=== PATIENT | female | born 1955 | race Caucasian/White ===

== ENCOUNTER 2016-07-22 22:23 | Inpatient (IN) | payer MEDICARE, OTHER ==
[2016-07-22] MEDS ORDERED: ACETAMINOPHEN TAB 325 MG TAB PO STA (22:39)
--- NOTE | 2016-07-22 22:43 | ED ---
General Adult HPI - General Chief complaint: Altered Mental Status Stated complaint: Altered Mental Status Time Seen by Provider: 07/22/16 22:32 Source: patient, RN notes reviewed Mode of arrival: EMS Limitations: altered mental status - History of Present Illness Initial comments: Patient is a pleasant 61-year-old female presenting to the emergency Department with generalized weakness. Patient feels symptoms started a day or 2 ago. Patient is a poor historian. Patient has no known history of fever. Patient is unclear whether or not she is dizzy. No chest pain or dyspnea or cough. No abdominal pain. No urinary complaints. Patient states she just can't walk very well. - Related Data Home Medications Medication Instructions Recorded Confirmed Multivitamins, Thera [Multivitamin] 1 tab PO DAILY 06/03/15 06/07/15 Omeprazole [PriLOSEC] 20 mg PO BID 06/03/15 06/07/15 PARoxetine HCL [Paxil] 40 mg PO DAILY 06/03/15 06/07/15 Pravastatin Sodium [Pravachol] 20 mg PO DAILY 06/03/15 06/07/15 cloZAPine [Clozaril] 100 mg PO DAILY@0800,1500 06/03/15 06/07/15 cloZAPine [Clozaril] 300 mg PO HS 06/03/15 06/07/15 metFORMIN HCL 1,000 mg PO BID 06/03/15 06/07/15 Previous Rx's Medication Instructions Recorded Hydrocodone/Acetaminophen [[place] 1 - 2 each PO Q4HR PRN #30 tab 06/14/15 5-325] Allergies Allergy/AdvReac Type Severity Reaction Status Date / Time propoxyphene napsylate Allergy Unknown Verified 07/22/16 22:41 [From [facility]] Review of Systems ROS Statement: Those systems with pertinent positive or pertinent negative responses have been documented in the HPI. ROS Other: All systems not noted in ROS Statement are negative. Constitutional: Denies: fever Eyes: Denies: eye pain ENT: Denies: ear pain Respiratory: Denies: cough, dyspnea Cardiovascular: Denies: chest pain Endocrine: Reports: fatigue Gastrointestinal: Denies: abdominal pain Genitourinary: Denies: dysuria Musculoskeletal: Denies: back pain Skin: Denies: rash Neurological: Reports: weakness (Generalized). Denies: confusion Past Medical History Past Medical History: Diabetes Mellitus, GERD/Reflux, Hyperlipidemia Additional Past Medical History / Comment(s): RLS, DIARRHEA WITH SOME BLOOD. History of Any Multi-Drug Resistant Organisms: None Reported Past Surgical History: Tubal Ligation Additional Past Surgical History / Comment(s): bronchoscopy Past Anesthesia/Blood Transfusion Reactions: No Reported Reaction Past Psychological History: Anxiety, Depression, Schizophrenia Additional Psychological History / Comment(s): PARANOID SCHIZOPHRENIA Smoking Status: Current every day smoker Past Alcohol Use History: None Reported Additional Past Alcohol Use History / Comment(s): SMOKES 1 PPD OR MORE. STARTED SMOKING AT AGE 27. Past Drug Use History: None Reported - Past Family History Mother Family Medical History: No Reported History General Exam Limitations: altered mental status General appearance: alert, in no apparent distress Head exam: Present: atraumatic Eye exam: Present: normal appearance, PERRL, EOMI ENT exam: Present: normal oropharynx Neck exam: Present: normal inspection Respiratory exam: Present: normal lung sounds bilaterally Cardiovascular Exam: Present: regular rate, normal rhythm GI/Abdominal exam: Present: soft. Absent: tenderness Extremities exam: Present: normal inspection Neurological exam: Present: alert, altered (Patient is oriented 3 however is slow to respond), CN II-XII intact. Absent: motor sensory deficit Psychiatric exam: Present: normal affect, normal mood Skin exam: Absent: rash Course Vital Signs 07/22/16 07/22/16 22:25 22:30 Temperature 100.9 F H Pulse Rate 105 H 114 H Respiratory 16 16 Rate Blood Pressure 110/58 97/51 O2 Sat by Pulse 94 L 96 Oximetry EKG Findings - EKG Comments: EKG Findings:: Sinus tachycardia 114. NE 158. QRS 76. QT 3 or 4. QTC 419. Normal axis. Low QRS voltage. Poor R-wave progression. No acute ST change. Medical Decision Making - Medical Decision Making Patient reexamined and updated. Case discussed with Dr. Galeano, who will admit his patient. Patient meets sepsis criteria. IV antibiotics and fluid bolus given. - Lab Data Result diagrams: 07/22/16 23:00 07/22/16 23:00 Lab Results 07/22/16 07/22/16 07/22/16 Range/Units 23:00 23:00 23:00 WBC 11.6 H (3.8-10.6) k/uL RBC 4.55 (3.80-5.40) m/uL Hgb 12.9 (11.4-16.0) gm/dL Hct 39.5 (34.0-46.0) % MCV 86.9 (80.0-100.0) fL MCH 28.3 (25.0-35.0) pg MCHC 32.6 (31.0-37.0) g/dL RDW 16.0 H (11.5-15.5) % Plt Count 201 (150-450) k/uL Neutrophils % 92 % Lymphocytes % 4 % Monocytes % 3 % Eosinophils % 1 % Basophils % 0 % Neutrophils # 10.6 H (1.3-7.7) k/uL Lymphocytes # 0.4 L (1.0-4.8) k/uL Monocytes # 0.3 (0-1.0) k/uL Eosinophils # 0.1 (0-0.7) k/uL Basophils # 0.0 (0-0.2) k/uL Anisocytosis Slight PT (9.0-12.0) sec INR (<1.1) APTT (22.0-30.0) sec Sodium 137 (137-145) mmol/L Potassium 3.2 L (3.5-5.1) mmol/L Chloride 103 (98-107) mmol/L Carbon Dioxide 24 (22-30) mmol/L Anion Gap 10 mmol/L BUN 17 (7-17) mg/dL Creatinine 0.70 (0.52-1.04) mg/dL Est GFR (MDRD) Af Amer >60 (>60 ml/min/1.73 sqM) Est GFR (MDRD) Non-Af >60 (>60 ml/min/1.73 sqM) Glucose 226 H (74-99) mg/dL Plasma Lactic Acid [place] (0.7-2.0) mmol/L Calcium 8.7 (8.4-10.2) mg/dL Total Bilirubin 0.4 (0.2-1.3) mg/dL AST 15 (14-36) U/L ALT 34 (9-52) U/L Alkaline Phosphatase 138 H (38-126) U/L Total Creatine Kinase 33 (30-135) U/L CK-MB (CK-2) 0.4 (0.0-2.4) ng/mL CK-MB (CK-2) Rel Index 1.2 Troponin I <0.012 (0.000-0.034) ng/mL Total Protein 5.4 L (6.3-8.2) g/dL Albumin 3.3 L (3.5-5.0) g/dL Urine Color Urine Appearance (Clear) Urine pH (5.0-8.0) Ur Specific [place] (1.001-1.035) Urine Protein (Negative) Urine Glucose (UA) (Negative) Urine Ketones (Negative) Urine Blood (Negative) Urine Nitrate (Negative) Urine Bilirubin (Negative) Urine Urobilinogen (<2.0) mg/dL Ur Leukocyte Esterase (Negative) Urine RBC (0-5) /hpf Urine WBC (0-5) /hpf Urine WBC Clumps (None) /hpf Urine Bacteria (None) /hpf Urine Mucus (None) /hpf 07/22/16 07/22/16 07/22/16 Range/Units 23:00 23:00 23:00 WBC (3.8-10.6) k/uL RBC (3.80-5.40) m/uL Hgb (11.4-16.0) gm/dL Hct (34.0-46.0) % MCV (80.0-100.0) fL MCH (25.0-35.0) pg MCHC (31.0-37.0) g/dL RDW (11.5-15.5) % Plt Count (150-450) k/uL Neutrophils % % Lymphocytes % % Monocytes % % Eosinophils % % Basophils % % Neutrophils # (1.3-7.7) k/uL Lymphocytes # (1.0-4.8) k/uL Monocytes # (0-1.0) k/uL Eosinophils # (0-0.7) k/uL Basophils # (0-0.2) k/uL Anisocytosis PT 10.7 (9.0-12.0) sec INR 1.1 (<1.1) APTT 27.6 (22.0-30.0) sec Sodium (137-145) mmol/L Potassium (3.5-5.1) mmol/L Chloride (98-107) mmol/L Carbon Dioxide (22-30) mmol/L Anion Gap mmol/L BUN (7-17) mg/dL Creatinine (0.52-1.04) mg/dL Est GFR (MDRD) Af Amer (>60 ml/min/1.73 sqM) Est GFR (MDRD) Non-Af (>60 ml/min/1.73 sqM) Glucose (74-99) mg/dL Plasma Lactic Acid [place] 1.3 (0.7-2.0) mmol/L Calcium (8.4-10.2) mg/dL Total Bilirubin (0.2-1.3) mg/dL AST (14-36) U/L ALT (9-52) U/L Alkaline Phosphatase (38-126) U/L Total Creatine Kinase (30-135) U/L CK-MB (CK-2) (0.0-2.4) ng/mL CK-MB (CK-2) Rel Index Troponin I (0.000-0.034) ng/mL Total Protein (6.3-8.2) g/dL Albumin (3.5-5.0) g/dL Urine Color Yellow Urine Appearance Cloudy H (Clear) Urine pH 6.0 (5.0-8.0) Ur Specific [place] 1.012 (1.001-1.035) Urine Protein 2+ H (Negative) Urine Glucose (UA) Trace H (Negative) Urine Ketones Negative (Negative) Urine Blood Small H (Negative) Urine Nitrate Positive H (Negative) Urine Bilirubin Negative (Negative) Urine Urobilinogen <2.0 (<2.0) mg/dL Ur Leukocyte Esterase Large H (Negative) Urine RBC 11 H (0-5) /hpf Urine WBC >182 H (0-5) /hpf Urine WBC Clumps Many H (None) /hpf Urine Bacteria Many H (None) /hpf Urine Mucus Rare H (None) /hpf - Radiology Data Interpreted by me: No acute abnormality visualized on computed tomography scan of the brain or chest x-ray by myself. Radiologist interpretation still pending. Critical Care Time Critical Care Time: Yes Total Critical Care Time: 32 Disposition Clinical Impression: UTI (urinary tract infection), Sepsis Disposition: ADMITTED IP TO THIS HOSP Referrals: Christi Galeano MD [Primary Care Provider] - 1-2 days
[2016-07-22 23:28] LABS: Anisocytosis Slight; Basophils % (A) 0 %; CH 28.4; CHCM 32.8; Eosinophils # (A) 0.1 k/uL (0-0.7); Eosinophils % (A) 1 %; HCT 39.5 % (34.0-46.0); HDW 2.63; HGB 12.9 gm/dL (11.4-16.0); Luc % (Auto) 1; Lymphocytes # (A) 0.4 k/uL (1.0-4.8); Lymphocytes % (A) 4 %; MCH 28.3 pg (25.0-35.0); MCHC 32.6 g/dL (31.0-37.0); MCV 86.9 fL (80.0-100.0); Mean Platelet Volume 7.4; Monocytes # (A) 0.3 k/uL (0-1.0); Monocytes % (A) 3 %; Neutrophils # (A) 10.6 k/uL (1.3-7.7); Neutrophils % (A) 92 %; RBC 4.55 m/uL (3.80-5.40); WBC 11.6 k/uL (3.8-10.6); WBC (Perox) 11.61
[2016-07-22 23:29] LABS: Appearance,Urine Cloudy (Clear); Bacteria,Urine Many /hpf; Bilirubin,Urine Negative (Negative); Glucose,Urine (UA) Trace (Negative); Ketones,Urine Negative (Negative); Leukocyte Esterase,Urine Large (Negative); Mucus,Urine Rare /hpf; Nitrite,Urine Positive (Negative); Particle Count 17999; Protein,Urine 2+ (Negative); RBC,Urine 11 /hpf (0-5); Specific Gravity,Urine 1.012 (1.001-1.035); UA Billing (MACRO vs. MICRO) MICRO; Urobilinogen,Urine <2.0 mg/dL (<2.0); WBC,Urine >182 /hpf (0-5)
[2016-07-22] MEDS ORDERED: LEVOFLOXACIN 750MG-D5W PMX 750 MG in DEXTROSE/WATER 1 150ML.BAG IVPB STA (23:36)
[2016-07-22 23:38] LABS: ALT 34 U/L (9-52); AST 15 U/L (14-36); Alkaline Phosphatase 138 U/L (38-126); Anion Gap 10 mmol/L; Blood Urea Nitrogen 17 mg/dL (7-17); Calcium 8.7 mg/dL (8.4-10.2); Carbon Dioxide 24 mmol/L (22-30); Chloride 103 mmol/L (98-107); Glucose 226 mg/dL (74-99); Non-African American GFR(MDRD) >60 (>60 ml/min/1.73 sqM); Potassium 3.2 mmol/L (3.5-5.1); Sodium 137 mmol/L (137-145); Total Bilirubin 0.4 mg/dL (0.2-1.3); Total Protein 5.4 g/dL (6.3-8.2)
[2016-07-22 23:47] LABS: Creatine Kinase 33 U/L (30-135)
[2016-07-23] LABS: Creatine Kinase MB 0.4 ng/mL (0.0-2.4); Troponin I <0.012 ng/mL (0.000-0.034)
[2016-07-23 00:01] LABS: INR 1.1 (<1.1); Partial Thromboplastin Time 27.6 sec (22.0-30.0); Prothrombin Time 10.7 sec (9.0-12.0)
[2016-07-23] MEDS ORDERED: NALOXONE 0.4 MG/ML 1 ML VIAL IV PRN (00:06)
[2016-07-23] MEDS ORDERED: SODIUM CHLORIDE 0.9% 1,000 ML IV STA (00:09)
[2016-07-23] MEDS: SODIUM CHLORIDE 0.9% 1,000 ML IV SCH ×3 (00:16→16:27)
--- NOTE | 2016-07-23 00:26 | XR ---
EXAMINATION TYPE: XR chest 2V DATE OF EXAM: 07/22/2016 11:54 PM COMPARISON: 06/09/2015 HISTORY: Fever TECHNIQUE: Frontal and lateral views of the chest are obtained. FINDINGS: There is mild pulmonary vascular congestion. Mild chronic interstitial lung changes are suggested sarah aterally. There is no focal air space opacity, pleural effusion, or pneumothorax seen. The cardiac silhouette size is within normal limits. The osseous structures are intact. IMPRESSION: 1. Mild chronic lung changes are suggested. 2. No definite focal pneumonia.
--- NOTE | 2016-07-23 00:31 | CT ---
EXAMINATION TYPE: CT brain wo con DATE OF EXAM: 07/22/2016 11:53 PM COMPARISON: NONE HISTORY: AMS CT DLP: 1144.70 mGycm Automated exposure control for dose reduction was used. FINDINGS: The cortical sulci in the left cerebral hemisphere or asymmetrically more prominent compared to right side and is probably chronic asymmetric atrophic changes of brain. Ventricles are slightly prominent in size. There is no acute intracranial hemorrhage, mass effect, or midline shift identified. The globes are intact and the visualized sinuses are clear. IMPRESSION: No acute intracranial hemorrhage, mass effect, or midline shift is seen. Somewhat asymmetric atrophic changes of left brain compared to right. This is probably a benign findi ng and of chronic nature.
[2016-07-23] MEDS ORDERED: IBUPROFEN 800 MG TAB PO STA (01:19)
[2016-07-23] MEDS ORDERED: SODIUM CHLORIDE 0.9% 2,000 ML IV STA (01:19)
[2016-07-23 05:17] LABS: Creatine Kinase 29 U/L (30-135)
[2016-07-23 05:29] LABS: Creatine Kinase MB 0.4 ng/mL (0.0-2.4); Troponin I <0.012 ng/mL (0.000-0.034)
[2016-07-23 07:49] LABS: Glucose,Whole Blood 182 mg/dL (75-99)
--- NOTE | 2016-07-23 09:58 | P.HPIM ---
History of Present Illness H&P Date: 07/23/16 Chief Complaint: Generalized weakness This is a 61-year-old female with a known past medical history of type 2 diabetes mellitus, hyperlipidemia, schizophrenia and nicotine dependence. Patient presented to the emergency room with complaints of overall weakness and some confusion. She was found have evidence of UTI with sepsis. EKG had shown sinus tachycardia with a heart rate of 114. White count was 11.6 and she had a low-grade temp of 100.9. She also had systolic blood pressure in the 80s. She required IV fluid boluses she received a total of 3 L. Lactic acid was is within the normal range at 1.3. Computed tomography scan of the brain done showed no acute changes. It did reveal somewhat asymmetric atrophic changes of left brain compared to rate this is probably benign finding and chronic nature. Patient is currently lying in bed comfortably. There has been improvement in her blood pressure of 109/68 after fluid bolus. Patient denies any chest pain, shortness of breath, nausea or vomiting. Denies any bowel movement changes. Denies any fevers or chills at home. She does admit to having some sweats and some burning with urination for about a week. She also had some hematuria for about a day. She's been started on Levaquin for UTI. And also been given IV fluids. Awaiting urine culture and blood culture results. Chest x-ray showed no acute changes. Review of Systems Please refer to HPI otherwise unremarkable Past Medical History Past Medical History: Diabetes Mellitus, GERD/Reflux, Hyperlipidemia Additional Past Medical History / Comment(s): RLS, DIARRHEA WITH SOME BLOOD. History of Any Multi-Drug Resistant Organisms: None Reported Past Surgical History: Tubal Ligation Additional Past Surgical History / Comment(s): bronchoscopy Past Anesthesia/Blood Transfusion Reactions: No Reported Reaction Past Psychological History: Anxiety, Depression, Schizophrenia Additional Psychological History / Comment(s): PARANOID SCHIZOPHRENIA Smoking Status: Current every day smoker Past Alcohol Use History: None Reported Additional Past Alcohol Use History / Comment(s): SMOKES 1 PPD OR MORE. STARTED SMOKING AT AGE 27. Past Drug Use History: None Reported - Past Family History Mother Family Medical History: No Reported History Medications and Allergies Home Medications Medication Instructions Recorded Confirmed Type Multivitamins, Thera [Multivitamin] 1 tab PO DAILY 06/03/15 07/23/16 History Omeprazole [PriLOSEC] 20 mg PO BID 06/03/15 07/23/16 History PARoxetine HCL [Paxil] 40 mg PO DAILY 06/03/15 07/23/16 History Pravastatin Sodium [Pravachol] 20 mg PO DAILY 06/03/15 07/23/16 History cloZAPine [Clozaril] 100 mg PO BID 06/03/15 07/23/16 History cloZAPine [Clozaril] 300 mg PO HS 06/03/15 07/23/16 History metFORMIN HCL 1,000 mg PO BID 06/03/15 07/23/16 History Allergies Allergy/AdvReac Type Severity Reaction Status Date / Time propoxyphene napsylate Allergy Unknown Verified 07/22/16 22:41 [facility] Physical Exam Vitals: Vital Signs Temp Pulse Pulse Resp BP BP BP 07/23/16 09:03 94 109/68 07/23/16 07:00 98.5 F 88 16 86/49 07/23/16 04:25 97.8 F 86 16 88/51 07/23/16 03:45 98/50 07/23/16 03:21 96.7 F L 100 17 106/64 07/23/16 02:42 98.8 F 94 20 97/52 07/23/16 01:20 98.8 F 100 22 82/54 Pulse Ox 07/23/16 09:03 07/23/16 07:00 95 07/23/16 04:25 97 07/23/16 03:45 07/23/16 03:21 95 07/23/16 02:42 95 07/23/16 01:20 95 Intake and Output 07/22/16 07/23/16 07/23/16 22:59 06:59 14:59 Other: # Voids 1 Weight 79 kg Head normocephalic Neck supple Lungs clear to auscultation bilaterally no wheezing or crackles Heart regular rate and rhythm S1-S2, no rub or gallop Abdomen is soft nontender nondistended positive bowel sounds no hepatosplenomegaly Extremities no edema Neuro alert and orientated to 3 Results CBC & Chem 7: 07/22/16 23:00 07/22/16 23:00 Labs: Abnormal Lab Results - Last 24 Hours (Table) 07/23/16 07/23/16 Range/Units 04:38 07:37 POC Glucose (mg/dL) 182 H (75-99) mg/dL Total Creatine Kinase 29 L (30-135) U/L Thrombosis Risk Factor Assmnt - Choose All That Apply Any of the Below Risk Factors Present?: Yes Each Factor Represents 1 point: Obesity (BMI >25) Other Risk Factors: Yes Each Risk Factor Represents 2 Points: Age 61-74 years Other congenital or acquired thrombophilia - If yes, enter type in comment: No Thrombosis Risk Factor Assessment Total Risk Factor Score: 3 Thrombosis Risk Factor Assessment Level: Moderate Risk Assessment and Plan Plan: 1. UTI with sepsis present on admission: Patient started on IV Levaquin. Check urine culture. Patient criteria for systemic inflammatory response with tachycardia and leukocytosis 2. Acute metabolic encephalopathy secondary to UTI. Computed tomography scan of the brain showed no acute changes. Symptoms have improved. 3. Hypotension on admission improved with IV fluid bolus. Continue normal saline at 125 mL an hour. We'll monitor. 4. Nicotine dependence: Discussed smoking cessation for greater than 3 minutes of less than 10 minutes. Add nicotine patch. 5. History of schizophrenia: Resume psychiatric medications including Clozaril. Patient follows up with psychiatry outpatient 6. Diabetes mellitus type 2: Portable metformin during hospitalization and add sliding scale coverage 7. History of generalized anxiety disorder and depression continue with her Paxil 8. Hyperlipidemia continue Lipitor 9. Hypokalemia on admission. Awaiting repeat potassium level. We'll correct if remains low. GI prophylaxis Pepcid and DVT prophylaxis Lovenox Time with Patient: Greater than 30 (Greater than 50% of the total time spent in counseling and coordination of care. I performed an examination of the patient and discussed their management with the physician Electric Motor Repairman. I have reviewed the Physician Electric Motor Repairman's notes and agree with the documented findings and plan of care)
[2016-07-23] MEDS: IBUPROFEN 600 MG TAB PO PRN (10:12)
[2016-07-23] MEDS: PARoxetine 20 MG TAB PO SCH (10:18)
[2016-07-23] MEDS: cloZAPine 100 MG TAB PO SCH ×3 (10:19→21:10)
[2016-07-23] MEDS: NICOTINE 21MG/24HR PATCH TRANSDERM SCH (10:19)
[2016-07-23] MEDS: MULTIVITAMINS, THERA 1 EACH TAB PO SCH (10:21)
[2016-07-23] MEDS: PRAVASTATIN SODIUM 20 MG TAB PO SCH (10:21)
[2016-07-23] MEDS: ENOXAPARIN 40 MG/0.4 ML SYRINGE SQ SCH (10:22)
[2016-07-23 10:59] LABS: ALT 28 U/L (9-52); AST 12 U/L (14-36); Alkaline Phosphatase 89 U/L (38-126); Anion Gap 10 mmol/L; Blood Urea Nitrogen 13 mg/dL (7-17); Calcium 7.8 mg/dL (8.4-10.2); Carbon Dioxide 23 mmol/L (22-30); Chloride 112 mmol/L (98-107); Glucose 191 mg/dL (74-99); Non-African American GFR(MDRD) >60 (>60 ml/min/1.73 sqM); Potassium 4.7 mmol/L (3.5-5.1); Sodium 145 mmol/L (137-145); Total Bilirubin 0.4 mg/dL (0.2-1.3); Total Protein 5.1 g/dL (6.3-8.2)
[2016-07-23 11:00] LABS: Creatine Kinase 30 U/L (30-135)
[2016-07-23 11:14] LABS: Creatine Kinase MB 0.5 ng/mL (0.0-2.4); Troponin I <0.012 ng/mL (0.000-0.034)
[2016-07-23 11:18] LABS: Basophils % (A) 0 %; HGB 10.9 gm/dL (11.4-16.0); Hypochromasia Moderate; MCHC 31.3 g/dL (31.0-37.0); Neutrophils % (A) 92 %
[2016-07-23 11:22] LABS: CH 27.9; CHCM 30.6; Eosinophils % (A) 0 %; HCT 34.7 % (34.0-46.0); HDW 2.62; Luc # (Auto) 0.17; Luc % (Auto) 1; Lymphocytes # (A) 0.6 k/uL (1.0-4.8); Lymphocytes % (A) 5 %; MCH 28.6 pg (25.0-35.0); MCV 91.5 fL (80.0-100.0); Mean Platelet Volume 7.6; Monocytes # (A) 0.2 k/uL (0-1.0); Monocytes % (A) 1 %; Neutrophils # (A) 11.1 k/uL (1.3-7.7); RBC 3.79 m/uL (3.80-5.40); RDW 15.8 % (11.5-15.5)
[2016-07-23 11:49] LABS: Glucose,Whole Blood 165 mg/dL (75-99)
[2016-07-23 12:23] LABS: Hemoglobin A1C 7.3 % (4.2-6.1)
[2016-07-23] MEDS: FAMOTIDINE 20 MG TAB PO SCH ×2 (12:53→21:10)
[2016-07-23] MEDS: INSULIN LISPRO (humaLOG) 300 UNIT/3 ML VIAL SQ SCH ×3 (12:53→21:36)
[2016-07-23] MEDS: ACETAMINOPHEN TAB 325 MG TAB PO PRN (12:58)
[2016-07-23] MEDS ORDERED: SODIUM CHLORIDE 0.9% 2,000 ML IV ONE (13:26)
[2016-07-23 16:26] LABS: Glucose,Whole Blood 157 mg/dL (75-99)
[2016-07-23] MEDS: PIPERACILLIN-TAZOBACTAM 3.375 GM in DEXTROSE/WATER 1 50ML.BAG IVPB SCH ×2 (16:58→23:58)
--- NOTE | 2016-07-23 17:39 | US ---
EXAMINATION TYPE: US abd limited kidneys/bladder DATE OF EXAM: 07/23/2016 2:46 PM COMPARISON: Prior abdomen ultrasound dated 09 August 2011 CLINICAL HISTORY: UTI, Pyelonephritis. EXAM MEASUREMENTS: Liver Length: 19.9 cm Gallbladder Wall: 0.2 cm CBD: 0.4 cm Right Kidney: 11.8 x 4.9 x 4.4 cm Left Kidney: 12.0 x 5.7 x 5.6 cm Post Void Residual: Post void not done. Pt unable to control bladder ANATOMY: Pancreas: tail not seen because of overlying bowel gas Liver: enlarged Gallbladder: wnl CBD: wnl Right Kidney: wnl Left Kidney: wnl Upper IVC: wnl Bladder: Urinary bladder shows somewhat thickened wall which could be due to outlet obstruction or c ystitis. Bilateral Jets Seen right only IMPRESSION: Correlate to exclude cystitis. Limitations as described. Normal Values: Liver Length: < 16cm wnl, 17-18cm upper limits, >18cm enlarged Spleen Length = < 13cm Renal Length = 9 - 12cm GB Wall: < 0.3cm CBD: < 0.6cm or < 1.0cm post cholecystectomy Bladder Wall: < 0.3cm
[2016-07-23] MEDS ORDERED: LEVOFLOXACIN 750 MG TAB PO SCH (21:00)
[2016-07-23 21:28] LABS: Glucose,Whole Blood 232 mg/dL (75-99)
[2016-07-23] MEDS ORDERED: LEVOFLOXACIN 750MG-D5W PMX 750 MG in DEXTROSE/WATER 1 150ML.BAG IVPB SCH (22:00)
--- NOTE | 2016-07-23 22:19 | P.CNNES ---
History of Present Illness Consult date: 07/23/16 Reason for Consult: Patient with sepsis and altered mental status and muscle jerks. History of Present Illness: This patient is a 61-year-old right-handed white female who was initially admitted to Hospital for evaluation of generalized weakness. Patient has a history of multiple medical issues including history of diabetes mellitus and hyperlipidemia. She also has underlying history of schizophrenia. She is being followed by her psychiatrist for this condition. Patient was brought to the emergency room with increased confusion and weakness. She apparently was not feeling well for at least 4 days prior to admission. She was febrile in the emergency room and was subsequent admitted and found to have a temperature of 102.7. She then became more confused and disoriented. She began having jerky movements and possible Gianluca's. She was given Tylenol and started on IV antibiotic therapy. She was sent for computed tomography scan of the brain which failed to reveal any acute stroke or hemorrhage. The patient is now doing better and is afebrile. The antibody seem to have helped in terms of reducing her septic picture. She is now following simple commands. She was having some muscle jerks which may have been Gianluca's secondary to the acute sepsis. She has no previous history of seizures or traumatic brain injury. She is being treated for her schizophrenia and is currently taking Clazuril. She does seem to be doing better and is following simple commands. Neurology is now been consulted for further evaluation and recommendations. Review of Systems Constitutional: Denies chills, Denies fever Eyes: denies blurred vision, denies pain Ears, nose, mouth and throat: Denies headache, Denies sore throat Cardiovascular: Denies chest pain, Denies shortness of breath Respiratory: Denies cough Gastrointestinal: Denies abdominal pain, Denies diarrhea, Denies nausea, Denies vomiting Genitourinary: Denies dysuria, Denies hematuria Musculoskeletal: Denies myalgias Integumentary: Denies pruritus, Denies rash Neurological: Reports change in mentation, Reports paresthesias, Reports tremors , Denies numbness, Denies weakness Psychiatric: Reports confusion, Denies anxiety, Denies depression Endocrine: Denies fatigue, Denies weight change Past Medical History Past Medical History: Diabetes Mellitus, GERD/Reflux, Hyperlipidemia Additional Past Medical History / Comment(s): RLS, DIARRHEA WITH SOME BLOOD. History of Any Multi-Drug Resistant Organisms: None Reported Past Surgical History: Tubal Ligation Additional Past Surgical History / Comment(s): bronchoscopy Past Anesthesia/Blood Transfusion Reactions: No Reported Reaction Past Psychological History: Anxiety, Depression, Schizophrenia Additional Psychological History / Comment(s): PARANOID SCHIZOPHRENIA Smoking Status: Current every day smoker Past Alcohol Use History: None Reported Additional Past Alcohol Use History / Comment(s): SMOKES 1 PPD OR MORE. STARTED SMOKING AT AGE 27. Past Drug Use History: None Reported - Past Family History Mother Family Medical History: No Reported History Medications and Allergies Home Medications Medication Instructions Recorded Confirmed Type Multivitamins, Thera [Multivitamin] 1 tab PO DAILY 06/03/15 07/23/16 History Omeprazole [PriLOSEC] 20 mg PO BID 06/03/15 07/23/16 History PARoxetine HCL [Paxil] 40 mg PO DAILY 06/03/15 07/23/16 History Pravastatin Sodium [Pravachol] 20 mg PO DAILY 06/03/15 07/23/16 History cloZAPine [Clozaril] 100 mg PO BID 06/03/15 07/23/16 History cloZAPine [Clozaril] 300 mg PO HS 06/03/15 07/23/16 History metFORMIN HCL 1,000 mg PO BID 06/03/15 07/23/16 History rOPINIRole HCL [Requip] 0.5 mg PO HS 07/23/16 07/23/16 History Allergies Allergy/AdvReac Type Severity Reaction Status Date / Time propoxyphene napsylate Allergy Unknown Verified 07/22/16 22:41 [facility] Physical Examination - Vital Signs Vital Signs: Vital Signs Temp Pulse Pulse Pulse Resp BP BP 07/23/16 18:46 98 F 95/62 07/23/16 18:05 97.0 F L 07/23/16 16:30 97.1 F L 95 18 88/63 07/23/16 15:00 99.9 F H 70 20 92/52 07/23/16 12:15 102.7 F H 120 H 22 120/55 07/23/16 09:03 94 109/68 07/23/16 08:00 16 07/23/16 07:00 98.5 F 88 16 86/49 07/23/16 04:25 97.8 F 86 16 88/51 07/23/16 03:45 07/23/16 03:21 96.7 F L 100 17 07/23/16 02:42 98.8 F 94 20 97/52 07/23/16 01:20 98.8 F 100 22 82/54 BP Pulse Ox 07/23/16 18:46 07/23/16 18:05 07/23/16 16:30 97 07/23/16 15:00 95 07/23/16 12:15 92 L 07/23/16 09:03 07/23/16 08:00 07/23/16 07:00 95 07/23/16 04:25 97 07/23/16 03:45 98/50 07/23/16 03:21 106/64 95 07/23/16 02:42 95 07/23/16 01:20 95 Intake and Output 07/23/16 07/23/16 07/23/16 06:59 14:59 22:59 Intake Total 1999 Balance 1999 Intake: IV 1999 Sodium Chloride 0.9% 2, 1999 000 ml @ 999 mls/hr IV . Q2H1M ONE Rx#:[id number] Other: # Voids 1 2 Weight 79 kg - Constitutional General appearance: average body habitus, cooperative - EENT EENT: PERRL, mucous membranes moist - Respiratory Respiratory: lungs clear, normal breath sounds - Cardiovascular Cardiovascular: regular rate, normal S1, normal S2 Extremities: no peripheral edema bilaterally - Gastrointestinal Gastrointestinal: normoactive bowel sounds - Integumentary Integumentary: normal - Neurologic Cranial nerve examination: PERRL, EOMI, VFF, V1/V2/V3 grossly intact, face symmetric, tongue midline, intact gag reflex, intact corneal reflex, normal palatal elevation Speech examination: intact Sensorimotor examination: intact Detailed motor examination: grossly full strength in all extremities Detailed sensory examination: intact Reflex and gait examination: intact Reflexes: 1+: ankle, bicep, knee, tricep - Musculoskeletal Musculoskeletal: no pain - Psychiatric Psychiatric: mood/affect appropriate, cooperative Results - Laboratory Findings CBC and BMP: 07/23/16 10:28 07/23/16 10:28 Abnormal Lab Findings: Abnormal Labs 07/23/16 07/23/16 07/23/16 04:38 07:37 10:28 WBC 12.0 H RBC 3.79 L Hgb 10.9 L RDW 15.8 H Neutrophils # 11.1 H Lymphocytes # 0.6 L Chloride Glucose POC Glucose (mg/dL) 182 H Hemoglobin A1c Plasma Lactic Acid Corona Calcium AST Total Creatine Kinase 29 L Total Protein Albumin 07/23/16 07/23/16 07/23/16 10:28 10:28 11:48 WBC RBC Hgb RDW Neutrophils # Lymphocytes # Chloride 112 H Glucose 191 H POC Glucose (mg/dL) 165 H Hemoglobin A1c 7.3 H Plasma Lactic Acid Corona Calcium 7.8 L AST 12 L Total Creatine Kinase Total Protein 5.1 L Albumin 2.8 L 07/23/16 07/23/16 12:38 16:24 WBC RBC Hgb RDW Neutrophils # Lymphocytes # Chloride Glucose POC Glucose (mg/dL) 157 H Hemoglobin A1c Plasma Lactic Acid Corona 2.6 H* Calcium AST Total Creatine Kinase Total Protein Albumin Assessment and Plan (1) Acute metabolic encephalopathy Status: Acute Code(s): G93.41 - METABOLIC ENCEPHALOPATHY (2) Sepsis Status: Acute Code(s): A41.9 - SEPSIS, UNSPECIFIED ORGANISM (3) UTI (urinary tract infection) Status: Acute Code(s): N39.0 - URINARY TRACT INFECTION, SITE NOT SPECIFIED Plan: This patient is 61-year-old female who was admitted to hospital with altered mental status and generalized weakness. She became septic with high-grade temperature of 102.7. She began having tremors and right first possibly due to severe sepsis. Gender when a computed tomography scan of the brain which was negative for any evidence of acute stroke or hemorrhage. Due to the muscle jerks and questionable seizures neurology was consulted for further evaluation. Patient's neurological examination since admission and treatment with IV antibiotics is much improved. She is following simple commands. We will obtain routine EEG to rule out underlying seizure disorder and/or myoclonus. Her overall prognosis at this time remains guarded. Time with Patient: Greater than 30
[2016-07-23] MEDS ORDERED: FUROSEMIDE 10 MG/ML 2 ML VIAL IV ONE (23:33)
[2016-07-24] MEDS: SODIUM CHLORIDE 0.9% 1,000 ML IV SCH ×5 (00:43→15:35)
[2016-07-24 05:49] LABS: Basophils % (A) 0 %; CHCM 31.6; Eosinophils % (A) 0 %; HCT 37.9 % (34.0-46.0); HDW 2.71; HGB 11.9 gm/dL (11.4-16.0); Hypochromasia Slight; Luc # (Auto) 0.22; Luc % (Auto) 1; Lymphocytes # (A) 0.7 k/uL (1.0-4.8); Lymphocytes % (A) 4 %; MCHC 31.4 g/dL (31.0-37.0); MCV 89.2 fL (80.0-100.0); Mean Platelet Volume 8.7; Monocytes # (A) 0.6 k/uL (0-1.0); Monocytes % (A) 3 %; Neutrophils # (A) 16.7 k/uL (1.3-7.7); Neutrophils % (A) 92 %; RBC 4.24 m/uL (3.80-5.40); RDW 15.9 % (11.5-15.5); WBC 18.3 k/uL (3.8-10.6); WBC (Perox) 19.53
[2016-07-24 06:08] LABS: ALT 47 U/L (9-52); AST 26 U/L (14-36); Alkaline Phosphatase 155 U/L (38-126); Anion Gap 13 mmol/L; Blood Urea Nitrogen 12 mg/dL (7-17); Calcium 8.6 mg/dL (8.4-10.2); Carbon Dioxide 27 mmol/L (22-30); Chloride 107 mmol/L (98-107); Glucose 172 mg/dL (74-99); Non-African American GFR(MDRD) 59 (>60 ml/min/1.73 sqM); Potassium 3.5 mmol/L (3.5-5.1); Sodium 147 mmol/L (137-145); Total Bilirubin 0.4 mg/dL (0.2-1.3); Total Protein 5.8 g/dL (6.3-8.2)
[2016-07-24 06:28] LABS: Glucose,Whole Blood 172 mg/dL (75-99)
[2016-07-24] MEDS: INSULIN LISPRO (humaLOG) 300 UNIT/3 ML VIAL SQ SCH ×4 (06:43→22:44)
[2016-07-24] MEDS: ACETAMINOPHEN TAB 325 MG TAB PO PRN ×2 (08:29→22:43)
[2016-07-24] MEDS: PARoxetine 20 MG TAB PO SCH (08:30)
[2016-07-24] MEDS: MULTIVITAMINS, THERA 1 EACH TAB PO SCH (08:30)
[2016-07-24] MEDS: NICOTINE 21MG/24HR PATCH TRANSDERM SCH (08:30)
[2016-07-24] MEDS: FAMOTIDINE 20 MG TAB PO SCH (08:30)
[2016-07-24] MEDS: cloZAPine 100 MG TAB PO SCH ×3 (08:31→22:43)
[2016-07-24] MEDS: ENOXAPARIN 40 MG/0.4 ML SYRINGE SQ SCH (08:31)
[2016-07-24] MEDS: PIPERACILLIN-TAZOBACTAM 3.375 GM in DEXTROSE/WATER 1 50ML.BAG IVPB SCH ×2 (08:58→15:00)
--- NOTE | 2016-07-24 10:15 | CONS ---
DATE OF CONSULTATION: DATE OF SERVICE: 07/23/2016 REASON FOR CONSULTATION: Sepsis and urinary tract infection. HISTORY OF PRESENT ILLNESS: The patient is a 61-year-old female presenting to the ER at [facility] with chief complaints of generalized weakness. Her symptom has been going on for about a day or two prior to presentation to the hospital. Also having some confusion, the patient subsequently has been evaluated by the ER physician. The patient did have a fever of 100.9 degrees Fahrenheit in the ER. She did have an elevated white count of 12,000. UA was positive. Patient subsequently has been started on Levaquin admitted to hospital; however, on the floor the patient did have a fever of 102 degrees Fahrenheit and did have some shakiness and twitching of movement. Antibiotic was adjusted to Zosyn. I was asked to see the patient for further recommendation. When asked specifically what brought the patient to hospital, she said urinary tract infection. When asked specifically for the symptom, she did say she had some burning and frequency of urine that has been going on for the last few days. Patient denies having any significant hematuria, no suprapubic or flank pain. No nausea, no vomiting or any diarrhea. The oral intake seems to be very poor. Denies having any chest pain or shortness of breath or cough. REVIEW OF SYSTEMS: CONSTITUTIONAL: Positive for weakness and a fever. EYES: No complaint. ENT: No complaint. RESPIRATORY: No complaint. CARDIOVASCULAR: No complaint. GENITOURINARY: As per HPI. GASTROINTESTINAL: No complaint. MUSCULOSKELETAL: No complaint. INTEGUMENTARY: No complaint. PSYCHOLOGIC: No complaint. ENDOCRINE: No complaint. NEUROLOGIC: No complaint. Past medical history significant for diabetes mellitus, gastroesophageal reflux disease, hyperlipidemia, depression and anxiety. PAST SURGICAL HISTORY: Bronchoscopy and tubal ligation. SOCIAL HISTORY: The patient is a current every day smoker. She started smoking at the age of 27, smokes about a pack per day. Denied drinking or drug use. FAMILY HISTORY: No pertinent findings noticed. Allergies to PROPOXYPHENE. Medications currently include the patient is on Levaquin, Zosyn, Tylenol, Clozaril, Lovenox, Pepcid, Motrin, Humalog, Theragran, Narcan, nicotine patch, Paxil, Pravachol, Requip. On examination, her blood pressure is 95/62 with a pulse of 95, temperature 97.1, T-max is 102. She is 97% on 2 L nasal cannula. General description is a middle-age female lying in bed in no distress. No tachypnea or accessory muscle of respiration use. HEENT examination shows slight pallor. No scleral icterus. Oral mucous membrane is dry. NECK: Trachea central. No thyromegaly. LUNGS: Unlabored breathing. Clear to auscultation anteriorly. HEART: S1, S2. Regular rate and rhythm. ABDOMEN; Soft, no tenderness. EXTREMITIES: No edema of the feet. SKIN EXAMINATION: No rash or mass palpable. NEUROLOGICAL: The patient is awake, alert, oriented x2. Mood and affect normal. LABS: Hemoglobin is 10.9, white count 12,000. BUN of 13, creatinine 0.77 . Electrolytes have been normal. Lactic acid 2.6. Urine has been significantly positive. Chest x-ray negative for any pneumonia. DIAGNOSTIC IMPRESSION AND PLAN: Patient with sepsis in a patient who did have a fever of 102 degrees Fahrenheit, had elevated white count, elevated lactic acid source is likely urinary with significantly positive UA as well as urinary symptoms likely from enteric gram-negative pathogen. PLAN: 1. We will obtain ultrasound of the kidneys and bladder area to make sure there is no evidence of any obstructive uropathy or complication. 2. Zosyn 3.375 gram q.8 hours. 3. Aggressive IV fluid. 4. Will follow up on clinical condition and cultures to further adjust the medication if needed. Thank you for this consultation. We will follow this patient along with you. MISBAH
--- NOTE | 2016-07-24 11:02 | P.PN ---
Subjective Principal diagnosis: UTI with sepsis Is a 61-year-old female presented with generalized weakness was found have evidence of a UTI with sepsis. History of immune 18 called on her for jerky movements of her arms and legs with a fever of 102.7. Patient did require transfer to the sixth floor yesterday. And received extra fluid bolus. Neurology and infectious disease are following. Last fever was yesterday afternoon. No fever this morning. Patient still having some discomfort with urinating and lower pelvic tenderness. She did have one positive blood culture for gram-negative bacilli. She's currently on Levaquin and Zosyn. Patient denies any chest pain, shortness of breath, nausea or vomiting. She is having bowel movements. Objective - Vital Signs Vital signs: Vital Signs Temp 98.5 F 07/24/16 08:00 Pulse 99 07/24/16 08:00 Resp 18 07/24/16 08:00 BP 105/59 07/24/16 08:00 Pulse Ox 97 07/24/16 08:00 Intake & Output 07/23/16 07/24/16 07/24/16 18:59 06:59 18:59 Intake Total 2000 180 Output Total 200 Balance 1999 Weight 78.4 kg Intake: IV 2000 Sodium Chloride 0.9% 2, 2000 000 ml @ 999 mls/hr IV . Q2H1M ONE Rx#:[id number] Oral 180 Output: Urine 200 Other: # Voids 2 2 1 - Exam Head normocephalic Neck supple Lungs clear to auscultation bilaterally no wheezing or crackles Heart regular rate and rhythm S1-S2, no rub or gallop Abdomen is soft suprapubic tenderness nondistended positive bowel sounds no hepatosplenomegaly Extremities no edema Neuro alert and orientated to 3 - Labs CBC & Chem 7: 07/24/16 05:38 07/24/16 05:38 Labs: Abnormal Lab Results - Last 24 Hours (Table) 07/23/16 07/23/16 07/23/16 Range/Units 10:28 10:28 10:28 WBC 12.0 H (3.8-10.6) k/uL RBC 3.79 L (3.80-5.40) m/uL Hgb 10.9 L (11.4-16.0) gm/dL RDW 15.8 H (11.5-15.5) % Neutrophils # 11.1 H (1.3-7.7) k/uL Lymphocytes # 0.6 L (1.0-4.8) k/uL Sodium (137-145) mmol/L Chloride 112 H (98-107) mmol/L Glucose 191 H (74-99) mg/dL POC Glucose (mg/dL) (75-99) mg/dL Hemoglobin A1c 7.3 H (4.2-6.1) % Plasma Lactic Acid Corona (0.7-2.0) mmol/L Calcium 7.8 L (8.4-10.2) mg/dL AST 12 L (14-36) U/L Alkaline Phosphatase (38-126) U/L Total Protein 5.1 L (6.3-8.2) g/dL Albumin 2.8 L (3.5-5.0) g/dL 07/23/16 07/23/16 07/23/16 Range/Units 11:48 12:38 16:24 WBC (3.8-10.6) k/uL RBC (3.80-5.40) m/uL Hgb (11.4-16.0) gm/dL RDW (11.5-15.5) % Neutrophils # (1.3-7.7) k/uL Lymphocytes # (1.0-4.8) k/uL Sodium (137-145) mmol/L Chloride (98-107) mmol/L Glucose (74-99) mg/dL POC Glucose (mg/dL) 165 H 157 H (75-99) mg/dL Hemoglobin A1c (4.2-6.1) % Plasma Lactic Acid Corona 2.6 H* (0.7-2.0) mmol/L Calcium (8.4-10.2) mg/dL AST (14-36) U/L Alkaline Phosphatase (38-126) U/L Total Protein (6.3-8.2) g/dL Albumin (3.5-5.0) g/dL 07/23/16 07/24/16 07/24/16 Range/Units 21:16 05:38 05:38 WBC 18.3 H (3.8-10.6) k/uL RBC (3.80-5.40) m/uL Hgb (11.4-16.0) gm/dL RDW 15.9 H (11.5-15.5) % Neutrophils # 16.7 H (1.3-7.7) k/uL Lymphocytes # 0.7 L (1.0-4.8) k/uL Sodium 147 H (137-145) mmol/L Chloride (98-107) mmol/L Glucose 172 H (74-99) mg/dL POC Glucose (mg/dL) 232 H (75-99) mg/dL Hemoglobin A1c (4.2-6.1) % Plasma Lactic Acid Corona (0.7-2.0) mmol/L Calcium (8.4-10.2) mg/dL AST (14-36) U/L Alkaline Phosphatase 155 H (38-126) U/L Total Protein 5.8 L (6.3-8.2) g/dL Albumin 3.1 L (3.5-5.0) g/dL 07/24/16 Range/Units 06:21 WBC (3.8-10.6) k/uL RBC (3.80-5.40) m/uL Hgb (11.4-16.0) gm/dL RDW (11.5-15.5) % Neutrophils # (1.3-7.7) k/uL Lymphocytes # (1.0-4.8) k/uL Sodium (137-145) mmol/L Chloride (98-107) mmol/L Glucose (74-99) mg/dL POC Glucose (mg/dL) 172 H (75-99) mg/dL Hemoglobin A1c (4.2-6.1) % Plasma Lactic Acid Corona (0.7-2.0) mmol/L Calcium (8.4-10.2) mg/dL AST (14-36) U/L Alkaline Phosphatase (38-126) U/L Total Protein (6.3-8.2) g/dL Albumin (3.5-5.0) g/dL Microbiology - Last 24 Hours (Table) 07/23/16 12:38 Blood Culture Gram Stain - Preliminary Blood 07/23/16 12:38 Blood Culture - Preliminary Blood Assessment and Plan Plan: 1. UTI with sepsis present on admission: Patient started on IV Levaquin. Check urine culture. Patient criteria for systemic inflammatory response with tachycardia and leukocytosis. White count has gone up from 12-18.3. Lactic acid level had gone up to 2.6 down to 0.9 2. Acute metabolic encephalopathy secondary to UTI. Computed tomography scan of the brain showed no acute changes. Symptoms have improved. 3. Hypotension on admission improved with IV fluid bolus. Continue normal saline at 125 mL an hour. We'll monitor. 4. Nicotine dependence: Discussed smoking cessation for greater than 3 minutes of less than 10 minutes. Add nicotine patch. 5. History of schizophrenia: Resume psychiatric medications including Clozaril. Patient follows up with psychiatry outpatient 6. Diabetes mellitus type 2: hold metformin during hospitalization and add sliding scale coverage 7. History of generalized anxiety disorder and depression continue with her Paxil 8. Hyperlipidemia continue Lipitor 9. Hypokalemia on admission. Resolved GI prophylaxis Pepcid and DVT prophylaxis Lovenox
[2016-07-24 11:43] LABS: Glucose,Whole Blood 211 mg/dL (75-99)
[2016-07-24 17:08] LABS: Glucose,Whole Blood 214 mg/dL (75-99)
--- NOTE | 2016-07-24 19:33 | P.PN ---
Subjective This patient is a 61 year old female being evaluated for aucte encephalopathy and urinary tract infection. The patient is doing better today. The patient initially presented with symptoms of generalized weakness and was found to have evidence of urinary tract infection. She developed sepsis and had some Reiger' s. There was concern for possibility of underlying seizure activity. She underwent a computed tomography scan of the brain which was negative for any acute changes. She underwent routine EEG today which was reviewed and fails to reveal any evidence of active seizure focus. The patient is being treated with antibiotics for her urinary tract infection. She continues to do well and is had no further episodes of Reiger's or tremors. She does have one positive blood culture for gram-negative bacilli. She is currently on Levaquin and Zosyn. We will continue close neurological follow-up for the patient. Her overall prognosis at this time remains guarded. Objective - Vital Signs Vital signs: Vital Signs Temp 98.5 F 07/24/16 08:00 Pulse 99 07/24/16 08:00 Resp 18 07/24/16 08:00 BP 105/59 07/24/16 08:00 Pulse Ox 97 07/24/16 08:00 Intake & Output 07/23/16 07/24/16 07/24/16 18:59 06:59 18:59 Intake Total 2000 180 Output Total 200 Balance 1999 - Weight 78.4 kg Intake: IV 2000 Sodium Chloride 0.9% 2, 2000 000 ml @ 999 mls/hr IV . Q2H1M ONE Rx#:[id number] Oral 180 Output: Urine 200 Other: # Voids 2 2 1 - Exam Physical examination: PHYSICAL EXAMINATION: Patient is resting comfortably in bed. VITAL SIGNS: Blood pressure is 104/56. Heart rate is [89]. Respiration is [20]. Temperature is [98.1]. HEENT: Head is atraumatic, neck is supple, there were no carotid bruits. CHEST: Lungs are clear to auscultation and percussion. CARDIAC: S1, S2 normal rate and rhythm. There is no murmur. ABDOMEN: Soft and nontender. Bowel sounds are present. EXTREMITIES: There is no pedal edema. Peripheral pulses are present. Neurological examination: Patient has a nonfocal neurological exam. - Labs CBC & Chem 7: 07/24/16 05:38 07/24/16 05:38 Labs: Abnormal Lab Results - Last 24 Hours (Table) 07/23/16 07/23/16 07/24/16 Range/Units 16:24 21:16 05:38 WBC 18.3 H (3.8-10.6) k/uL RDW 15.9 H (11.5-15.5) % Neutrophils # 16.7 H (1.3-7.7) k/uL Lymphocytes # 0.7 L (1.0-4.8) k/uL Sodium (137-145) mmol/L Glucose (74-99) mg/dL POC Glucose (mg/dL) 157 H 232 H (75-99) mg/dL Alkaline Phosphatase (38-126) U/L Total Protein (6.3-8.2) g/dL Albumin (3.5-5.0) g/dL 07/24/16 07/24/16 07/24/16 Range/Units 05:38 06:21 11:41 WBC (3.8-10.6) k/uL RDW (11.5-15.5) % Neutrophils # (1.3-7.7) k/uL Lymphocytes # (1.0-4.8) k/uL Sodium 147 H (137-145) mmol/L Glucose 172 H (74-99) mg/dL POC Glucose (mg/dL) 172 H 211 H (75-99) mg/dL Alkaline Phosphatase 155 H (38-126) U/L Total Protein 5.8 L (6.3-8.2) g/dL Albumin 3.1 L (3.5-5.0) g/dL Microbiology - Last 24 Hours (Table) 07/23/16 12:38 Blood Culture Gram Stain - Preliminary Blood 07/23/16 12:38 Blood Culture - Preliminary Blood Assessment and Plan (1) Acute metabolic encephalopathy Status: Acute Code(s): G93.41 - METABOLIC ENCEPHALOPATHY (2) Sepsis Status: Acute Code(s): A41.9 - SEPSIS, UNSPECIFIED ORGANISM (3) UTI (urinary tract infection) Status: Acute Code(s): N39.0 - URINARY TRACT INFECTION, SITE NOT SPECIFIED Plan: This patient is 61-year-old female who was admitted to hospital with altered mental status and generalized weakness. She became septic with high-grade temperature of 102.7. She began having tremors and rigors possibly due to severe sepsis. She was sent for an urgent computed tomography scan of the brain which was negative for any evidence of acute stroke or hemorrhage. Due to the muscle jerks and questionable seizures neurology was consulted for further evaluation. Patient's neurological examination since admission and treatment with IV antibiotics is much improved. She is currently on a combination of Levaquin and Zosyn. She is being treated for positive blood cultures with gram-negative bacilli. She also has evidence of urinary tract infection. She is following simple commands. We will obtain routine EEG to rule out underlying seizure disorder and/or myoclonus. Patient underwent EEG today which was reviewed. EEG is negative for any evidence for active seizure focus. We will continue close neurological follow-up for the patient during this admission. Her overall prognosis at this time remains guarded.
[2016-07-24 20:36] LABS: Glucose,Whole Blood 203 mg/dL (75-99)
[2016-07-24] MEDS: PRAVASTATIN SODIUM 20 MG TAB PO SCH (22:43)
[2016-07-25] MEDS: FAMOTIDINE 20 MG TAB PO SCH ×3 (03:27→21:22)
[2016-07-25] MEDS: PIPERACILLIN-TAZOBACTAM 3.375 GM in DEXTROSE/WATER 1 50ML.BAG IVPB SCH ×2 (03:29→08:33)
[2016-07-25] MEDS: IBUPROFEN 600 MG TAB PO PRN ×2 (04:37→21:22)
[2016-07-25 06:11] LABS: Anisocytosis Slight; Basophils % (A) 0 %; CH 28.5; Eosinophils % (A) 0 %; HCT 36.8 % (34.0-46.0); HDW 2.65; HGB 11.5 gm/dL (11.4-16.0); Luc # (Auto) 0.24; Luc % (Auto) 3; Lymphocytes # (A) 0.4 k/uL (1.0-4.8); Lymphocytes % (A) 5 %; MCHC 31.3 g/dL (31.0-37.0); MCV 89.6 fL (80.0-100.0); Mean Platelet Volume 8.6; Monocytes # (A) 0.6 k/uL (0-1.0); Monocytes % (A) 6 %; Neutrophils # (A) 7.9 k/uL (1.3-7.7); Neutrophils % (A) 86 %; RBC 4.11 m/uL (3.80-5.40); RDW 16.1 % (11.5-15.5); WBC 9.2 k/uL (3.8-10.6); WBC (Perox) 9.68
[2016-07-25 06:19] LABS: Glucose,Whole Blood 184 mg/dL (75-99)
[2016-07-25 06:25] LABS: ALT 40 U/L (9-52); AST 11 U/L (14-36); Alkaline Phosphatase 179 U/L (38-126); Anion Gap 10 mmol/L; Blood Urea Nitrogen 11 mg/dL (7-17); Carbon Dioxide 25 mmol/L (22-30); Chloride 103 mmol/L (98-107); Glucose 176 mg/dL (74-99); Non-African American GFR(MDRD) >60 (>60 ml/min/1.73 sqM); Potassium 3.1 mmol/L (3.5-5.1); Sodium 138 mmol/L (137-145); Total Bilirubin 0.6 mg/dL (0.2-1.3)
[2016-07-25] MEDS: SODIUM CHLORIDE 0.9% 1,000 ML IV SCH ×2 (06:28→17:31)
[2016-07-25] MEDS: INSULIN LISPRO (humaLOG) 300 UNIT/3 ML VIAL SQ SCH ×4 (06:53→21:23)
--- NOTE | 2016-07-25 07:45 | PN ---
DATE OF SERVICE: 07/24/2016 REASON FOR FOLLOW-UP: Pyelonephritis and gram negative bacteremia. INTERVAL HISTORY: The patient overall feels better and has improved. She is feeling slightly better. Denies significant flank pain. No nausea or vomiting. Denies any chest pain or shortness of breath or cough. No diarrhea. On examination, blood pressure is 104/56 with a pulse of 89, temperature 98.1. She is 97% on 2 liters nasal cannula. General description is a middle-age female up in the bed in no distress. RESPIRATORY SYSTEM: Unlabored breathing. Clear to auscultation anteriorly. HEART: S1, S2. Regular rate and rhythm. ABDOMEN: Soft, no tenderness. LABS: Hemoglobin 11.9, white count up to 18.3 today with a BUN of 12, creatinine 0.95. Ultrasound was negative for any structural abnormality, though was not a good study. Blood cultures with gram negative. Urine gram-negative. DIAGNOSTIC IMPRESSION AND PLAN: Patient with gram-negative bacteremia secondary to gram-negative urinary tract infection, and pyelonephritis. Patient at this time will continue on Zosyn while waiting for the ID and sensitivity of this pathogen. Continue supportive care. MTDD
[2016-07-25] MEDS: cloZAPine 100 MG TAB PO SCH (08:27)
[2016-07-25] MEDS: MULTIVITAMINS, THERA 1 EACH TAB PO SCH (08:27)
[2016-07-25] MEDS: NICOTINE 21MG/24HR PATCH TRANSDERM SCH (08:27)
[2016-07-25] MEDS: ENOXAPARIN 40 MG/0.4 ML SYRINGE SQ SCH (08:27)
[2016-07-25] MEDS: PARoxetine 20 MG TAB PO SCH (08:27)
--- NOTE | 2016-07-25 08:50 | EEG ---
DATE OF SERVICE: 07/24/2016 REFERRING PHYSICIAN: Dr. Galeano CONSULTING INTERPRETING PHYSICIAN: Dr. Cherie Wilson INDICATIONS FOR EXAMINATION: This patient is a 61-year-old female being evaluated for episode of tremors and possible seizure like activity. AGE: 61Y EEG FINDINGS: A routine 21-channel, awake digital EEG recording was accomplished utilizing the 10 to 20 international system with bipolar and referential montages. The background activity in the most alert resting state consists of a low to medium amplitude, fairly well-developed and well sustained 6 to 7 Hz activity over the posterior head regions. This posterior rhythm attenuates to eye opening. There is a small amount of low amplitude 18 to 20 Hz beta activity seen maximally over the anterior head regions. Muscle and movement artifact was observed on a few occasions during the tracing. No activation procedures were performed. No epileptiform discharges were seen. IMPRESSION: This EEG is mildly abnormal in diffuse fashion due to slight slowing of the EEG background. The EEG failed to reveal any focal, lateralized or epileptiform abnormalities. Clinical correlation is recommended.
[2016-07-25] MEDS ORDERED: Potassium Replacement Protocol 1 EACH MISC MISCELLANE PRN (11:20)
[2016-07-25 12:03] LABS: Glucose,Whole Blood 328 mg/dL (75-99)
[2016-07-25 12:07] LABS: ABG HCO3 26 mmol/L (21-25); ABG PCO2 40 mmHg (35-45); ABG PH 7.43 (7.35-7.45); ABG PO2 88 mmHg (83-108); ABG TCO2 27 mmol/L (19-24)
[2016-07-25] MEDS: POTASSIUM CHLORIDE 10 MEQ, LIDOCAINE 2% INJ 10 MG in SODIUM CHLORIDE 0.9% 100 ML IV SCH ×2 (12:47→17:28)
--- NOTE | 2016-07-25 12:50 | CT ---
EXAMINATION TYPE: CT brain wo con DATE OF EXAM: 07/25/2016 12:39 PM COMPARISON: CT brain from 3 days earlier HISTORY: Patient having confusion CT DLP: 1074.4 mGycm. Automated Exposure Control for Dose Reduction was Utilized. TECHNIQUE: CT scan of the head is performed without contrast. FINDINGS: Exam is slightly suboptimal as there is some motion artifact near skull base level. There is no acute intracranial hemorrhage or midline shift identified. There is diffuse ventricular and leroy lcal prominence consistent with diffuse age-related cerebral atrophy. There is low-attenuation in th e periventricular white matter consistent with chronic small vessel ischemic change. The globes are intact and the visualized sinuses are clear. Soft tissue density bilateral external auditory canals felt to reflect cerumen. IMPRESSION: No acute intracranial hemorrhage or midline shift. There is mild diffuse age-related ce rebral atrophy and chronic small vessel ischemic change redemonstrated. No significant change from p rior study.
--- NOTE | 2016-07-25 13:30 | P.PN ---
Subjective Patient was found to be lethargic today. She is arousable to sternal rub. She was able to answer questions but immediately falls back to sleep. There is no obvious neurological deficit. Objective - Vital Signs Vital signs: Vital Signs Temp 98.1 F 07/25/16 08:00 Pulse 91 07/25/16 08:00 Resp 30 H 07/25/16 04:00 BP 112/62 07/25/16 08:00 Pulse Ox 97 07/25/16 08:00 Intake & Output 07/24/16 07/25/16 07/25/16 18:59 06:59 18:59 Intake Total 180 600 100 Output Total 200 0 Balance -20 600 100 Weight 81 kg Intake: Oral 180 600 100 Output: Urine 200 0 Other: # Voids 2 - Exam General: The patient is lethargic Eye: there is normal conjunctiva bilaterally. Neck: The neck is supple, there is no JVD. Cardiovascular: Normal S1-S2, no S3-S4, no murmurs. Respiratory: Lungs clear to auscultation bilaterally Gastrointestinal: Abdomen is soft, nontender Musculoskeletal: There is no pedal edema. Neurological:. Speech is normal. Skin: Skin is warm and dry - Labs CBC & Chem 7: 07/25/16 05:41 07/25/16 05:41 Labs: Abnormal Lab Results - Last 24 Hours (Table) 07/24/16 07/24/16 07/24/16 Range/Units 17:06 20:28 23:05 RDW (11.5-15.5) % Neutrophils # (1.3-7.7) k/uL Lymphocytes # (1.0-4.8) k/uL ABG HCO3 (21-25) mmol/L ABG Total CO2 (19-24) mmol/L Potassium (3.5-5.1) mmol/L Glucose (74-99) mg/dL POC Glucose (mg/dL) 214 H 203 H (75-99) mg/dL Plasma Lactic Acid Corona 0.6 L (0.7-2.0) mmol/L Calcium (8.4-10.2) mg/dL AST (14-36) U/L Alkaline Phosphatase (38-126) U/L Total Protein (6.3-8.2) g/dL Albumin (3.5-5.0) g/dL 07/25/16 07/25/16 07/25/16 Range/Units 05:41 05:41 06:14 RDW 16.1 H (11.5-15.5) % Neutrophils # 7.9 H (1.3-7.7) k/uL Lymphocytes # 0.4 L (1.0-4.8) k/uL ABG HCO3 (21-25) mmol/L ABG Total CO2 (19-24) mmol/L Potassium 3.1 L (3.5-5.1) mmol/L Glucose 176 H (74-99) mg/dL POC Glucose (mg/dL) 184 H (75-99) mg/dL Plasma Lactic Acid Corona (0.7-2.0) mmol/L Calcium 8.0 L (8.4-10.2) mg/dL AST 11 L (14-36) U/L Alkaline Phosphatase 179 H (38-126) U/L Total Protein 5.0 L (6.3-8.2) g/dL Albumin 2.8 L (3.5-5.0) g/dL 07/25/16 07/25/16 Range/Units 11:55 12:02 RDW (11.5-15.5) % Neutrophils # (1.3-7.7) k/uL Lymphocytes # (1.0-4.8) k/uL ABG HCO3 26 H (21-25) mmol/L ABG Total CO2 27 H (19-24) mmol/L Potassium (3.5-5.1) mmol/L Glucose (74-99) mg/dL POC Glucose (mg/dL) 328 H (75-99) mg/dL Plasma Lactic Acid Corona (0.7-2.0) mmol/L Calcium (8.4-10.2) mg/dL AST (14-36) U/L Alkaline Phosphatase (38-126) U/L Total Protein (6.3-8.2) g/dL Albumin (3.5-5.0) g/dL Microbiology - Last 24 Hours (Table) 07/24/16 13:43 Blood Culture Gram Stain - Preliminary Blood 07/23/16 12:38 Blood Culture Gram Stain - Final Blood Blood Culture - Final Escherichia coli 07/24/16 13:43 Blood Culture - Preliminary Blood Assessment and Plan Plan: 1. UTI with sepsis and bacteremia, present on admission: Urine and blood culture growing E. coli. Infectious disease following. Continue IV antibiotic 2. Acute metabolic encephalopathy secondary to UTI. Computed tomography scan of the brain showed no acute changes. Blood gas within acceptable range. 3. Hypotension on presentation: Resolved with IV fluid resuscitation 4. Nicotine dependence: Discussed smoking cessation. Add nicotine patch. 5. History of schizophrenia: On Clozaril at home which will be held secondary to altered mental status and lethargy 6. Diabetes mellitus type 2: hold metformin during hospitalization and add sliding scale coverage 7. History of generalized anxiety disorder and depression continue with her Paxil 8. Hyperlipidemia continue Lipitor 9. Hypokalemia on admission. Replaced by protocol
--- NOTE | 2016-07-25 16:46 | P.PN ---
Subjective This patient is a 61 year old female being evaluated for aucte encephalopathy and urinary tract infection. The patient is doing better today. The patient initially presented with symptoms of generalized weakness and was found to have evidence of urinary tract infection. She developed sepsis and had some rigors. There was concern for possibility of underlying seizure activity. She underwent a computed tomography scan of the brain which was negative for any acute changes. She underwent routine EEG today which was reviewed and fails to reveal any evidence of active seizure focus. The patient is being treated with antibiotics for her urinary tract infection. She continues to do well and is had no further episodes of rigors or tremors. She does have one positive blood culture for gram-negative bacilli. She has positive blood and urine cultures for E. coli. She is currently on Levaquin and Zosyn. Infectious diseases monitoring the patient closely as well. She was somewhat more lethargic today and was sent for repeat computed tomography scan of the brain. CAT scan of the brain reveals no acute intracranial hemorrhage or midline shift. There is mild age-related cerebral atrophy noted. No change from previous CAT scan of the brain was noted. Patient is arousable this evening and does try to answer simple questions. She does have history of underlying schizophrenia and is back on her psychiatric medications for this condition. We will continue close neurological follow-up for the patient. Her overall prognosis at this time remains guarded. Objective - Vital Signs Vital signs: Vital Signs Temp 98.1 F 07/25/16 08:00 Pulse 91 07/25/16 08:00 Resp 30 H 07/25/16 04:00 BP 112/62 07/25/16 08:00 Pulse Ox 97 07/25/16 08:00 Intake & Output 07/24/16 07/25/16 07/25/16 18:59 06:59 18:59 Intake Total 180 600 100 Output Total 200 0 Balance -20 600 100 Weight 81 kg Intake: Oral 180 600 100 Output: Urine 200 0 Other: # Voids 2 - Exam Physical examination: PHYSICAL EXAMINATION: Patient is resting comfortably in bed. VITAL SIGNS: Blood pressure is [112/62]. Heart rate is [91]. Respiration is [20] . Temperature is [98.1]. HEENT: Head is atraumatic, neck is supple, there were no carotid bruits. CHEST: Lungs are clear to auscultation and percussion. CARDIAC: S1, S2 normal rate and rhythm. There is no murmur. ABDOMEN: Soft and nontender. Bowel sounds are present. EXTREMITIES: There is no pedal edema. Peripheral pulses are present. Neurological examination: Patient has a nonfocal neurological exam. - Labs CBC & Chem 7: 07/25/16 05:41 07/25/16 05:41 Labs: Abnormal Lab Results - Last 24 Hours (Table) 07/24/16 07/24/16 07/24/16 Range/Units 17:06 20:28 23:05 RDW (11.5-15.5) % Neutrophils # (1.3-7.7) k/uL Lymphocytes # (1.0-4.8) k/uL ABG HCO3 (21-25) mmol/L ABG Total CO2 (19-24) mmol/L Potassium (3.5-5.1) mmol/L Glucose (74-99) mg/dL POC Glucose (mg/dL) 214 H 203 H (75-99) mg/dL Plasma Lactic Acid Corona 0.6 L (0.7-2.0) mmol/L Calcium (8.4-10.2) mg/dL AST (14-36) U/L Alkaline Phosphatase (38-126) U/L Total Protein (6.3-8.2) g/dL Albumin (3.5-5.0) g/dL 07/25/16 07/25/16 07/25/16 Range/Units 05:41 05:41 06:14 RDW 16.1 H (11.5-15.5) % Neutrophils # 7.9 H (1.3-7.7) k/uL Lymphocytes # 0.4 L (1.0-4.8) k/uL ABG HCO3 (21-25) mmol/L ABG Total CO2 (19-24) mmol/L Potassium 3.1 L (3.5-5.1) mmol/L Glucose 176 H (74-99) mg/dL POC Glucose (mg/dL) 184 H (75-99) mg/dL Plasma Lactic Acid Corona (0.7-2.0) mmol/L Calcium 8.0 L (8.4-10.2) mg/dL AST 11 L (14-36) U/L Alkaline Phosphatase 179 H (38-126) U/L Total Protein 5.0 L (6.3-8.2) g/dL Albumin 2.8 L (3.5-5.0) g/dL 07/25/16 07/25/16 Range/Units 11:55 12:02 RDW (11.5-15.5) % Neutrophils # (1.3-7.7) k/uL Lymphocytes # (1.0-4.8) k/uL ABG HCO3 26 H (21-25) mmol/L ABG Total CO2 27 H (19-24) mmol/L Potassium (3.5-5.1) mmol/L Glucose (74-99) mg/dL POC Glucose (mg/dL) 328 H (75-99) mg/dL Plasma Lactic Acid Corona (0.7-2.0) mmol/L Calcium (8.4-10.2) mg/dL AST (14-36) U/L Alkaline Phosphatase (38-126) U/L Total Protein (6.3-8.2) g/dL Albumin (3.5-5.0) g/dL Microbiology - Last 24 Hours (Table) 07/24/16 13:43 Blood Culture Gram Stain - Preliminary Blood 07/23/16 12:38 Blood Culture Gram Stain - Final Blood Blood Culture - Final Escherichia coli 07/24/16 13:43 Blood Culture - Preliminary Blood Assessment and Plan (1) Acute metabolic encephalopathy Status: Acute Code(s): G93.41 - METABOLIC ENCEPHALOPATHY (2) Sepsis Status: Acute Code(s): A41.9 - SEPSIS, UNSPECIFIED ORGANISM (3) UTI (urinary tract infection) Status: Acute Code(s): N39.0 - URINARY TRACT INFECTION, SITE NOT SPECIFIED Plan: This patient is 61-year-old female who was admitted to hospital with altered mental status and generalized weakness. She became septic with high-grade temperature of 102.7. She began having tremors and rigors possibly due to severe sepsis. She was sent for an urgent computed tomography scan of the brain which was negative for any evidence of acute stroke or hemorrhage. Due to the muscle jerks and questionable seizures neurology was consulted for further evaluation. Patient's neurological examination since admission and treatment with IV antibiotics is much improved. She is currently on a combination of Levaquin and Zosyn. She is being treated for positive blood cultures with gram-negative bacilli. She also has evidence of urinary tract infection. Her urine and blood cultures are positive for E. coli. She continues on IV antibiotics for treatment. Infectious disease is following her closely. She is following simple commands. We did obtain routine EEG to rule out underlying seizure disorder and/or myoclonus. Patient underwent EEG today which was reviewed. EEG is negative for any evidence for active seizure focus. Patient was slightly lethargic today and was sent for repeat computed tomography scan of the brain which came back negative for any acute changes. No change from previous study. She is able to answer questions today and does seem to be near baseline level of function at this time. We will continue close neurological follow-up for the patient during this admission. Her overall prognosis at this time remains guarded.
[2016-07-25 17:19] LABS: Glucose,Whole Blood 147 mg/dL (75-99)
[2016-07-25] MEDS: cefTRIAXone 2,000 MG in SODIUM CHLORIDE 0.9% 100 ML IVPB SCH (17:28)
[2016-07-25 20:59] LABS: Glucose,Whole Blood 165 mg/dL (75-99)
[2016-07-25] MEDS: PRAVASTATIN SODIUM 20 MG TAB PO SCH (21:22)
[2016-07-26] MEDS: SODIUM CHLORIDE 0.9% 1,000 ML IV SCH ×2 (06:08→19:49)
[2016-07-26] MEDS: LEVOFLOXACIN 750 MG TAB PO SCH ×2 (06:09→21:40)
[2016-07-26] MEDS: POTASSIUM CHLORIDE ER 20 MEQ TAB.ER PO SCH ×2 (06:09→07:04)
[2016-07-26] MEDS: INSULIN LISPRO (humaLOG) 300 UNIT/3 ML VIAL SQ SCH ×4 (06:27→21:40)
[2016-07-26 06:38] LABS: Glucose,Whole Blood 129 mg/dL (75-99)
[2016-07-26 07:12] LABS: Anisocytosis Slight; Basophils % (A) 0 %; CH 28.3; CHCM 31.1; Eosinophils # (A) 0.1 k/uL (0-0.7); Eosinophils % (A) 1 %; HCT 36.7 % (34.0-46.0); HDW 2.71; HGB 11.2 gm/dL (11.4-16.0); Hypochromasia Slight; Luc # (Auto) 0.25; Luc % (Auto) 4; Lymphocytes # (A) 0.5 k/uL (1.0-4.8); Lymphocytes % (A) 8 %; MCH 27.9 pg (25.0-35.0); MCHC 30.6 g/dL (31.0-37.0); MCV 91.2 fL (80.0-100.0); Mean Platelet Volume 8.2; Monocytes # (A) 0.4 k/uL (0-1.0); Monocytes % (A) 6 %; Neutrophils # (A) 5.6 k/uL (1.3-7.7); Neutrophils % (A) 81 %; RBC 4.02 m/uL (3.80-5.40); RDW 16.1 % (11.5-15.5); WBC 6.9 k/uL (3.8-10.6); WBC (Perox) 6.89
[2016-07-26 07:17] LABS: ALT 57 U/L (9-52); AST 22 U/L (14-36); Alkaline Phosphatase 253 U/L (38-126); Anion Gap 10 mmol/L; Blood Urea Nitrogen 12 mg/dL (7-17); Carbon Dioxide 23 mmol/L (22-30); Chloride 109 mmol/L (98-107); Glucose 131 mg/dL (74-99); Non-African American GFR(MDRD) >60 (>60 ml/min/1.73 sqM); Potassium 3.5 mmol/L (3.5-5.1); Sodium 142 mmol/L (137-145); Total Bilirubin 0.4 mg/dL (0.2-1.3); Total Protein 4.9 g/dL (6.3-8.2)
[2016-07-26] MEDS: NICOTINE 21MG/24HR PATCH TRANSDERM SCH (08:42)
[2016-07-26] MEDS: MULTIVITAMINS, THERA 1 EACH TAB PO SCH (08:42)
[2016-07-26] MEDS: ENOXAPARIN 40 MG/0.4 ML SYRINGE SQ SCH (08:42)
[2016-07-26] MEDS: PARoxetine 20 MG TAB PO SCH (08:43)
[2016-07-26] MEDS: FAMOTIDINE 20 MG TAB PO SCH ×2 (08:43→19:48)
[2016-07-26] MEDS: ACETAMINOPHEN TAB 325 MG TAB PO PRN (08:46)
[2016-07-26] MEDS: IOHEXOL 350 MG/ML 25 ML BOTTLE (ORAL USE) PO PRN ×2 (08:46→09:37)
[2016-07-26] MEDS: cefTRIAXone 2,000 MG in SODIUM CHLORIDE 0.9% 100 ML IVPB SCH (08:46)
--- NOTE | 2016-07-26 10:05 | PN ---
DATE OF SERVICE: 07/25/2016 Reason for follow-up is E. coli bacteremia secondary to pyelonephritis. INTERVAL HISTORY: The patient did have another fever today of 101.2 degrees Fahrenheit. The patient clinically seems to be doing better though. Denies having any chest pain. Occasional cough. no abdominal pain. No diarrhea. On examination, blood pressure 115/59 with pulse of 99, temperature 97.6. She is 92% on room air. General description is an elderly female lying in bed in no distress. RESPIRATORY SYSTEM: Unlabored breathing. Some coarse breath sounds in the base. HEART: S1, S2 with regular rate and rhythm. ABDOMEN: Soft. No tenderness. LABS: Hemoglobin 11.5, white count 9.2, BUN of 11, creatinine 0.80. Blood culture with an E. coli that is sensitive pathogen. DIAGNOSTIC IMPRESSION AND PLAN: Patient with an Escherichia coli bacteremia. Source is likely urinary as urine has the same pathogen now with some persistent bacteremia. In view of the persistent bacteremia, will go ahead and obtain a CT of abdomen and pelvis with contrast to which no evidence of any abscess. Antibiotics will be adjusted to the Rocephin and Levaquin will be added. Continue supportive care. [facility]
--- NOTE | 2016-07-26 10:48 | CT ---
EXAMINATION TYPE: CT abdomen pelvis wo con DATE OF EXAM: 07/26/2016 10:22 AM HISTORY: fever, abdominal/renal abscess. Abnormal labs with Escherichia coli bacteremia. CT DLP: 372.1 mGycm. Automated Exposure Control for Dose Reduction was Utilized. TECHNIQUE: CT scan of the abdomen and pelvis is performed with oral but without IV contrast. COMPARISON: NONE FINDINGS: Within the limitations of a non-contrast study, the following observations are made. LUNG BASES: Tiny bilateral pleural effusions are present. There is associated compressive atelectasis and/or infiltrate. There is cardiomegaly with tiny pericardial effusion. LIVER/GB: Gallbladder is poorly distended and is thus suboptimally evaluated. PANCREAS: No significant abnormality is seen. SPLEEN: Spleen is mildly enlarged at 13.1 cm on axial image 19. ADRENALS: Nonspecific thickening to both adrenal glands may reflect hyperplasia. KIDNEYS: There is some nonspecific perinephric fluid bilaterally, left is slightly more prominent sandie n right with some increased ill-defined fluid along course of the left ureter. No obstructing renal s tones or hydronephrosis is clearly evident bilaterally. No intraluminal calculus in the bladder is se en. BOWEL: The oral contrast reaches level of the cecum. There is no suspicious small or large bowel dila tation identified. Terminal ileum is within normal limits seen near axial image 52. Moderate fecal ma terial is somewhat prominent in the mid to distal transverse colon with some redundancy identified. S urgical sutures are seen near sigmoid rectal junction on axial image 74. GENITAL ORGANS: No gross abnormality seen. LYMPH NODES: No greater than 1cm abdominal or pelvic lymph nodes are appreciated. OSSEOUS STRUCTURES: No significant abnormality is seen. OTHER: There is thinning and eventration of the anterior abdominal wall containing transverse colonic loop near level of umbilicus. No definitive break in sheath is present to definitively suggest ventr al wall hernia. There is suspected surgery with successful repair. Scar is noted at level of umbilicu s. IMPRESSION: 1. No well-formed fluid collection or abscess is identified. 2. Some ill-defined perinephric fluid is seen bilaterally, left more prominent than right with more i ll-defined fluid along course of the proximal to mid left ureter. This is nonspecific finding. Infect ious process at this level cannot be excluded. 3. Overall nonobstructive bowel gas pattern. Moderate fecal stasis in mid transverse colon is felt pr esent. 4. Tiny bilateral pleural effusions with bibasilar atelectasis and/or infiltrate. Cardiomegaly with t iny pericardial effusion noted.
[2016-07-26 12:01] LABS: Glucose,Whole Blood 255 mg/dL (75-99)
--- NOTE | 2016-07-26 14:01 | P.PN ---
Subjective Patient is doing significantly better today. She is awake and alert. Objective - Vital Signs Vital signs: Vital Signs Temp 100.0 F H 07/26/16 08:00 Pulse 93 07/26/16 08:00 Resp 18 07/26/16 04:00 BP 102/56 07/26/16 08:00 Pulse Ox 98 07/26/16 08:00 Intake & Output 07/25/16 07/26/16 07/26/16 18:59 06:59 18:59 Intake Total 400 600 180 Output Total 400 Balance 400 600 -220 Weight 81.5 kg Intake: Intake, IV Titration 600 Amount Sodium Chloride 0.9% 1, 600 000 ml @ 75 mls/hr IV . [id number] MARIELA Rx#:[id number] Oral 400 180 Output: Urine 400 Other: # Voids 3 1 0 # Bowel Movements 1 1 - Exam General: The patient is lethargic Eye: there is normal conjunctiva bilaterally. Neck: The neck is supple, there is no JVD. Cardiovascular: Normal S1-S2, no S3-S4, no murmurs. Respiratory: Lungs clear to auscultation bilaterally Gastrointestinal: Abdomen is soft, nontender Musculoskeletal: There is no pedal edema. Neurological:. Speech is normal. Skin: Skin is warm and dry - Labs CBC & Chem 7: 07/26/16 06:48 07/26/16 08:03 Labs: Abnormal Lab Results - Last 24 Hours (Table) 07/25/16 07/25/16 07/25/16 Range/Units 16:43 20:42 22:19 Hgb (11.4-16.0) gm/dL MCHC (31.0-37.0) g/dL RDW (11.5-15.5) % Lymphocytes # (1.0-4.8) k/uL Potassium 3.1 L (3.5-5.1) mmol/L Chloride (98-107) mmol/L Glucose (74-99) mg/dL POC Glucose (mg/dL) 147 H 165 H (75-99) mg/dL Calcium (8.4-10.2) mg/dL ALT (9-52) U/L Alkaline Phosphatase (38-126) U/L Total Protein (6.3-8.2) g/dL Albumin (3.5-5.0) g/dL 07/26/16 07/26/16 07/26/16 Range/Units 06:26 06:48 06:48 Hgb 11.2 L (11.4-16.0) gm/dL MCHC 30.6 L (31.0-37.0) g/dL RDW 16.1 H (11.5-15.5) % Lymphocytes # 0.5 L (1.0-4.8) k/uL Potassium (3.5-5.1) mmol/L Chloride 109 H (98-107) mmol/L Glucose 131 H (74-99) mg/dL POC Glucose (mg/dL) 129 H (75-99) mg/dL Calcium 8.0 L (8.4-10.2) mg/dL ALT 57 H (9-52) U/L Alkaline Phosphatase 253 H (38-126) U/L Total Protein 4.9 L (6.3-8.2) g/dL Albumin 2.6 L (3.5-5.0) g/dL 07/26/16 Range/Units 11:59 Hgb (11.4-16.0) gm/dL MCHC (31.0-37.0) g/dL RDW (11.5-15.5) % Lymphocytes # (1.0-4.8) k/uL Potassium (3.5-5.1) mmol/L Chloride (98-107) mmol/L Glucose (74-99) mg/dL POC Glucose (mg/dL) 255 H (75-99) mg/dL Calcium (8.4-10.2) mg/dL ALT (9-52) U/L Alkaline Phosphatase (38-126) U/L Total Protein (6.3-8.2) g/dL Albumin (3.5-5.0) g/dL Microbiology - Last 24 Hours (Table) 07/25/16 05:41 Blood Culture - Preliminary Blood No Growth after 24 hours 07/24/16 13:43 Blood Culture Gram Stain - Preliminary Blood Blood Culture - Preliminary Gram Neg Bacilli 07/23/16 12:38 Blood Culture Gram Stain - Final Blood Blood Culture - Final Escherichia coli Assessment and Plan Plan: 1. UTI with sepsis and bacteremia, present on admission: Urine and blood culture growing E. coli. Persistent bacteremia for 3 days Most likely source is genitourinary. Infectious disease following. Computed tomography scan of the abdomen showed no evidence of abscess or other sources. Continue IV antibiotic With ceftriaxone. Oral Levaquin added by infectious disease. 2. Acute metabolic encephalopathy secondary to UTI. now resolved. Computed tomography scan of the brain showed no acute changes. Blood gas within acceptable range. 3. Hypotension on presentation: Resolved with IV fluid resuscitation 4. Nicotine dependence: Discussed smoking cessation. Add nicotine patch. 5. History of schizophrenia: On Clozaril at home which will be held secondary to altered mental status and lethargy 6. Diabetes mellitus type 2: hold metformin during hospitalization and add sliding scale coverage 7. History of generalized anxiety disorder and depression continue with her Paxil 8. Hyperlipidemia continue Lipitor 9. Hypokalemia on admission. Replaced by protocol
--- NOTE | 2016-07-26 15:55 | P.PN ---
Subjective This patient is a 61 year old female being evaluated for acute encephalopathy and urinary tract infection. The patient is doing better today. The patient initially presented with symptoms of generalized weakness and was found to have evidence of urinary tract infection. She developed sepsis and had some rigors. There was concern for possibility of underlying seizure activity. She underwent a computed tomography scan of the brain which was negative for any acute changes. She underwent routine EEG today which was reviewed and fails to reveal any evidence of active seizure focus. The patient is being treated with antibiotics for her urinary tract infection. She continues to do well and is had no further episodes of rigors or tremors. She does have one positive blood culture for gram-negative bacilli. She has positive blood and urine cultures for E. coli. She is currently on Levaquin and ceftriaxone. Infectious diseases monitoring the patient closely as well. She was somewhat more lethargic today and was sent for repeat computed tomography scan of the brain. CAT scan of the brain reveals no acute intracranial hemorrhage or midline shift. There is mild age-related cerebral atrophy noted. No change from previous CAT scan of the brain was noted. Patient is arousable this evening and does try to answer simple questions. She does have history of underlying schizophrenia and is back on her psychiatric medications for this condition. Patient is much more awake and alert today. As noted computed tomography scan of the abdomen was negative for any evidence of abscess. She does seem to be showing improvement in her overall medical condition since admission. She has a resolving metabolic encephalopathy. We will continue close neurological follow-up for the patient. Her overall prognosis at this time remains guarded. Objective - Vital Signs Vital signs: Vital Signs Temp 98.1 F 07/26/16 12:00 Pulse 83 07/26/16 12:00 Resp 18 07/26/16 04:00 BP 104/60 07/26/16 12:00 Pulse Ox 94 L 07/26/16 12:00 Intake & Output 07/25/16 07/26/16 07/26/16 18:59 06:59 18:59 Intake Total 400 600 180 Output Total 400 Balance 400 600 -220 Weight 81.5 kg Intake: Intake, IV Titration 600 Amount Sodium Chloride 0.9% 1, 600 000 ml @ 75 mls/hr IV . [id number] MARIELA Rx#:[id number] Oral 400 180 Output: Urine 400 Other: # Voids 3 1 0 # Bowel Movements 1 1 - Exam Physical examination: PHYSICAL EXAMINATION: Patient is resting comfortably in bed. VITAL SIGNS: Blood pressure is [104/60]. Heart rate is [83]. Respiration is [18] . Temperature is [98.1]. HEENT: Head is atraumatic, neck is supple, there were no carotid bruits. CHEST: Lungs are clear to auscultation and percussion. CARDIAC: S1, S2 normal rate and rhythm. There is no murmur. ABDOMEN: Soft and nontender. Bowel sounds are present. EXTREMITIES: There is no pedal edema. Peripheral pulses are present. Neurological examination: Patient has a nonfocal neurological exam. Patient is more awake and alert and is following all simple commands. - Labs CBC & Chem 7: 07/26/16 06:48 07/26/16 08:03 Labs: Abnormal Lab Results - Last 24 Hours (Table) 07/25/16 07/25/16 07/25/16 Range/Units 16:43 20:42 22:19 Hgb (11.4-16.0) gm/dL MCHC (31.0-37.0) g/dL RDW (11.5-15.5) % Lymphocytes # (1.0-4.8) k/uL Potassium 3.1 L (3.5-5.1) mmol/L Chloride (98-107) mmol/L Glucose (74-99) mg/dL POC Glucose (mg/dL) 147 H 165 H (75-99) mg/dL Calcium (8.4-10.2) mg/dL ALT (9-52) U/L Alkaline Phosphatase (38-126) U/L Total Protein (6.3-8.2) g/dL Albumin (3.5-5.0) g/dL 07/26/16 07/26/16 07/26/16 Range/Units 06:26 06:48 06:48 Hgb 11.2 L (11.4-16.0) gm/dL MCHC 30.6 L (31.0-37.0) g/dL RDW 16.1 H (11.5-15.5) % Lymphocytes # 0.5 L (1.0-4.8) k/uL Potassium (3.5-5.1) mmol/L Chloride 109 H (98-107) mmol/L Glucose 131 H (74-99) mg/dL POC Glucose (mg/dL) 129 H (75-99) mg/dL Calcium 8.0 L (8.4-10.2) mg/dL ALT 57 H (9-52) U/L Alkaline Phosphatase 253 H (38-126) U/L Total Protein 4.9 L (6.3-8.2) g/dL Albumin 2.6 L (3.5-5.0) g/dL 07/26/16 Range/Units 11:59 Hgb (11.4-16.0) gm/dL MCHC (31.0-37.0) g/dL RDW (11.5-15.5) % Lymphocytes # (1.0-4.8) k/uL Potassium (3.5-5.1) mmol/L Chloride (98-107) mmol/L Glucose (74-99) mg/dL POC Glucose (mg/dL) 255 H (75-99) mg/dL Calcium (8.4-10.2) mg/dL ALT (9-52) U/L Alkaline Phosphatase (38-126) U/L Total Protein (6.3-8.2) g/dL Albumin (3.5-5.0) g/dL Microbiology - Last 24 Hours (Table) 07/25/16 05:41 Blood Culture - Preliminary Blood No Growth after 24 hours 07/24/16 13:43 Blood Culture Gram Stain - Preliminary Blood Blood Culture - Preliminary Gram Neg Bacilli Assessment and Plan (1) Acute metabolic encephalopathy Status: Acute Code(s): G93.41 - METABOLIC ENCEPHALOPATHY (2) Sepsis Status: Acute Code(s): A41.9 - SEPSIS, UNSPECIFIED ORGANISM (3) UTI (urinary tract infection) Status: Acute Code(s): N39.0 - URINARY TRACT INFECTION, SITE NOT SPECIFIED Plan: This patient is 61-year-old female who was admitted to hospital with altered mental status and generalized weakness. She became septic with high-grade temperature of 102.7. She began having tremors and rigors possibly due to severe sepsis. She was sent for an urgent computed tomography scan of the brain which was negative for any evidence of acute stroke or hemorrhage. Due to the muscle jerks and questionable seizures neurology was consulted for further evaluation. Patient's neurological examination since admission and treatment with IV antibiotics is much improved. She is currently on a combination of Levaquin and Zosyn. She is being treated for positive blood cultures with gram-negative bacilli. She also has evidence of urinary tract infection. Her urine and blood cultures are positive for E. coli. She continues on IV antibiotics for treatment. Infectious disease is following her closely. She is following simple commands. We did obtain routine EEG to rule out underlying seizure disorder and/or myoclonus. Patient underwent EEG today which was reviewed. EEG is negative for any evidence for active seizure focus. Patient was slightly lethargic today and was sent for repeat computed tomography scan of the brain which came back negative for any acute changes. No change from previous study. She is able to answer questions today and does seem to be near baseline level of function at this time. She does show significant improvement in mental status today. She is more awake and alert. Computed tomography scan of the abdomen and pelvis came back negative for any evidence of abscess. She is currently on antibiotic therapy including Levaquin and ceftriaxone. Infectious disease also monitoring the patient closely. Patient has a resolving metabolic encephalopathy. We will continue close neurological follow-up for the patient during this admission. Her overall prognosis at this time remains guarded.
[2016-07-26 16:58] LABS: Glucose,Whole Blood 294 mg/dL (75-99)
[2016-07-26] MEDS: PRAVASTATIN SODIUM 20 MG TAB PO SCH (19:49)
[2016-07-26] MEDS: IBUPROFEN 600 MG TAB PO PRN (20:01)
[2016-07-26 20:57] LABS: Glucose,Whole Blood 224 mg/dL (75-99)
[2016-07-27 06:02] LABS: Anisocytosis Slight; Basophils % (A) 0 %; CH 28.2; CHCM 31.5; Eosinophils # (A) 0.2 k/uL (0-0.7); Eosinophils % (A) 2 %; HCT 34.4 % (34.0-46.0); HGB 10.6 gm/dL (11.4-16.0); Hypochromasia Slight; Luc # (Auto) 0.27; Luc % (Auto) 4; Lymphocytes # (A) 0.8 k/uL (1.0-4.8); Lymphocytes % (A) 12 %; MCH 27.7 pg (25.0-35.0); MCHC 30.8 g/dL (31.0-37.0); MCV 90.1 fL (80.0-100.0); Mean Platelet Volume 8.5; Monocytes # (A) 0.6 k/uL (0-1.0); Monocytes % (A) 10 %; Neutrophils # (A) 4.5 k/uL (1.3-7.7); Neutrophils % (A) 72 %; RBC 3.81 m/uL (3.80-5.40); RDW 16.4 % (11.5-15.5); WBC 6.3 k/uL (3.8-10.6)
[2016-07-27 06:12] LABS: ALT 65 U/L (9-52); Alkaline Phosphatase 245 U/L (38-126); Anion Gap 7 mmol/L; Blood Urea Nitrogen 9 mg/dL (7-17); Calcium 8.1 mg/dL (8.4-10.2); Carbon Dioxide 26 mmol/L (22-30); Chloride 113 mmol/L (98-107); Glucose 114 mg/dL (74-99); Non-African American GFR(MDRD) >60 (>60 ml/min/1.73 sqM); Potassium 3.4 mmol/L (3.5-5.1); Sodium 146 mmol/L (137-145); Total Bilirubin 0.2 mg/dL (0.2-1.3); Total Protein 4.6 g/dL (6.3-8.2)
[2016-07-27 06:14] LABS: AST 30 U/L (14-36)
[2016-07-27] MEDS: INSULIN LISPRO (humaLOG) 300 UNIT/3 ML VIAL SQ SCH ×4 (07:03→21:44)
[2016-07-27 07:12] LABS: Glucose,Whole Blood 125 mg/dL (75-99)
[2016-07-27] MEDS: FAMOTIDINE 20 MG TAB PO SCH (09:32)
[2016-07-27] MEDS: MULTIVITAMINS, THERA 1 EACH TAB PO SCH (09:32)
[2016-07-27] MEDS: cefTRIAXone 2,000 MG in SODIUM CHLORIDE 0.9% 100 ML IVPB SCH (09:33)
[2016-07-27] MEDS: NICOTINE 21MG/24HR PATCH TRANSDERM SCH (09:33)
[2016-07-27] MEDS: ENOXAPARIN 40 MG/0.4 ML SYRINGE SQ SCH (09:33)
[2016-07-27] MEDS: PARoxetine 20 MG TAB PO SCH (09:33)
[2016-07-27] MEDS ORDERED: POTASSIUM CHLORIDE 20 MEQ in WATER FOR INJECTION 1 100ML.BAG IVPB STA (10:15)
[2016-07-27 11:57] LABS: Glucose,Whole Blood 138 mg/dL (75-99)
--- NOTE | 2016-07-27 13:28 | P.PN ---
Subjective Is a 61-year-old female presented with generalized weakness was found have evidence of a UTI with sepsis. History of immune 18 called on her for jerky movements of her arms and legs with a fever of 102.7. Patient did require transfer to the sixth floor yesterday. And received extra fluid bolus. Neurology and infectious disease are following. Last fever was yesterday afternoon. No fever this morning. Patient still having some discomfort with urinating and lower pelvic tenderness. She did have one positive blood culture for E. coli. She's currently on Rocephin Patient denies any chest pain, shortness of breath, nausea or vomiting. She is having bowel movements. 07/27/2016 patient lying in bed comfortably. She had been very lethargic over the weekend her Clozaril have been held. She is awake answer questions appropriately. She denies any chest pain or shortness of breath. Denies any nausea or vomiting. Denies any abdominal pain. She has had bowel movements. She still occasionally has burning with urination Objective - Vital Signs Vital signs: Vital Signs Temp 98.7 F 07/27/16 08:00 Pulse 86 07/27/16 08:00 Resp 16 07/27/16 08:00 BP 127/66 07/27/16 08:00 Pulse Ox 91 L 07/27/16 08:00 Intake & Output 07/26/16 07/27/16 07/27/16 18:59 06:59 18:59 Intake Total 660 420 Output Total 400 650 Balance 260 -650 420 Weight 77.6 kg Intake: Oral 660 420 Output: Urine 400 650 Other: Voiding Method Toilet # Voids 3 2 1 # Bowel Movements 2 - Exam Head normocephalic Neck supple Lungs clear to auscultation bilaterally no wheezing or crackles Heart regular rate and rhythm S1-S2, no rub or gallop Abdomen is soft nontender nondistended positive bowel sounds no hepatosplenomegaly Extremities no edema Neuro alert and orientated to 3 - Labs CBC & Chem 7: 07/27/16 05:40 07/27/16 05:40 Labs: Abnormal Lab Results - Last 24 Hours (Table) 07/26/16 07/26/16 07/27/16 Range/Units 16:57 20:38 05:40 Hgb 10.6 L (11.4-16.0) gm/dL MCHC 30.8 L (31.0-37.0) g/dL RDW 16.4 H (11.5-15.5) % Lymphocytes # 0.8 L (1.0-4.8) k/uL Sodium (137-145) mmol/L Potassium (3.5-5.1) mmol/L Chloride (98-107) mmol/L Glucose (74-99) mg/dL POC Glucose (mg/dL) 294 H 224 H (75-99) mg/dL Calcium (8.4-10.2) mg/dL ALT (9-52) U/L Alkaline Phosphatase (38-126) U/L Total Protein (6.3-8.2) g/dL Albumin (3.5-5.0) g/dL 07/27/16 07/27/16 07/27/16 Range/Units 05:40 06:58 11:55 Hgb (11.4-16.0) gm/dL MCHC (31.0-37.0) g/dL RDW (11.5-15.5) % Lymphocytes # (1.0-4.8) k/uL Sodium 146 H (137-145) mmol/L Potassium 3.4 L (3.5-5.1) mmol/L Chloride 113 H (98-107) mmol/L Glucose 114 H (74-99) mg/dL POC Glucose (mg/dL) 125 H 138 H (75-99) mg/dL Calcium 8.1 L (8.4-10.2) mg/dL ALT 65 H (9-52) U/L Alkaline Phosphatase 245 H (38-126) U/L Total Protein 4.6 L (6.3-8.2) g/dL Albumin 2.5 L (3.5-5.0) g/dL Microbiology - Last 24 Hours (Table) 07/25/16 05:41 Blood Culture - Preliminary Blood No Growth after 48 hours 07/24/16 13:43 Blood Culture Gram Stain - Final Blood Blood Culture - Final Escherichia coli Assessment and Plan Plan: 1. UTI with sepsis and bacteremia present on admission: Currently on Rocephin infectious disease is following. Blood cultures and urine culture growing E. coli. computed tomography scan of the abdomen showed no evidence of abscess 2. Acute metabolic encephalopathy secondary to UTI. Computed tomography scan of the brain showed no acute changes. Symptoms have improved. 3. Hypotension on admission improved with IV fluid bolus. Continue normal saline at 125 mL an hour. We'll monitor. 4. Nicotine dependence: Discussed smoking cessation for greater than 3 minutes of less than 10 minutes. Add nicotine patch. 5. History of schizophrenia: Clozaril was discontinued over the weekend due to her being so lethargic. Patient is more awake and alert. We'll resume Clozaril and monitor. 6. Diabetes mellitus type 2: hold metformin during hospitalization and add sliding scale coverage 7. History of generalized anxiety disorder and depression continue with her Paxil 8. Hyperlipidemia continue Lipitor 9. Hypokalemia on admission. Resolved GI prophylaxis Pepcid and DVT prophylaxis Lovenox
--- NOTE | 2016-07-27 15:03 | PN ---
DATE OF SERVICE: 07/26/2016 Reason for followup is E. coli, left-sided pyelonephritis. INTERVAL HISTORY The patient did have low fever this morning; however, overall the fever pattern has improved. Patient denies having any chest pain, shortness of breath, no cough, no abdominal pain or any diarrhea. On examination, blood pressure is 135/60 with a pulse of 91, temperature 98.1, T-max of 100. She is 94% on 2 L nasal cannula. General description is an elderly female, up in the bed in no distress. RESPIRATORY SYSTEM: Unlabored breathing, some coarse breath sounds in the base. No wheeze. HEART: S1, S2, regular rate and rhythm. ABDOMEN: Soft, no tenderness. EXTREMITIES: No edema of the feet. LABS: Hemoglobin 11.1, white count 6.9 with a BUN of 12, creatinine of 0.80, liver enzymes remain to be slightly elevated. The patient did have a CT of the abdomen and pelvis which did show some inflammation around the left kidney. DIAGNOSTIC IMPRESSION AND PLAN: Patient with an Escherichia coli bacteremia, source likely right-sided pyelonephritis. Patient did have a slightly elevated liver enzymes; however, the gallbladder was normal and a CBD normal on the recent ultrasound. Patient currently on Rocephin and likely that will be continued. The patient continued to improve. Plan to finish therapy with oral antibiotics in the form of Cipro. Continue supportive care.
[2016-07-27 16:33] LABS: Glucose,Whole Blood 165 mg/dL (75-99)
[2016-07-27] MEDS: cloZAPine 100 MG TAB PO SCH ×2 (16:37→21:45)
[2016-07-27] MEDS: SODIUM CHLORIDE 0.9% 1,000 ML IV SCH (16:37)
--- NOTE | 2016-07-27 18:48 | PN ---
DATE OF SERVICE: 07/27/2016 Reason for follow-up: E. coli bacteremia secondary to urinary source, right sided pyelonephritis. INTERVAL HISTORY: The patient overall feels better and has improved. No fevers in the last 24 hours. The patient's has been breathing comfortably. Denies having any chest pain. Occasional cough. No abdominal pain. No diarrhea. On examination, blood pressure is 127/56 with a pulse of 86, temperature 98.7. She is 95% on room air. General description is a middle-age female lying in bed in no distress. RESPIRATORY SYSTEM: Unlabored breathing. Coarse breath sounds at the base. No wheeze. HEART: S1, S2. Regular rate and rhythm. ABDOMEN: Soft. No tenderness. LABS: Hemoglobin 10.6, white count 6.3 with a BUN 9, creatinine 0.90. DIAGNOSTIC IMPRESSION AND PLAN: Patient with an Escherichia coli bacteremia secondary to the urinary source with evidence of right-sided pyelonephritis. Patient overall feels better. Has improved. She is currently on Rocephin, plan to finish therapy with p.o. Ceftin 500 mg twice a day for 2 weeks with outpatient follow-up.
[2016-07-27 20:08] LABS: Glucose,Whole Blood 151 mg/dL (75-99)
[2016-07-27] MEDS ORDERED: FAMOTIDINE 20 MG TAB PO STA (20:24)
[2016-07-27] MEDS: PRAVASTATIN SODIUM 20 MG TAB PO SCH (21:46)
--- NOTE | 2016-07-27 21:52 | P.PN ---
Subjective This patient is a 61 year old female being evaluated for acute encephalopathy and urinary tract infection. The patient is doing better today. The patient initially presented with symptoms of generalized weakness and was found to have evidence of urinary tract infection. She developed sepsis and had some rigors. There was concern for possibility of underlying seizure activity. She underwent a computed tomography scan of the brain which was negative for any acute changes. She underwent routine EEG today which was reviewed and fails to reveal any evidence of active seizure focus. The patient is being treated with antibiotics for her urinary tract infection. She continues to do well and is had no further episodes of rigors or tremors. She does have one positive blood culture for gram-negative bacilli. She has positive blood and urine cultures for E. coli. She is currently on Levaquin and ceftriaxone. Infectious diseases monitoring the patient closely as well. She was somewhat more lethargic today and was sent for repeat computed tomography scan of the brain. CAT scan of the brain reveals no acute intracranial hemorrhage or midline shift. There is mild age-related cerebral atrophy noted. No change from previous CAT scan of the brain was noted. Patient is arousable this evening and does try to answer simple questions. She does have history of underlying schizophrenia and is back on her psychiatric medications for this condition. Patient is much more awake and alert today. As noted computed tomography scan of the abdomen was negative for any evidence of abscess. She does seem to be showing improvement in her overall medical condition since admission. She has a resolving metabolic encephalopathy. Neurologically she is more improved in terms of her degree of alertness. She has evidence of an acute metabolic encephalopathy secondary to her urinary tract infection and right-sided pyelonephritis. She is showing improvement on her current antibiotic therapy. We will continue close neurological follow-up for the patient. Her overall prognosis at this time remains guarded. Objective - Vital Signs Vital signs: Vital Signs Temp 97.1 F L 07/27/16 20:00 Pulse 83 07/27/16 20:00 Resp 16 07/27/16 20:00 BP 122/56 07/27/16 20:00 Pulse Ox 97 07/27/16 20:00 Intake & Output 07/27/16 07/27/16 07/28/16 06:59 18:59 06:59 Intake Total 720 Output Total 650 600 Balance -650 120 Weight 77.6 kg Intake: Oral 720 Output: Urine 650 600 Other: Voiding Method Toilet # Voids 2 1 - Exam Physical examination: PHYSICAL EXAMINATION: Patient is resting comfortably in bed. VITAL SIGNS: Blood pressure is [132/80]. Heart rate is [77]. Respiration is [16] . Temperature is [9 97.4]. HEENT: Head is atraumatic, neck is supple, there were no carotid bruits. CHEST: Lungs are clear to auscultation and percussion. CARDIAC: S1, S2 normal rate and rhythm. There is no murmur. ABDOMEN: Soft and nontender. Bowel sounds are present. EXTREMITIES: There is no pedal edema. Peripheral pulses are present. Neurological examination: Patient has a nonfocal neurological exam. Patient is more awake and alert and is following all simple commands. - Labs CBC & Chem 7: 07/27/16 05:40 07/27/16 17:38 Labs: Abnormal Lab Results - Last 24 Hours (Table) 07/27/16 07/27/16 07/27/16 Range/Units 05:40 05:40 06:58 Hgb 10.6 L (11.4-16.0) gm/dL MCHC 30.8 L (31.0-37.0) g/dL RDW 16.4 H (11.5-15.5) % Lymphocytes # 0.8 L (1.0-4.8) k/uL Sodium 146 H (137-145) mmol/L Potassium 3.4 L (3.5-5.1) mmol/L Chloride 113 H (98-107) mmol/L Glucose 114 H (74-99) mg/dL POC Glucose (mg/dL) 125 H (75-99) mg/dL Calcium 8.1 L (8.4-10.2) mg/dL ALT 65 H (9-52) U/L Alkaline Phosphatase 245 H (38-126) U/L Total Protein 4.6 L (6.3-8.2) g/dL Albumin 2.5 L (3.5-5.0) g/dL 07/27/16 07/27/16 07/27/16 Range/Units 11:55 16:31 20:07 Hgb (11.4-16.0) gm/dL MCHC (31.0-37.0) g/dL RDW (11.5-15.5) % Lymphocytes # (1.0-4.8) k/uL Sodium (137-145) mmol/L Potassium (3.5-5.1) mmol/L Chloride (98-107) mmol/L Glucose (74-99) mg/dL POC Glucose (mg/dL) 138 H 165 H 151 H (75-99) mg/dL Calcium (8.4-10.2) mg/dL ALT (9-52) U/L Alkaline Phosphatase (38-126) U/L Total Protein (6.3-8.2) g/dL Albumin (3.5-5.0) g/dL Microbiology - Last 24 Hours (Table) 07/25/16 05:41 Blood Culture - Preliminary Blood No Growth after 48 hours 07/24/16 13:43 Blood Culture Gram Stain - Final Blood Blood Culture - Final Escherichia coli Assessment and Plan (1) Acute metabolic encephalopathy Status: Acute Code(s): G93.41 - METABOLIC ENCEPHALOPATHY (2) Sepsis Status: Acute Code(s): A41.9 - SEPSIS, UNSPECIFIED ORGANISM (3) UTI (urinary tract infection) Status: Acute Code(s): N39.0 - URINARY TRACT INFECTION, SITE NOT SPECIFIED Plan: This patient is 61-year-old female who was admitted to hospital with altered mental status and generalized weakness. She became septic with high-grade temperature of 102.7. She began having tremors and rigors possibly due to severe sepsis. She was sent for an urgent computed tomography scan of the brain which was negative for any evidence of acute stroke or hemorrhage. Due to the muscle jerks and questionable seizures neurology was consulted for further evaluation. Patient's neurological examination since admission and treatment with IV antibiotics is much improved. She is currently on a combination of Levaquin and Zosyn. She is being treated for positive blood cultures with gram-negative bacilli. She also has evidence of urinary tract infection. Her urine and blood cultures are positive for E. coli. She continues on IV antibiotics for treatment. Infectious disease is following her closely. She is following simple commands. We did obtain routine EEG to rule out underlying seizure disorder and/or myoclonus. Patient underwent EEG today which was reviewed. EEG is negative for any evidence for active seizure focus. Patient was slightly lethargic today and was sent for repeat computed tomography scan of the brain which came back negative for any acute changes. No change from previous study. She is able to answer questions today and does seem to be near baseline level of function at this time. She does show significant improvement in mental status today. She is more awake and alert. Computed tomography scan of the abdomen and pelvis came back negative for any evidence of abscess. She is currently on antibiotic therapy including Levaquin and ceftriaxone. Infectious disease also monitoring the patient closely. She has evidence of an acute metabolic encephalopathy secondary to urinary tract infection and right-sided pyelonephritis. Blood cultures are positive for E. coli bacteremia. She does seem to continue to show improvement in her mental status since initial presentation. Patient has a resolving metabolic encephalopathy. We will continue close neurological follow-up for the patient during this admission. Her overall prognosis at this time remains guarded.
[2016-07-28] MEDS: SODIUM CHLORIDE 0.9% 1,000 ML IV SCH ×2 (05:53→12:31)
[2016-07-28 07:06] LABS: Glucose,Whole Blood 135 mg/dL (75-99)
[2016-07-28] MEDS: cloZAPine 100 MG TAB PO SCH ×3 (07:20→20:39)
[2016-07-28] MEDS: cefTRIAXone 2,000 MG in SODIUM CHLORIDE 0.9% 100 ML IVPB SCH (07:20)
[2016-07-28] MEDS: NICOTINE 21MG/24HR PATCH TRANSDERM SCH (07:20)
[2016-07-28] MEDS: ENOXAPARIN 40 MG/0.4 ML SYRINGE SQ SCH (07:21)
[2016-07-28] MEDS: MULTIVITAMINS, THERA 1 EACH TAB PO SCH (07:21)
[2016-07-28] MEDS: FAMOTIDINE 20 MG TAB PO SCH (07:21)
[2016-07-28] MEDS: PARoxetine 20 MG TAB PO SCH (07:21)
[2016-07-28] MEDS: INSULIN LISPRO (humaLOG) 300 UNIT/3 ML VIAL SQ SCH ×4 (07:28→20:40)
[2016-07-28 10:55] LABS: Glucose,Whole Blood 160 mg/dL (75-99)
--- NOTE | 2016-07-28 13:16 | P.PN ---
Subjective Principal diagnosis: Sepsis with positive blood culture, UTI Patient is doing better today, She is complaining of excessive sweating otherwise no complaints at this time She is denying any pain There is no nausea or vomiting no diarrhea No urinary symptoms at this time Objective - Vital Signs Vital signs: Vital Signs Temp 98 F 07/28/16 07:00 Pulse 78 07/28/16 07:00 Resp 18 07/28/16 07:00 BP 125/71 07/28/16 07:00 Pulse Ox 97 07/28/16 07:00 Intake & Output 07/27/16 07/28/16 07/28/16 18:59 06:59 18:59 Intake Total 720 590 Output Total 600 Balance 120 590 Intake: Oral 720 590 Output: Urine 600 Other: Voiding Method Toilet Toilet # Voids 1 2 - Exam HEENT head normocephalic and traumatic Neck is supple no JVD no goiter Chest exam reveals a few scattered crackles no wheezing Cardiac exam reveals regular heart sounds no murmurs Abdomen is soft nontender no organomegaly Extremity exam reveals no edema no cyanosis or clubbing - Labs CBC & Chem 7: 07/27/16 05:40 07/27/16 17:38 Labs: Abnormal Lab Results - Last 24 Hours (Table) 07/27/16 07/27/16 07/28/16 Range/Units 16:31 20:07 06:58 POC Glucose (mg/dL) 165 H 151 H 135 H (75-99) mg/dL 07/28/16 Range/Units 10:53 POC Glucose (mg/dL) 160 H (75-99) mg/dL Microbiology - Last 24 Hours (Table) 07/25/16 05:41 Blood Culture - Preliminary Blood No Growth after 72 hours Assessment and Plan Plan: #1 sepsis was positive blood culture for E. coli #2 urinary tract infection #3 metabolic encephalopathy resolved #4 underlying history of mental illness was is of cranial maintained on Clozaril #5 hypotension on presentation resolved #6 tobacco abuse counseled to quit smoking patient has nicotine patch at this time counseling less than 10 minutes #7 hyperlipidemia continue was Lipitor #8 hypokalemia on presentation corrected Continue was current management currently she is maintained on Rocephin and Levaquin she is improving gradually will follow in a.m.
[2016-07-28 14:42] LABS: ALT 52 U/L (9-52); AST 14 U/L (14-36); Alkaline Phosphatase 213 U/L (38-126); Anion Gap 7 mmol/L; Blood Urea Nitrogen 8 mg/dL (7-17); Calcium 8.7 mg/dL (8.4-10.2); Carbon Dioxide 32 mmol/L (22-30); Chloride 105 mmol/L (98-107); Glucose 160 mg/dL (74-99); Non-African American GFR(MDRD) >60 (>60 ml/min/1.73 sqM); Potassium 3.9 mmol/L (3.5-5.1); Sodium 144 mmol/L (137-145); Total Bilirubin 0.3 mg/dL (0.2-1.3); Total Protein 5.1 g/dL (6.3-8.2)
[2016-07-28 14:44] LABS: Anisocytosis Slight; Basophils # (A) 0.1 k/uL (0-0.2); Basophils % (A) 1 %; CHCM 31.7; Eosinophils # (A) 0.1 k/uL (0-0.7); Eosinophils % (A) 2 %; HCT 34.6 % (34.0-46.0); HDW 2.73; HGB 10.8 gm/dL (11.4-16.0); Hypochromasia Slight; Luc # (Auto) 0.19; Luc % (Auto) 3; Lymphocytes % (A) 16 %; MCH 27.7 pg (25.0-35.0); MCHC 31.2 g/dL (31.0-37.0); MCV 88.8 fL (80.0-100.0); Mean Platelet Volume 8.3; Monocytes # (A) 0.4 k/uL (0-1.0); Monocytes % (A) 7 %; Neutrophils # (A) 4.2 k/uL (1.3-7.7); Neutrophils % (A) 70 %; RBC 3.89 m/uL (3.80-5.40); RDW 16.3 % (11.5-15.5); WBC (Perox) 6.49
[2016-07-28 17:11] LABS: Glucose,Whole Blood 172 mg/dL (75-99)
--- NOTE | 2016-07-28 20:19 | P.PN ---
Subjective This patient is a 61 year old female being evaluated for acute encephalopathy and urinary tract infection. The patient is doing better today. The patient initially presented with symptoms of generalized weakness and was found to have evidence of urinary tract infection. She developed sepsis and had some rigors. There was concern for possibility of underlying seizure activity. She underwent a computed tomography scan of the brain which was negative for any acute changes. She underwent routine EEG today which was reviewed and fails to reveal any evidence of active seizure focus. The patient is being treated with antibiotics for her urinary tract infection. She continues to do well and is had no further episodes of rigors or tremors. She does have one positive blood culture for gram-negative bacilli. She has positive blood and urine cultures for E. coli. She is currently on Levaquin and ceftriaxone. Infectious diseases monitoring the patient closely as well. She was somewhat more lethargic today and was sent for repeat computed tomography scan of the brain. CAT scan of the brain reveals no acute intracranial hemorrhage or midline shift. There is mild age-related cerebral atrophy noted. No change from previous CAT scan of the brain was noted. Patient is arousable this evening and does try to answer simple questions. She does have history of underlying schizophrenia and is back on her psychiatric medications for this condition. Patient is much more awake and alert today. As noted computed tomography scan of the abdomen was negative for any evidence of abscess. She does seem to be showing improvement in her overall medical condition since admission. She has a resolving metabolic encephalopathy. Neurologically she is more improved in terms of her degree of alertness. She has evidence of an acute metabolic encephalopathy secondary to her urinary tract infection and right-sided pyelonephritis. She does have positive blood cultures with E. coli. She is to continue on her current antibiotics which include Levaquin and Rocephin. She is showing improvement on her current antibiotic therapy. We will continue close neurological follow-up for the patient. Her overall prognosis at this time remains guarded. Objective - Vital Signs Vital signs: Vital Signs Temp 97.9 F 07/28/16 14:29 Pulse 79 07/28/16 14:29 Resp 20 07/28/16 14:29 BP 125/64 07/28/16 14:29 Pulse Ox 96 07/28/16 14:29 Intake & Output 07/28/16 07/28/16 07/29/16 06:59 18:59 06:59 Intake Total 590 Balance 590 Intake: Oral 590 Other: Voiding Method Toilet Toilet # Voids 2 1 - Exam Physical examination: PHYSICAL EXAMINATION: Patient is resting comfortably in bed. VITAL SIGNS: Blood pressure is [125/64]. Heart rate is [79]. Respiration is [20] . Temperature is [97.9]. HEENT: Head is atraumatic, neck is supple, there were no carotid bruits. CHEST: Lungs are clear to auscultation and percussion. CARDIAC: S1, S2 normal rate and rhythm. There is no murmur. ABDOMEN: Soft and nontender. Bowel sounds are present. EXTREMITIES: There is no pedal edema. Peripheral pulses are present. Neurological examination: Patient has a nonfocal neurological exam. Patient is more awake and alert and is following all simple commands. - Labs CBC & Chem 7: 07/28/16 14:00 07/28/16 14:00 Labs: Abnormal Lab Results - Last 24 Hours (Table) 07/28/16 07/28/16 07/28/16 Range/Units 06:58 10:53 14:00 Hgb 10.8 L (11.4-16.0) gm/dL RDW 16.3 H (11.5-15.5) % Carbon Dioxide (22-30) mmol/L Glucose (74-99) mg/dL POC Glucose (mg/dL) 135 H 160 H (75-99) mg/dL Alkaline Phosphatase (38-126) U/L Total Protein (6.3-8.2) g/dL Albumin (3.5-5.0) g/dL 07/28/16 07/28/16 Range/Units 14:00 17:07 Hgb (11.4-16.0) gm/dL RDW (11.5-15.5) % Carbon Dioxide 32 H (22-30) mmol/L Glucose 160 H (74-99) mg/dL POC Glucose (mg/dL) 172 H (75-99) mg/dL Alkaline Phosphatase 213 H (38-126) U/L Total Protein 5.1 L (6.3-8.2) g/dL Albumin 2.7 L (3.5-5.0) g/dL Microbiology - Last 24 Hours (Table) 07/25/16 05:41 Blood Culture - Preliminary Blood No Growth after 72 hours Assessment and Plan (1) Acute metabolic encephalopathy Status: Acute Code(s): G93.41 - METABOLIC ENCEPHALOPATHY (2) Sepsis Status: Acute Code(s): A41.9 - SEPSIS, UNSPECIFIED ORGANISM (3) UTI (urinary tract infection) Status: Acute Code(s): N39.0 - URINARY TRACT INFECTION, SITE NOT SPECIFIED Plan: This patient is 61-year-old female who was admitted to hospital with altered mental status and generalized weakness. She became septic with high-grade temperature of 102.7. She began having tremors and rigors possibly due to severe sepsis. She was sent for an urgent computed tomography scan of the brain which was negative for any evidence of acute stroke or hemorrhage. Due to the muscle jerks and questionable seizures neurology was consulted for further evaluation. Patient's neurological examination since admission and treatment with IV antibiotics is much improved. She is currently on a combination of Levaquin and Zosyn. She is being treated for positive blood cultures with gram-negative bacilli. She also has evidence of urinary tract infection. Her urine and blood cultures are positive for E. coli. She continues on IV antibiotics for treatment. Infectious disease is following her closely. She is following simple commands. We did obtain routine EEG to rule out underlying seizure disorder and/or myoclonus. Patient underwent EEG today which was reviewed. EEG is negative for any evidence for active seizure focus. Patient was slightly lethargic today and was sent for repeat computed tomography scan of the brain which came back negative for any acute changes. No change from previous study. She is able to answer questions today and does seem to be near baseline level of function at this time. She does show significant improvement in mental status today. She is more awake and alert. Computed tomography scan of the abdomen and pelvis came back negative for any evidence of abscess. She is currently on antibiotic therapy including Levaquin and ceftriaxone. Infectious disease also monitoring the patient closely. She has evidence of an acute metabolic encephalopathy secondary to urinary tract infection and right-sided pyelonephritis. Blood cultures are positive for E. coli bacteremia. She is currently on combination of Rocephin and Levaquin for antibiotic therapy. She does seem to continue to show improvement in her mental status since initial presentation. Patient has a resolving metabolic encephalopathy. She continues to show improvement in her overall mentation since initial admission assessment. She does have history of underlying psychiatric disorder and continues on her psychiatric medication. We will continue close neurological follow-up for the patient during this admission. Her overall prognosis at this time remains guarded.
[2016-07-28 20:23] LABS: Glucose,Whole Blood 182 mg/dL (75-99)
[2016-07-28] MEDS: PRAVASTATIN SODIUM 20 MG TAB PO SCH (20:40)
[2016-07-28] MEDS: CALCIUM CARBONATE 500 MG CHEWABLE PO PRN (21:49)
--- NOTE | 2016-07-28 21:54 | PN ---
DATE OF SERVICE: 07/28/2016 REASON FOR FOLLOWUP: E coli bacteremia secondary to the urinary source. INTERVAL HISTORY: The patient is afebrile. She has been breathing comfortably; has some occasional cough; not bringing up any sputum. No abdominal pain or any diarrhea. On examination, blood pressure 125/64 with a pulse of 79, temperature 97.9. She is 96% on room air. General description is a middle-aged female lying in bed in no distress. RESPIRATORY SYSTEM: Unlabored breathing. Some coarse breath sounds at the base. No wheeze. HEART: S1, S2. Regular rate and rhythm. ABDOMEN: Soft. No tenderness. LABS: Hemoglobin is 10.8, white count 6.0 with a BUN of 8, creatinine 0.90. DIAGNOSTIC IMPRESSION AND PLAN: Patient with an Escherichia coli bacteremia secondary to urinary source. Patient is currently responding to Rocephin. Her white count has normalized. She is not running any fever. Plan will be to finish therapy with an oral antibiotic, duration of which should be at least 2 weeks. Continue supportive care.
[2016-07-29 07:13] LABS: Glucose,Whole Blood 194 mg/dL (75-99)
[2016-07-29 08:00] LABS: ALT 47 U/L (9-52); AST 13 U/L (14-36); Alkaline Phosphatase 190 U/L (38-126); Anion Gap 9 mmol/L; Blood Urea Nitrogen 7 mg/dL (7-17); Calcium 8.8 mg/dL (8.4-10.2); Carbon Dioxide 29 mmol/L (22-30); Chloride 105 mmol/L (98-107); Glucose 185 mg/dL (74-99); Non-African American GFR(MDRD) >60 (>60 ml/min/1.73 sqM); Potassium 4.3 mmol/L (3.5-5.1); Sodium 143 mmol/L (137-145); Total Bilirubin 0.4 mg/dL (0.2-1.3); Total Protein 5.3 g/dL (6.3-8.2)
[2016-07-29 08:49] LABS: Anisocytosis Slight; Basophils # (A) 0.1 k/uL (0-0.2); Basophils % (A) 1 %; CH 28.1; CHCM 31.4; Eosinophils # (A) 0.1 k/uL (0-0.7); Eosinophils % (A) 2 %; HCT 33.1 % (34.0-46.0); HDW 2.64; HGB 10.4 gm/dL (11.4-16.0); Hypochromasia Slight; Luc # (Auto) 0.21; Luc % (Auto) 3; Lymphocytes % (A) 15 %; MCH 28.2 pg (25.0-35.0); MCHC 31.4 g/dL (31.0-37.0); MCV 89.7 fL (80.0-100.0); Mean Platelet Volume 8.2; Monocytes # (A) 0.5 k/uL (0-1.0); Monocytes % (A) 7 %; Neutrophils # (A) 4.5 k/uL (1.3-7.7); Neutrophils % (A) 71 %; RBC 3.69 m/uL (3.80-5.40); RDW 16.3 % (11.5-15.5); WBC 6.3 k/uL (3.8-10.6); WBC (Perox) 6.42
[2016-07-29] MEDS: INSULIN LISPRO (humaLOG) 300 UNIT/3 ML VIAL SQ SCH ×4 (08:57→21:13)
[2016-07-29] MEDS: cefTRIAXone 2,000 MG in SODIUM CHLORIDE 0.9% 100 ML IVPB SCH (09:02)
[2016-07-29] MEDS: cloZAPine 100 MG TAB PO SCH ×3 (09:04→21:12)
[2016-07-29] MEDS: NICOTINE 21MG/24HR PATCH TRANSDERM SCH (09:04)
[2016-07-29] MEDS: ENOXAPARIN 40 MG/0.4 ML SYRINGE SQ SCH (09:04)
[2016-07-29] MEDS: FAMOTIDINE 20 MG TAB PO SCH ×2 (09:05→21:13)
[2016-07-29] MEDS: MULTIVITAMINS, THERA 1 EACH TAB PO SCH (09:05)
[2016-07-29] MEDS: PARoxetine 20 MG TAB PO SCH (09:06)
[2016-07-29 11:30] LABS: Glucose,Whole Blood 177 mg/dL (75-99)
[2016-07-29] MEDS: SODIUM CHLORIDE 0.9% 1,000 ML IV SCH ×3 (11:33→18:05)
--- NOTE | 2016-07-29 14:56 | PN ---
DATE OF SERVICE: 07/29/2016 Reason for followup is E. coli bacteremia secondary to urinary source with right-sided pyelonephritis. INTERVAL HISTORY: The patient is afebrile. She is feeling slightly better. Breathing comfortably. Patient denies having any significant chest pain or shortness of breath, cough. No abdominal pain or any diarrhea. On examination, blood pressure is 126/56 with pulse of 82, temperature 97.9. She is 96% on room air. General description is a middle-age female, lying in bed in no distress. RESPIRATORY SYSTEM: Unlabored breathing. Clear to auscultation anteriorly. HEART: S1, S2. Regular rate and rhythm. ABDOMEN: Soft, no tenderness. LABS: Hemoglobin 10.4, white count is 6.3 with a BUN of 7, creatinine 0.77. DIAGNOSTIC IMPRESSION AND PLAN: Patient with Escherichia coli bacteremia, source likely urinary. She grew the same organism is the urine which is resistant to Cipro. Patient currently on Rocephin. Plan to finish therapy with p.o. Ceftin. for another 2 weeks with close outpatient followup. [facility], [place]
[2016-07-29] MEDS: CALCIUM CARBONATE 500 MG CHEWABLE PO PRN (15:37)
[2016-07-29 16:59] LABS: Glucose,Whole Blood 135 mg/dL (75-99)
--- NOTE | 2016-07-29 17:30 | P.PN ---
Subjective Principal diagnosis: Sepsis with positive blood culture, UTI Patient is doing better today, She denies any complaint today She is denying any pain There is no nausea or vomiting no diarrhea No urinary symptoms at this time Objective - Vital Signs Vital signs: Vital Signs Temp 98 F 07/29/16 14:53 Pulse 73 07/29/16 15:43 Resp 18 07/29/16 15:43 BP 113/63 07/29/16 14:53 Pulse Ox 95 07/29/16 14:53 Intake & Output 07/28/16 07/29/16 07/29/16 18:59 06:59 18:59 Intake Total 1440 200 Output Total 1800 Balance 1440 -1600 Weight 77.6 kg Intake: Intake, IV Titration 900 Amount Sodium Chloride 0.9% 1, 900 000 ml @ 75 mls/hr IV . [id number] [facility] Rx#:[id number] Oral 540 200 Output: Urine 1800 Other: Voiding Method Toilet Toilet Toilet # Voids 1 3 3 - Exam HEENT head normocephalic and traumatic Neck is supple no JVD no goiter Chest exam reveals a few scattered crackles no wheezing Cardiac exam reveals regular heart sounds no murmurs Abdomen is soft nontender no organomegaly Extremity exam reveals no edema no cyanosis or clubbing - Labs CBC & Chem 7: 07/29/16 07:05 07/29/16 07:05 Labs: Abnormal Lab Results - Last 24 Hours (Table) 07/28/16 07/29/16 07/29/16 Range/Units 20:06 07:05 07:05 RBC 3.69 L (3.80-5.40) m/uL Hgb 10.4 L (11.4-16.0) gm/dL Hct 33.1 L (34.0-46.0) % RDW 16.3 H (11.5-15.5) % Glucose 185 H (74-99) mg/dL POC Glucose (mg/dL) 182 H (75-99) mg/dL AST 13 L (14-36) U/L Alkaline Phosphatase 190 H (38-126) U/L Total Protein 5.3 L (6.3-8.2) g/dL Albumin 2.8 L (3.5-5.0) g/dL 07/29/16 07/29/16 07/29/16 Range/Units 07:10 11:28 16:58 RBC (3.80-5.40) m/uL Hgb (11.4-16.0) gm/dL Hct (34.0-46.0) % RDW (11.5-15.5) % Glucose (74-99) mg/dL POC Glucose (mg/dL) 194 H 177 H 135 H (75-99) mg/dL AST (14-36) U/L Alkaline Phosphatase (38-126) U/L Total Protein (6.3-8.2) g/dL Albumin (3.5-5.0) g/dL Microbiology - Last 24 Hours (Table) 07/25/16 05:41 Blood Culture - Preliminary Blood No Growth after 96 hours Assessment and Plan Plan: #1 sepsis was positive blood culture for E. coli #2 urinary tract infection #3 metabolic encephalopathy resolved #4 underlying history of mental illness was is of cranial maintained on Clozaril #5 hypotension on presentation resolved #6 tobacco abuse counseled to quit smoking patient has nicotine patch at this time counseling less than 10 minutes #7 hyperlipidemia continue was Lipitor #8 hypokalemia on presentation corrected Continue was current management currently she is maintained on Rocephin Plan for discharge tomorrow on Ceftin 500 mg twice daily
--- NOTE | 2016-07-29 18:16 | P.PN ---
Subjective This patient is a 61 year old female being evaluated for acute encephalopathy and urinary tract infection. The patient is doing better today. The patient initially presented with symptoms of generalized weakness and was found to have evidence of urinary tract infection. She developed sepsis and had some rigors. There was concern for possibility of underlying seizure activity. She underwent a computed tomography scan of the brain which was negative for any acute changes. She underwent routine EEG today which was reviewed and fails to reveal any evidence of active seizure focus. The patient is being treated with antibiotics for her urinary tract infection. She continues to do well and is had no further episodes of rigors or tremors. She does have one positive blood culture for gram-negative bacilli. She has positive blood and urine cultures for E. coli. She is currently on Levaquin and ceftriaxone. Infectious diseases monitoring the patient closely as well. She was somewhat earlier and a CAT scan of the brain reveals no acute intracranial hemorrhage or midline shift. There is mild age-related cerebral atrophy noted. No change from previous CAT scan of the brain was noted. She does have history of underlying schizophrenia and is back on her psychiatric medications for this condition. Patient is much more awake and alert today. As noted computed tomography scan of the abdomen was negative for any evidence of abscess. She does seem to be showing improvement in her overall medical condition since admission. She has a resolving metabolic encephalopathy. Neurologically she is more improved in terms of her degree of alertness. She has evidence of an acute metabolic encephalopathy secondary to her urinary tract infection and right-sided pyelonephritis. She does have positive blood cultures with E. coli. She is to continue on her current antibiotics which include Levaquin and Rocephin. She is showing improvement on her current antibiotic therapy. Her overall mental status continues to show improvement daily. She does not appear to be showing any signs of recurrent encephalopathy. Patient is being treated for smoking cessation and has a nicotine patch in place. She is also being treated for hyperlipidemia currently on Lipitor. We will continue close neurological follow -up for the patient. Her overall prognosis at this time remains guarded. Objective - Vital Signs Vital signs: Vital Signs Temp 98 F 07/29/16 14:53 Pulse 73 07/29/16 15:43 Resp 18 07/29/16 15:43 BP 113/63 07/29/16 14:53 Pulse Ox 95 07/29/16 14:53 Intake & Output 0107/29/16 07/29/16 18:59 06:59 18:59 Intake Total 1440 200 Output Total 1800 Balance 1440 -1600 Weight 77.6 kg Intake: Intake, IV Titration 900 Amount Sodium Chloride 0.9% 1, 900 000 ml @ 75 mls/hr IV . [id number] [facility] Rx#:[id number] Oral 540 200 Output: Urine 1800 Other: Voiding Method Toilet Toilet Toilet # Voids 1 3 3 - Exam Physical examination: PHYSICAL EXAMINATION: Patient is resting comfortably in bed. VITAL SIGNS: Blood pressure is [114/63]. Heart rate is [73]. Respiration is [18] . Temperature is [98.0]. HEENT: Head is atraumatic, neck is supple, there were no carotid bruits. CHEST: Lungs are clear to auscultation and percussion. CARDIAC: S1, S2 normal rate and rhythm. There is no murmur. ABDOMEN: Soft and nontender. Bowel sounds are present. EXTREMITIES: There is no pedal edema. Peripheral pulses are present. Neurological examination: Patient has a nonfocal neurological exam. Patient is more awake and alert and is following all simple commands. - Labs CBC & Chem 7: 07/29/16 07:05 07/29/16 07:05 Labs: Abnormal Lab Results - Last 24 Hours (Table) 07/28/16 07/29/16 07/29/16 Range/Units 20:06 07:05 07:05 RBC 3.69 L (3.80-5.40) m/uL Hgb 10.4 L (11.4-16.0) gm/dL Hct 33.1 L (34.0-46.0) % RDW 16.3 H (11.5-15.5) % Glucose 185 H (74-99) mg/dL POC Glucose (mg/dL) 182 H (75-99) mg/dL AST 13 L (14-36) U/L Alkaline Phosphatase 190 H (38-126) U/L Total Protein 5.3 L (6.3-8.2) g/dL Albumin 2.8 L (3.5-5.0) g/dL 07/29/16 07/29/16 07/29/16 Range/Units 07:10 11:28 16:58 RBC (3.80-5.40) m/uL Hgb (11.4-16.0) gm/dL Hct (34.0-46.0) % RDW (11.5-15.5) % Glucose (74-99) mg/dL POC Glucose (mg/dL) 194 H 177 H 135 H (75-99) mg/dL AST (14-36) U/L Alkaline Phosphatase (38-126) U/L Total Protein (6.3-8.2) g/dL Albumin (3.5-5.0) g/dL Microbiology - Last 24 Hours (Table) 07/25/16 05:41 Blood Culture - Preliminary Blood No Growth after 96 hours Assessment and Plan (1) Acute metabolic encephalopathy Status: Acute Code(s): G93.41 - METABOLIC ENCEPHALOPATHY (2) Sepsis Status: Acute Code(s): A41.9 - SEPSIS, UNSPECIFIED ORGANISM (3) UTI (urinary tract infection) Status: Acute Code(s): N39.0 - URINARY TRACT INFECTION, SITE NOT SPECIFIED Plan: This patient is 61-year-old female who was initially admitted for altered mental status and possible TIA versus stroke. She is undergone multiple neuro imaging including 2 CT scans of the brain which a been negative for acute stroke. She is being treated currently for sepsis with positive blood cultures were E. coli. She is currently on antibiotic therapy and seems to be making very good progress. She is being treated for underlying urinary tract infection as well. Patient also has a history of underlying mental illness and is currently back on her psychiatric medication which is Clazuril. She is shown improvement in her overall mental status since admission. She has evidence of a metabolic encephalopathy secondary to urinary tract infection and sepsis. Her neurological exam at this time remains nonfocal. She is to continue on Rocephin and will likely be discharged tomorrow on oral antibiotic therapy. We will continue close neurological follow-up for the patient. Her overall prognosis at this time remains guarded.
[2016-07-29 20:11] LABS: Glucose,Whole Blood 185 mg/dL (75-99)
[2016-07-29] MEDS: PRAVASTATIN SODIUM 20 MG TAB PO SCH (21:13)
[2016-07-30 07:13] LABS: Glucose,Whole Blood 119 mg/dL (75-99)
[2016-07-30 07:41] LABS: Anisocytosis Slight; Basophils # (A) 0.1 k/uL (0-0.2); Basophils % (A) 1 %; CH 27.9; CHCM 31.7; Eosinophils # (A) 0.1 k/uL (0-0.7); Eosinophils % (A) 2 %; HCT 34.4 % (34.0-46.0); HDW 2.62; HGB 10.8 gm/dL (11.4-16.0); Hypochromasia Slight; Luc # (Auto) 0.23; Luc % (Auto) 4; Lymphocytes # (A) 0.9 k/uL (1.0-4.8); Lymphocytes % (A) 14 %; MCH 27.8 pg (25.0-35.0); MCHC 31.4 g/dL (31.0-37.0); MCV 88.5 fL (80.0-100.0); Mean Platelet Volume 7.8; Monocytes # (A) 0.4 k/uL (0-1.0); Monocytes % (A) 6 %; Neutrophils # (A) 4.9 k/uL (1.3-7.7); Neutrophils % (A) 74 %; RBC 3.89 m/uL (3.80-5.40); RDW 16.1 % (11.5-15.5); WBC 6.7 k/uL (3.8-10.6); WBC (Perox) 7.05
[2016-07-30 07:55] LABS: ALT 47 U/L (9-52); AST 11 U/L (14-36); Alkaline Phosphatase 169 U/L (38-126); Anion Gap 9 mmol/L; Blood Urea Nitrogen 11 mg/dL (7-17); Calcium 8.9 mg/dL (8.4-10.2); Carbon Dioxide 32 mmol/L (22-30); Chloride 106 mmol/L (98-107); Glucose 116 mg/dL (74-99); Non-African American GFR(MDRD) >60 (>60 ml/min/1.73 sqM); Sodium 147 mmol/L (137-145); Total Bilirubin 0.4 mg/dL (0.2-1.3); Total Protein 5.4 g/dL (6.3-8.2)
[2016-07-30 08:10] VITALS: BP 120/64; PULSE 76; RESP 18; TEMP 97.1
[2016-07-30] MEDS: INSULIN LISPRO (humaLOG) 300 UNIT/3 ML VIAL SQ SCH ×2 (09:42→12:52)
[2016-07-30] MEDS: MULTIVITAMINS, THERA 1 EACH TAB PO SCH (09:44)
[2016-07-30] MEDS: NICOTINE 21MG/24HR PATCH TRANSDERM SCH (09:44)
[2016-07-30] MEDS: PARoxetine 20 MG TAB PO SCH (09:44)
[2016-07-30] MEDS: cloZAPine 100 MG TAB PO SCH ×2 (09:44→15:52)
[2016-07-30] MEDS: ENOXAPARIN 40 MG/0.4 ML SYRINGE SQ SCH (09:44)
[2016-07-30] MEDS: FAMOTIDINE 20 MG TAB PO SCH (09:45)
[2016-07-30] MEDS: cefTRIAXone 2,000 MG in SODIUM CHLORIDE 0.9% 100 ML IVPB SCH (09:50)
[2016-07-30 10:57] LABS: Glucose,Whole Blood 161 mg/dL (75-99)
--- NOTE | 2016-07-30 11:05 | P.DS ---
Providers Date of admission: 07/23/16 00:06 Expected date of discharge: 07/30/16 Attending physician: Christi Galeano Consults: 07/23/16 13:14 Consult Physician Routine Consulting Provider: Cherie Wilson Consult Reason/Comments: jerky movements of arms and legs Do you want consulting provider notified?: Yes 07/23/16 13:22 Consult Physician Routine Consulting Provider: Maria Esther Valiente Consult Reason/Comments: uti with sepsis Do you want consulting provider notified?: Yes Primary care physician: Christi Galeano [facility] Course: Discharge diagnosis 1. UTI with sepsis and bacteremia present on admission: Currently on Rocephin infectious disease is following. Blood cultures and urine culture growing E. coli. computed tomography scan of the abdomen showed no evidence of abscess. Infectious disease is recommending Ceftin for 2 weeks at time of discharge 2. Acute metabolic encephalopathy secondary to UTI. Computed tomography scan of the brain showed no acute changes. Symptoms have improved. 3. Hypotension on admission improved with IV fluid bolus. Continue normal saline at 125 mL an hour. We'll monitor. 4. Nicotine dependence: Discussed smoking cessation for greater than 3 minutes of less than 10 minutes. Add nicotine patch. 5. History of schizophrenia: Continue Clozaril 6. Diabetes mellitus type 2: hold metformin during hospitalization and add sliding scale coverage 7. History of generalized anxiety disorder and depression continue with her Paxil 8. Hyperlipidemia continue Lipitor 9. Hypokalemia on admission. Resolved Hospital course Is a 61-year-old female presented with generalized weakness was found have evidence of a UTI with sepsis. She was started on IV antibiotics and IV fluids. A team called on her for jerky movements of her arms and legs with a fever of 102.7. Patient did require transfer to the sixth floor yesterday. She was given IV fluids and infectious disease was consulted. She was also found to be bacteremic. Blood culture and urine culture had grown E. coli. She was maintained on IV Rocephin. And now I infectious diseases recommending Ceftin for 2 weeks at time of discharge. Patient's symptoms have improved. She had a computed tomography scan of the abdomen which was negative for any evidence of abscess. She also required a computed tomography scan of the brain which had no acute changes. Her mental status changes were due to a metabolic encephalopathy secondary to her UTI with sepsis. Patient's symptoms have improved she is stable for discharge. Please refer to chart for any further details. Also note that patient was seen by neurology during this admission. She'll follow-up with infectious disease in the outpatient setting in [address] Galeano in 1 week. Patient Condition at Discharge: Stable Plan - Discharge Summary New Discharge Prescriptions: Cefuroxime Axetil [Ceftin] 500 mg PO BID #28 tab Nicotine 21Mg/24Hr Patch [Habitrol] 1 each TRANSDERM DAILY #30 patch Discharge Medication List Multivitamins, Thera [Multivitamin] 1 tab PO DAILY 06/03/15 [History] Omeprazole [PriLOSEC] 20 mg PO BID 06/03/15 [History] PARoxetine HCL [Paxil] 40 mg PO DAILY 06/03/15 [History] Pravastatin Sodium [Pravachol] 20 mg PO DAILY 06/03/15 [History] cloZAPine [Clozaril] 100 mg PO BID 06/03/15 [History] cloZAPine [Clozaril] 300 mg PO HS 06/03/15 [History] metFORMIN HCL 1,000 mg PO BID 06/03/15 [History] rOPINIRole HCL [Requip] 0.5 mg PO HS 07/23/16 [History] Cefuroxime Axetil [Ceftin] 500 mg PO BID #28 tab 07/27/16 [Rx] Nicotine 21Mg/24Hr Patch [Habitrol] 1 each TRANSDERM DAILY #30 patch 07/30/16 [ Rx] Follow up Appointment(s)/Referral(s): [facility], [NON-STAFF] - Christi Galeano MD [Primary Care Provider] - 1-2 days Maria Esther Valiente MD [STAFF PHYSICIAN] - 1 Week Activity/Diet/Wound Care/Special Instructions: Diet: diabetic Activity: as tolerated Discharge Disposition: HOME WITH HOME HEALTH SERVICES
[2016-07-30 11:25] VITALS: BMI 32.3
--- NOTE | 2016-07-30 12:39 | PN ---
DATE OF SERVICE: 07/30/2016 Reason for followup is E. coli UTI and pyelonephritis. INTERVAL HISTORY: The patient is afebrile. She is currently breathing comfortably. Denies having any significant chest pain. Occasional cough. No abdominal pain or any diarrhea. On examination, blood pressure is 120/64 with pulse of 76, temperature 97.1. She is 97% on room air. General description is a middle aged female lying in bed in no distress. RESPIRATORY SYSTEM: Unlabored breathing. Clear to auscultation anteriorly. HEART: S1, S2. Regular rate and rhythm. ABDOMEN: Soft. No tenderness. LABS: Hemoglobin is 10.8, white count 6.7 with a BUN of 11, creatinine 0.75. DIAGNOSTIC IMPRESSION AND PLAN: Patient with an Escherichia coli bacteremia secondary to urinary source. The patient seems to have overall clinical improvement. She will finish therapy with oral Ceftin. Script has been sent to the pharmacy. Will follow up in the office in one week. Continue supportive care.
[2016-07-30] MEDS: SODIUM CHLORIDE 0.9% 1,000 ML IV SCH (12:54)
== END 2016-07-30 16:34 | disposition home health service (06) | DRG 871 ==
LOC: EC 22:23 → 5MS5E 07-23 00:06 → 6SEL 07-23 15:54 → 5MS5E 07-27 17:50
PROVIDERS: ADMIT Internal Medicine; ATTEND Internal Medicine
DX: A41.51 Sepsis due to Escherichia coli [E. coli] (principal); G93.41 Metabolic encephalopathy; F20.0 Paranoid schizophrenia; N12 Tubulo-interstitial nephritis, not specified as acute or chronic; F32.9 Major depressive disorder, single episode, unspecified; E11.9 Type 2 diabetes mellitus without complications; E78.5 Hyperlipidemia, unspecified; E87.6 Hypokalemia; F17.200 Nicotine dependence, unspecified, uncomplicated; F41.1 Generalized anxiety disorder; K21.9 Gastro-esophageal reflux disease without esophagitis; Z16.23 Resistance to quinolones and fluoroquinolones
CPT/HCPCS: 36415; 36600; 70450; 71020; 74176; 76705; 76770; 80053; 81001; 82550; 82553; 82805; 83036; 83605; 84132; 84484; 85025; 85610; 85730; 87040; 87077; 87086; 87186; 93005; 95819; 96361; 96365; 99291

== ENCOUNTER → 2016-11-03 | Outpatient (CLI) | payer MEDICARE, OTHER ==
--- NOTE | 2016-11-04 10:58 | XR ---
EXAMINATION TYPE: XR chest 2V DATE OF EXAM: 11/03/2016 4:06 PM COMPARISON: Prior chest x-ray 22 October 2016 HISTORY: Cough TECHNIQUE: Frontal and lateral views of the chest are obtained. FINDINGS: There is no focal air space opacity, pleural effusion, or pneumothorax seen. The cardiac silhouette size is stable. Patient is rotated. The osseous structures are intact. IMPRESSION: There is improved aeration at the lung bases as compared to prior exam. Heart size may b e accentuated by rotation, cardiomegaly is suspected.
== END | disposition home or self-care (01) ==
LOC: RADXRMAIN 15:52
PROVIDERS: ATTEND Internal Medicine
DX: R05 Cough (principal)
CPT/HCPCS: 71020

== ENCOUNTER → 2017-01-12 | Outpatient (CLI) | payer MEDICARE, OTHER ==
[2017-01-12 17:06] LABS: Anisocytosis Slight; CH 27.9; HCT 38.1 % (34.0-46.0); HDW 2.78; HGB 12.3 gm/dL (11.4-16.0); Hypochromasia Slight; MCH 28.4 pg (25.0-35.0); MCHC 32.3 g/dL (31.0-37.0); MCV 87.7 fL (80.0-100.0); Mean Platelet Volume 7.9; RBC 4.34 m/uL (3.80-5.40); RDW 16.6 % (11.5-15.5); WBC 9.7 k/uL (3.8-10.6)
[2017-01-12 17:09] LABS: ALT 25 U/L (9-52); AST 9 U/L (14-36); Alkaline Phosphatase 92 U/L (38-126); Anion Gap 11 mmol/L; Blood Urea Nitrogen 11 mg/dL (7-17); Calcium 9.5 mg/dL (8.4-10.2); Carbon Dioxide 26 mmol/L (22-30); Chloride 100 mmol/L (98-107); Glucose 140 mg/dL (74-99); Non-African American GFR(MDRD) >60 (>60 ml/min/1.73 sqM); Sodium 137 mmol/L (137-145); Total Bilirubin 0.3 mg/dL (0.2-1.3); Total Protein 6.1 g/dL (6.3-8.2)
== END | disposition home or self-care (01) ==
LOC: LABPAT 16:13
PROVIDERS: ATTEND Surgery
DX: Z01.812 Encounter for preprocedural laboratory examination (principal)
CPT/HCPCS: 36415; 80053; 85027

== ENCOUNTER 2017-01-13 10:09 | Inpatient (IN) | payer MEDICARE, OTHER ==
[2017-01-12 09:07] VITALS: BMI 33.6
[~2017-01-13 10:09] MED LIST: DEXAMETHASONE SOD PHOSPHATE 10 MG/ML 1 ML VIAL IV ONE; HEPARIN SODIUM,PORCINE 5,000 UNIT/ML 1 ML VIAL SQ ONE; LACTATED RINGERS 1,000 ML IV SCH; LIDOCAINE 1% 20 ML VIAL (10MG/ML) FOR IV START INTRADERMA PRN; MIDAZOLAM 2 MG/2 ML VIAL IV PRN; ONDANSETRON 4 MG/2 ML VIAL IVP ONE; SCOPOLAMINE 1.5MG/72HR PATCH TRANSDERM ONE; ceFAZolin 2 GM in SODIUM CHLORIDE 0.9% 100 ML IVPB ONE
[2017-01-13 11:10] LABS: Glucose,Whole Blood 136 mg/dL (75-99)
--- NOTE | 2017-01-13 11:23 | P.GSHP ---
History of Present Illness H&P Date: 01/13/17 Chief Complaint: Incarcerated incisional hernia This a 61-year-old female who presents today for laparoscopic robotic system repair of incarcerated hernia. Patient a previous low anterior section. She developed an incisional hernia at the superior portion of her midline incision. Past Medical History Past Medical History: Diabetes Mellitus, GERD/Reflux, Hyperlipidemia Additional Past Medical History / Comment(s): restless leg syndrome, incisional hernia History of Any Multi-Drug Resistant Organisms: None Reported Past Surgical History: Tonsillectomy, Tubal Ligation Additional Past Surgical History / Comment(s): bronchoscopy, low anterior resection for rectal prolapse Past Anesthesia/Blood Transfusion Reactions: No Reported Reaction Smoking Status: Current every day smoker - Past Family History Sister(s) Family Medical History: Cancer Additional Family Medical History / Comment(s): breast Mother Family Medical History: No Reported History Medications and Allergies Home Medications Medication Instructions Recorded Confirmed Type Omeprazole [PriLOSEC] 20 mg PO BID 06/03/15 01/13/17 History PARoxetine HCL [Paxil] 40 mg PO DAILY 06/03/15 01/13/17 History Pravastatin Sodium [Pravachol] 20 mg PO DAILY 06/03/15 01/13/17 History cloZAPine [Clozaril] 100 mg PO BID@0800,1500 06/03/15 01/13/17 History cloZAPine [Clozaril] 300 mg PO HS 06/03/15 01/12/17 History metFORMIN HCL 1,000 mg PO BID 06/03/15 01/13/17 History Requip 1 tab PO HS 01/12/17 01/13/17 History Allergies Allergy/AdvReac Type Severity Reaction Status Date / Time propoxyphene napsylate AdvReac Nausea Verified 01/13/17 10:42 [From Darkojocet-N] Surgical - Exam Vital Signs Temp Pulse Resp BP Pulse Ox 98.6 F 93 16 118/76 95 01/13/17 10:36 01/13/17 10:36 01/13/17 10:36 01/13/17 10:36 01/13/17 10:36 - General well developed, no distress - Eyes PERRL - ENT normal pinna - Neck no masses - Respiratory normal expansion - Cardiovascular Rhythm: regular - Abdomen Abdomen: soft, non tender Hernia: incisional Results - Labs Abnormal Lab Results - Last 24 Hours (Table) 01/13/17 Range/Units 10:58 POC Glucose (mg/dL) 136 H (75-99) mg/dL Assessment and Plan Plan: Incarcerated Incisional hernia. We'll perform laparoscopic robotic system repair.
[2017-01-13] MEDS ORDERED: BUPIVACAIN-EPI 0.5%-1:200,000 30 ML VIAL SQ ONE (12:19)
[2017-01-13] MEDS ORDERED: LACTATED RINGERS 1,000 ML IV ONE ×4 (13:00→18:33)
--- NOTE | 2017-01-13 13:02 | P.OP ---
Date of Procedure: 01/13/17 Preoperative Diagnosis: Incisional hernia Postoperative Diagnosis: Incisional hernia Procedure(s) Performed: Laparoscopic robotic-assisted repair of incisional hernia Implants: Anesthesia: JESUS ALBERTOA Surgeon: Biju Wong Estimated Blood Loss (ml): 5 Pathology: none sent Condition: stable Disposition: PACU Indications for Procedure: Operative Findings: Description of Procedure: Patient's placed on the operating table in the supine position. She received general anesthesia. The abdomen was prepped and draped usual fashion. The skin incision sites were anesthetized 1% local Xylocaine. Using a 5 mm blade was trocar under direct visitation the peritoneal cavity entered in the left upper quadrant. The abdomen was insufflated and then after adequate insufflation lactulose placed back the pleural cavity and a 8 mm robotic trochars placed a left lower quadrant and a 12 mm robotic trocar was placed in the left lateral position and the original 5 ohmmeter trocar was exchanged for an 8 mm robotic trocar. The patient's placed the left side up position and then docked the robot. The patient's incisional hernia was closed using oh the lock suture and oh strata fixed suture. Next a piece of ventral light ST mesh was secured to the fascia. Into OV lock suture. The patient was undocked from the robot. The needles were retrieved. 12 mm trocar site was closed with 0 Ethibond suture. Skin closed interrupted 3-0 Monocryl suture. Dermabond was applied. Patient sent to recovery in stable condition.
[2017-01-13] MEDS: HYDROmorphone 1 MG/ML 1 ML SYRINGE IVP PRN ×2 (13:52→13:57)
[2017-01-13 14:11] LABS: Glucose,Whole Blood 269 mg/dL (75-99)
[2017-01-13] MEDS ORDERED: INSULIN LISPRO (humaLOG) 300 UNIT/3 ML VIAL SQ ONE (14:13)
[2017-01-13] MEDS ORDERED: ONDANSETRON 4 MG/2 ML VIAL IVP PRN (18:33)
[2017-01-13] MEDS ORDERED: ACETAMINOPHEN TAB 325 MG TAB PO PRN (18:33)
[2017-01-13] MEDS ORDERED: METOCLOPRAMIDE 5 MG/ML 2 ML VIAL IVP PRN (18:33)
[2017-01-13] MEDS ORDERED: NALOXONE 0.4 MG/ML 1 ML VIAL IV PRN (18:33)
[2017-01-13] MEDS ORDERED: HYDROmorphone 1 MG/ML 1 ML SYRINGE IVP PRN (18:33)
[2017-01-13] MEDS: KETOROLAC 30 MG/ML 1 ML VIAL IVP SCH (19:14)
[2017-01-13] MEDS: HYDROcodone/APAP 5-325MG 1 EACH TAB PO PRN (22:08)
[2017-01-13] MEDS: cloZAPine 100 MG TAB PO SCH (22:16)
[2017-01-13] MEDS: PANTOPRAZOLE 40 MG TABLET PO SCH (22:16)
[2017-01-13] MEDS: DOCUSATE 100 MG CAP PO SCH (22:17)
[2017-01-13] MEDS: FAMOTIDINE 20 MG TAB PO SCH (22:17)
[2017-01-14] MEDS: KETOROLAC 30 MG/ML 1 ML VIAL IVP SCH ×3 (01:29→13:39)
[2017-01-14 06:29] LABS: Anisocytosis Slight; Basophils % (A) 0 %; CH 27.7; CHCM 31.4; Eosinophils % (A) 0 %; HCT 36.8 % (34.0-46.0); HDW 2.82; HGB 12.1 gm/dL (11.4-16.0); Hypochromasia Slight; Luc % (Auto) 2; Lymphocytes # (A) 1.2 k/uL (1.0-4.8); Lymphocytes % (A) 12 %; MCHC 32.8 g/dL (31.0-37.0); MCV 88.4 fL (80.0-100.0); Mean Platelet Volume 7.7; Monocytes # (A) 0.6 k/uL (0-1.0); Monocytes % (A) 6 %; Neutrophils % (A) 79 %; RBC 4.16 m/uL (3.80-5.40); RDW 16.4 % (11.5-15.5); WBC 10.1 k/uL (3.8-10.6); WBC (Perox) 10.57
[2017-01-14 06:46] LABS: ALT 28 U/L (9-52); AST 9 U/L (14-36); Alkaline Phosphatase 77 U/L (38-126); Anion Gap 5 mmol/L; Blood Urea Nitrogen 10 mg/dL (7-17); Calcium 9.3 mg/dL (8.4-10.2); Carbon Dioxide 28 mmol/L (22-30); Chloride 105 mmol/L (98-107); Glucose 110 mg/dL (74-99); Non-African American GFR(MDRD) >60 (>60 ml/min/1.73 sqM); Potassium 4.3 mmol/L (3.5-5.1); Sodium 138 mmol/L (137-145); Total Bilirubin 0.3 mg/dL (0.2-1.3); Total Protein 5.3 g/dL (6.3-8.2)
[2017-01-14 07:31] LABS: Glucose,Whole Blood 121 mg/dL (75-99)
[2017-01-14] MEDS: INSULIN LISPRO (humaLOG) 300 UNIT/3 ML VIAL SQ SCH ×4 (07:55→21:04)
[2017-01-14 08:49] LABS: Hemoglobin A1C 7.3 % (4.2-6.1)
[2017-01-14] MEDS: PARoxetine 20 MG TAB PO SCH (10:15)
[2017-01-14] MEDS: ENOXAPARIN 40 MG/0.4 ML SYRINGE SQ SCH (10:15)
[2017-01-14] MEDS: DOCUSATE 100 MG CAP PO SCH (10:15)
[2017-01-14] MEDS: PRAVASTATIN SODIUM 20 MG TAB PO SCH (10:16)
[2017-01-14] MEDS: PANTOPRAZOLE 40 MG TABLET PO SCH ×2 (10:16→18:00)
[2017-01-14] MEDS: metFORMIN 500 MG TAB PO SCH ×2 (10:16→18:00)
[2017-01-14] MEDS: cloZAPine 100 MG TAB PO SCH ×3 (10:18→20:51)
[2017-01-14] MEDS: HYDROcodone/APAP 5-325MG 1 EACH TAB PO PRN ×2 (10:19→20:47)
[2017-01-14] MEDS: FAMOTIDINE 20 MG TAB PO SCH (10:21)
[2017-01-14 12:47] LABS: Glucose,Whole Blood 139 mg/dL (75-99)
--- NOTE | 2017-01-14 12:48 | P.DS ---
Providers Date of admission: 01/13/2017 Expected date of discharge: 01/14/17 Attending physician: Biju Wong Consults: 01/13/17 18:33 Consult Physician Routine Consulting Provider: Christi Galeano Consult Reason/Comments: Medical management Do you want consulting provider notified?: Yes Primary care physician: Christi Waleska [facility] Hospital Course: This a 61-year-old female underwent laparoscopic robotic-assisted repair of incisional hernia. Patient had postoperative pain issues. She is minimal hospital for observation. She did well postoperatively. Please chart for details. Procedures: Laparoscopic robotic assistance repair of incisional hernia Patient Condition at Discharge: Good Plan - Discharge Summary New Discharge Prescriptions: New Docusate [Colace] 100 mg PO BID #20 capsule HYDROcodone/APAP 7.5-325MG [[place] 7.5] 1 each PO Q4H PRN #60 tab PRN Reason: Pain No Action metFORMIN HCL 1,000 mg PO BID Pravastatin Sodium [Pravachol] 20 mg PO DAILY PARoxetine HCL [Paxil] 40 mg PO DAILY cloZAPine [Clozaril] 300 mg PO HS cloZAPine [Clozaril] 100 mg PO BID@0800,1500 Omeprazole [PriLOSEC] 20 mg PO BID Requip 1 tab PO HS Discharge Medication List Omeprazole [PriLOSEC] 20 mg PO BID 06/03/15 [History] PARoxetine HCL [Paxil] 40 mg PO DAILY 06/03/15 [History] Pravastatin Sodium [Pravachol] 20 mg PO DAILY 06/03/15 [History] cloZAPine [Clozaril] 100 mg PO BID@0800,1500 06/03/15 [History] cloZAPine [Clozaril] 300 mg PO HS 06/03/15 [History] metFORMIN HCL 1,000 mg PO BID 06/03/15 [History] Requip 1 tab PO HS 01/12/17 [History] Docusate [Colace] 100 mg PO BID #20 capsule 01/13/17 [Rx] HYDROcodone/APAP 7.5-325MG [[place] 7.5] 1 each PO Q4H PRN #60 tab 01/13/17 [Rx] Follow up Appointment(s)/Referral(s): Biju Wong MD [STAFF PHYSICIAN] - 01/21/17 3:50 pm Patient Instructions/Handouts: *Surgery [facility] - (Anesthesia) Discharge Instructions Outpatient Surgery, Laparoscopic Herniorrhaphy (DC) Activity/Diet/Wound Care/Special Instructions: NO LIFTING wear abdominal binder except for showering may shower in 48 hours - leave prineo tape on incisions - it will dissolve on its own - do not remove Use incentive spirometer 10 times every hour while awake Discharge Disposition: ADMITTED IP TO THIS HOSP
[2017-01-14] MEDS ORDERED: IPRATROPIUM-ALBUTEROL 3 ML NEB INHALATION PRN (13:02)
[2017-01-14] MEDS: NICOTINE 21MG/24HR PATCH TRANSDERM SCH (13:40)
--- NOTE | 2017-01-14 13:41 | P.CONS ---
History of Present Illness - Reason for Consult Consult date: 01/14/17 Medical management Requesting physician: Biju Wong - Chief Complaint Incisional hernia repair - History of Present Illness This is a 61-year-old female with a known history of diabetes mellitus, hyperlipidemia, anxiety, depression, schizophrenia and nicotine dependence. Patient presented to the hospital for laparoscopic robotic repair of incisional hernia. Patient tolerated surgery well. Estimated blood loss 5 mL. Patient is currently on the pediatric floor. She is very lethargic. She had a pulse ox a of 86% on room air. They placed her on 2 L and she standing and 93%. Her chest did sound congested but did clear after cough. Patient is very lethargic but arousable answer some questions and then slowly goes back to sleep. She denies any chest pain. Denies any sniffing and shortness of breath. Denies a nausea vomiting. Denies a bowel movement changes or urinary symptoms. Patient does not use oxygen at home Review of Systems Please refer to HPI otherwise unremarkable Past Medical History Past Medical History: Diabetes Mellitus, GERD/Reflux, Hyperlipidemia Additional Past Medical History / Comment(s): restless leg syndrome, incisional hernia History of Any Multi-Drug Resistant Organisms: None Reported Past Surgical History: Tonsillectomy, Tubal Ligation Additional Past Surgical History / Comment(s): bronchoscopy, low anterior resection for rectal prolapse, incisional hernia repair 01/13/17 Past Anesthesia/Blood Transfusion Reactions: No Reported Reaction Past Psychological History: Anxiety, Depression, Schizophrenia Additional Psychological History / Comment(s): PARANOID SCHIZOPHRENIA Smoking Status: Current every day smoker - Past Family History Sister(s) Family Medical History: Cancer Additional Family Medical History / Comment(s): breast Mother Family Medical History: No Reported History Medications and Allergies Home Medications Medication Instructions Recorded Confirmed Type Omeprazole [PriLOSEC] 20 mg PO BID 06/03/15 01/14/17 History PARoxetine HCL [Paxil] 40 mg PO DAILY 06/03/15 01/14/17 History Pravastatin Sodium [Pravachol] 20 mg PO DAILY 06/03/15 01/14/17 History cloZAPine [Clozaril] 100 mg PO BID@0800,1500 06/03/15 01/14/17 History cloZAPine [Clozaril] 300 mg PO HS 06/03/15 01/14/17 History metFORMIN HCL 1,000 mg PO BID 06/03/15 01/14/17 History rOPINIRole HCL [Requip] 0.5 mg PO HS 01/14/17 01/14/17 History Allergies Allergy/AdvReac Type Severity Reaction Status Date / Time propoxyphene napsylate AdvReac Nausea Verified 01/13/17 10:42 [From Darjulián-N] Physical Exam Vitals: Vital Signs Temp Pulse Resp BP Pulse Ox 01/14/17 12:09 98.9 F 90 20 132/81 93 L 01/14/17 08:30 98.0 F 86 19 119/71 93 L 01/14/17 01:36 98.7 F 77 20 114/75 96 01/13/17 22:40 78 128/79 93 L 01/13/17 21:40 76 116/88 95 01/13/17 20:40 73 128/82 97 01/13/17 20:10 78 138/76 96 01/13/17 19:40 70 134/77 98 01/13/17 19:25 70 136/79 96 01/13/17 19:10 70 16 126/70 96 01/13/17 18:55 98.7 F 73 16 120/74 94 L 01/13/17 18:23 96.9 F L 80 16 120/76 98 01/13/17 18:12 80 16 120/76 98 01/13/17 17:28 76 01/13/17 17:27 16 115/73 97 01/13/17 16:30 18 01/13/17 16:00 88 16 122/72 98 01/13/17 15:35 82 16 116/62 97 01/13/17 15:17 85 16 118/61 93 L 01/13/17 14:50 90 16 122/70 93 L 01/13/17 14:30 96 16 115/57 93 L 01/13/17 14:15 88 16 112/56 92 L 01/13/17 14:00 88 16 122/57 92 L 01/13/17 13:45 86 18 126/58 93 L Intake and Output 01/13/17 01/14/17 01/14/17 22:59 06:59 14:59 Intake Total 1000 Output Total 300 Balance 700 Intake: IV 1000 Output: Urine 300 Other: Voiding Method Toilet Toilet Incontinent # Voids 1 1 Weight 80.739 kg Head normocephalic Neck supple Lungs clear to auscultation bilaterally no wheezing or crackles Heart regular rate and rhythm S1-S2, no rub or gallop Abdomen is soft nontender nondistended positive bowel sounds no hepatosplenomegaly. Abdominal binder in place Extremities no edema Neuro alert and orientated to 3 Results CBC & Chem 7: 01/14/17 06:14 01/14/17 06:14 Labs: Abnormal Lab Results - Last 24 Hours (Table) 01/13/17 01/14/17 01/14/17 Range/Units 14:08 06:14 06:14 RDW 16.4 H (11.5-15.5) % Neutrophils # 8.0 H (1.3-7.7) k/uL Glucose 110 H (74-99) mg/dL POC Glucose (mg/dL) 269 H (75-99) mg/dL Hemoglobin A1c (4.2-6.1) % AST 9 L (14-36) U/L Total Protein 5.3 L (6.3-8.2) g/dL Albumin 3.3 L (3.5-5.0) g/dL 01/14/17 01/14/17 01/14/17 Range/Units 06:14 07:27 12:33 RDW (11.5-15.5) % Neutrophils # (1.3-7.7) k/uL Glucose (74-99) mg/dL POC Glucose (mg/dL) 121 H 139 H (75-99) mg/dL Hemoglobin A1c 7.3 H (4.2-6.1) % AST (14-36) U/L Total Protein (6.3-8.2) g/dL Albumin (3.5-5.0) g/dL Assessment and Plan Plan: 1. Incisional hernia status post repair. Postop day #1 2. Hypoxia with oxygen saturation of 86%. Check a chest x-ray. Start nebulizer treatments. Continue oxygen keeping oxygen saturation greater than 92 % 3. History of schizophrenia 4. Nicotine dependence we'll add nicotine patch 5. Diabetes mellitus type 2 continue sliding scale coverage and metformin 6. Hyperlipidemia continue statin GI prophylaxis Protonix and DVT prophylaxis Lovenox Thank you for this consultation. We will continue to follow along with you. Time with Patient: Greater than 30 (Greater than 50% of the total time spent in counseling and coordination of care.I performed an examination of the patient and discussed their management with the physician Biology Specimen Technician. I have reviewed the Physician Biology Specimen Technician's notes and agree with the documented findings and plan of care)
--- NOTE | 2017-01-14 14:33 | XR ---
EXAMINATION TYPE: XR chest 2V DATE OF EXAM: 01/14/2017 COMPARISON: Prior chest x-ray 11/03/2016 HISTORY: Hypoxia, cough TECHNIQUE: Frontal and lateral views of the chest are obtained. FINDINGS: Heart size may be accentuated by rotation. Interstitium is somewhat increased. No evident pneumothorax. No sizable pleural effusion. Question some perihilar vascular indistinctness. IMPRESSION: Correlate to exclude pulmonary venous hypertension and interstitial edema. Rotated exam. Follow-up as indicated.
[2017-01-14] MEDS: IPRATROPIUM-ALBUTEROL 3 ML NEB INHALATION SCH ×2 (14:58→18:41)
[2017-01-14] MEDS ORDERED: FUROSEMIDE 10 MG/ML 2 ML VIAL IV ONE (15:00)
[2017-01-14] MEDS: traMADol 50 MG TAB PO PRN (17:27)
[2017-01-14 17:40] LABS: Glucose,Whole Blood 111 mg/dL (75-99)
[2017-01-14] MEDS ORDERED: SYMBICORT 160-4.5 MCG INHALER INHALATION SCH (20:00)
[2017-01-14 21:02] LABS: Glucose,Whole Blood 160 mg/dL (75-99)
[2017-01-15 04:23] LABS: Glucose,Whole Blood 131 mg/dL (75-99)
[2017-01-15] MEDS ORDERED: FUROSEMIDE 10 MG/ML 4 ML VIAL IV STA (05:28)
[2017-01-15 06:06] LABS: Glucose,Whole Blood 130 mg/dL (75-99)
[2017-01-15] MEDS: IPRATROPIUM-ALBUTEROL 3 ML NEB INHALATION SCH ×4 (07:13→20:10)
--- NOTE | 2017-01-15 07:24 | XR ---
EXAMINATION TYPE: XR chest 1V DATE OF EXAM: 01/15/2017 COMPARISON: Prior chest x-ray 01/14/2017 HISTORY: Pulmonary congestion TECHNIQUE: Single frontal view of the chest is obtained. FINDINGS: Patient is rotated and the heart remains enlarged. No pneumothorax. Minimal patchy basilar density is present. Interstitium is prominent. IMPRESSION: Similar to previous exam. Probable basilar atelectasis and associated cardiomegaly. Rota keyshawn exam. There may be some improvement in aeration, volume status.
[2017-01-15 07:26] LABS: Anisocytosis Slight; Basophils % (A) 0 %; CH 28.5; CHCM 31.9; Eosinophils # (A) 0.1 k/uL (0-0.7); Eosinophils % (A) 2 %; HCT 42.7 % (34.0-46.0); HDW 2.73; Hypochromasia Slight; Luc # (Auto) 0.12; Luc % (Auto) 1; Lymphocytes # (A) 1.2 k/uL (1.0-4.8); Lymphocytes % (A) 14 %; MCH 29.3 pg (25.0-35.0); MCHC 32.8 g/dL (31.0-37.0); MCV 89.6 fL (80.0-100.0); Mean Platelet Volume 7.6; Monocytes # (A) 0.5 k/uL (0-1.0); Monocytes % (A) 6 %; Neutrophils # (A) 6.8 k/uL (1.3-7.7); Neutrophils % (A) 77 %; RBC 4.77 m/uL (3.80-5.40); RDW 16.4 % (11.5-15.5); WBC 8.8 k/uL (3.8-10.6); WBC (Perox) 8.61
[2017-01-15 07:36] LABS: Appearance,Urine Clear (Clear); Bilirubin,Urine Negative (Negative); Glucose,Urine (UA) Negative (Negative); Ketones,Urine Negative (Negative); Leukocyte Esterase,Urine Negative (Negative); Nitrite,Urine Negative (Negative); Protein,Urine Negative (Negative); Specific Gravity,Urine 1.009 (1.001-1.035); UA Billing (MACRO vs. MICRO) CHEM; Urobilinogen,Urine <2.0 mg/dL (<2.0)
[2017-01-15 07:47] LABS: Anion Gap 12 mmol/L; Blood Urea Nitrogen 14 mg/dL (7-17); Calcium 9.6 mg/dL (8.4-10.2); Carbon Dioxide 32 mmol/L (22-30); Chloride 100 mmol/L (98-107); Glucose 150 mg/dL (74-99); Magnesium 1.7 mg/dL (1.6-2.3); Non-African American GFR(MDRD) >60 (>60 ml/min/1.73 sqM); Phosphorous 4.8 mg/dL (2.5-4.5); Sodium 144 mmol/L (137-145)
[2017-01-15] MEDS: DOCUSATE 100 MG CAP PO SCH ×3 (08:51→20:43)
[2017-01-15] MEDS: INSULIN LISPRO (humaLOG) 300 UNIT/3 ML VIAL SQ SCH ×4 (08:52→21:31)
[2017-01-15] MEDS: metFORMIN 500 MG TAB PO SCH ×2 (08:56→18:20)
[2017-01-15] MEDS: NICOTINE 21MG/24HR PATCH TRANSDERM SCH (08:56)
[2017-01-15] MEDS: ENOXAPARIN 40 MG/0.4 ML SYRINGE SQ SCH (08:56)
[2017-01-15] MEDS: PRAVASTATIN SODIUM 20 MG TAB PO SCH (08:57)
[2017-01-15] MEDS: PANTOPRAZOLE 40 MG TABLET PO SCH ×2 (08:57→18:20)
[2017-01-15] MEDS: PARoxetine 20 MG TAB PO SCH (08:57)
[2017-01-15] MEDS: cloZAPine 100 MG TAB PO SCH ×3 (08:57→20:44)
[2017-01-15] MEDS ORDERED: Potassium Replacement Protocol 1 EACH MISC MISCELLANE PRN (10:16)
[2017-01-15] MEDS ORDERED: POTASSIUM CHLORIDE ER 20 MEQ TAB.ER PO ONE (11:00)
--- NOTE | 2017-01-15 11:27 | P.CNPUL ---
History of Present Illness Consult date: 01/15/17 Reason for consult: hypoxemia History of present illness: This is a 61-year-old female with a known history of diabetes mellitus, hyperlipidemia, anxiety, depression, schizophrenia and nicotine dependence. Patient presented to the hospital for laparoscopic robotic repair of incisional hernia. Patient tolerated surgery well. Estimated blood loss 5 mL. Patient was on the pediatric floor. Postop, the patient was felt to be very lethargic. She had a pulse ox a of 86% on room air. They placed her on 2 L and she standing and 93%. Overnight, the patient got transferred to the intensive care unit for further monitoring due to concerns of shortness of breath and hypoxemia. She is free of any chest pain. No reported aspiration. No nausea vomiting or abdominal distention. No fever or chills. The patient has history of lung disease. The patient has history of chronic smoking and known to have COPD and she was hospitalized in October 2016 for an acute COPD exacerbation. No previous history of cardiac disease. The chest x-ray from today is showing bibasilar atelectatic changes along with some cardiomegaly. There is some improvement in aeration and the volume status compared to yesterday. Note that the patient was given 40 mg of IV Lasix yesterday and the patient put out more than 2 L of urine. Currently her IV fluids at KVO. She is tolerating diet and she is having no active issues for now. The patient is on today's of oxygen nasal cannula. Review of Systems All systems: negative Constitutional: Denies chills, Denies fever Eyes: denies blurred vision, denies pain Ears, nose, mouth and throat: Denies headache, Denies sore throat Cardiovascular: Denies chest pain, Denies shortness of breath Respiratory: Denies cough Gastrointestinal: Denies nausea, Denies vomiting Genitourinary: Denies dysuria, Denies hematuria Musculoskeletal: Denies myalgias Integumentary: Denies pruritus, Denies rash Neurological: Denies numbness, Denies weakness Psychiatric: Denies anxiety, Denies depression Endocrine: Denies fatigue, Denies weight change Past Medical History Past Medical History: Diabetes Mellitus, GERD/Reflux, Hyperlipidemia Additional Past Medical History / Comment(s): COPD, para and schizophrenia, depression, diabetes mellitus, hyperlipidemia, restless leg syndrome, rectal prolapse with previous low AP resection, incisional hernia History of Any Multi-Drug Resistant Organisms: None Reported Past Surgical History: Tonsillectomy, Tubal Ligation Additional Past Surgical History / Comment(s): bronchoscopy, low anterior resection for rectal prolapse, incisional hernia repair 01/13/17 Past Anesthesia/Blood Transfusion Reactions: No Reported Reaction Past Psychological History: Anxiety, Depression, Schizophrenia Additional Psychological History / Comment(s): PARANOID SCHIZOPHRENIA Smoking Status: Current every day smoker - Past Family History Sister(s) Family Medical History: Cancer Additional Family Medical History / Comment(s): breast Mother Family Medical History: No Reported History Medications and Allergies Home Medications Medication Instructions Recorded Confirmed Type Omeprazole [PriLOSEC] 20 mg PO BID 06/03/15 01/14/17 History PARoxetine HCL [Paxil] 40 mg PO DAILY 06/03/15 01/14/17 History Pravastatin Sodium [Pravachol] 20 mg PO DAILY 06/03/15 01/14/17 History cloZAPine [Clozaril] 100 mg PO BID@0800,1500 06/03/15 01/14/17 History cloZAPine [Clozaril] 300 mg PO HS 06/03/15 01/14/17 History metFORMIN HCL 1,000 mg PO BID 06/03/15 01/14/17 History rOPINIRole HCL [Requip] 0.5 mg PO HS 01/14/17 01/14/17 History Allergies Allergy/AdvReac Type Severity Reaction Status Date / Time propoxyphene napsylate AdvReac Nausea Verified 01/13/17 10:42 [From Darvocet-N] Physical Exam Vitals: Vital Signs Temp Pulse Pulse Resp BP BP BP 01/15/17 10:00 103 H 26 H 96/49 01/15/17 09:00 101 H 20 119/66 01/15/17 08:00 103 H 32 H 116/71 01/15/17 07:27 100 01/15/17 07:14 103 H 01/15/17 07:00 98.8 F 101 H 23 132/70 01/15/17 05:04 98 32 H 01/15/17 04:46 98 32 H 01/15/17 04:36 100 32 H 01/15/17 03:23 100 01/15/17 03:13 100 01/15/17 03:05 40 H 01/15/17 03:00 97.9 F 100 40 H 01/15/17 00:00 82 20 01/14/17 23:00 97.5 F L 82 20 132/80 01/14/17 20:20 97.8 F 83 24 124/72 01/14/17 20:00 24 01/14/17 18:53 86 01/14/17 18:41 88 01/14/17 16:20 98.2 F 84 20 113/78 01/14/17 15:06 92 01/14/17 15:01 90 01/14/17 12:09 98.9 F 90 20 132/81 Pulse Ox 01/15/17 10:00 92 L 01/15/17 09:00 92 L 01/15/17 08:00 92 L 01/15/17 07:27 01/15/17 07:14 01/15/17 07:00 93 L 01/15/17 05:04 94 L 01/15/17 04:46 94 L 01/15/17 04:36 91 L 01/15/17 03:23 01/15/17 03:13 01/15/17 03:05 83 L 01/15/17 03:00 77 L 01/15/17 00:00 01/14/17 23:00 92 L 01/14/17 20:20 95 01/14/17 20:00 01/14/17 18:53 01/14/17 18:41 01/14/17 16:20 92 L 01/14/17 15:06 01/14/17 15:01 01/14/17 12:09 93 L Intake and Output 01/14/17 01/15/17 01/15/17 22:59 06:59 14:59 Intake Total 300 Output Total 2125 750 2610 Balance -1825 -750 -2610 Intake: Oral 300 Output: Urine 2125 750 2610 Uretheral (Rodriguez) 750 750 Other: Voiding Method Toilet Diaper Indwelling Catheter # Voids 1 Head exam was generally normal. There was no scleral icterus or corneal arcus. Mucous membranes were moist. Neck was supple and without jugular venous distension, thyromegaly, or carotid bruits. Carotids were easily palpable bilaterally. There was no adenopathy. Lung sounds are diminished in lung bases bilaterally otherwise clear. The patient has scattered rhonchi and scattered expiratory wheezes. Respiratory effort several week and breathing is shallow at this point. Cardiac exam revealed the PMI to be normally situated and sized. The rhythm was regular and no extrasystoles were noted during several minutes of auscultation. The first and second heart sounds were normal and physiologic splitting of the second heart sound was noted. There were no murmurs , rubs, clicks, or gallops.Abdominal exam revealed normal bowel sounds. The abdomen was soft, non-tender, and without masses, organomegaly, or appreciable enlargement of the abdominal aorta. Surgical wound site over the anterior abdominal wall is clean dry and intact. The bowel sounds are hypoactive. Examination of the extremities revealed easily palpable radial, femoral and pedal pulses. There was no cyanosis, clubbing or edema. Results - Laboratory Findings CBC and BMP: 01/15/17 06:55 01/15/17 06:51 Abnormal lab findings: Abnormal Labs 01/13/17 01/13/17 01/14/17 10:58 14:08 06:14 RDW 16.4 H Neutrophils # 8.0 H Carbon Dioxide Glucose POC Glucose (mg/dL) 136 H 269 H Hemoglobin A1c Phosphorus AST Total Protein Albumin 01/14/17 01/14/17 01/14/17 06:14 06:14 07:27 RDW Neutrophils # Carbon Dioxide Glucose 110 H POC Glucose (mg/dL) 121 H Hemoglobin A1c 7.3 H Phosphorus AST 9 L Total Protein 5.3 L Albumin 3.3 L 01/14/17 01/14/17 01/14/17 12:33 17:32 21:01 RDW Neutrophils # Carbon Dioxide Glucose POC Glucose (mg/dL) 139 H 111 H 160 H Hemoglobin A1c Phosphorus AST Total Protein Albumin 01/15/17 01/15/17 01/15/17 04:03 05:51 06:51 RDW Neutrophils # Carbon Dioxide 32 H Glucose 150 H POC Glucose (mg/dL) 131 H 130 H Hemoglobin A1c Phosphorus 4.8 H AST Total Protein Albumin 01/15/17 06:55 RDW 16.4 H Neutrophils # Carbon Dioxide Glucose POC Glucose (mg/dL) Hemoglobin A1c Phosphorus AST Total Protein Albumin - Diagnostic Findings Chest x-ray: image reviewed Assessment and Plan Plan: Assessment 1 postoperative hypoxemia due to a combination of hypoventilation, COPD, atelectatic changes involving the lung bases bilaterally and possibly a component of pulmonary vessel congestion. Currently she is on phase of oxygen nasal cannula. Her breathing efforts are somewhat limited and shallow due to her abdominal surgery. No abdominal distention this point. No significant abdominal pain 2 COPD 3 shortness of breath secondary to above 4 diabetes mellitus 5 hyperlipidemia 6 Paranoid schizophrenia 7 GERD 8 smoker. Plan Provide the patient incentive spirometer. Use DuoNeb nebulized treatments around the clock 4 times a day. Deep breathing. Pulmonary toileting. Nicotine patch. Pain control with Staples 5mg 2 tablets every 6 hours on a when necessary basis. Advance diet as tolerated. Blood sugar control. Repeat chest x-ray in a.m. We'll continue to follow make further recommendations based on her progress. Meanwhile, the patient will placed on Lovenox for DVT prophylaxis.
--- NOTE | 2017-01-15 11:59 | P.PN ---
Subjective Status post laparoscopic robotic repair of incisional hernia Early this morning patient did require transfer to the ICU. She had became lethargic and hypoxic. She was given a dose of Narcan as well as Lasix. Patient had had a pulse ox of 86% and did require to be placed on a Ventimask. Patient is currently on 2 L nasal cannula and satting around 93%. Patient has been seen by pulmonary service. She required 2 doses of IV Lasix yesterday. Chest x-ray today shows atelectasis and cardiomegaly with some improvement in aeration. Patient is sitting up in bed awake and alert answering questions appropriately. She denies any chest pain or shortness of breath. She is complaining of some abdominal pain around the incision sites. Denies any nausea or vomiting. No bowel movement yet she is passing some gas. He has Rodriguez catheter in place. Objective - Vital Signs Vital signs: Vital Signs Temp 98.8 F 01/15/17 07:00 Pulse 93 01/15/17 11:36 Resp 26 H 01/15/17 10:00 BP 96/49 01/15/17 10:00 Pulse Ox 92 L 01/15/17 10:00 Intake & Output 01/14/17 01/15/17 01/15/17 18:59 06:59 18:59 Intake Total 300 Output Total 1625 1250 2610 Balance -1625 -950 -2610 Intake: Oral 300 Output: Urine 1625 1250 2610 Uretheral (Rodriguez) 750 750 Other: Voiding Method Toilet Diaper Indwelling Catheter # Voids 1 1 - Exam Head normocephalic Neck supple Lungs diminished at the bases Heart regular rate and rhythm S1-S2, no rub or gallop Abdomen is soft nontender nondistended positive bowel sounds no hepatosplenomegaly Extremities no edema Neuro alert and orientated to 3 - Labs CBC & Chem 7: 01/15/17 06:55 01/15/17 06:51 Labs: Abnormal Lab Results - Last 24 Hours (Table) 01/14/17 01/14/17 01/14/17 Range/Units 12:33 17:32 21:01 RDW (11.5-15.5) % Carbon Dioxide (22-30) mmol/L Glucose (74-99) mg/dL POC Glucose (mg/dL) 139 H 111 H 160 H (75-99) mg/dL Phosphorus (2.5-4.5) mg/dL 01/15/17 01/15/17 01/15/17 Range/Units 04:03 05:51 06:51 RDW (11.5-15.5) % Carbon Dioxide 32 H (22-30) mmol/L Glucose 150 H (74-99) mg/dL POC Glucose (mg/dL) 131 H 130 H (75-99) mg/dL Phosphorus 4.8 H (2.5-4.5) mg/dL 01/15/17 Range/Units 06:55 RDW 16.4 H (11.5-15.5) % Carbon Dioxide (22-30) mmol/L Glucose (74-99) mg/dL POC Glucose (mg/dL) (75-99) mg/dL Phosphorus (2.5-4.5) mg/dL Microbiology - Last 24 Hours (Table) 01/15/17 06:15 Urine Culture - Preliminary Urine,Catheterized Assessment and Plan Plan: 1. Incisional hernia status post repair. Postop day #2 2. Postoperative hypoxemia secondary to hypoventilation, COPD, atelectatic change, volume overload and pain medications. Patient required transfer to the ICU. Currently off of Ventimask and on nasal cannula. Pulmonary service following. They have ordered a repeat chest x-ray for tomorrow. Continue incentive spirometry and nebulizer treatments 3. History of schizophrenia 4. Nicotine dependence continue nicotine patch 5. Diabetes mellitus type 2 continue sliding scale coverage and metformin 6. Hyperlipidemia continue statin 7. Fluid overload with no history of CHF improved with 2 doses of IV Lasix. Patient's fluids are currently KVO. Continue to monitor. GI prophylaxis Protonix and DVT prophylaxis Lovenox I performed an examination of the patient and discussed their management with the physician Rn Transport. I have reviewed the Physician Rn Transport's notes and agree with the documented findings and plan of care
[2017-01-15 12:07] LABS: Glucose,Whole Blood 136 mg/dL (75-99)
--- NOTE | 2017-01-15 15:50 | P.PN ---
Progress Note - Text The patient was hypoxic yesterday before discharge. She was sent to the ICU for further workup. He feels better today. She has no real complaints of abdominal pain. On exam her vital signs are stable. Her abdomen soft. She's been satting 93% on 2 L this cannula. The Status post robotic-assisted repair of incisional hernia. Patient will be discharged home per pulmonology and internal medicine.
[2017-01-15] MEDS: traMADol 50 MG TAB PO PRN (16:03)
[2017-01-15 17:35] LABS: Glucose,Whole Blood 154 mg/dL (75-99)
[2017-01-15 20:49] LABS: Glucose,Whole Blood 204 mg/dL (75-99)
[2017-01-16 04:13] LABS: Anisocytosis Slight; Basophils % (A) 0 %; CH 27.9; Eosinophils # (A) 0.1 k/uL (0-0.7); Eosinophils % (A) 2 %; HDW 2.63; Luc # (Auto) 0.13; Luc % (Auto) 2; Lymphocytes # (A) 1.2 k/uL (1.0-4.8); Lymphocytes % (A) 15 %; MCH 29.1 pg (25.0-35.0); MCHC 33.2 g/dL (31.0-37.0); MCV 87.6 fL (80.0-100.0); Monocytes # (A) 0.5 k/uL (0-1.0); Monocytes % (A) 6 %; Neutrophils # (A) 6.3 k/uL (1.3-7.7); Neutrophils % (A) 76 %; RBC 4.46 m/uL (3.80-5.40); RDW 16.3 % (11.5-15.5); WBC 8.3 k/uL (3.8-10.6); WBC (Perox) 8.15
[2017-01-16 04:31] LABS: Anion Gap 9 mmol/L; Blood Urea Nitrogen 17 mg/dL (7-17); Calcium 9.3 mg/dL (8.4-10.2); Carbon Dioxide 31 mmol/L (22-30); Chloride 99 mmol/L (98-107); Glucose 147 mg/dL (74-99); Magnesium 1.6 mg/dL (1.6-2.3); Non-African American GFR(MDRD) >60 (>60 ml/min/1.73 sqM); Phosphorous 4.6 mg/dL (2.5-4.5); Potassium 3.9 mmol/L (3.5-5.1); Sodium 139 mmol/L (137-145)
[2017-01-16] MEDS ORDERED: Potassium Replacement Protocol 1 EACH MISC MISCELLANE PRN (06:23)
[2017-01-16] MEDS ORDERED: Magnesium Replacement Protocol 1 EACH MISC MISCELLANE PRN (06:24)
[2017-01-16] MEDS: traMADol 50 MG TAB PO PRN (06:59)
[2017-01-16] MEDS ORDERED: POTASSIUM CHLORIDE ER 20 MEQ TAB.ER PO SCH (07:00)
--- NOTE | 2017-01-16 08:10 | XR ---
EXAMINATION TYPE: XR chest 1V DATE OF EXAM: 01/16/2017 COMPARISON: 01/15/2017 INDICATION: Pulmonary congestion TECHNIQUE: Single frontal view of the chest is obtained. FINDINGS: The heart size is normal. The pulmonary vasculature is normal. Bibasilar infiltrates are present. IMPRESSION: 1. Bibasilar infiltrates. Correlate for atelectasis and pneumonia. Continued follow-up is recommended .
[2017-01-16] MEDS: MAGNESIUM SULFATE-D5W PMX 1 GM in DEXTROSE/WATER 1 100ML.BAG IVPB SCH ×2 (08:18→09:37)
[2017-01-16] MEDS: PANTOPRAZOLE 40 MG TABLET PO SCH ×2 (08:19→17:13)
[2017-01-16] MEDS: INSULIN LISPRO (humaLOG) 300 UNIT/3 ML VIAL SQ SCH ×4 (08:19→21:50)
[2017-01-16] MEDS: metFORMIN 500 MG TAB PO SCH ×2 (08:19→17:13)
[2017-01-16] MEDS: NICOTINE 21MG/24HR PATCH TRANSDERM SCH (08:20)
[2017-01-16] MEDS: DOCUSATE 100 MG CAP PO SCH ×2 (08:20→21:48)
[2017-01-16] MEDS: ENOXAPARIN 40 MG/0.4 ML SYRINGE SQ SCH (08:20)
[2017-01-16] MEDS: cloZAPine 100 MG TAB PO SCH ×3 (08:20→21:49)
[2017-01-16] MEDS: PRAVASTATIN SODIUM 20 MG TAB PO SCH (08:21)
[2017-01-16] MEDS: PARoxetine 20 MG TAB PO SCH (08:21)
[2017-01-16] MEDS: HYDROcodone/APAP 5-325MG 1 EACH TAB PO PRN ×2 (08:26→21:48)
[2017-01-16] MEDS: IPRATROPIUM-ALBUTEROL 3 ML NEB INHALATION SCH ×4 (09:04→20:24)
--- NOTE | 2017-01-16 09:33 | P.PN ---
Subjective Principal diagnosis: Acute respiratory failure Patient is doing well she is sitting up in her bed in ICU she is alert and oriented 3 she denies any chest pain or shortness of breath at this time she has not been out of bed. Patient is complaining of occasional cough, no chest pain, no nausea or vomiting, she has abdominal wall pain when she coughs at the site of surgery, no bowel movement since surgery, and no urinary symptoms. Objective - Vital Signs Vital signs: Vital Signs Temp 98.9 F 01/16/17 04:00 Pulse 92 01/16/17 04:00 Resp 25 H 01/16/17 04:00 BP 99/49 01/16/17 04:00 Pulse Ox 93 L 01/16/17 04:00 Intake & Output 01/15/17 01/16/17 01/16/17 18:59 06:59 18:59 Output Total 2760 950 Balance -2760 -950 Weight 75.8 kg Output: Urine 2760 950 Uretheral (Rodriguez) 750 Other: Voiding Method Indwelling Catheter Indwelling Catheter - Exam In general patient is alert and oriented 3 in no apparent distress HEENT head normocephalic and atraumatic Neck is supple no JVD no goiter no lymphadenopathy Chest exam reveals a few scattered crackles in both bases no wheezing Cardiac exam reveals regular heart sounds no gallops no murmurs Abdomen is soft nontender no organomegaly with normal bowel sounds Extremity exam reveals no edema no cyanosis or clubbing - Labs CBC & Chem 7: 01/16/17 03:51 01/16/17 03:51 Labs: Abnormal Lab Results - Last 24 Hours (Table) 01/15/17 01/15/17 01/15/17 Range/Units 12:05 17:34 20:47 RDW (11.5-15.5) % Carbon Dioxide (22-30) mmol/L Glucose (74-99) mg/dL POC Glucose (mg/dL) 136 H 154 H 204 H (75-99) mg/dL Phosphorus (2.5-4.5) mg/dL 01/16/17 01/16/17 Range/Units 03:51 03:51 RDW 16.3 H (11.5-15.5) % Carbon Dioxide 31 H (22-30) mmol/L Glucose 147 H (74-99) mg/dL POC Glucose (mg/dL) (75-99) mg/dL Phosphorus 4.6 H (2.5-4.5) mg/dL Microbiology - Last 24 Hours (Table) 01/15/17 06:15 Urine Culture - Preliminary Urine,Catheterized Assessment and Plan Plan: 1. Incisional hernia status post repair. Postop day #3 2. Postoperative hypoxemia secondary to hypoventilation, COPD, atelectatic change, volume overload and pain medications. Patient required transfer to the ICU. Currently off of Ventimask and on nasal cannula. Pulmonary service following. Repeat chest x-ray today reveals by basilar infiltrate likely related to atelectasis Continue incentive spirometry and nebulizer treatments 3. History of schizophrenia, stable on current medications continue 4. Nicotine dependence continue nicotine patch 5. Diabetes mellitus type 2 continue sliding scale coverage and metformin 6. Hyperlipidemia continue statin 7. Fluid overload with no history of CHF improved with 2 doses of IV Lasix. Patient's fluids are currently KVO. Continue to monitor. GI prophylaxis Protonix and DVT prophylaxis Lovenox
--- NOTE | 2017-01-16 10:06 | P.PN ---
Subjective This is a 61-year-old female with a known history of diabetes mellitus, hyperlipidemia, anxiety, depression, schizophrenia and nicotine dependence. Patient presented to the hospital for laparoscopic robotic repair of incisional hernia. Patient tolerated surgery well. Estimated blood loss 5 mL. Patient was on the pediatric floor. Postop, the patient was felt to be very lethargic. She had a pulse ox a of 86% on room air. They placed her on 2 L and she standing and 93%. Overnight, the patient got transferred to the intensive care unit for further monitoring due to concerns of shortness of breath and hypoxemia. She is free of any chest pain. No reported aspiration. No nausea vomiting or abdominal distention. No fever or chills. The patient has history of lung disease. The patient has history of chronic smoking and known to have COPD and she was hospitalized in October 2016 for an acute COPD exacerbation. No previous history of cardiac disease. The chest x-ray from today is showing bibasilar atelectatic changes along with some cardiomegaly. There is some improvement in aeration and the volume status compared to yesterday. Note that the patient was given 40 mg of IV Lasix yesterday and the patient put out more than 2 L of urine. Currently her IV fluids at KVO. She is tolerating diet and she is having no active issues for now. The patient is on today's of oxygen nasal cannula. On 01/16/2017 the patient is being seen in follow-up. The patient is calm and comfortable. She is tolerating regular diet, consistent carb. No nausea. No emesis. No abdominal distention. The chest x-ray from today shows increased atelectatic changes and fluid/pleural effusion lung bases bilaterally. Based on that, the patient be given Lasix and she'll be encouraged to continue using the incentive spirometer. The patient is afebrile. The patient seems to much more alert compared to yesterday. Denies having any respiratory distress. No chest pain. No other significant events over the past 24 hours. She is on Hep- Lock IV. Objective - Vital Signs Vital signs: Vital Signs Temp 98.9 F 01/16/17 04:00 Pulse 92 01/16/17 04:00 Resp 25 H 01/16/17 04:00 BP 99/49 01/16/17 04:00 Pulse Ox 93 L 01/16/17 04:00 Intake & Output 01/15/17 01/16/17 01/16/17 18:59 06:59 18:59 Output Total 2760 950 Balance -2760 -950 Weight 75.8 kg Output: Urine 2760 950 Uretheral (Rodriguez) 750 Other: Voiding Method Indwelling Catheter Indwelling Catheter - Exam Head exam was generally normal. There was no scleral icterus or corneal arcus. Mucous membranes were moist. Neck was supple and without jugular venous distension, thyromegaly, or carotid bruits. Carotids were easily palpable bilaterally. There was no adenopathy. Lung sounds are diminished in lung bases bilaterally otherwise clear. The patient has scattered rhonchi and scattered expiratory wheezes. Respiratory effort several week and breathing is shallow at this point. Cardiac exam revealed the PMI to be normally situated and sized. The rhythm was regular and no extrasystoles were noted during several minutes of auscultation. The first and second heart sounds were normal and physiologic splitting of the second heart sound was noted. There were no murmurs , rubs, clicks, or gallops.Abdominal exam revealed normal bowel sounds. The abdomen was soft, non-tender, and without masses, organomegaly, or appreciable enlargement of the abdominal aorta. Surgical wound site over the anterior abdominal wall is clean dry and intact. The bowel sounds are hypoactive. Examination of the extremities revealed easily palpable radial, femoral and pedal pulses. There was no cyanosis, clubbing or edema. - Labs CBC & Chem 7: 01/16/17 03:51 01/16/17 03:51 Labs: Abnormal Lab Results - Last 24 Hours (Table) 01/15/17 01/15/17 01/15/17 Range/Units 12:05 17:34 20:47 RDW (11.5-15.5) % Carbon Dioxide (22-30) mmol/L Glucose (74-99) mg/dL POC Glucose (mg/dL) 136 H 154 H 204 H (75-99) mg/dL Phosphorus (2.5-4.5) mg/dL 01/16/17 01/16/17 Range/Units 03:51 03:51 RDW 16.3 H (11.5-15.5) % Carbon Dioxide 31 H (22-30) mmol/L Glucose 147 H (74-99) mg/dL POC Glucose (mg/dL) (75-99) mg/dL Phosphorus 4.6 H (2.5-4.5) mg/dL Microbiology - Last 24 Hours (Table) 01/15/17 06:15 Urine Culture - Preliminary Urine,Catheterized Assessment and Plan Plan: Assessment 1 postoperative hypoxemia due to a combination of hypoventilation, COPD, atelectatic changes involving the lung bases bilaterally and possibly a component of pulmonary vessel congestion. It x-ray from today shows increased atelectatic changes and effusion the lung bases bilaterally. The patient has been on oxygen at 5 L/m nasal cannula. I think these are postoperative atelectatic changes and effusion and the patient would benefit from aggressive pulmonary toileting, incentive spirometer and diuretics. 2 COPD 3 postoperative day #2 following an incisional hernia repair. 4 diabetes mellitus 5 hyperlipidemia 6 Paranoid schizophrenia 7 GERD 8 smoker. Plan Continue this is a spirometer. IV Lasix 4 mg push. Wean down the FiO2 as tolerated. Aggressive pulmonary toileting. We'll continue to follow make further recommendations based on her progress and she is a selective overflow for now. The abdominal wound is dry clean and intact. The patient is tolerating diet. No other issues for now. No delirium.
--- NOTE | 2017-01-16 12:23 | P.PN ---
Subjective Principal diagnosis: The patient status post laparoscopic ventral incisional herniorrhaphy The patient is seen on rounds. She's in the ICU due to hypoxemia. She has no complaints regarding her breathing today. She's having expected incisional pain. No nausea or vomiting. Tolerating a diet. No bowel movement since surgery. Objective - Vital Signs Vital signs: Vital Signs Temp 98.9 F 01/16/17 04:00 Pulse 90 01/16/17 12:05 Resp 25 H 01/16/17 04:00 BP 99/49 01/16/17 04:00 Pulse Ox 93 L 01/16/17 04:00 Intake & Output 01/15/17 01/16/17 01/16/17 18:59 06:59 18:59 Output Total 2760 950 Balance -2760 -950 Weight 75.8 kg Output: Urine 2760 950 Uretheral (Rodriguez) 750 Other: Voiding Method Indwelling Catheter Indwelling Catheter - Constitutional General appearance: Present: cooperative, no acute distress - Respiratory Respiratory: bilateral: diminished, other (Some pursed lip breathing is noted) - Cardiovascular Rhythm: regular - Gastrointestinal General gastrointestinal: Present: decreased bowel sounds, distended, soft Localized gastrointestinal: surgical scar: diffuse (The incision is intact clean and dry) - Labs CBC & Chem 7: 01/16/17 03:51 01/16/17 03:51 Labs: Abnormal Lab Results - Last 24 Hours (Table) 01/15/17 01/15/17 01/16/17 Range/Units 17:34 20:47 03:51 RDW 16.3 H (11.5-15.5) % Carbon Dioxide (22-30) mmol/L Glucose (74-99) mg/dL POC Glucose (mg/dL) 154 H 204 H (75-99) mg/dL Phosphorus (2.5-4.5) mg/dL 01/16/17 Range/Units 03:51 RDW (11.5-15.5) % Carbon Dioxide 31 H (22-30) mmol/L Glucose 147 H (74-99) mg/dL POC Glucose (mg/dL) (75-99) mg/dL Phosphorus 4.6 H (2.5-4.5) mg/dL Microbiology - Last 24 Hours (Table) 01/15/17 06:15 Urine Culture - Preliminary Urine,Catheterized Assessment and Plan (1) Ventral incisional hernia without obstruction or gangrene Status: Acute (2) Hypoxia Status: Acute Plan: The surgical site appears unremarkable. We'll add something for her constipation. Continue medical management. Progressing very slowly.
[2017-01-16] MEDS ORDERED: MAGNESIUM HYDROXIDE 2,400 MG/10 ML CUP PO PRN (12:24)
[2017-01-16 13:06] LABS: Glucose,Whole Blood 140 mg/dL (75-99)
[2017-01-16 17:14] LABS: Glucose,Whole Blood 142 mg/dL (75-99)
[2017-01-16 21:11] LABS: Glucose,Whole Blood 170 mg/dL (75-99)
[2017-01-17 06:12] LABS: Glucose,Whole Blood 160 mg/dL (75-99)
[2017-01-17] MEDS: metFORMIN 500 MG TAB PO SCH ×2 (06:48→16:50)
[2017-01-17] MEDS: PANTOPRAZOLE 40 MG TABLET PO SCH ×2 (06:48→16:50)
[2017-01-17 07:21] LABS: Anisocytosis Slight; Basophils % (A) 0 %; CHCM 31.8; Eosinophils # (A) 0.2 k/uL (0-0.7); Eosinophils % (A) 2 %; HDW 2.62; HGB 13.1 gm/dL (11.4-16.0); Luc # (Auto) 0.16; Luc % (Auto) 2; Lymphocytes # (A) 1.1 k/uL (1.0-4.8); Lymphocytes % (A) 13 %; MCHC 32.9 g/dL (31.0-37.0); MCV 88.1 fL (80.0-100.0); Mean Platelet Volume 7.9; Monocytes # (A) 0.5 k/uL (0-1.0); Monocytes % (A) 6 %; Neutrophils # (A) 6.8 k/uL (1.3-7.7); Neutrophils % (A) 77 %; RBC 4.54 m/uL (3.80-5.40); RDW 16.2 % (11.5-15.5); WBC 8.8 k/uL (3.8-10.6); WBC (Perox) 8.69
[2017-01-17 07:38] LABS: Anion Gap 10 mmol/L; Blood Urea Nitrogen 18 mg/dL (7-17); Calcium 8.8 mg/dL (8.4-10.2); Carbon Dioxide 29 mmol/L (22-30); Chloride 98 mmol/L (98-107); Glucose 140 mg/dL (74-99); Magnesium 1.9 mg/dL (1.6-2.3); Non-African American GFR(MDRD) >60 (>60 ml/min/1.73 sqM); Potassium 4.2 mmol/L (3.5-5.1); Sodium 137 mmol/L (137-145)
[2017-01-17] MEDS: DOCUSATE 100 MG CAP PO SCH ×2 (08:11→20:27)
[2017-01-17] MEDS: ENOXAPARIN 40 MG/0.4 ML SYRINGE SQ SCH (08:13)
[2017-01-17] MEDS: cloZAPine 100 MG TAB PO SCH ×3 (08:13→20:25)
[2017-01-17] MEDS: NICOTINE 21MG/24HR PATCH TRANSDERM SCH (08:13)
[2017-01-17] MEDS: INSULIN LISPRO (humaLOG) 300 UNIT/3 ML VIAL SQ SCH ×4 (08:13→22:05)
[2017-01-17] MEDS: PARoxetine 20 MG TAB PO SCH (08:14)
[2017-01-17] MEDS: PRAVASTATIN SODIUM 20 MG TAB PO SCH (08:14)
[2017-01-17] MEDS: IPRATROPIUM-ALBUTEROL 3 ML NEB INHALATION SCH ×4 (08:15→20:31)
--- NOTE | 2017-01-17 10:16 | P.PN ---
Subjective Principal diagnosis: Acute respiratory failure Patient is doing well she is sitting up in her bed in ICU she is alert and oriented 3 she denies any chest pain or shortness of breath at this time she has not been out of bed. Patient is complaining of occasional cough, no chest pain, no nausea or vomiting, she has abdominal wall pain when she coughs at the site of surgery, no bowel movement since surgery, and no urinary symptoms. Objective - Vital Signs Vital signs: Vital Signs Temp 99.1 F 01/17/17 08:13 Pulse 99 01/17/17 08:13 Resp 18 01/17/17 08:13 BP 104/61 01/17/17 08:13 Pulse Ox 91 L 01/17/17 08:13 Intake & Output 01/16/17 01/17/17 01/17/17 18:59 06:59 18:59 Intake Total 320 Output Total 950 Balance -630 Weight 75.8 kg 77.5 kg Intake: Intake, IV Titration 200 Amount Magnesium Sulfate-D5w Pmx 200 1 gm In Dextrose/Water 1 100ml.bag @ 100 mls/hr IVPB Q1H MARIELA Rx#: [id number] Oral 120 Output: Urine 950 Other: Voiding Method Indwelling Catheter Diaper Diaper # Voids 1 1 - Exam In general patient is alert and oriented 3 in no apparent distress HEENT head normocephalic and atraumatic Neck is supple no JVD no goiter no lymphadenopathy Chest exam reveals a few scattered crackles in both bases no wheezing Cardiac exam reveals regular heart sounds no gallops no murmurs Abdomen is soft nontender no organomegaly with normal bowel sounds Extremity exam reveals no edema no cyanosis or clubbing - Labs CBC & Chem 7: 01/17/17 06:38 01/17/17 06:38 Labs: Abnormal Lab Results - Last 24 Hours (Table) 01/16/17 01/16/17 01/16/17 Range/Units 13:03 17:07 21:10 RDW (11.5-15.5) % BUN (7-17) mg/dL Glucose (74-99) mg/dL POC Glucose (mg/dL) 140 H 142 H 170 H (75-99) mg/dL 01/17/17 01/17/17 01/17/17 Range/Units 06:09 06:38 06:38 RDW 16.2 H (11.5-15.5) % BUN 18 H (7-17) mg/dL Glucose 140 H (74-99) mg/dL POC Glucose (mg/dL) 160 H (75-99) mg/dL Microbiology - Last 24 Hours (Table) 01/15/17 06:15 Urine Culture - Final Urine,Catheterized Assessment and Plan Plan: 1. Incisional hernia status post repair. Postop day #4 2. Postoperative hypoxemia secondary to hypoventilation, COPD, atelectatic change, volume overload and pain medications. Patient required transfer to the ICU. Currently off of Ventimask and on nasal cannula. Pulmonary service following. Repeat chest x-ray today reveals by basilar infiltrate likely related to atelectasis Continue incentive spirometry and nebulizer treatments 3. History of schizophrenia, stable on current medications continue 4. Nicotine dependence continue nicotine patch 5. Diabetes mellitus type 2 continue sliding scale coverage and metformin 6. Hyperlipidemia continue statin 7. Fluid overload with no history of CHF improved with 2 doses of IV Lasix. Patient's fluids are currently KVO. Continue to monitor. GI prophylaxis Protonix and DVT prophylaxis Lovenox
[2017-01-17] MEDS: HYDROcodone/APAP 5-325MG 1 EACH TAB PO PRN ×2 (10:30→20:25)
--- NOTE | 2017-01-17 11:01 | P.PN ---
Subjective The patient status post ventral incisional herniorrhaphy. She developed respiratory failure. Her breathing is improved. She still on nasal O2. No nausea or vomiting. No BM since surgery. Objective - Vital Signs Vital signs: Vital Signs Temp 99.1 F 01/17/17 08:13 Pulse 99 01/17/17 08:13 Resp 18 01/17/17 08:13 BP 104/61 01/17/17 08:13 Pulse Ox 91 L 01/17/17 08:13 Intake & Output 01/16/17 01/17/17 01/17/17 18:59 06:59 18:59 Intake Total 320 Output Total 950 Balance -630 Weight 75.8 kg 77.5 kg Intake: Intake, IV Titration 200 Amount Magnesium Sulfate-D5w Pmx 200 1 gm In Dextrose/Water 1 100ml.bag @ 100 mls/hr IVPB Q1H MARIELA Rx#: [id number] Oral 120 Output: Urine 950 Other: Voiding Method Indwelling Catheter Diaper Diaper # Voids 1 1 - Constitutional General appearance: Present: cooperative, no acute distress - Gastrointestinal General gastrointestinal: Present: normal bowel sounds, soft Localized gastrointestinal: surgical scar: diffuse (Incision healing) - Labs CBC & Chem 7: 01/17/17 06:38 01/17/17 06:38 Labs: Abnormal Lab Results - Last 24 Hours (Table) 01/16/17 01/16/17 01/16/17 Range/Units 13:03 17:07 21:10 RDW (11.5-15.5) % BUN (7-17) mg/dL Glucose (74-99) mg/dL POC Glucose (mg/dL) 140 H 142 H 170 H (75-99) mg/dL 01/17/17 01/17/17 01/17/17 Range/Units 06:09 06:38 06:38 RDW 16.2 H (11.5-15.5) % BUN 18 H (7-17) mg/dL Glucose 140 H (74-99) mg/dL POC Glucose (mg/dL) 160 H (75-99) mg/dL Microbiology - Last 24 Hours (Table) 01/15/17 06:15 Urine Culture - Final Urine,Catheterized Assessment and Plan (1) Ventral incisional hernia without obstruction or gangrene Status: Acute (2) Hypoxia Status: Acute Plan: The patient is surgically stable. Continue medical care. Surgically stable for discharge when she is doing well from a medical standpoint.
[2017-01-17 12:25] LABS: Glucose,Whole Blood 131 mg/dL (75-99)
--- NOTE | 2017-01-17 13:36 | P.PN ---
Subjective This is a 61-year-old female with a known history of diabetes mellitus, hyperlipidemia, anxiety, depression, schizophrenia and nicotine dependence. Patient presented to the hospital for laparoscopic robotic repair of incisional hernia. Patient tolerated surgery well. Estimated blood loss 5 mL. Patient was on the pediatric floor. Postop, the patient was felt to be very lethargic. She had a pulse ox a of 86% on room air. They placed her on 2 L and she standing and 93%. Overnight, the patient got transferred to the intensive care unit for further monitoring due to concerns of shortness of breath and hypoxemia. She is free of any chest pain. No reported aspiration. No nausea vomiting or abdominal distention. No fever or chills. The patient has history of lung disease. The patient has history of chronic smoking and known to have COPD and she was hospitalized in October 2016 for an acute COPD exacerbation. No previous history of cardiac disease. The chest x-ray from today is showing bibasilar atelectatic changes along with some cardiomegaly. There is some improvement in aeration and the volume status compared to yesterday. Note that the patient was given 40 mg of IV Lasix yesterday and the patient put out more than 2 L of urine. Currently her IV fluids at KVO. She is tolerating diet and she is having no active issues for now. The patient is on today's of oxygen nasal cannula. On 01/16/2017 the patient is being seen in follow-up. The patient is calm and comfortable. She is tolerating regular diet, consistent carb. No nausea. No emesis. No abdominal distention. The chest x-ray from today shows increased atelectatic changes and fluid/pleural effusion lung bases bilaterally. Based on that, the patient be given Lasix and she'll be encouraged to continue using the incentive spirometer. The patient is afebrile. The patient seems to much more alert compared to yesterday. Denies having any respiratory distress. No chest pain. No other significant events over the past 24 hours. She is on Hep- Lock IV. On 2016 the patient was results of the intensive care unit yesterday and the patient is being seen in the medical floor. She has not a bowel movement yet. She has positive bowel sounds. She is tolerating her diet. No abdominal distention. No nausea or vomiting. Surgical wound site is clean and intact. No significant respiratory distress at this point. She is resting comfortably in bed. Her breathing is improved for now. Her pulse ox around 91% on 4-5 L of oxygen by nasal cannula. Chest x-ray shows improvement in the volume status. No significant effusion on the right. Left basilar atelectatic changes again seen. Objective - Vital Signs Vital signs: Vital Signs Temp 98.2 F 01/17/17 11:59 Pulse 94 01/17/17 11:59 Resp 18 01/17/17 11:59 BP 110/60 01/17/17 11:59 Pulse Ox 92 L 01/17/17 11:59 Intake & Output 01/16/17 01/17/17 01/17/17 18:59 06:59 18:59 Intake Total 320 480 Output Total 950 600 Balance -630 -120 Weight 75.8 kg 77.5 kg Intake: Intake, IV Titration 200 Amount Magnesium Sulfate-D5w Pmx 200 1 gm In Dextrose/Water 1 100ml.bag @ 100 mls/hr IVPB Q1H MARIELA Rx#: [id number] Oral 120 480 Output: Urine 950 600 Other: Voiding Method Indwelling Catheter Diaper Diaper # Voids 1 1 # Bowel Movements 0 - Exam Head exam was generally normal. There was no scleral icterus or corneal arcus. Mucous membranes were moist. Neck was supple and without jugular venous distension, thyromegaly, or carotid bruits. Carotids were easily palpable bilaterally. There was no adenopathy. Lung sounds are diminished in lung bases bilaterally otherwise clear. The patient has scattered rhonchi and scattered expiratory wheezes. Respiratory effort several week and breathing is shallow at this point. Cardiac exam revealed the PMI to be normally situated and sized. The rhythm was regular and no extrasystoles were noted during several minutes of auscultation. The first and second heart sounds were normal and physiologic splitting of the second heart sound was noted. There were no murmurs , rubs, clicks, or gallops.Abdominal exam revealed normal bowel sounds. The abdomen was soft, non-tender, and without masses, organomegaly, or appreciable enlargement of the abdominal aorta. Surgical wound site over the anterior abdominal wall is clean dry and intact. The bowel sounds are hypoactive. Examination of the extremities revealed easily palpable radial, femoral and pedal pulses. There was no cyanosis, clubbing or edema. - Labs CBC & Chem 7: 01/17/17 06:38 01/17/17 06:38 Labs: Abnormal Lab Results - Last 24 Hours (Table) 01/16/17 01/16/17 01/17/17 Range/Units 17:07 21:10 06:09 RDW (11.5-15.5) % BUN (7-17) mg/dL Glucose (74-99) mg/dL POC Glucose (mg/dL) 142 H 170 H 160 H (75-99) mg/dL 01/17/17 01/17/17 01/17/17 Range/Units 06:38 06:38 11:58 RDW 16.2 H (11.5-15.5) % BUN 18 H (7-17) mg/dL Glucose 140 H (74-99) mg/dL POC Glucose (mg/dL) 131 H (75-99) mg/dL Microbiology - Last 24 Hours (Table) 01/15/17 06:15 Urine Culture - Final Urine,Catheterized Assessment and Plan Plan: Assessment 1 postoperative hypoxemia due to a combination of hypoventilation, COPD, atelectatic changes involving the lung bases bilaterally and possibly a component of pulmonary vessel congestion. It x-ray from today shows increased atelectatic changes and effusion the lung bases bilaterally. The patient has been on oxygen at 5 L/m nasal cannula. I think these are postoperative atelectatic changes and effusion and the patient would benefit from aggressive pulmonary toileting, incentive spirometer and diuretics. 2 COPD 3 postoperative day #3 following an incisional hernia repair. 4 diabetes mellitus 5 hyperlipidemia 6 Paranoid schizophrenia 7 GERD 8 smoker. Plan Continue this is a spirometer. Patient is out in the medical floor. Tolerating the diet. Aggressive use of incentive spirometer. Today's chest x- ray shows improvement in aeration on the right. There is atelectatic changes on the left. We'll continue to follow. Ambulation. Overall condition is stable. Gradually wean down the FiO2 as tolerated to maintain a saturation above 90%.
--- NOTE | 2017-01-17 16:05 | XR ---
EXAMINATION TYPE: XR chest 1V DATE OF EXAM: 01/17/2017 HISTORY: Shortness of breath. COMPARISON: January 16, 2017 TECHNIQUE: Single view of the chest is submitted. FINDINGS: Demonstrated are scattered senescent parenchymal change. Stable patchy basilar opacities. Pulmonary venous congestion has improved. Suspect small effusions. The heart is stable. Hilar and mediastinal structures are within normal limits. Degenerative changes are seen of the dorsal spine. IMPRESSION: 1. Stable patchy basilar opacities. Pulmonary venous congestion has improved. Suspect small effusion s.
[2017-01-17 16:42] LABS: Glucose,Whole Blood 169 mg/dL (75-99)
[2017-01-17 20:56] LABS: Glucose,Whole Blood 169 mg/dL (75-99)
[2017-01-18 05:23] LABS: Glucose,Whole Blood 167 mg/dL (75-99)
[2017-01-18 06:27] LABS: Glucose,Whole Blood 174 mg/dL (75-99)
[2017-01-18] MEDS: INSULIN LISPRO (humaLOG) 300 UNIT/3 ML VIAL SQ SCH ×4 (06:31→21:43)
[2017-01-18] MEDS: PANTOPRAZOLE 40 MG TABLET PO SCH ×2 (06:31→17:05)
[2017-01-18 06:41] LABS: Anisocytosis Slight; Basophils % (A) 0 %; CH 28.2; CHCM 31.6; Eosinophils # (A) 0.2 k/uL (0-0.7); Eosinophils % (A) 3 %; HCT 39.4 % (34.0-46.0); HDW 2.62; HGB 12.7 gm/dL (11.4-16.0); Hypochromasia Slight; Luc # (Auto) 0.14; Luc % (Auto) 2; Lymphocytes % (A) 15 %; MCH 28.9 pg (25.0-35.0); MCHC 32.3 g/dL (31.0-37.0); MCV 89.5 fL (80.0-100.0); Mean Platelet Volume 8.3; Monocytes # (A) 0.4 k/uL (0-1.0); Monocytes % (A) 7 %; Neutrophils # (A) 4.5 k/uL (1.3-7.7); Neutrophils % (A) 72 %; RBC 4.39 m/uL (3.80-5.40); RDW 16.2 % (11.5-15.5); WBC 6.3 k/uL (3.8-10.6)
--- NOTE | 2017-01-18 06:48 | P.PN ---
Progress Note - Text The patient's having mild expected incisional pain. No nausea or vomiting. Denies shortness of breath Abdomen: Soft, positive bowel sounds, incisions healing without cellulitis Assessment: Status post ventral incisional hernia, hypoxemia Plan: Patient surgically stable. Continue medical care. Discharge when medically stable.
[2017-01-18 06:51] LABS: Anion Gap 9 mmol/L; Blood Urea Nitrogen 16 mg/dL (7-17); Calcium 8.7 mg/dL (8.4-10.2); Carbon Dioxide 29 mmol/L (22-30); Chloride 101 mmol/L (98-107); Glucose 147 mg/dL (74-99); Magnesium 1.8 mg/dL (1.6-2.3); Non-African American GFR(MDRD) >60 (>60 ml/min/1.73 sqM); Phosphorous 3.7 mg/dL (2.5-4.5); Potassium 4.1 mmol/L (3.5-5.1); Sodium 139 mmol/L (137-145)
[2017-01-18] MEDS: IPRATROPIUM-ALBUTEROL 3 ML NEB INHALATION SCH ×4 (07:26→19:22)
[2017-01-18] MEDS: DOCUSATE 100 MG CAP PO SCH ×2 (07:30→21:44)
[2017-01-18] MEDS: cloZAPine 100 MG TAB PO SCH ×3 (07:30→21:43)
[2017-01-18] MEDS: PRAVASTATIN SODIUM 20 MG TAB PO SCH (07:30)
[2017-01-18] MEDS: PARoxetine 20 MG TAB PO SCH (07:30)
[2017-01-18] MEDS: metFORMIN 500 MG TAB PO SCH ×2 (07:31→17:05)
[2017-01-18] MEDS: NICOTINE 21MG/24HR PATCH TRANSDERM SCH (07:31)
[2017-01-18] MEDS: ENOXAPARIN 40 MG/0.4 ML SYRINGE SQ SCH (07:31)
--- NOTE | 2017-01-18 08:25 | XR ---
EXAMINATION TYPE: XR chest 1V DATE OF EXAM: 01/18/2017 COMPARISON: 01/17/2017 HISTORY: Shortness of breath TECHNIQUE: Single frontal view of the chest is obtained. FINDINGS: Persistent bilateral areas of consolidation are stable. Tiny effusion on the left suspecte d. Patient is rotated with arthropathy of the shoulders but no pneumothorax. Heart size stable. IMPRESSION: 1. Stable bilateral lower lobe infiltrate
[2017-01-18] MEDS ORDERED: FUROSEMIDE 10 MG/ML 2 ML VIAL IV ONE (11:38)
[2017-01-18] MEDS ORDERED: LACTULOSE 20 GM/30 ML CUP PO ONE (11:42)
--- NOTE | 2017-01-18 11:42 | P.PN ---
Subjective Status post laparoscopic robotic repair of incisional hernia Early this morning patient did require transfer to the ICU. She had became lethargic and hypoxic. She was given a dose of Narcan as well as Lasix. Patient had had a pulse ox of 86% and did require to be placed on a Ventimask. Patient is currently on 2 L nasal cannula and satting around 93%. Patient has been seen by pulmonary service. She required 2 doses of IV Lasix yesterday. Chest x-ray today shows atelectasis and cardiomegaly with some improvement in aeration. Patient is sitting up in bed awake and alert answering questions appropriately. She denies any chest pain or shortness of breath. She is complaining of some abdominal pain around the incision sites. Denies any nausea or vomiting. No bowel movement yet she is passing some gas. He has Rodriguez catheter in place. 01/18/2017 patient is currently lying in bed comfortably on the sixth floor. Still having some shortness of breath at times. Requiring 3 L satting at 94%. Chest x-ray showing stable bilateral lobe infiltrate. White count is normal no fevers. No sniffing a cough. Patient is complaining of some sharp pains at times in her stomach. She reports no bowel movement since her surgery. She is passing gas. Denies any nausea or vomiting. Eating regular diet Objective - Vital Signs Vital signs: Vital Signs Temp 97.5 F L 01/18/17 08:00 Pulse 92 01/18/17 11:37 Resp 20 01/18/17 08:00 BP 117/74 01/18/17 08:00 Pulse Ox 94 L 01/18/17 08:00 Intake & Output 01/17/17 01/18/17 01/18/17 18:59 06:59 18:59 Intake Total 960 10 Output Total 600 Balance 360 10 Weight 76 kg Intake: IV 10 0.9 10 Oral 960 Output: Urine 600 Other: Voiding Method Diaper Diaper Diaper # Voids 3 # Bowel Movements 0 1 - Exam Head normocephalic Neck supple Lungs crackles bilaterally Heart regular rate and rhythm S1-S2, no rub or gallop Abdomen is soft nontender nondistended positive bowel sounds no hepatosplenomegaly Extremities no edema Neuro alert and orientated to 3 - Labs CBC & Chem 7: 01/18/17 06:22 01/18/17 06:22 Labs: Abnormal Lab Results - Last 24 Hours (Table) 01/17/17 01/17/17 01/17/17 Range/Units 11:58 16:36 20:54 RDW (11.5-15.5) % Glucose (74-99) mg/dL POC Glucose (mg/dL) 131 H 169 H 169 H (75-99) mg/dL 01/18/17 01/18/17 01/18/17 Range/Units 04:58 06:17 06:22 RDW 16.2 H (11.5-15.5) % Glucose (74-99) mg/dL POC Glucose (mg/dL) 167 H 174 H (75-99) mg/dL 01/18/17 Range/Units 06:22 RDW (11.5-15.5) % Glucose 147 H (74-99) mg/dL POC Glucose (mg/dL) (75-99) mg/dL Assessment and Plan Plan: 1. Incisional hernia status post repair. 2. Postoperative hypoxemia secondary to hypoventilation, COPD, atelectatic change, volume overload and pain medications. Patient required transfer to the ICU. Currently off of Ventimask and on nasal cannula. Pulmonary service following. Continue nebulizer treatment and incentive spirometry 3. History of schizophrenia 4. Nicotine dependence continue nicotine patch 5. Diabetes mellitus type 2 continue sliding scale coverage and metformin 6. Hyperlipidemia continue statin 7. Fluid overload with no history of CHF. Patient is having evidence of fluid overload again. We'll give a dose of Lasix 20 mg IV push 1 . Constipation: Continue Colace. We'll add lactulose 30 mL 1 GI prophylaxis Protonix and DVT prophylaxis Lovenox I performed an examination of the patient and discussed their management with the physician Photo Colorer. I have reviewed the Physician Photo Colorer's notes and agree with the documented findings and plan of care
[2017-01-18] MEDS: HYDROcodone/APAP 5-325MG 1 EACH TAB PO PRN ×2 (11:50→21:43)
[2017-01-18 11:53] LABS: Glucose,Whole Blood 126 mg/dL (75-99)
--- NOTE | 2017-01-18 12:10 | CDI ---
In responding to this query, please exercise your independent professional judgment. The [facility] Coding Staff and Clinical Documentation Specialists appreciate your assistance in clarifying documentation, maintaining compliance with coding guidelines, accurately documenting patients condition and capturing severity of illness. The fact that a question is asked does not imply that any particular answer is desired or expected. Communication forms are a method of clarifying documentation and are not made part of the Legal Health Record. Thank you in advance for your clarification. Last Revision, Aug 2016 Crystal Perez [address] [place] [address] Documentation Clarification Form Date: 01/18/2017 11:52:00 AM From: Cecilia Peres RN, CCDS Admit Date: 01/15/2017 5:33:00 AM Patient Name: Daria Lei Visit Number: [id number] Dr. Biju Wong Postoperative hypoxia and acute respiratory failure are documented in the Surgical, Pulmonary, and Medical Progress Notes. Patients Admitting Diagnosis: Incisional Hernia Post-Operative Diagnosis: Incisional Hernia Procedure performed: Lap Robotic-assisted repair of Incisional Hernia History/Risk Factors: Current smoker Clinical Indicators: 01/18 Dr. Griffiths Surgical Progress Note: "Assessment: Status post ventral Incisional hernia, hypoxemia." 01/17 Pulmonary Progress Note: " 1 postoperative hypoxemia due to a combination of hypoventilation, COPD, atelectatic changes involving the lung bases bilaterally and possibly a component of pulmonary vessel congestion. It x-ray from today shows increased atelectatic changes and effusion the lung bases bilaterally. The patient has been on oxygen at 5 L/m nasal cannula. I think these are postoperative atelectatic changes and effusion and the patient would benefit from aggressive pulmonary toileting, incentive spirometer and diuretics. " 01/17 Medical Progress Note: "Acute respiratory failure. Postoperative hypoxemia secondary to hypoventilation, COPD, atelectatic change, volume overload and pain medications." Treatment: Consults: Medical, Pulmonary Duoneb QID and Q 2 hrs PRN, Symbicort INH BID Lasix 20-40 MG IVP x3 doses In order to accurately reflect this patients severity of illness, please clarify if the post-operative diagnosis is: An expected post-procedural or post-surgical condition Integral to the procedure Inherent to the procedure An unexpected post-procedural or post-surgical condition, related to surgical care Other, please specify Unable to determine Please document in your progress notes and discharge summary in order to capture severity of illness and risk of mortality. Include clinical findings that support your diagnosis. FYI: Press F11 to launch patient chart Place X here if this finding has no clinical significance, is not applicable or if you are not able to provide any additional documentation. MISBAH
--- NOTE | 2017-01-18 13:06 | P.PN ---
Subjective Principal diagnosis: Postoperative hypoxemia, patient is status post incisional hernia repair postoperative day #4 This is a 61-year-old female with a known history of diabetes mellitus, hyperlipidemia, anxiety, depression, schizophrenia and nicotine dependence. Patient presented to the hospital for laparoscopic robotic repair of incisional hernia. Patient tolerated surgery well. Estimated blood loss 5 mL. Patient was on the pediatric floor. Postop, the patient was felt to be very lethargic. She had a pulse ox a of 86% on room air. They placed her on 2 L and she standing and 93%. Overnight, the patient got transferred to the intensive care unit for further monitoring due to concerns of shortness of breath and hypoxemia. She is free of any chest pain. No reported aspiration. No nausea vomiting or abdominal distention. No fever or chills. The patient has history of lung disease. The patient has history of chronic smoking and known to have COPD and she was hospitalized in October 2016 for an acute COPD exacerbation. No previous history of cardiac disease. The chest x-ray from today is showing bibasilar atelectatic changes along with some cardiomegaly. There is some improvement in aeration and the volume status compared to yesterday. Note that the patient was given 40 mg of IV Lasix yesterday and the patient put out more than 2 L of urine. Currently her IV fluids at KVO. She is tolerating diet and she is having no active issues for now. The patient is on today's of oxygen nasal cannula. On 01/16/2017 the patient is being seen in follow-up. The patient is calm and comfortable. She is tolerating regular diet, consistent carb. No nausea. No emesis. No abdominal distention. The chest x-ray from today shows increased atelectatic changes and fluid/pleural effusion lung bases bilaterally. Based on that, the patient be given Lasix and she'll be encouraged to continue using the incentive spirometer. The patient is afebrile. The patient seems to much more alert compared to yesterday. Denies having any respiratory distress. No chest pain. No other significant events over the past 24 hours. She is on Hep- Lock IV. On 2016 the patient was results of the intensive care unit yesterday and the patient is being seen in the medical floor. She has not a bowel movement yet. She has positive bowel sounds. She is tolerating her diet. No abdominal distention. No nausea or vomiting. Surgical wound site is clean and intact. No significant respiratory distress at this point. She is resting comfortably in bed. Her breathing is improved for now. Her pulse ox around 91% on 4-5 L of oxygen by nasal cannula. Chest x-ray shows improvement in the volume status. No significant effusion on the right. Left basilar atelectatic changes again seen. On 01/18/2017, patient is doing quite well. Relatively asymptomatic, she does not seem to be in any form of distress. Chest x-ray showed mostly atelectasis, but it seems to be improving. And clinically the patient is showing definite improvement. The x-ray was read as possible infiltrates, but I think the findings are mostly findings of atelectasis especially at the left base. Clinically the patient does not have pneumonia. Objective - Vital Signs Vital signs: Vital Signs Temp 97.4 F L 01/18/17 11:56 Pulse 93 01/18/17 11:56 Resp 22 01/18/17 11:56 BP 122/64 01/18/17 11:56 Pulse Ox 93 L 01/18/17 11:56 Intake & Output 01/17/17 01/18/17 01/18/17 18:59 06:59 18:59 Intake Total 960 10 Output Total 600 Balance 360 10 Weight 76 kg Intake: IV 10 0.9 10 Oral 960 Output: Urine 600 Other: Voiding Method Diaper Diaper Diaper # Voids 3 # Bowel Movements 0 1 - Exam Physical Exam: Revealed a 61-year-old in no distress. HEENT:[Neck is supple.] [No neck masses.] [No thyromegaly.] [No JVD.] Chest: [Clear throughout, no crackles, no rhonchi, no wheezes.] Cardiac Exam: [Normal S1 and S2, no S3 gallop, no murmur.] Abdomen: [Soft, nontender, no megaly, no rebound, no guarding, normal bowel sounds.] Extremities: [No clubbing, no edema, no cyanosis.] Neurological Exam: [No focal neurologic deficit.] - Labs CBC & Chem 7: 01/18/17 06:22 01/18/17 06:22 Labs: Abnormal Lab Results - Last 24 Hours (Table) 01/17/17 01/17/17 01/18/17 Range/Units 16:36 20:54 04:58 RDW (11.5-15.5) % Glucose (74-99) mg/dL POC Glucose (mg/dL) 169 H 169 H 167 H (75-99) mg/dL 01/18/17 01/18/17 01/18/17 Range/Units 06:17 06:22 06:22 RDW 16.2 H (11.5-15.5) % Glucose 147 H (74-99) mg/dL POC Glucose (mg/dL) 174 H (75-99) mg/dL 01/18/17 Range/Units 11:48 RDW (11.5-15.5) % Glucose (74-99) mg/dL POC Glucose (mg/dL) 126 H (75-99) mg/dL Assessment and Plan Plan: 1 postoperative hypoxemia due to a combination of hypoventilation, COPD, atelectatic changes involving the lung bases bilaterally and possibly a component of pulmonary vessel congestion. Chest x-ray was reviewed today, and it showed mostly atelectasis mostly at the left base. 2 COPD 3 postoperative day #4 following an incisional hernia repair. 4 diabetes mellitus 5 hyperlipidemia 6 Paranoid schizophrenia 7 GERD 8 smoker. Recommendation: Continue incentive spirometry, chest x-ray is again reassuring, no evidence of pneumonia, discharge planning is in progress. Time with Patient: Less than 30
[2017-01-18 16:58] LABS: Glucose,Whole Blood 134 mg/dL (75-99)
[2017-01-18 20:49] LABS: Glucose,Whole Blood 236 mg/dL (75-99)
[2017-01-19 06:07] LABS: Glucose,Whole Blood 156 mg/dL (75-99)
[2017-01-19 06:19] LABS: Anion Gap 12 mmol/L; Blood Urea Nitrogen 13 mg/dL (7-17); Calcium 8.8 mg/dL (8.4-10.2); Carbon Dioxide 26 mmol/L (22-30); Chloride 100 mmol/L (98-107); Glucose 154 mg/dL (74-99); Magnesium 1.6 mg/dL (1.6-2.3); Non-African American GFR(MDRD) >60 (>60 ml/min/1.73 sqM); Phosphorous 3.7 mg/dL (2.5-4.5); Potassium 3.7 mmol/L (3.5-5.1); Sodium 138 mmol/L (137-145)
[2017-01-19 06:21] LABS: Basophils % (A) 1 %; CH 27.8; CHCM 31.5; Eosinophils # (A) 0.3 k/uL (0-0.7); Eosinophils % (A) 4 %; HCT 40.2 % (34.0-46.0); HDW 2.67; Hypochromasia Slight; Luc # (Auto) 0.22; Luc % (Auto) 3; Lymphocytes % (A) 16 %; MCH 28.7 pg (25.0-35.0); MCHC 32.4 g/dL (31.0-37.0); MCV 88.6 fL (80.0-100.0); Mean Platelet Volume 7.7; Monocytes # (A) 0.5 k/uL (0-1.0); Monocytes % (A) 7 %; Neutrophils # (A) 4.4 k/uL (1.3-7.7); Neutrophils % (A) 68 %; RBC 4.54 m/uL (3.80-5.40); RDW 15.6 % (11.5-15.5); WBC 6.5 k/uL (3.8-10.6); WBC (Perox) 6.73
[2017-01-19] MEDS: INSULIN LISPRO (humaLOG) 300 UNIT/3 ML VIAL SQ SCH ×4 (06:39→20:44)
[2017-01-19] MEDS: PANTOPRAZOLE 40 MG TABLET PO SCH ×2 (06:40→16:45)
[2017-01-19] MEDS: metFORMIN 500 MG TAB PO SCH ×2 (06:40→16:45)
[2017-01-19] MEDS: IPRATROPIUM-ALBUTEROL 3 ML NEB INHALATION SCH ×4 (08:09→20:12)
[2017-01-19] MEDS ORDERED: POTASSIUM CHLORIDE ER 20 MEQ TAB.ER PO SCH (09:00)
[2017-01-19] MEDS: HYDROcodone/APAP 5-325MG 1 EACH TAB PO PRN (09:23)
[2017-01-19] MEDS: MAGNESIUM SULFATE-D5W PMX 1 GM in DEXTROSE/WATER 1 100ML.BAG IVPB SCH ×2 (09:24→10:45)
[2017-01-19] MEDS: NICOTINE 21MG/24HR PATCH TRANSDERM SCH (09:24)
[2017-01-19] MEDS: DOCUSATE 100 MG CAP PO SCH ×2 (09:24→19:04)
[2017-01-19] MEDS: ENOXAPARIN 40 MG/0.4 ML SYRINGE SQ SCH (09:24)
[2017-01-19] MEDS: cloZAPine 100 MG TAB PO SCH ×3 (09:25→20:44)
[2017-01-19] MEDS: PRAVASTATIN SODIUM 20 MG TAB PO SCH (09:25)
[2017-01-19] MEDS: PARoxetine 20 MG TAB PO SCH (09:25)
--- NOTE | 2017-01-19 10:07 | P.PN ---
Progress Note - Text The patient seen on rounds. She's having mild incisional pain. No nausea or vomiting. Pulse oximetry is still very low off O2. 83% room air Down to 83%. Abdomen: Soft, positive bowel sounds, no seroma Assessment: Status post ventral incisional herniorrhaphy, hypoxemia Recommendation: Continue medical care. Surgically stable for discharge once the hypoxemia has been addressed.
--- NOTE | 2017-01-19 10:53 | P.PN ---
Subjective Principal diagnosis: Acute respiratory failure Patient is doing well she is sitting up in her bed in ICU she is alert and oriented 3 she denies any chest pain or shortness of breath at this time she has not been out of bed. Patient is complaining of occasional cough, no chest pain, no nausea or vomiting, she has abdominal wall pain when she coughs at the site of surgery, no bowel movement since surgery, and no urinary symptoms. Objective - Vital Signs Vital signs: Vital Signs Temp 97.7 F 01/19/17 09:01 Pulse 97 01/19/17 09:01 Resp 18 01/19/17 09:01 BP 132/73 01/19/17 09:01 Pulse Ox 92 L 01/19/17 09:01 Intake & Output 01/18/17 01/19/17 01/19/17 18:59 06:59 18:59 Intake Total 180 Output Total 400 Balance -220 Weight 73.5 kg Intake: Oral 180 Output: Urine 400 Other: Voiding Method Diaper Urinal # Voids 1 # Bowel Movements 1 - Exam In general patient is alert and oriented 3 in no apparent distress HEENT head normocephalic and atraumatic Neck is supple no JVD no goiter no lymphadenopathy Chest exam reveals a few scattered crackles in both bases no wheezing Cardiac exam reveals regular heart sounds no gallops no murmurs Abdomen is soft nontender no organomegaly with normal bowel sounds Extremity exam reveals no edema no cyanosis or clubbing - Labs CBC & Chem 7: 01/19/17 05:35 01/19/17 05:30 Labs: Abnormal Lab Results - Last 24 Hours (Table) 01/18/17 01/18/17 01/18/17 Range/Units 11:48 16:49 20:43 RDW (11.5-15.5) % Glucose (74-99) mg/dL POC Glucose (mg/dL) 126 H 134 H 236 H (75-99) mg/dL 01/19/17 01/19/17 01/19/17 Range/Units 05:30 05:35 06:05 RDW 15.6 H (11.5-15.5) % Glucose 154 H (74-99) mg/dL POC Glucose (mg/dL) 156 H (75-99) mg/dL Microbiology - Last 24 Hours (Table) 01/17/17 20:52 Gram Stain - Preliminary Sputum Assessment and Plan Plan: 1. Incisional hernia status post repair. Postop day #5 2. Postoperative hypoxemia secondary to hypoventilation, COPD, atelectatic change, volume overload and pain medications. Patient required transfer to the ICU. Currently off of Ventimask and on nasal cannula. Pulmonary service following. Repeat chest x-ray today reveals bibasilar infiltrates likely related to atelectasis Continue incentive spirometry and nebulizer treatments, no evidence of pneumonia. 3. History of schizophrenia, stable on current medications continue 4. Nicotine dependence continue nicotine patch 5. Diabetes mellitus type 2 continue sliding scale coverage and metformin 6. Hyperlipidemia continue statin 7. Fluid overload with no history of CHF improved with 2 doses of IV Lasix. Patient's fluids are currently KVO. Continue to monitor. Continue current care, plan for discharge to home tomorrow, may need home oxygen , will recheck oxygen saturation in am tomorrow. GI prophylaxis Protonix and DVT prophylaxis Lovenox
--- NOTE | 2017-01-19 11:21 | P.PN ---
Subjective Principal diagnosis: Postoperative hypoxemia, patient is status post incisional hernia repair postoperative day #5 This is a 61-year-old female with a known history of diabetes mellitus, hyperlipidemia, anxiety, depression, schizophrenia and nicotine dependence. Patient presented to the hospital for laparoscopic robotic repair of incisional hernia. Patient tolerated surgery well. Estimated blood loss 5 mL. Patient was on the pediatric floor. Postop, the patient was felt to be very lethargic. She had a pulse ox a of 86% on room air. They placed her on 2 L and she standing and 93%. Overnight, the patient got transferred to the intensive care unit for further monitoring due to concerns of shortness of breath and hypoxemia. She is free of any chest pain. No reported aspiration. No nausea vomiting or abdominal distention. No fever or chills. The patient has history of lung disease. The patient has history of chronic smoking and known to have COPD and she was hospitalized in October 2016 for an acute COPD exacerbation. No previous history of cardiac disease. The chest x-ray from today is showing bibasilar atelectatic changes along with some cardiomegaly. There is some improvement in aeration and the volume status compared to yesterday. Note that the patient was given 40 mg of IV Lasix yesterday and the patient put out more than 2 L of urine. Currently her IV fluids at KVO. She is tolerating diet and she is having no active issues for now. The patient is on today's of oxygen nasal cannula. On 01/16/2017 the patient is being seen in follow-up. The patient is calm and comfortable. She is tolerating regular diet, consistent carb. No nausea. No emesis. No abdominal distention. The chest x-ray from today shows increased atelectatic changes and fluid/pleural effusion lung bases bilaterally. Based on that, the patient be given Lasix and she'll be encouraged to continue using the incentive spirometer. The patient is afebrile. The patient seems to much more alert compared to yesterday. Denies having any respiratory distress. No chest pain. No other significant events over the past 24 hours. She is on Hep- Lock IV. On 2016 the patient was results of the intensive care unit yesterday and the patient is being seen in the medical floor. She has not a bowel movement yet. She has positive bowel sounds. She is tolerating her diet. No abdominal distention. No nausea or vomiting. Surgical wound site is clean and intact. No significant respiratory distress at this point. She is resting comfortably in bed. Her breathing is improved for now. Her pulse ox around 91% on 4-5 L of oxygen by nasal cannula. Chest x-ray shows improvement in the volume status. No significant effusion on the right. Left basilar atelectatic changes again seen. On 01/18/2017, patient is doing quite well. Relatively asymptomatic, she does not seem to be in any form of distress. Chest x-ray showed mostly atelectasis, but it seems to be improving. And clinically the patient is showing definite improvement. The x-ray was read as possible infiltrates, but I think the findings are mostly findings of atelectasis especially at the left base. Clinically the patient does not have pneumonia. On 01/19/2017, patient seems to be doing a little bit better, not very ambulatory , O2 saturations in the 80s on room air, but in the low 90s on 3 L nasal cannula. Last chest x-ray showed atelectasis. Patient has been a heavy smoker over the years, and I suspect that the patient may have some ongoing severe underlying COPD. No evidence of pneumonia the chest x-ray. CBC is relatively normal. Basic metabolic profile is relatively normal. The patient herself denies being short of breath. Objective - Vital Signs Vital signs: Vital Signs Temp 97.7 F 01/19/17 09:01 Pulse 97 01/19/17 09:01 Resp 18 01/19/17 09:01 BP 132/73 01/19/17 09:01 Pulse Ox 92 L 01/19/17 09:01 Intake & Output 01/18/17 01/19/17 01/19/17 18:59 06:59 18:59 Intake Total 180 Output Total 400 Balance -220 Weight 73.5 kg Intake: Oral 180 Output: Urine 400 Other: Voiding Method Diaper Urinal # Voids 1 # Bowel Movements 1 - Exam Physical Exam: Revealed a 61-year-old in no distress. HEENT:[Neck is supple.] [No neck masses.] [No thyromegaly.] [No JVD.] Chest: [Minimal fine crackles at the left base.] Cardiac Exam: [Normal S1 and S2, no S3 gallop, no murmur.] Abdomen: [Soft, nontender, no megaly, no rebound, no guarding, normal bowel sounds.] Extremities: [No clubbing, no edema, no cyanosis.] Neurological Exam: [No focal neurologic deficit.] - Labs CBC & Chem 7: 01/19/17 05:35 01/19/17 05:30 Labs: Abnormal Lab Results - Last 24 Hours (Table) 01/18/17 01/18/17 01/18/17 Range/Units 11:48 16:49 20:43 RDW (11.5-15.5) % Glucose (74-99) mg/dL POC Glucose (mg/dL) 126 H 134 H 236 H (75-99) mg/dL 01/19/17 01/19/17 01/19/17 Range/Units 05:30 05:35 06:05 RDW 15.6 H (11.5-15.5) % Glucose 154 H (74-99) mg/dL POC Glucose (mg/dL) 156 H (75-99) mg/dL Microbiology - Last 24 Hours (Table) 01/17/17 20:52 Gram Stain - Preliminary Sputum Assessment and Plan Plan: 1 postoperative hypoxemia due to a combination of hypoventilation, COPD, atelectatic changes involving the lung bases bilaterally and possibly a component of pulmonary vessel congestion. Chest x-ray was reviewed yesterday, and it showed mostly atelectasis mostly at the left base. 2 COPD 3 postoperative day #5 following an incisional hernia repair. 4 diabetes mellitus 5 hyperlipidemia 6 Paranoid schizophrenia 7 GERD 8 smoker. Recommendation: Continue incentive spirometry, chest x-ray is again reassuring, no evidence of pneumonia, discharge planning is in progress. Patient could be discharged home on home O2 and follow up on outpatient basis once cleared by surgery for discharge. Time with Patient: Less than 30
[2017-01-19 12:08] LABS: Glucose,Whole Blood 139 mg/dL (75-99)
[2017-01-19 12:41] VITALS: RESP 16
[2017-01-19 17:09] LABS: Glucose,Whole Blood 135 mg/dL (75-99)
[2017-01-19 20:22] LABS: Glucose,Whole Blood 158 mg/dL (75-99)
[2017-01-20] MEDS: HYDROcodone/APAP 5-325MG 1 EACH TAB PO PRN ×2 (02:50→10:24)
[2017-01-20 06:40] LABS: Basophils % (A) 0 %; CH 27.6; CHCM 30.8; Eosinophils # (A) 0.3 k/uL (0-0.7); Eosinophils % (A) 4 %; HCT 37.4 % (34.0-46.0); HGB 12.1 gm/dL (11.4-16.0); Hypochromasia Moderate; Luc # (Auto) 0.18; Luc % (Auto) 3; Lymphocytes % (A) 17 %; MCHC 32.3 g/dL (31.0-37.0); MCV 89.8 fL (80.0-100.0); Mean Platelet Volume 7.7; Monocytes # (A) 0.5 k/uL (0-1.0); Monocytes % (A) 7 %; Neutrophils # (A) 4.2 k/uL (1.3-7.7); Neutrophils % (A) 69 %; RBC 4.16 m/uL (3.80-5.40); RDW 15.7 % (11.5-15.5); WBC 6.1 k/uL (3.8-10.6); WBC (Perox) 6.35
[2017-01-20 06:54] LABS: Anion Gap 8 mmol/L; Blood Urea Nitrogen 11 mg/dL (7-17); Carbon Dioxide 30 mmol/L (22-30); Chloride 102 mmol/L (98-107); Glucose 127 mg/dL (74-99); Non-African American GFR(MDRD) >60 (>60 ml/min/1.73 sqM); Sodium 140 mmol/L (137-145)
[2017-01-20 07:08] LABS: Glucose,Whole Blood 132 mg/dL (75-99)
[2017-01-20 07:09] LABS: Calcium 8.9 mg/dL (8.4-10.2); Magnesium 1.9 mg/dL (1.6-2.3); Phosphorous 3.7 mg/dL (2.5-4.5); Potassium 5.1 mmol/L (3.5-5.1)
[2017-01-20] MEDS: IPRATROPIUM-ALBUTEROL 3 ML NEB INHALATION SCH ×3 (07:42→15:35)
[2017-01-20 07:52] VITALS: BP 136/76; TEMP 97.8
--- NOTE | 2017-01-20 08:24 | XR ---
EXAMINATION TYPE: XR chest 1V portable DATE OF EXAM: 01/20/2017 COMPARISON: 01/18/2017 INDICATION: Atelectasis previous abnormal chest TECHNIQUE: Single frontal view of the chest is obtained. FINDINGS: The heart size is normal. The pulmonary vasculature is normal. Streak opacities above the left diaphragm compatible with atelectasis. Some mild subsegmental atelect asis may be in the posterior medial right lung base. Findings may be worsening from the comparison. IMPRESSION: 1. Mild increase of bibasilar atelectasis greater on the left.
[2017-01-20] MEDS: DOCUSATE 100 MG CAP PO SCH (08:31)
[2017-01-20] MEDS: metFORMIN 500 MG TAB PO SCH (08:32)
[2017-01-20] MEDS: PANTOPRAZOLE 40 MG TABLET PO SCH (08:32)
[2017-01-20] MEDS: INSULIN LISPRO (humaLOG) 300 UNIT/3 ML VIAL SQ SCH ×2 (08:32→12:41)
[2017-01-20] MEDS: cloZAPine 100 MG TAB PO SCH (08:32)
[2017-01-20] MEDS: ENOXAPARIN 40 MG/0.4 ML SYRINGE SQ SCH (10:10)
[2017-01-20] MEDS: PARoxetine 20 MG TAB PO SCH (10:10)
[2017-01-20] MEDS: PRAVASTATIN SODIUM 20 MG TAB PO SCH (10:11)
[2017-01-20 11:36] LABS: Glucose,Whole Blood 157 mg/dL (75-99)
[2017-01-20] MEDS: NICOTINE 21MG/24HR PATCH TRANSDERM SCH (12:41)
--- NOTE | 2017-01-20 13:18 | P.PN ---
Subjective Principal diagnosis: Postoperative hypoxemia, patient is status post incisional hernia repair postoperative day #6 This is a 61-year-old female with a known history of diabetes mellitus, hyperlipidemia, anxiety, depression, schizophrenia and nicotine dependence. Patient presented to the hospital for laparoscopic robotic repair of incisional hernia. Patient tolerated surgery well. Estimated blood loss 5 mL. Patient was on the pediatric floor. Postop, the patient was felt to be very lethargic. She had a pulse ox a of 86% on room air. They placed her on 2 L and she standing and 93%. Overnight, the patient got transferred to the intensive care unit for further monitoring due to concerns of shortness of breath and hypoxemia. She is free of any chest pain. No reported aspiration. No nausea vomiting or abdominal distention. No fever or chills. The patient has history of lung disease. The patient has history of chronic smoking and known to have COPD and she was hospitalized in October 2016 for an acute COPD exacerbation. No previous history of cardiac disease. The chest x-ray from today is showing bibasilar atelectatic changes along with some cardiomegaly. There is some improvement in aeration and the volume status compared to yesterday. Note that the patient was given 40 mg of IV Lasix yesterday and the patient put out more than 2 L of urine. Currently her IV fluids at KVO. She is tolerating diet and she is having no active issues for now. The patient is on today's of oxygen nasal cannula. On 01/16/2017 the patient is being seen in follow-up. The patient is calm and comfortable. She is tolerating regular diet, consistent carb. No nausea. No emesis. No abdominal distention. The chest x-ray from today shows increased atelectatic changes and fluid/pleural effusion lung bases bilaterally. Based on that, the patient be given Lasix and she'll be encouraged to continue using the incentive spirometer. The patient is afebrile. The patient seems to much more alert compared to yesterday. Denies having any respiratory distress. No chest pain. No other significant events over the past 24 hours. She is on Hep- Lock IV. On 2016 the patient was results of the intensive care unit yesterday and the patient is being seen in the medical floor. She has not a bowel movement yet. She has positive bowel sounds. She is tolerating her diet. No abdominal distention. No nausea or vomiting. Surgical wound site is clean and intact. No significant respiratory distress at this point. She is resting comfortably in bed. Her breathing is improved for now. Her pulse ox around 91% on 4-5 L of oxygen by nasal cannula. Chest x-ray shows improvement in the volume status. No significant effusion on the right. Left basilar atelectatic changes again seen. On 01/18/2017, patient is doing quite well. Relatively asymptomatic, she does not seem to be in any form of distress. Chest x-ray showed mostly atelectasis, but it seems to be improving. And clinically the patient is showing definite improvement. The x-ray was read as possible infiltrates, but I think the findings are mostly findings of atelectasis especially at the left base. Clinically the patient does not have pneumonia. On 01/19/2017, patient seems to be doing a little bit better, not very ambulatory , O2 saturations in the 80s on room air, but in the low 90s on 3 L nasal cannula. Last chest x-ray showed atelectasis. Patient has been a heavy smoker over the years, and I suspect that the patient may have some ongoing severe underlying COPD. No evidence of pneumonia the chest x-ray. CBC is relatively normal. Basic metabolic profile is relatively normal. The patient herself denies being short of breath. Patient is seen again today 01/20/2017 in follow-up on the regular medical floor. She is awake and alert in no acute distress. She denies any worsening shortness of breath, cough or congestion. She does continue to desaturate into the upper 80s on room air. She is maintaining good O2 saturations in the upper 90s on 3 L/m per nasal cannula. His chest x-ray continues to show bilateral atelectasis more so on the left. She is pulling approximately 1500 MLS on the incentive spirometer. No leukocytosis. Hemoglobin stable. Objective - Vital Signs Vital signs: Vital Signs Temp 97.8 F 01/20/17 07:00 Pulse 88 01/20/17 11:36 Resp 16 01/20/17 08:36 BP 136/76 01/20/17 07:00 Pulse Ox 87 L 01/20/17 08:37 Intake & Output 01/19/17 01/20/17 01/20/17 18:59 06:59 18:59 Intake Total 1080 Balance 1080 Weight 73.5 kg 74.1 kg Intake: Oral 1080 Other: Voiding Method Urinal Urinal # Voids 2 1 - Exam GENERAL EXAM: Alert, active, comfortable in no apparent distress. HEAD: Normocephalic. EYES: Normal reaction of pupils, equal size. NOSE: Clear with pink turbinates. THROAT: No erythema or exudates. NECK: No masses, no JVD. CHEST: No chest wall deformity. LUNGS: Equal air entry with her cousin the posterior bases. Diminished.. CVS: S1 and S2 normal with no audible mumurs, regular rhythm. ABDOMEN: Abdominal incision is clean dry well approximated, normal bowel sounds , no guarding or rigidity. SPINE: No scoliosis or deformity SKIN: No rashes CENTRAL NERVOUS SYSTEM: No focal deficits, tone is normal in all 4 extremities. Extremities: No significant peripheral edema. No clubbing, no cyanosis. Peripheral pulses are intact. - Labs CBC & Chem 7: 01/20/17 05:46 01/20/17 05:46 Labs: Abnormal Lab Results - Last 24 Hours (Table) 01/19/17 01/19/17 01/20/17 Range/Units 17:07 20:13 05:46 RDW 15.7 H (11.5-15.5) % Glucose (74-99) mg/dL POC Glucose (mg/dL) 135 H 158 H (75-99) mg/dL 01/20/17 01/20/17 01/20/17 Range/Units 05:46 07:06 11:35 RDW (11.5-15.5) % Glucose 127 H (74-99) mg/dL POC Glucose (mg/dL) 132 H 157 H (75-99) mg/dL Microbiology - Last 24 Hours (Table) 01/17/17 20:52 Gram Stain - Final Sputum Sputum Culture - Final Assessment and Plan Plan: Impression: 1 postoperative hypoxemia due to a combination of hypoventilation, COPD, atelectatic changes involving the lung bases bilaterally and possibly a component of pulmonary vessel congestion. Chest x-ray was reviewed and it showed mostly atelectasis mostly at the left base. 2 COPD 3 postoperative day #6 following an incisional hernia repair. 4 diabetes mellitus 5 hyperlipidemia 6 Paranoid schizophrenia 7 GERD 8 chronic and ongoing nicotine dependence area Plan: The patient was seen and evaluated by Dr. Zapata. Her chest x-ray and labs were reviewed. The patient most likely will need home oxygen upon discharge for now. She should follow-up in our office in 1-2 weeks' time. She'll need a follow-up chest x-ray. Once recovered she will also benefit from full pulmonary function testing to evaluate the severity of her suspected COPD and recommendations for her maintenance medications. She is again encouraged regarding the increased use of the incentive spirometer and cough and deep breathing exercises. She is also again encouraged regarding the importance of complete smoking cessation. If home today she is encouraged to call sooner with any worsening shortness of breath or other questions or concerns.
--- NOTE | 2017-01-20 14:18 | P.DS ---
Providers Date of admission: 01/15/17 05:33 Expected date of discharge: 01/20/17 Attending physician: Biju Wong Consults: 01/13/17 18:33 Consult Physician Routine Consulting Provider: Christi Galeano Consult Reason/Comments: Medical management Do you want consulting provider notified?: Yes 01/15/17 05:32 Consult Physician Routine Consulting Provider: Leo Harvey Consult Reason/Comments: ICU management Do you want consulting provider notified?: Yes, Notify in am Primary care physician: Christi [facility] Course: This a 61-year-old female who underwent laparoscopic robotic system repair of incisional hernia. Patient was about to be discharged home postop day 1 which developed hypoxemia. 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 Discussed her for details. Her hypoxemia is due to chronic tobacco abuse. Procedures: Laparoscopic robotic system repair of incisional hernia Patient Condition at Discharge: Good Plan - Discharge Summary New Discharge Prescriptions: New Docusate [Colace] 100 mg PO BID #20 capsule HYDROcodone/APAP 7.5-325MG [[place] 7.5] 1 each PO Q4H PRN #60 tab PRN Reason: Pain No Action metFORMIN HCL 1,000 mg PO BID Pravastatin Sodium [Pravachol] 20 mg PO DAILY PARoxetine HCL [Paxil] 40 mg PO DAILY cloZAPine [Clozaril] 300 mg PO HS cloZAPine [Clozaril] 100 mg PO BID@0800,1500 Omeprazole [PriLOSEC] 20 mg PO BID rOPINIRole HCL [Requip] 0.5 mg PO HS Discharge Medication List Omeprazole [PriLOSEC] 20 mg PO BID 06/03/15 [History] PARoxetine HCL [Paxil] 40 mg PO DAILY 06/03/15 [History] Pravastatin Sodium [Pravachol] 20 mg PO DAILY 06/03/15 [History] cloZAPine [Clozaril] 100 mg PO BID@0800,1500 06/03/15 [History] cloZAPine [Clozaril] 300 mg PO HS 06/03/15 [History] metFORMIN HCL 1,000 mg PO BID 06/03/15 [History] Docusate [Colace] 100 mg PO BID #20 capsule 01/13/17 [Rx] HYDROcodone/APAP 7.5-325MG [[place] 7.5] 1 each PO Q4H PRN #60 tab 01/13/17 [Rx] rOPINIRole HCL [Requip] 0.5 mg PO HS 01/14/17 [History] Follow up Appointment(s)/Referral(s): [facility], [NON-STAFF] - As Needed Biju Wong MD [STAFF PHYSICIAN] - 01/21/17 3:50 pm Patient Instructions/Handouts: *Surgery [facility] - (Anesthesia) Discharge Instructions Outpatient Surgery, Hydrocodone/Acetaminophen (By mouth), Laxative , Stool Softeners (By mouth), Urinary Tract Infection in Women (DC), Hypoglycemia in a Person with Diabetes (DC), Laparoscopic Herniorrhaphy (DC), Ventral Hernia (DC) Activity/Diet/Wound Care/Special Instructions: NO LIFTING wear abdominal binder except for showering may shower in 48 hours - leave prineo tape on incisions - it will dissolve on its own - do not remove Use incentive spirometer 10 times every hour while awake
[2017-01-20] MEDS ORDERED: cloZAPine 100 MG TAB PO SCH ×2 (15:00→21:00)
[2017-01-20 15:52] VITALS: PULSE 71
== END 2017-01-20 16:00 | disposition home health service (06) | DRG 354 ==
LOC: OR 10:09 → 6PED 13:08 → OR 01-15 05:32 → 6ICU 01-15 05:33 → 6SEL 01-16 14:52 → 5ONC 01-19 14:04
PROVIDERS: ADMIT Surgery; ATTEND Surgery
PROC: 0WUF4JZ Supplement Abdominal Wall with Synthetic Substitute, Percutaneous Endoscopic Approach (ICD-10-PCS; principal; 2017-01-15)
PROC: 8E0W4CZ Robotic Assisted Procedure of Trunk Region, Percutaneous Endoscopic Approach (ICD-10-PCS; principal; 2017-01-15)
PROC: 3E0M05Z Introduction of Adhesion Barrier into Peritoneal Cavity, Open Approach (ICD-10-PCS; principal; 2017-01-15)
DX: K43.0 Incisional hernia with obstruction, without gangrene (principal); F20.0 Paranoid schizophrenia; J44.9 Chronic obstructive pulmonary disease, unspecified; J98.11 Atelectasis; E11.9 Type 2 diabetes mellitus without complications; E78.5 Hyperlipidemia, unspecified; F17.200 Nicotine dependence, unspecified, uncomplicated; G25.81 Restless legs syndrome; I51.7 Cardiomegaly; R09.02 Hypoxemia; K21.9 Gastro-esophageal reflux disease without esophagitis; Z79.899 Other long term (current) drug therapy
CPT/HCPCS: 71010; 71020; 80048; 80053; 81003; 83036; 83735; 84100; 84132; 85025; 86850; 86900; 86901; 87070; 87086; 87205; 94640; 94760

== ENCOUNTER 2017-01-30 11:54 | Inpatient (IN) | payer MEDICARE, OTHER ==
[2017-01-30] MEDS ORDERED: SODIUM CHLORIDE 0.9% 1,000 ML IV ONE (12:04)
[2017-01-30] MEDS ORDERED: IPRATROPIUM-ALBUTEROL 3 ML NEB INHALATION STA (12:06)
--- NOTE | 2017-01-30 12:11 | ED ---
Altered Mental Status HPI - General Stated Complaint: poss overdose/altered Time Seen by Provider: 01/30/17 11:54 Source: EMS, RN notes reviewed, old records reviewed Mode of arrival: EMS Limitations: altered mental status - History of Present Illness Initial Comments: This is a 61-year-old female with a history of recent abdominal hernia repair who was found by family to be unresponsive this morning and with labored breathing. She was last seen at 10 PM last night and was awake alert and oriented. EMS was called she was found have pinpoint pupils sonorous respirations with rhonchi. She was administered Narcan 1 mg 2 with increased responsiveness and pulse ox. She was breathing better. She was brought in for evaluation. She is a poor historian. She barely also recently had pneumonia. She does have a history of COPD is believed to still be a smoker. She also is diabetic. She was found have a blood sugar that was adequate. MD Complaint: altered mental status, other - Related Data Home Medications Medication Instructions Recorded Confirmed Omeprazole [PriLOSEC] 20 mg PO BID 06/03/15 01/30/17 PARoxetine HCL [Paxil] 40 mg PO DAILY 06/03/15 01/30/17 Pravastatin Sodium [Pravachol] 20 mg PO DAILY 06/03/15 01/30/17 cloZAPine [Clozaril] 100 mg PO BID@0800,1500 06/03/15 01/30/17 cloZAPine [Clozaril] 300 mg PO HS 06/03/15 01/30/17 metFORMIN HCL 1,000 mg PO BID 06/03/15 01/30/17 rOPINIRole HCL [Requip] 0.5 mg PO HS 01/14/17 01/30/17 HYDROcodone/APAP 7.5-325MG [[place] 1 tab PO Q4H PRN 01/30/17 01/30/17 7.5] Ipratropium-Albuterol Nebulize 3 ml INHALATION RT-TID PRN 01/30/17 01/30/17 [Duoneb 0.5 mg-3 mg/3 ml Soln] Previous Rx's Medication Instructions Recorded Docusate [Colace] 100 mg PO BID #20 capsule 01/13/17 Allergies Allergy/AdvReac Type Severity Reaction Status Date / Time propoxyphene napsylate AdvReac Nausea Verified 01/30/17 12:19 [From Mauro] Review of Systems ROS Statement: Those systems with pertinent positive or pertinent negative responses have been documented in the HPI. ROS Other: All systems not noted in ROS Statement are negative. Limitations: ROS unobtainable due to patients medical condition Past Medical History Past Medical History: Diabetes Mellitus, GERD/Reflux, Hyperlipidemia Additional Past Medical History / Comment(s): COPD, para and schizophrenia, depression, diabetes mellitus, hyperlipidemia, restless leg syndrome, rectal prolapse with previous low AP resection, incisional hernia History of Any Multi-Drug Resistant Organisms: None Reported Past Surgical History: Tonsillectomy, Tubal Ligation Additional Past Surgical History / Comment(s): bronchoscopy, low anterior resection for rectal prolapse, incisional hernia repair 01/13/17 Past Anesthesia/Blood Transfusion Reactions: No Reported Reaction Past Psychological History: Anxiety, Depression, Schizophrenia Smoking Status: Current every day smoker - Past Family History Sister(s) Family Medical History: Cancer Additional Family Medical History / Comment(s): breast Mother Family Medical History: No Reported History General Exam - General Exam Comments Initial Comments: Is a well-developed well-nourished awake lethargic female Limitations: altered mental status General appearance: alert, lethargic Head exam: Present: atraumatic Eye exam: Present: normal appearance, PERRL, EOMI. Absent: scleral icterus, conjunctival injection, periorbital swelling ENT exam: Present: mucous membranes moist Neck exam: Present: normal inspection. Absent: tenderness, meningismus, lymphadenopathy Respiratory exam: Present: rhonchi, decreased breath sounds Cardiovascular Exam: Present: regular rate, normal rhythm, normal heart sounds. Absent: systolic murmur, diastolic murmur, rubs, gallop, clicks GI/Abdominal exam: Present: other (Obese abdomen with a binder on it. Postop changes) Rectal exam: Present: deferred Extremities exam: Present: normal inspection, full ROM, normal capillary refill. Absent: tenderness, pedal edema, joint swelling, calf tenderness Back exam: Present: normal inspection Neurological exam: Present: altered, CN II-XII intact. Absent: motor sensory deficit Psychiatric exam: Present: other (Unable to evaluate at this time) Skin exam: Present: warm, dry, intact, normal color. Absent: rash Course Vital Signs 01/30/17 01/30/17 01/30/17 11:55 12:24 12:27 Temperature 97.0 F L Pulse Rate 98 95 Respiratory 26 H 26 H Rate Blood Pressure 144/73 O2 Sat by Pulse 86 L Oximetry 01/30/17 01/30/17 01/30/17 12:39 14:08 14:30 Temperature 94.5 F L Pulse Rate 95 98 97 Respiratory 22 15 Rate Blood Pressure 121/61 O2 Sat by Pulse 100 97 Oximetry 01/30/17 01/30/17 01/30/17 15:39 16:43 17:50 Temperature 99.2 F 98.7 F Pulse Rate 101 H 92 103 H Respiratory 12 20 15 Rate Blood Pressure 119/58 118/59 125/65 O2 Sat by Pulse 100 100 99 Oximetry - Reevaluation(s) Reevaluation #1: 01/30/17 17:31 The patient did require Narcan again and she became somewhat lethargic and was less responsive 2 more milligrams were given she did become more arousable. She still is confused. Reevaluation #2: 01/30/17 17:31 I did a long discussion with family members regarding the findings. Last seen awake and alert yesterday evening. She was found this morning lying in bed with her face and the patella. Is unclear how long she was in this position. Medical Decision Making - Medical Decision Making I did discuss findings with the patient family members as well as with Dr. Galeano. Patient will be admitted with consultation by Dr. Harvey. Cerebral anoxia is considered besides the possible medication overdose. Additionally pneumonia and pleural effusion. - Lab Data Result diagrams: 01/30/17 12:10 01/30/17 12:10 Lab Results 01/30/17 01/30/17 01/30/17 Range/Units 12:10 12:10 12:10 WBC 15.3 H (3.8-10.6) k/uL RBC 4.19 (3.80-5.40) m/uL Hgb 11.8 (11.4-16.0) gm/dL Hct 38.9 (34.0-46.0) % MCV 92.7 (80.0-100.0) fL MCH 28.2 (25.0-35.0) pg MCHC 30.4 L (31.0-37.0) g/dL RDW 14.7 (11.5-15.5) % Plt Count 330 (150-450) k/uL Neutrophils % 90 % Lymphocytes % 5 % Monocytes % 5 % Eosinophils % 0 % Basophils % 0 % Neutrophils # 13.7 H (1.3-7.7) k/uL Lymphocytes # 0.7 L (1.0-4.8) k/uL Monocytes # 0.7 (0-1.0) k/uL Eosinophils # 0.0 (0-0.7) k/uL Basophils # 0.0 (0-0.2) k/uL Hypochromasia Marked PT (9.0-12.0) sec INR (<1.2) APTT (22.0-30.0) sec Sodium 141 (137-145) mmol/L Potassium 5.8 H (3.5-5.1) mmol/L Chloride 101 (98-107) mmol/L Carbon Dioxide 28 (22-30) mmol/L Anion Gap 12 mmol/L BUN 23 H (7-17) mg/dL Creatinine 1.60 H (0.52-1.04) mg/dL Est GFR (MDRD) Af Amer 39 (>60 ml/min/1.73 sqM) Est GFR (MDRD) Non-Af 33 (>60 ml/min/1.73 sqM) Glucose 156 H (74-99) mg/dL POC Glucose (mg/dL) (75-99) mg/dL POC Glu [employer] ID Calcium 8.9 (8.4-10.2) mg/dL Magnesium 1.9 (1.6-2.3) mg/dL Total Bilirubin 0.3 (0.2-1.3) mg/dL AST 25 (14-36) U/L ALT 30 (9-52) U/L Alkaline Phosphatase 86 (38-126) U/L Ammonia (<30) umol/L Total Creatine Kinase 512 H (30-135) U/L CK-MB (CK-2) 11.5 H* (0.0-2.4) ng/mL CK-MB (CK-2) Rel Index 2.2 Troponin I 0.036 H* (0.000-0.034) ng/mL Total Protein 5.8 L (6.3-8.2) g/dL Albumin 3.6 (3.5-5.0) g/dL Urine Color Urine Appearance (Clear) Urine pH (5.0-8.0) Ur Specific [place] (1.001-1.035) Urine Protein (Negative) Urine Glucose (UA) (Negative) Urine Ketones (Negative) Urine Blood (Negative) Urine Nitrite (Negative) Urine Bilirubin (Negative) Urine Urobilinogen (<2.0) mg/dL Ur Leukocyte Esterase (Negative) Urine WBC (0-5) /hpf Urine Bacteria (None) /hpf Urine Mucus (None) /hpf Salicylates <1.0 mg/dL Urine Opiates Screen (NotDetected) Ur Oxycodone Screen (NotDetected) Urine Methadone Screen (NotDetected) Ur Propoxyphene Screen (NotDetected) Acetaminophen <10.0 ug/mL Ur Barbiturates Screen (NotDetected) U Tricyclic Antidepress (NotDetected) Ur Phencyclidine Scrn (NotDetected) Ur Amphetamines Screen (NotDetected) U Methamphetamines Scrn (NotDetected) U Benzodiazepines Scrn (NotDetected) Urine Cocaine Screen (NotDetected) U Marijuana (THC) Screen (NotDetected) Serum Alcohol <10 mg/dL 01/30/17 01/30/17 01/30/17 Range/Units 12:10 12:10 12:10 WBC (3.8-10.6) k/uL RBC (3.80-5.40) m/uL Hgb (11.4-16.0) gm/dL Hct (34.0-46.0) % MCV (80.0-100.0) fL MCH (25.0-35.0) pg MCHC (31.0-37.0) g/dL RDW (11.5-15.5) % Plt Count (150-450) k/uL Neutrophils % % Lymphocytes % % Monocytes % % Eosinophils % % Basophils % % Neutrophils # (1.3-7.7) k/uL Lymphocytes # (1.0-4.8) k/uL Monocytes # (0-1.0) k/uL Eosinophils # (0-0.7) k/uL Basophils # (0-0.2) k/uL Hypochromasia PT 9.9 (9.0-12.0) sec INR 1.0 (<1.2) APTT 24.1 (22.0-30.0) sec Sodium (137-145) mmol/L Potassium (3.5-5.1) mmol/L Chloride (98-107) mmol/L Carbon Dioxide (22-30) mmol/L Anion Gap mmol/L BUN (7-17) mg/dL Creatinine (0.52-1.04) mg/dL Est GFR (MDRD) Af Amer (>60 ml/min/1.73 sqM) Est GFR (MDRD) Non-Af (>60 ml/min/1.73 sqM) Glucose (74-99) mg/dL POC Glucose (mg/dL) (75-99) mg/dL POC Glu [employer] ID Calcium (8.4-10.2) mg/dL Magnesium (1.6-2.3) mg/dL Total Bilirubin (0.2-1.3) mg/dL AST (14-36) U/L ALT (9-52) U/L Alkaline Phosphatase (38-126) U/L Ammonia 31 H (<30) umol/L Total Creatine Kinase (30-135) U/L CK-MB (CK-2) (0.0-2.4) ng/mL CK-MB (CK-2) Rel Index Troponin I (0.000-0.034) ng/mL Total Protein (6.3-8.2) g/dL Albumin (3.5-5.0) g/dL Urine Color Light Yellow Urine Appearance Clear (Clear) Urine pH 5.5 (5.0-8.0) Ur Specific [place] 1.006 (1.001-1.035) Urine Protein Trace H (Negative) Urine Glucose (UA) Negative (Negative) Urine Ketones Negative (Negative) Urine Blood Small H (Negative) Urine Nitrite Negative (Negative) Urine Bilirubin Negative (Negative) Urine Urobilinogen <2.0 (<2.0) mg/dL Ur Leukocyte Esterase Negative (Negative) Urine WBC 1 (0-5) /hpf Urine Bacteria Rare H (None) /hpf Urine Mucus Rare H (None) /hpf Salicylates mg/dL Urine Opiates Screen Detected H (NotDetected) Ur Oxycodone Screen Not Detected (NotDetected) Urine Methadone Screen Not Detected (NotDetected) Ur Propoxyphene Screen Not Detected (NotDetected) Acetaminophen ug/mL Ur Barbiturates Screen Not Detected (NotDetected) U Tricyclic Antidepress Detected H (NotDetected) Ur Phencyclidine Scrn Not Detected (NotDetected) Ur Amphetamines Screen Not Detected (NotDetected) U Methamphetamines Scrn Not Detected (NotDetected) U Benzodiazepines Scrn Not Detected (NotDetected) Urine Cocaine Screen Not Detected (NotDetected) U Marijuana (THC) Screen Not Detected (NotDetected) Serum Alcohol mg/dL 01/30/17 Range/Units 12:11 WBC (3.8-10.6) k/uL RBC (3.80-5.40) m/uL Hgb (11.4-16.0) gm/dL Hct (34.0-46.0) % MCV (80.0-100.0) fL MCH (25.0-35.0) pg MCHC (31.0-37.0) g/dL RDW (11.5-15.5) % Plt Count (150-450) k/uL Neutrophils % % Lymphocytes % % Monocytes % % Eosinophils % % Basophils % % Neutrophils # (1.3-7.7) k/uL Lymphocytes # (1.0-4.8) k/uL Monocytes # (0-1.0) k/uL Eosinophils # (0-0.7) k/uL Basophils # (0-0.2) k/uL Hypochromasia PT (9.0-12.0) sec INR (<1.2) APTT (22.0-30.0) sec Sodium (137-145) mmol/L Potassium (3.5-5.1) mmol/L Chloride (98-107) mmol/L Carbon Dioxide (22-30) mmol/L Anion Gap mmol/L BUN (7-17) mg/dL Creatinine (0.52-1.04) mg/dL Est GFR (MDRD) Af Amer (>60 ml/min/1.73 sqM) Est GFR (MDRD) Non-Af (>60 ml/min/1.73 sqM) Glucose (74-99) mg/dL POC Glucose (mg/dL) 192 H (75-99) mg/dL POC Glu [employer]rentice ID Monique Medrano Calcium (8.4-10.2) mg/dL Magnesium (1.6-2.3) mg/dL Total Bilirubin (0.2-1.3) mg/dL AST (14-36) U/L ALT (9-52) U/L Alkaline Phosphatase (38-126) U/L Ammonia (<30) umol/L Total Creatine Kinase (30-135) U/L CK-MB (CK-2) (0.0-2.4) ng/mL CK-MB (CK-2) Rel Index Troponin I (0.000-0.034) ng/mL Total Protein (6.3-8.2) g/dL Albumin (3.5-5.0) g/dL Urine Color Urine Appearance (Clear) Urine pH (5.0-8.0) Ur Specific [place] (1.001-1.035) Urine Protein (Negative) Urine Glucose (UA) (Negative) Urine Ketones (Negative) Urine Blood (Negative) Urine Nitrite (Negative) Urine Bilirubin (Negative) Urine Urobilinogen (<2.0) mg/dL Ur Leukocyte Esterase (Negative) Urine WBC (0-5) /hpf Urine Bacteria (None) /hpf Urine Mucus (None) /hpf Salicylates mg/dL Urine Opiates Screen (NotDetected) Ur Oxycodone Screen (NotDetected) Urine Methadone Screen (NotDetected) Ur Propoxyphene Screen (NotDetected) Acetaminophen ug/mL Ur Barbiturates Screen (NotDetected) U Tricyclic Antidepress (NotDetected) Ur Phencyclidine Scrn (NotDetected) Ur Amphetamines Screen (NotDetected) U Methamphetamines Scrn (NotDetected) U Benzodiazepines Scrn (NotDetected) Urine Cocaine Screen (NotDetected) U Marijuana (THC) Screen (NotDetected) Serum Alcohol mg/dL - EKG Data -: EKG Interpreted by Me EKG shows normal: sinus rhythm (Sinus rhythm a rate 98. Ago 174 QRS 90 QT/QTC of 332/423 this is a normal-appearing EKG this was also compared to an EKG dated 10/17/16 which shows no change.) - Radiology Data Radiology results: report reviewed (X-ray shows evidence of a pleural effusion and evidence of infiltrate.), image reviewed Critical Care Time Critical Care Time: Yes Critical Care Time: 37 minutes of critical care time which includes initial presentation with monitoring of the EMS run and discussed with paramedics history physical labs x- rays multiple re-evaluations the patient. Discussed with the family members. Discussion with the beta physician. Admission orders and documentation of the above also includes review of old charting that was available. Disposition Clinical Impression: Encephalopathy acute, Pneumonia, Renal insufficiency syndrome, Medication overdose, COPD (chronic obstructive pulmonary disease), Tobacco abuse Disposition: ADMITTED IP TO THIS HOSP Condition: Stable Referrals: Joyce Zapata MD [Primary Care Provider] - 1-2 days
[2017-01-30 12:13] LABS: Glucose,Whole Blood 192 mg/dL (75-99)
[2017-01-30] MEDS ORDERED: NALOXONE 0.4 MG/ML 10 ML VIAL IVP STA (12:30)
--- NOTE | 2017-01-30 12:48 | XR ---
EXAMINATION TYPE: XR chest 1V DATE OF EXAM: 01/30/2017 COMPARISON: Chest x-ray January 20, 2017 HISTORY: Dyspnea and shortness of breath TECHNIQUE: Single AP portable frontal view of the chest is obtained. FINDINGS: There is new right basilar opacity felt to reflect small to moderate-sized right pleural e ffusion and associated right basilar atelectasis and/or infiltrate. Patient is rotated to the right o n current study. Left lung is clear on current study with resolution of left basilar opacity. The ca rdiac silhouette size is stable and upper limits of normal. The osseous structures are intact. IMPRESSION: New small to moderate-sized right pleural effusion and associated right basilar atelecta sis and/or infiltrate. Consider progress study.
[2017-01-30 12:55] LABS: Basophils % (A) 0 %; CH 26.9; Eosinophils % (A) 0 %; HCT 38.9 % (34.0-46.0); HDW 2.81; HGB 11.8 gm/dL (11.4-16.0); Hypochromasia Marked; Luc # (Auto) 0.11; Luc % (Auto) 1; Lymphocytes # (A) 0.7 k/uL (1.0-4.8); Lymphocytes % (A) 5 %; MCH 28.2 pg (25.0-35.0); MCHC 30.4 g/dL (31.0-37.0); MCV 92.7 fL (80.0-100.0); Mean Platelet Volume 7.4; Monocytes # (A) 0.7 k/uL (0-1.0); Monocytes % (A) 5 %; Neutrophils # (A) 13.7 k/uL (1.3-7.7); Neutrophils % (A) 90 %; RBC 4.19 m/uL (3.80-5.40); RDW 14.7 % (11.5-15.5); WBC 15.3 k/uL (3.8-10.6); WBC (Perox) 15.11
[2017-01-30 12:58] LABS: Appearance,Urine Clear (Clear); Bacteria,Urine Rare /hpf; Bilirubin,Urine Negative (Negative); Glucose,Urine (UA) Negative (Negative); Ketones,Urine Negative (Negative); Leukocyte Esterase,Urine Negative (Negative); Mucus,Urine Rare /hpf; Nitrite,Urine Negative (Negative); PH, Urine 5.5 (5.0-8.0); Particle Count 1233; Protein,Urine Trace (Negative); Specific Gravity,Urine 1.006 (1.001-1.035); UA Billing (MACRO vs. MICRO) MICRO; Urobilinogen,Urine <2.0 mg/dL (<2.0); WBC,Urine 1 /hpf (0-5)
[2017-01-30 13:00] LABS: ALT 30 U/L (9-52); AST 25 U/L (14-36); Acetaminophen <10.0 ug/mL; Alcohol <10 mg/dL; Alkaline Phosphatase 86 U/L (38-126); Anion Gap 12 mmol/L; Blood Urea Nitrogen 23 mg/dL (7-17); Calcium 8.9 mg/dL (8.4-10.2); Carbon Dioxide 28 mmol/L (22-30); Chloride 101 mmol/L (98-107); Glucose 156 mg/dL (74-99); Magnesium 1.9 mg/dL (1.6-2.3); Non-African American GFR(MDRD) 33 (>60 ml/min/1.73 sqM); Potassium 5.8 mmol/L (3.5-5.1); Salicylate <1.0 mg/dL; Sodium 141 mmol/L (137-145); Total Bilirubin 0.3 mg/dL (0.2-1.3); Total Protein 5.8 g/dL (6.3-8.2)
[2017-01-30 13:05] LABS: Partial Thromboplastin Time 24.1 sec (22.0-30.0); Prothrombin Time 9.9 sec (9.0-12.0)
[2017-01-30 13:25] LABS: Creatine Kinase MB 11.5 ng/mL (0.0-2.4); Troponin I 0.036 ng/mL (0.000-0.034)
--- NOTE | 2017-01-30 13:37 | CT ---
EXAMINATION TYPE: CT brain wo con DATE OF EXAM: 01/30/2017 HISTORY: Overdose, altered mental status CT DLP: 1368.8 mGycm. Automated Exposure Control for Dose Reduction was Utilized. TECHNIQUE: CT scan of the head is performed without contrast. COMPARISON: CT scan of brain July 25, 2016. FINDINGS: There is no acute intracranial hemorrhage or midline shift identified. There is diffuse v entricular and sulcal prominence consistent with diffuse age-related cerebral atrophy. There is low- attenuation in the periventricular white matter consistent with chronic small vessel ischemic change. There is minimal mucosal thickening inferior left maxillary sinus on axial image 1 otherwise paranas al sinuses are clear. The globes are intact bilaterally. Patchy soft tissue density bilateral externa l auditory canals likely reflects cerumen. IMPRESSION: No acute intracranial hemorrhage or midline shift. There is mild diffuse age-related ce rebral atrophy and chronic small vessel ischemic change redemonstrated. No significant change from pr ior study is seen.
[2017-01-30] MEDS ORDERED: PIPERACILLIN-TAZOBACTAM 3.375 GM in DEXTROSE/WATER 1 50ML.BAG IVPB STA (13:47)
[2017-01-30] MEDS ORDERED: PNEUMONIA PROTOCOL UTILIZED 1 EACH MISC PO PRN (17:56)
[2017-01-30] MEDS: SODIUM CHLORIDE 0.9% 1,000 ML IV SCH (19:52)
[2017-01-30 20:19] LABS: Basophils % (A) 0 %; CH 27.3; Eosinophils % (A) 0 %; HCT 38.1 % (34.0-46.0); HDW 2.79; Hypochromasia Marked; Luc # (Auto) 0.21; Luc % (Auto) 2; Lymphocytes # (A) 0.7 k/uL (1.0-4.8); Lymphocytes % (A) 5 %; MCH 28.7 pg (25.0-35.0); MCHC 31.5 g/dL (31.0-37.0); Mean Platelet Volume 7.9; Monocytes # (A) 0.7 k/uL (0-1.0); Monocytes % (A) 5 %; Neutrophils # (A) 12.5 k/uL (1.3-7.7); Neutrophils % (A) 88 %; RBC 4.19 m/uL (3.80-5.40); WBC 14.2 k/uL (3.8-10.6); WBC (Perox) 13.97
[2017-01-30] MEDS: IPRATROPIUM-ALBUTEROL 3 ML NEB INHALATION SCH ×2 (20:27→23:10)
[2017-01-30 20:29] LABS: ALT 43 U/L (9-52); AST 34 U/L (14-36); Alkaline Phosphatase 90 U/L (38-126); Anion Gap 10 mmol/L; Blood Urea Nitrogen 19 mg/dL (7-17); Calcium 9.1 mg/dL (8.4-10.2); Carbon Dioxide 28 mmol/L (22-30); Chloride 104 mmol/L (98-107); Glucose 129 mg/dL (74-99); Non-African American GFR(MDRD) >60 (>60 ml/min/1.73 sqM); Potassium 4.2 mmol/L (3.5-5.1); Sodium 142 mmol/L (137-145); Total Bilirubin 0.4 mg/dL (0.2-1.3); Total Protein 5.9 g/dL (6.3-8.2)
[2017-01-30 20:47] LABS: Hemoglobin A1C 7.5 % (4.2-6.1)
[2017-01-30] MEDS ORDERED: LEVOFLOXACIN 750MG-D5W PMX 750 MG in DEXTROSE/WATER 1 150ML.BAG IVPB SCH (21:00)
[2017-01-30 21:05] LABS: Glucose,Whole Blood 131 mg/dL (75-99)
[2017-01-30] MEDS ORDERED: IPRATROPIUM-ALBUTEROL 3 ML NEB INHALATION PRN (21:24)
[2017-01-30] MEDS: INSULIN LISPRO (humaLOG) 300 UNIT/3 ML VIAL SQ SCH (21:43)
[2017-01-30] MEDS: cloZAPine 100 MG TAB PO SCH (22:15)
[2017-01-30 23:19] VITALS: BMI 32.9
[2017-01-30] MEDS: PIPERACILLIN-TAZOBACTAM 3.375 GM in DEXTROSE/WATER 1 50ML.BAG IVPB SCH (23:35)
[2017-01-31] MEDS: SODIUM CHLORIDE 0.9% 1,000 ML IV SCH ×3 (02:56→16:55)
[2017-01-31] MEDS: IPRATROPIUM-ALBUTEROL 3 ML NEB INHALATION SCH ×7 (02:57→22:43)
[2017-01-31 05:59] LABS: Glucose,Whole Blood 118 mg/dL (75-99)
[2017-01-31] MEDS: INSULIN LISPRO (humaLOG) 300 UNIT/3 ML VIAL SQ SCH ×4 (06:42→21:37)
[2017-01-31] MEDS: metFORMIN 500 MG TAB PO SCH ×2 (06:45→16:55)
[2017-01-31] MEDS: PANTOPRAZOLE 40 MG TABLET PO SCH ×2 (06:45→16:55)
--- NOTE | 2017-01-31 07:08 | XR ---
EXAMINATION TYPE: XR chest 2V DATE OF EXAM: 01/31/2017 COMPARISON: Chest x-ray from yesterday. HISTORY: CHF and pneumonia progress study. TECHNIQUE: Frontal and lateral views of the chest are obtained. FINDINGS: There is improved aeration right lung base. There is new patchy left basilar atelectasis. The cardiac silhouette size is stable and upper limits of normal. The osseous structures are intact. IMPRESSION: Interval resolution of right-sided effusion. Persistent but significantly improved right basilar atelectasis and/or infiltrate. New patchy left basilar atelectasis.
[2017-01-31] MEDS: PIPERACILLIN-TAZOBACTAM 3.375 GM in DEXTROSE/WATER 1 50ML.BAG IVPB SCH ×3 (07:32→23:12)
[2017-01-31] MEDS: DOCUSATE 100 MG CAP PO SCH ×2 (07:32→21:36)
[2017-01-31] MEDS: cloZAPine 100 MG TAB PO SCH ×3 (07:32→21:37)
[2017-01-31] MEDS: PARoxetine 20 MG TAB PO SCH (07:32)
[2017-01-31] MEDS: PRAVASTATIN SODIUM 20 MG TAB PO SCH (07:32)
[2017-01-31 11:39] LABS: Glucose,Whole Blood 163 mg/dL (75-99)
--- NOTE | 2017-01-31 14:58 | CONS ---
61-year-old female who apparently had a recent abdominal hernia repair. She apparently was found by her family to be poorly responsive or unresponsive. She had labored sonorous respirations. She was seen at 10 p.m. last night and was awake and alert and oriented at that time. Subsequent to that, EMS was called because she was found to have pinpoint pupils, sonorous respirations and rhonchi and was poorly responsive. She received Narcan x2. That improved her level of consciousness and improved her pulse ox. Her breathing was better. She was brought in for evaluation and admitted with a diagnosis of possible aspiration pneumonia, right lower lobe. Initial chest x-ray showed some volume loss, right lower lobe. The subsequently x-ray shows some atelectasis or infiltrate at the right lung base. She is very confused. Does not really give a good history. Continues to smoke about 10 cigarettes a day. Has been smoking for 35+ years. She has a history of diabetes. She is with her daughter, Faby, today. Faby gives me some of the details , not many. It is presumed that the patient had a drug overdose of pain medications. Her current home medications include Prilosec, Paxil, Pravachol, Clozaril, metformin, Requip and [place]. Also, has as script for some Duonebs. She also was on Colace in the past. MEDICAL ALLERGIES: INCLUDE PRIMARILY DARVOCET N-100. MEDICAL HISTORY: Includes diabetes, GERD, hyperlipidemia, COPD, schizophrenia, depression, restless leg syndrome, rectal prolapse and incisional hernia. SURGICAL HISTORY: Includes tonsillectomy and tubal ligation. She has also had bronchoscopy and low anterior resection for rectal prolapse. SMOKING HISTORY: Positive for every day tobacco use. No illicit drug use. She does have social alcohol use. FAMILY HISTORY: Positive for breast cancer and other cancers. REVIEW OF SYSTEMS: CONSTITUTIONAL: Lethargy. NEUROLOGIC: Decreased mental status. HEENT: Negative. CARDIOVASCULAR: Negative. PULMONARY: Negative except for abnormal chest x-ray showing volume loss, right lower lobe and possible infiltrate, right lower lobe. GI/: Negative. RHEUMATOLOGIC/IMMUNOLOGIC: Negative. ENDOCRINOLOGIC/DERMATOLOGIC: Negative. Current vital signs include a temperature of 99, heart rate 86, respiratory rate 20, blood pressure 115/58, mean 77, 3 liter saturation 98%. Appears in no acute distress. A little sleepy. Seems to zone in and zone out. Daughter in the bedroom. HEENT: Grossly unremarkable. Mucous membranes are moist. No oral lesions. NECK: Supple. Full range of motion. No adenopathy. Neck veins are flat. CARDIOVASCULAR: Reveals regular rhythm and rate. Heart sounds are distant. LUNGS: Reveal a few scattered rhonchi. No wheezes or crackles. ABDOMEN: Obese. Bowel sounds are heard. EXTREMITIES: Intact. No cyanosis, clubbing or edema. SKIN: Without rash. NEUROLOGIC: Difficult to perform. Chest x-rays are reviewed. The first one shows volume loss, right lower lobe. The second one shows improved volume, right lower lobe with some atelectasis or infiltrate at the right lung base. Labs are reviewed. White count is 14.2, hemoglobin 12.0, hematocrit 38.1, platelet count 284,000. PT, INR and PTT all normal. Sodium, potassium, chloride and CO2 all normal. BUN and creatinine were essentially normal. Her ammonia was 31. CK total was 512, CK MB was 11.5, index 2.2. Troponins were 0.036. That was the only one that was drawn. UA is essentially negative. Drug screen was positive for opiates and tricyclic antidepressants. Medications are reviewed. ASSESSMENT: 1. Mental status changes with lethargy and somnolence, rule out narcotic drug overdose. 2. Possible aspiration pneumonia, right lower lobe and volume loss, right lower lobe. 3. History of ongoing significant tobacco addiction for many, many years. 4. History of diabetes. 5. Gastroesophageal reflux disease. 6. Hyperlipidemia. 7. Schizophrenia. 8. Depression. 9. Restless leg syndrome. 10. Status post recent hernia repair. PLAN: The patient's medications were reviewed. Will continue to make recommendations and follow along. Additional recommendations and suggestions are forthcoming. [facility]
--- NOTE | 2017-01-31 16:35 | P.HPIM ---
History of Present Illness H&P Date: 01/31/17 Chief Complaint: Unresponsiveness Patient is a 61-year-old female with a history of recent abdominal hernia repair who was found by family to be unresponsive this morning and with labored breathing. She was last seen at 10 PM last night and was awake alert and oriented. EMS was called she was found have pinpoint pupils sonorous respirations with rhonchi. She was administered Narcan 1 mg 2 with increased responsiveness and pulse ox. She was breathing better. She was brought in for evaluation. She is a poor historian. She also recently had pneumonia. She does have a history of COPD is still be a smoker. She also is diabetic. She was found have a blood sugar that was adequate. Stated that patient could have taken more than her prescribed dose of pain medications. She was found to have a right lower lobe infiltrate in the emergency room she was started on IV antibiotic and was admitted to telemetry floor pulmonary consultation was requested. Past Medical History Past Medical History: Diabetes Mellitus, GERD/Reflux, Hyperlipidemia Additional Past Medical History / Comment(s): COPD, para and schizophrenia, depression, diabetes mellitus, hyperlipidemia, restless leg syndrome, rectal prolapse with previous low AP resection, incisional hernia History of Any Multi-Drug Resistant Organisms: None Reported Past Surgical History: Tonsillectomy, Tubal Ligation Additional Past Surgical History / Comment(s): bronchoscopy, low anterior resection for rectal prolapse, incisional hernia repair 01/13/17 Past Anesthesia/Blood Transfusion Reactions: No Reported Reaction Past Psychological History: Anxiety, Depression, Schizophrenia Additional Psychological History / Comment(s): PARANOID SCHIZOPHRENIA Smoking Status: Current every day smoker - Past Family History Sister(s) Family Medical History: Cancer Additional Family Medical History / Comment(s): breast Mother Family Medical History: No Reported History Medications and Allergies Home Medications Medication Instructions Recorded Confirmed Type Omeprazole [PriLOSEC] 20 mg PO BID 06/03/15 01/30/17 History PARoxetine HCL [Paxil] 40 mg PO DAILY 06/03/15 01/30/17 History Pravastatin Sodium [Pravachol] 20 mg PO DAILY 06/03/15 01/30/17 History cloZAPine [Clozaril] 100 mg PO BID@0800,1500 06/03/15 01/30/17 History cloZAPine [Clozaril] 300 mg PO HS 06/03/15 01/30/17 History metFORMIN HCL 1,000 mg PO BID 06/03/15 01/30/17 History rOPINIRole HCL [Requip] 0.5 mg PO HS 01/14/17 01/30/17 History HYDROcodone/APAP 7.5-325MG [[place] 1 tab PO Q4H PRN 01/30/17 01/30/17 History 7.5] Ipratropium-Albuterol Nebulize 3 ml INHALATION RT-TID PRN 01/30/17 01/30/17 History [Duoneb 0.5 mg-3 mg/3 ml Soln] Allergies Allergy/AdvReac Type Severity Reaction Status Date / Time propoxyphene napsylate AdvReac Nausea Verified 01/30/17 12:19 [From [facility]] Physical Exam Vitals: Vital Signs Temp Pulse Pulse Resp BP BP Pulse Ox 01/31/17 13:50 92 01/31/17 13:30 88 01/31/17 12:00 98.5 F 82 19 126/62 96 01/31/17 08:00 99.0 F 86 20 115/58 95 01/31/17 04:00 86 18 110/68 01/31/17 00:00 81 18 107/61 96 01/30/17 23:20 96 01/30/17 23:19 96.8 F L 97 18 121/80 100 01/30/17 23:10 95 01/30/17 20:44 98 01/30/17 20:41 96 01/30/17 20:30 96 01/30/17 20:26 100 01/30/17 20:00 96.8 F L 97 18 121/80 100 01/30/17 18:40 99.3 F 92 15 114/57 100 01/30/17 17:50 98.7 F 103 H 15 125/65 99 01/30/17 16:43 92 20 118/59 100 Intake and Output 01/31/17 01/31/17 01/31/17 06:59 14:59 22:59 Intake Total 1025 325 Output Total 200 Balance 1025 125 Intake: IV 1025 150 Levofloxacin 750Mg-D5w 150 Pmx 750 mg In Dextrose/ Water 1 150ml.bag @ 100 mls/hr IVPB Q24H [facility] Rx#: [id number] Sodium Chloride 0.9% 1, 875 150 000 ml @ 125 mls/hr IV . Q8H [facility] Rx#:[id number] Intake, IV Titration 50 Amount Piperacillin-Tazobactam 3 50 .375 gm In Dextrose/Water 1 50ml.bag @ 12.5 mls/hr IVPB Q8HR [facility] Rx#: [id number] Oral 125 Output: Urine 200 Other: # Voids 2 1 Weight 74 kg In general patient is alert and oriented 3 in no apparent distress HEENT head normocephalic and atraumatic Neck is supple no JVD no goiter no lymphadenopathy Chest exam reveals a few scattered crackles in both bases no wheezing Cardiac exam reveals regular heart sounds S1 and S2 no gallops no murmurs Abdomen is soft nontender no organomegaly with normal bowel sounds Extremity exam reveals no edema no cyanosis or clubbing Results CBC & Chem 7: 01/30/17 20:05 01/30/17 20:05 Labs: Abnormal Lab Results - Last 24 Hours (Table) 01/30/17 01/30/17 01/30/17 Range/Units 18:22 20:05 20:05 WBC 14.2 H (3.8-10.6) k/uL Neutrophils # 12.5 H (1.3-7.7) k/uL Lymphocytes # 0.7 L (1.0-4.8) k/uL BUN 19 H (7-17) mg/dL Glucose 129 H (74-99) mg/dL POC Glucose (mg/dL) (75-99) mg/dL Hemoglobin A1c 7.5 H (4.2-6.1) % Total Protein 5.9 L (6.3-8.2) g/dL 01/30/17 01/31/17 01/31/17 Range/Units 20:55 05:56 11:36 WBC (3.8-10.6) k/uL Neutrophils # (1.3-7.7) k/uL Lymphocytes # (1.0-4.8) k/uL BUN (7-17) mg/dL Glucose (74-99) mg/dL POC Glucose (mg/dL) 131 H 118 H 163 H (75-99) mg/dL Hemoglobin A1c (4.2-6.1) % Total Protein (6.3-8.2) g/dL Thrombosis Risk Factor Assmnt - Choose All That Apply Any of the Below Risk Factors Present?: Yes Each Factor Represents 1 point: Obesity (BMI >25) Other Risk Factors: Yes Each Risk Factor Represents 2 Points: Age 61-74 years Other congenital or acquired thrombophilia - If yes, enter type in comment: No Thrombosis Risk Factor Assessment Total Risk Factor Score: 3 Thrombosis Risk Factor Assessment Level: Moderate Risk Assessment and Plan Plan: #1 patient and responsive on presentation, improved with Narcan, family stating she was taking more than her prescribed dose of pain medication, she recently had abdominal hernia repair. At this time will withhold pain medication and monitor closely. #2 right lower lobe pneumonia likely related to aspiration pneumonia, continue was current antibiotic at this time #3 underlying history of advanced COPD #4 underlying history of tobacco abuse #5 underlying history of diabetes mellitus #6 recent abdominal hernia repair Medication and labs were reviewed continue was current medication will follow closely
[2017-01-31 16:51] LABS: Glucose,Whole Blood 123 mg/dL (75-99)
[2017-01-31 20:44] LABS: Glucose,Whole Blood 162 mg/dL (75-99)
[2017-01-31] MEDS ORDERED: IPRATROPIUM-ALBUTEROL 3 ML NEB INHALATION PRN (22:44)
[2017-02-01] MEDS: SODIUM CHLORIDE 0.9% 1,000 ML IV SCH ×2 (00:31→13:05)
[2017-02-01 05:18] VITALS: TEMP 98.6
[2017-02-01 06:11] LABS: Glucose,Whole Blood 126 mg/dL (75-99)
[2017-02-01] MEDS: INSULIN LISPRO (humaLOG) 300 UNIT/3 ML VIAL SQ SCH ×2 (06:51→13:03)
[2017-02-01] MEDS: metFORMIN 500 MG TAB PO SCH (06:51)
[2017-02-01] MEDS: PANTOPRAZOLE 40 MG TABLET PO SCH (06:51)
[2017-02-01] MEDS: IPRATROPIUM-ALBUTEROL 3 ML NEB INHALATION SCH ×2 (08:29→11:59)
[2017-02-01] MEDS ORDERED: NICOTINE 14MG/24HR PATCH TRANSDERM SCH (09:00)
[2017-02-01 09:05] LABS: Basophils % (A) 0 %; CH 27.7; CHCM 31.3; Eosinophils # (A) 0.1 k/uL (0-0.7); Eosinophils % (A) 3 %; HCT 35.1 % (34.0-46.0); HDW 2.65; HGB 11.4 gm/dL (11.4-16.0); Hypochromasia Slight; Luc # (Auto) 0.18; Luc % (Auto) 3; Lymphocytes % (A) 18 %; MCH 28.6 pg (25.0-35.0); MCHC 32.3 g/dL (31.0-37.0); MCV 88.6 fL (80.0-100.0); Mean Platelet Volume 7.1; Monocytes # (A) 0.4 k/uL (0-1.0); Monocytes % (A) 7 %; Neutrophils # (A) 3.7 k/uL (1.3-7.7); Neutrophils % (A) 69 %; RBC 3.97 m/uL (3.80-5.40); RDW 15.4 % (11.5-15.5); WBC 5.3 k/uL (3.8-10.6)
[2017-02-01 09:17] LABS: ALT 40 U/L (9-52); AST 23 U/L (14-36); Alkaline Phosphatase 76 U/L (38-126); Anion Gap 7 mmol/L; Blood Urea Nitrogen 7 mg/dL (7-17); Calcium 8.6 mg/dL (8.4-10.2); Carbon Dioxide 28 mmol/L (22-30); Chloride 108 mmol/L (98-107); Glucose 116 mg/dL (74-99); Non-African American GFR(MDRD) >60 (>60 ml/min/1.73 sqM); Potassium 3.7 mmol/L (3.5-5.1); Sodium 143 mmol/L (137-145); Total Bilirubin 0.2 mg/dL (0.2-1.3)
[2017-02-01] MEDS: PIPERACILLIN-TAZOBACTAM 3.375 GM in DEXTROSE/WATER 1 50ML.BAG IVPB SCH (09:28)
[2017-02-01] MEDS: DOCUSATE 100 MG CAP PO SCH (09:29)
[2017-02-01] MEDS: PARoxetine 20 MG TAB PO SCH (09:29)
[2017-02-01] MEDS: cloZAPine 100 MG TAB PO SCH (09:29)
[2017-02-01] MEDS: PRAVASTATIN SODIUM 20 MG TAB PO SCH (09:29)
[2017-02-01 09:56] LABS: Total Protein 5.1 g/dL (6.3-8.2)
[2017-02-01] MEDS ORDERED: LEVOFLOXACIN 750 MG TAB PO SCH (11:00)
[2017-02-01 12:00] LABS: Glucose,Whole Blood 141 mg/dL (75-99)
[2017-02-01 12:01] VITALS: PULSE 88
--- NOTE | 2017-02-01 13:30 | P.DS ---
Providers Date of admission: 01/30/17 17:56 Expected date of discharge: 02/01/17 Attending physician: Christi Galeano Consults: 01/30/17 17:56 Consult Physician Routine Consulting Provider: Leo Harvey Consult Reason/Comments: Pleural effusion, pneumonia Do you want consulting provider notified?: Yes Primary care physician: [facility] Course: Discharge diagnosis #1 patient and responsive on presentation, improved with Narcan, family stating she was taking more than her prescribed dose of pain medication, she recently had abdominal hernia repair. At this time will withhold pain medication and monitor closely. #2 right lower lobe pneumonia likely related to aspiration pneumonia, chest x- ray showing improvement. She'll be discharged home with Augmentin for 7 more days #3 underlying history of advanced COPD #4 underlying history of tobacco abuse #5 underlying history of diabetes mellitus #6 recent abdominal hernia repair Hospital course Patient is a 61-year-old female with a history of recent abdominal hernia repair who was found by family to be unresponsive this morning and with labored breathing. She was last seen at 10 PM last night and was awake alert and oriented. EMS was called she was found have pinpoint pupils sonorous respirations with rhonchi. She was administered Narcan 1 mg 2 with increased responsiveness and pulse ox. She was breathing better. She was brought in for evaluation. She is a poor historian. She also recently had pneumonia. She does have a history of COPD is still be a smoker. She also is diabetic. She was found have a blood sugar that was adequate. Stated that patient could have taken more than her prescribed dose of pain medications. She was found to have a right lower lobe infiltrate in the emergency room she was started on IV antibiotic and was admitted to telemetry floor pulmonary consultation was requested. Patient's mentation has improved. She is awake and alert. Cough showing improvement. Chest x-ray showing interval resolution of the right-sided effusion. Persistent but significant improved right basilar atelectasis and/or infiltrate. And new patchy left basilar atelectasis. Patient will be placed on Augmentin 500/125 mg twice a day for 7 more days for discharge. Levaquin interacted with her Clozaril may cause a prolonged QT interval. Patient does report some improvement in her cough. However, she feels unsteady in her gait. She will be evaluated by physical therapy before discharge home. at bedside. He feels that he can take by mouth care patient at home. She has been able to ambulate to the bathroom and back. Patient follow-up with Dr. Galeano in 1 week I performed an examination of the patient and discussed their management with the physician Obstetrics Tech. I have reviewed the Physician Obstetrics Tech's notes and agree with the documented findings and plan of care Patient Condition at Discharge: Stable Plan - Discharge Summary New Discharge Prescriptions: New Amoxic-Pot Clav 500-125 mg [Augmentin 500-125 mg] 1 tab PO Q12HR #14 tab Continue metFORMIN HCL 1,000 mg PO BID Pravastatin Sodium [Pravachol] 20 mg PO DAILY PARoxetine HCL [Paxil] 40 mg PO DAILY cloZAPine [Clozaril] 300 mg PO HS cloZAPine [Clozaril] 100 mg PO BID@0800,1500 Omeprazole [PriLOSEC] 20 mg PO BID Docusate [Colace] 100 mg PO BID #20 capsule rOPINIRole HCL [Requip] 0.5 mg PO HS Ipratropium-Albuterol Nebulize [Duoneb 0.5 mg-3 mg/3 ml Soln] 3 ml INHALATION RT-TID PRN PRN Reason: Shortness Of Breath Discontinued HYDROcodone/APAP 7.5-325MG [[place] 7.5] 1 tab PO Q4H PRN PRN Reason: Pain Discharge Medication List Omeprazole [PriLOSEC] 20 mg PO BID 06/03/15 [History] PARoxetine HCL [Paxil] 40 mg PO DAILY 06/03/15 [History] Pravastatin Sodium [Pravachol] 20 mg PO DAILY 06/03/15 [History] cloZAPine [Clozaril] 100 mg PO BID@0800,1500 06/03/15 [History] cloZAPine [Clozaril] 300 mg PO HS 06/03/15 [History] metFORMIN HCL 1,000 mg PO BID 06/03/15 [History] Docusate [Colace] 100 mg PO BID #20 capsule 01/13/17 [Rx] rOPINIRole HCL [Requip] 0.5 mg PO HS 01/14/17 [History] Ipratropium-Albuterol Nebulize [Duoneb 0.5 mg-3 mg/3 ml Soln] 3 ml INHALATION RT -TID PRN 01/30/17 [History] Amoxic-Pot Clav 500-125 mg [Augmentin 500-125 mg] 1 tab PO Q12HR #14 tab [Rx] Follow up Appointment(s)/Referral(s): [facility], [NON-STAFF] - Joyce Zapata MD [Primary Care Provider] - 1 Week Christi Galeano MD [STAFF PHYSICIAN] - 1 Week Activity/Diet/Wound Care/Special Instructions: diet: regular Activity: as tolerated
[2017-02-01 14:26] VITALS: BP 115/59; RESP 16
--- NOTE | 2017-02-01 16:16 | P.PN ---
Subjective Principal diagnosis: Altered mental status This is a 61-year-old female patient who had recently undergone abdominal hernia repair and was subsequently discharged home. On 01/30/2019 she was found to be unresponsive. Difficult to arouse. Her started CPR. EMS was called. She was found to have pinpoint pupils and sonorous respirations with rhonchi. She was given Narcan with increased responsiveness and improved pulse oximetry. The patient is seen again today in follow-up on the selective care unit. She is awake and alert in no acute distress. She states she may have taken extra [place] admitting to taking 2 instead of one. Currently, she is awake and alert and oriented 3. She is in no respiratory distress. Objective - Vital Signs Vital signs: Vital Signs Temp 98.6 F 02/01/17 04:00 Pulse 88 02/01/17 12:06 Resp 16 02/01/17 12:00 BP 115/59 02/01/17 12:00 Pulse Ox 100 02/01/17 12:00 Intake & Output 01/31/17 02/01/17 02/01/17 18:59 06:59 18:59 Intake Total 561 875 Output Total 500 Balance 61 875 Weight 74 kg Intake: IV 150 875 Sodium Chloride 0.9% 1, 150 875 000 ml @ 125 mls/hr IV . Q8H [facility] Rx#:[id number] Intake, IV Titration 50 Amount Piperacillin-Tazobactam 3 50 .375 gm In Dextrose/Water 1 50ml.bag @ 12.5 mls/hr IVPB Q8HR [facility] Rx#: [id number] Oral 361 Output: Urine 500 Other: # Voids 1 2 1 # Bowel Movements 1 - Exam GENERAL EXAM: Alert, active, comfortable in no apparent distress. HEAD: Normocephalic. EYES: Normal reaction of pupils, equal size. NOSE: Clear with pink turbinates. THROAT: No erythema or exudates. NECK: No masses, no JVD. CHEST: No chest wall deformity. LUNGS: Equal air entry with no crackles, wheeze, rhonchi or dullness. CVS: S1 and S2 normal with no audible murmurs, regular rhythm. ABDOMEN: No hepatosplenomegaly, normal bowel sounds, no guarding or rigidity. SPINE: No scoliosis or deformity SKIN: No rashes CENTRAL NERVOUS SYSTEM: No focal deficits, tone is normal in all 4 extremities. Extremities: There is no significant peripheral edema. No clubbing, no cyanosis. Peripheral pulses are intact. - Labs CBC & Chem 7: 02/01/17 08:41 02/01/17 08:41 Labs: Abnormal Lab Results - Last 24 Hours (Table) 01/31/17 01/31/17 02/01/17 Range/Units 16:48 20:42 06:09 Chloride (98-107) mmol/L Glucose (74-99) mg/dL POC Glucose (mg/dL) 123 H 162 H 126 H (75-99) mg/dL Total Protein (6.3-8.2) g/dL Albumin (3.5-5.0) g/dL 02/01/17 02/01/17 Range/Units 08:41 11:58 Chloride 108 H (98-107) mmol/L Glucose 116 H (74-99) mg/dL POC Glucose (mg/dL) 141 H (75-99) mg/dL Total Protein 5.1 L (6.3-8.2) g/dL Albumin 2.9 L (3.5-5.0) g/dL Microbiology - Last 24 Hours (Table) 01/30/17 18:42 Blood Culture - Preliminary Blood No Growth after 24 hours 01/30/17 18:22 Blood Culture - Preliminary Blood No Growth after 24 hours Assessment and Plan Plan: Impression: #1 Altered mental status with lethargy and somnolence secondary to suspected narcotic drug overdose. #2 Right lower lobe infiltrate with volume loss suspect possible aspiration pneumonia. #3 Chronic and ongoing tobacco dependence. #4 Diabetes mellitus. #5 Gastroesophageal reflux disease. #6 Hyperlipidemia. #7 Schizophrenia. #8 Depression #9 Restless leg syndrome. #10 Recent hernia repair. Plan: The patient was seen and evaluated by Dr. Harvey. She is awake and alert in no acute distress. She could be discharged home from the pulmonary standpoint. She should follow-up in our office in 1-2 weeks' time. We'll repeat a chest x -ray then. Completed course of antibiotics. She has again educated regarding the importance of complete smoking cessation. She'll continue to work with her incentive spirometer. She is encouraged to call sooner with any recurrence of symptoms or other questions or concerns.
[2017-02-01] MEDS ORDERED: LEVOFLOXACIN 750MG-D5W PMX 750 MG in DEXTROSE/WATER 1 150ML.BAG IVPB SCH (20:00)
== END 2017-02-01 16:48 | disposition home health service (06) | DRG 917 ==
LOC: EC 11:54 → 6SEL 17:56
PROVIDERS: ADMIT Internal Medicine; ATTEND Internal Medicine
DX: T40.601A Poisoning by unspecified narcotics, accidental (unintentional), initial encounter (principal); J69.0 Pneumonitis due to inhalation of food and vomit; F20.0 Paranoid schizophrenia; I45.81 Long QT syndrome; R41.82 Altered mental status, unspecified; J44.9 Chronic obstructive pulmonary disease, unspecified; E78.5 Hyperlipidemia, unspecified; G25.81 Restless legs syndrome; F32.9 Major depressive disorder, single episode, unspecified; F17.210 Nicotine dependence, cigarettes, uncomplicated; K21.9 Gastro-esophageal reflux disease without esophagitis; Z87.01 Personal history of pneumonia (recurrent); E11.9 Type 2 diabetes mellitus without complications; Z79.84 Long term (current) use of oral hypoglycemic drugs; Z79.899 Other long term (current) drug therapy; Y92.009 Unspecified place in unspecified non-institutional (private) residence as the place of occurrence of the external cause
CPT/HCPCS: 36415; 70450; 71010; 71020; 80053; 80306; 80320; 81001; 82140; 82550; 82553; 83036; 83520; 83735; 84484; 85025; 85610; 85730; 87040; 93005; 94640; 94760; 96365; 96366; 96375; 99291

== ENCOUNTER → 2018-06-01 | Outpatient (CLI) | payer MEDICARE, OTHER ==
--- NOTE | 2018-06-01 16:15 | BD ---
EXAMINATION TYPE: Axial Bone Density DATE OF EXAM: 06/01/2018 COMPARISON: NONE CLINICAL HISTORY: post menopausal Height: 5'1 Weight: 158 FRAX RISK QUESTIONS: Secondary Osteoporosis: Current Tobacco Use: y RISK FACTORS HISTORY OF: Postmenopausal woman: MEDICATIONS: Additional Medications: cholesterol, acid reflux, psychiatric Additional History: EXAM MEASUREMENTS: Bone mineral densitometry was performed using the [employer] System. Bone mineral density as measured about the Lumbar spine is: ----- L1-L4(G/cm2): 1.323 T Score Values are as follows: ----- L2: 1.4 ----- L3: 2.9 ----- L4: 0.7 ----- L1-L4:1.2 Bone mineral density about the R hip (g/cm2): 0.891 Bone mineral density about the L hip (g/cm2): 0.971 T Score values are as follows: -----R Neck: -1.1 -----L Neck: -0.5 -----R Total: 0.1 -----L Total: 0.6 IMPRESSION: Osteopenia (T Score between -2.5 and -1) right femoral neck. There is slightly increased risk of fracture and the patient may be considered for treatment. Re-Screen 2-5 years. NOTE: T-SCORE=SD OF THE YOUNG ADULT MEAN.
--- NOTE | 2018-06-02 12:15 | MM ---
Reason for exam: screening (asymptomatic). Last mammogram was performed 2 years ago. History: Patient is postmenopausal. Family history of premenopausal breast cancer in sister at age 50. Benign excisional biopsy of the left breast, 2001. Benign cyst aspiration of the left breast, March 11, 1998. MG 3D Screening Mammo W/Cad Bilateral CC and MLO view(s) were taken. Prior study comparison: May 22, 2016, bilateral MG screening mammo w CAD. November 21, 2014, bilateral MG screening mammo w CAD. The breast tissue is heterogeneously dense. This may lower the sensitivity of mammography. Stable benign calcifications. No discrete abnormality. No significant new finding since most recent study. ASSESSMENT: Benign, BI-RAD 2 RECOMMENDATION: Routine screening mammogram of both breasts in 1 year.
== END ==
LOC: RADMAMWWP 14:09
PROVIDERS: ATTEND Internal Medicine
DX: Z12.31 Encounter for screening mammogram for malignant neoplasm of breast (principal); M85.851 Other specified disorders of bone density and structure, right thigh; N95.1 Menopausal and female climacteric states
CPT/HCPCS: 77063; 77067; 77080

== ENCOUNTER 2021-01-14 20:54 | Inpatient (IN) | payer MEDICARE, OTHER ==
--- NOTE | 2021-01-14 21:17 | ED ---
General Adult HPI - General Chief complaint: Weakness Stated complaint: AMIRAH Time Seen by Provider: 01/14/21 21:02 Source: EMS Mode of arrival: EMS Limitations: no limitations - History of Present Illness Initial comments: 's patient is a 65-year-old woman who presents here by ambulance with complaint that she was feeling short of breath and weak. The patient states that it's generalized weakness. She denies focal weakness. Patient states that she had been in her bedroom and was trying to get attention of family member who lives with her. When she was not able to get the family members attention (he was reportedly outside the home), she crawled to the other room and phone EMS. Here she is mainly complaining of being short of breath and feeling shaky. She is denying pain. The patient has a difficult time characterizing when exactly things began. -: unknown Severity scale (1-10): 0 Consistency: constant Improves with: none Worsens with: none Associated Symptoms: shortness of breath, weakness Treatments Prior to Arrival: none - Related Data Home Medications Medication Instructions Recorded Confirmed PARoxetine HCL [Paxil] 40 mg PO DAILY 06/03/15 01/14/21 cloZAPine [Clozaril] 100 mg PO DAILY 06/03/15 01/14/21 cloZAPine [Clozaril] 400 mg PO HS 06/03/15 01/14/21 Previous Rx's Medication Instructions Recorded Budesonide-Formot 160-4.5 Mcg 2 puff INHALATION RT-BID puff 01/18/21 [Symbicort 160-4.5 Mcg Inhaler] Calcium Carbonate [Tums] 500 mg PO Q4H PRN chew 01/18/21 Cefdinir 300 mg PO Q12HR 7 Days #14 cap 01/18/21 Ipratropium-Albuterol Nebulize 3 ml INHALATION RT-QID ml 01/18/21 [Duoneb 0.5 mg-3 mg/3 ml Soln] Nicotine 14Mg/24Hr Patch [Habitrol] 1 patch TRANSDERM DAILY patch 01/18/21 Pantoprazole [Protonix] 40 mg PO AC-BRKFST tablet. 01/18/21 predniSONE [Deltasone] 40 mg PO DAILY tab 01/18/21 Allergies Allergy/AdvReac Type Severity Reaction Status Date / Time propoxyphene napsylate AdvReac Nausea Verified 01/30/17 12:19 [From [facility]] Review of Systems ROS Statement: Those systems with pertinent positive or pertinent negative responses have been documented in the HPI. ROS Other: All systems not noted in ROS Statement are negative. Constitutional: Reports: weakness. Denies: fever, chills Respiratory: Reports: dyspnea. Denies: cough Cardiovascular: Denies: chest pain, orthopnea, edema, syncope Gastrointestinal: Denies: abdominal pain, vomiting, diarrhea Genitourinary: Denies: dysuria, hematuria Musculoskeletal: Denies: back pain Skin: Denies: rash Neurological: Denies: headache, weakness, numbness Psychiatric: Reports: anxiety Past Medical History Past Medical History: Diabetes Mellitus, GERD/Reflux, Hyperlipidemia Additional Past Medical History / Comment(s): COPD, para and schizophrenia, depression, diabetes mellitus, hyperlipidemia, restless leg syndrome, rectal prolapse with previous low AP resection, incisional hernia History of Any Multi-Drug Resistant Organisms: None Reported Past Surgical History: Tonsillectomy, Tubal Ligation Additional Past Surgical History / Comment(s): bronchoscopy, low anterior resection for rectal prolapse, incisional hernia repair 01/13/17 Past Anesthesia/Blood Transfusion Reactions: No Reported Reaction Past Psychological History: Anxiety, Depression, Schizophrenia Smoking Status: Current every day smoker Past Alcohol Use History: None Reported Past Drug Use History: None Reported - Past Family History Sister(s) Family Medical History: Cancer Additional Family Medical History / Comment(s): breast Mother Family Medical History: No Reported History General Exam Limitations: no limitations General appearance: alert, in no apparent distress, anxious Head exam: Present: atraumatic, normocephalic Eye exam: Present: normal appearance. Absent: scleral icterus, conjunctival injection Neck exam: Present: normal inspection, full ROM Respiratory exam: Present: wheezes. Absent: respiratory distress, rales, rh onchi, stridor, accessory muscle use, decreased breath sounds Cardiovascular Exam: Present: normal rhythm, tachycardia (Rate 104 at my exam), normal heart sounds. Absent: systolic murmur, diastolic murmur, rubs, gallop GI/Abdominal exam: Present: soft. Absent: distended, tenderness, guarding, rebound, rigid, mass Extremities exam: Present: normal inspection, normal capillary refill. Absent: pedal edema, calf tenderness Back exam: Present: normal inspection. Absent: CVA tenderness (R), CVA te nderness (L) Neurological exam: Present: alert, CN II-XII intact. Absent: motor sensory deficit Skin exam: Present: warm, dry, intact, normal color. Absent: rash Course Vital Signs 01/14/21 01/14/21 01/14/21 20:57 22:56 22:59 Temperature 97.6 F Pulse Rate 103 H 98 98 Respiratory 20 20 Rate Blood Pressure 141/84 136/74 O2 Sat by Pulse 97 98 Oximetry 01/14/21 01/15/21 01/15/21 23:05 01:00 05:00 Temperature 98.4 F Pulse Rate 99 94 91 Respiratory 20 18 Rate Blood Pressure 107/66 113/73 O2 Sat by Pulse 96 95 Oximetry 01/15/21 01/15/21 01/15/21 07:52 09:00 09:10 Temperature 98.1 F Pulse Rate 91 87 88 Respiratory 26 H Rate Blood Pressure 134/78 O2 Sat by Pulse 93 L Oximetry 01/15/21 01/15/21 01/15/21 09:14 10:20 11:57 Temperature 98.8 F Pulse Rate 95 96 Respiratory 24 Rate Blood Pressure 126/73 O2 Sat by Pulse 95 93 L Oximetry 01/15/21 01/15/21 01/15/21 11:59 12:06 12:56 Temperature 98.7 F Pulse Rate 98 91 Respiratory 22 Rate Blood Pressure 142/81 O2 Sat by Pulse 94 L 92 L Oximetry 01/15/21 14:34 Temperature Pulse Rate 94 Respiratory 24 Rate Blood Pressure 124/75 O2 Sat by Pulse 96 Oximetry EKG Findings - EKG Comments: EKG Findings:: Low voltage QRS complex - EKG Results: EKG: interpreted by ERMD, sinus rhythm, normal axis, normal ST/T EKG shows: tachycardia (Rate 102 BPM) - ID, Pacemaker, Normal: Myocardial infarction: septal ID (old age or indeterminate) (Possible old septal infarct.) Medical Decision Making - Lab Data Result diagrams: 01/18/21 05:40 01/18/21 05:40 Lab Results 01/14/21 01/14/21 01/14/21 Range/Units 21:20 21:20 21:20 WBC 7.3 (3.8-10.6) k/uL RBC 4.54 (3.80-5.40) m/uL Hgb 13.3 (11.4-16.0) gm/dL Hct 40.0 (34.0-46.0) % MCV 88.1 (80.0-100.0) fL MCH 29.2 (25.0-35.0) pg MCHC 33.2 (31.0-37.0) g/dL RDW 15.4 (11.5-15.5) % Plt Count 235 (150-450) k/uL MPV 7.8 Immature Gran % (Auto) % Absolute Nucleated RBC (0.00-0.00) X 10*3/uL Neutrophils % 74 % Lymphocytes % 14 % Monocytes % 8 % Eosinophils % 1 % Basophils % 0 % Immature Gran # (0.00-0.04) X 10*3/uL Neutrophils # 5.4 (1.3-7.7) k/uL Lymphocytes # 1.0 (1.0-4.8) k/uL Monocytes # 0.6 (0-1.0) k/uL Eosinophils # 0.1 (0-0.7) k/uL Basophils # 0.0 (0-0.2) k/uL NRBC/100 WBC Diff (0.0-0.0) /100 WBCS PT 9.3 (9.0-12.0) sec INR 0.8 (<1.2) APTT 27.4 (22.0-30.0) sec D-Dimer 0.31 (<0.60) mg/L FEU VBG pH (7.31-7.41) VBG pCO2 (37-51) mmHg VBG HCO3 (24-28) mmol/L Sodium (137-145) mmol/L Potassium (3.5-5.1) mmol/L Chloride (98-107) mmol/L Carbon Dioxide (22-30) mmol/L Anion Gap mmol/L BUN (7-17) mg/dL Creatinine (0.52-1.04) mg/dL Est GFR (CKD-EPI)AfAm (>60 ml/min/1.73 sqM) Est GFR (CKD-EPI)NonAf (>60 ml/min/1.73 sqM) BUN/Creatinine Ratio (12.00-20.00) Ratio Glucose (74-99) mg/dL POC Glucose (mg/dL) (75-99) mg/dL POC Glu Manager Risk Management ID Estimated Ave Glu mg/dL Hemoglobin A1c (4.0-6.0) % Plasma Lactic Acid Corona (0.7-2.0) mmol/L Calcium (8.4-10.2) mg/dL Total Bilirubin (0.2-1.3) mg/dL AST (14-36) U/L ALT (4-34) U/L Alkaline Phosphatase (38-126) U/L Troponin I (0.000-0.034) ng/mL NT-Pro-B Natriuret Pep pg/mL Total Protein (6.3-8.2) g/dL Albumin (3.5-5.0) g/dL Globulin (1.6-3.3) g/dL Albumin/Globulin Ratio (1.60-3.17) g/dL Urine Color Light Yellow Urine Appearance Clear (Clear) Urine pH 6.0 (5.0-8.0) Ur Specific [place] 1.010 (1.001-1.035) Urine Protein Trace H (Negative) Urine Glucose (UA) 4+ H (Negative) Urine Ketones Negative (Negative) Urine Blood Negative (Negative) Urine Nitrite Negative (Negative) Urine Bilirubin Negative (Negative) Urine Urobilinogen <2.0 (<2.0) mg/dL Ur Leukocyte Esterase Negative (Negative) Urine Opiates Screen (NotDetected) Ur Oxycodone Screen (NotDetected) Urine Methadone Screen (NotDetected) Ur Propoxyphene Screen (NotDetected) Ur Barbiturates Screen (NotDetected) U Tricyclic Antidepress (NotDetected) Ur Phencyclidine Scrn (NotDetected) Clozapine (200-700) ng/mL Norclozapine (200-700) ng/mL Ur Amphetamines Screen (NotDetected) U Methamphetamines Scrn (NotDetected) U Benzodiazepines Scrn (NotDetected) Urine Cocaine Screen (NotDetected) U Marijuana (THC) Screen (NotDetected) Coronavirus (PCR) (Not Detectd) 01/14/21 01/14/21 01/14/21 Range/Units 21:20 21:20 21:20 WBC (3.8-10.6) k/uL RBC (3.80-5.40) m/uL Hgb (11.4-16.0) gm/dL Hct (34.0-46.0) % MCV (80.0-100.0) fL MCH (25.0-35.0) pg MCHC (31.0-37.0) g/dL RDW (11.5-15.5) % Plt Count (150-450) k/uL MPV Immature Gran % (Auto) % Absolute Nucleated RBC (0.00-0.00) X 10*3/uL Neutrophils % % Lymphocytes % % Monocytes % % Eosinophils % % Basophils % % Immature Gran # (0.00-0.04) X 10*3/uL Neutrophils # (1.3-7.7) k/uL Lymphocytes # (1.0-4.8) k/uL Monocytes # (0-1.0) k/uL Eosinophils # (0-0.7) k/uL Basophils # (0-0.2) k/uL NRBC/100 WBC Diff (0.0-0.0) /100 WBCS PT (9.0-12.0) sec INR (<1.2) APTT (22.0-30.0) sec D-Dimer (<0.60) mg/L FEU VBG pH (7.31-7.41) VBG pCO2 (37-51) mmHg VBG HCO3 (24-28) mmol/L Sodium 138 (137-145) mmol/L Potassium 4.3 (3.5-5.1) mmol/L Chloride 100 (98-107) mmol/L Carbon Dioxide 32 H (22-30) mmol/L Anion Gap 6 mmol/L BUN 17 (7-17) mg/dL Creatinine 0.54 (0.52-1.04) mg/dL Est GFR (CKD-EPI)AfAm >90 (>60 ml/min/1.73 sqM) Est GFR (CKD-EPI)NonAf >90 (>60 ml/min/1.73 sqM) BUN/Creatinine Ratio (12.00-20.00) Ratio Glucose 316 H (74-99) mg/dL POC Glucose (mg/dL) (75-99) mg/dL POC Glu Manager Risk Management ID Estimated Ave Glu mg/dL Hemoglobin A1c (4.0-6.0) % Plasma Lactic Acid [place]ona 1.0 (0.7-2.0) mmol/L Calcium 9.5 (8.4-10.2) mg/dL Total Bilirubin 0.2 (0.2-1.3) mg/dL AST 11 L (14-36) U/L ALT 11 (4-34) U/L Alkaline Phosphatase 130 H (38-126) U/L Troponin I <0.012 (0.000-0.034) ng/mL NT-Pro-B Natriuret Pep pg/mL Total Protein 6.4 (6.3-8.2) g/dL Albumin 4.1 (3.5-5.0) g/dL Globulin (1.6-3.3) g/dL Albumin/Globulin Ratio (1.60-3.17) g/dL Urine Color Urine Appearance (Clear) Urine pH (5.0-8.0) Ur Specific [place] (1.001-1.035) Urine Protein (Negative) Urine Glucose (UA) (Negative) Urine Ketones (Negative) Urine Blood (Negative) Urine Nitrite (Negative) Urine Bilirubin (Negative) Urine Urobilinogen (<2.0) mg/dL Ur Leukocyte Esterase (Negative) Urine Opiates Screen (NotDetected) Ur Oxycodone Screen (NotDetected) Urine Methadone Screen (NotDetected) Ur Propoxyphene Screen (NotDetected) Ur Barbiturates Screen (NotDetected) U Tricyclic Antidepress (NotDetected) Ur Phencyclidine Scrn (NotDetected) Clozapine (200-700) ng/mL Norclozapine (200-700) ng/mL Ur Amphetamines Screen (NotDetected) U Methamphetamines Scrn (NotDetected) U Benzodiazepines Scrn (NotDetected) Urine Cocaine Screen (NotDetected) U Marijuana (THC) Screen (NotDetected) Coronavirus (PCR) (Not Detectd) 01/14/21 01/14/21 01/14/21 Range/Units 21:20 21:20 21:43 WBC (3.8-10.6) k/uL RBC (3.80-5.40) m/uL Hgb (11.4-16.0) gm/dL Hct (34.0-46.0) % MCV (80.0-100.0) fL MCH (25.0-35.0) pg MCHC (31.0-37.0) g/dL RDW (11.5-15.5) % Plt Count (150-450) k/uL MPV Immature Gran % (Auto) % Absolute Nucleated RBC (0.00-0.00) X 10*3/uL Neutrophils % % Lymphocytes % % Monocytes % % Eosinophils % % Basophils % % Immature Gran # (0.00-0.04) X 10*3/uL Neutrophils # (1.3-7.7) k/uL Lymphocytes # (1.0-4.8) k/uL Monocytes # (0-1.0) k/uL Eosinophils # (0-0.7) k/uL Basophils # (0-0.2) k/uL NRBC/100 WBC Diff (0.0-0.0) /100 WBCS PT (9.0-12.0) sec INR (<1.2) APTT (22.0-30.0) sec D-Dimer (<0.60) mg/L FEU VBG pH 7.41 (7.31-7.41) VBG pCO2 48 (37-51) mmHg VBG HCO3 30 H (24-28) mmol/L Sodium (137-145) mmol/L Potassium (3.5-5.1) mmol/L Chloride (98-107) mmol/L Carbon Dioxide (22-30) mmol/L Anion Gap mmol/L BUN (7-17) mg/dL Creatinine (0.52-1.04) mg/dL Est GFR (CKD-EPI)AfAm (>60 ml/min/1.73 sqM) Est GFR (CKD-EPI)NonAf (>60 ml/min/1.73 sqM) BUN/Creatinine Ratio (12.00-20.00) Ratio Glucose (74-99) mg/dL POC Glucose (mg/dL) (75-99) mg/dL POC Glu Manager Risk Management ID Estimated Ave Glu mg/dL Hemoglobin A1c (4.0-6.0) % Plasma Lactic Acid [place]ona (0.7-2.0) mmol/L Calcium (8.4-10.2) mg/dL Total Bilirubin (0.2-1.3) mg/dL AST (14-36) U/L ALT (4-34) U/L Alkaline Phosphatase (38-126) U/L Troponin I (0.000-0.034) ng/mL NT-Pro-B Natriuret Pep 219 pg/mL Total Protein (6.3-8.2) g/dL Albumin (3.5-5.0) g/dL Globulin (1.6-3.3) g/dL Albumin/Globulin Ratio (1.60-3.17) g/dL Urine Color Urine Appearance (Clear) Urine pH (5.0-8.0) Ur Specific [place] (1.001-1.035) Urine Protein (Negative) Urine Glucose (UA) (Negative) Urine Ketones (Negative) Urine Blood (Negative) Urine Nitrite (Negative) Urine Bilirubin (Negative) Urine Urobilinogen (<2.0) mg/dL Ur Leukocyte Esterase (Negative) Urine Opiates Screen Not Detected (NotDetected) Ur Oxycodone Screen Not Detected (NotDetected) Urine Methadone Screen Not Detected (NotDetected) Ur Propoxyphene Screen Not Detected (NotDetected) Ur Barbiturates Screen Not Detected (NotDetected) U Tricyclic Antidepress Detected H (NotDetected) Ur Phencyclidine Scrn Not Detected (NotDetected) Clozapine (200-700) ng/mL Norclozapine (200-700) ng/mL Ur Amphetamines Screen Not Detected (NotDetected) U Methamphetamines Scrn Not Detected (NotDetected) U Benzodiazepines Scrn Not Detected (NotDetected) Urine Cocaine Screen Not Detected (NotDetected) U Marijuana (THC) Screen Not Detected (NotDetected) Coronavirus (PCR) (Not Detectd) 01/15/21 01/15/21 01/15/21 Range/Units 00:30 06:52 09:56 WBC 9.83 (3.8-10.6) k/uL RBC 4.45 (3.80-5.40) m/uL Hgb 12.6 (11.4-16.0) gm/dL Hct 41.2 (34.0-46.0) % MCV 92.6 (80.0-100.0) fL MCH 28.3 (25.0-35.0) pg MCHC 30.6 L (31.0-37.0) g/dL RDW 16.1 H (11.5-15.5) % Plt Count 255 (150-450) k/uL MPV 10.9 Immature Gran % (Auto) 0.7 % Absolute Nucleated RBC 0 (0.00-0.00) X 10*3/uL Neutrophils % 81.5 % Lymphocytes % 9.8 % Monocytes % 7.7 % Eosinophils % 0 % Basophils % 0.3 % Immature Gran # 0.07 H (0.00-0.04) X 10*3/uL Neutrophils # 8.01 H (1.3-7.7) k/uL Lymphocytes # 0.96 (1.0-4.8) k/uL Monocytes # 0.76 (0-1.0) k/uL Eosinophils # 0 L (0-0.7) k/uL Basophils # 0.03 (0-0.2) k/uL NRBC/100 WBC Diff 0 (0.0-0.0) /100 WBCS PT (9.0-12.0) sec INR (<1.2) APTT (22.0-30.0) sec D-Dimer (<0.60) mg/L FEU VBG pH (7.31-7.41) VBG pCO2 (37-51) mmHg VBG HCO3 (24-28) mmol/L Sodium (137-145) mmol/L Potassium (3.5-5.1) mmol/L Chloride (98-107) mmol/L Carbon Dioxide (22-30) mmol/L Anion Gap mmol/L BUN (7-17) mg/dL Creatinine (0.52-1.04) mg/dL Est GFR (CKD-EPI)AfAm (>60 ml/min/1.73 sqM) Est GFR (CKD-EPI)NonAf (>60 ml/min/1.73 sqM) BUN/Creatinine Ratio (12.00-20.00) Ratio Glucose (74-99) mg/dL POC Glucose (mg/dL) 311 H (75-99) mg/dL POC Glu Manager Risk Management ID Selena Gómez Estimated Ave Glu mg/dL Hemoglobin A1c (4.0-6.0) % Plasma Lactic Acid [place]ona (0.7-2.0) mmol/L Calcium (8.4-10.2) mg/dL Total Bilirubin (0.2-1.3) mg/dL AST (14-36) U/L ALT (4-34) U/L Alkaline Phosphatase (38-126) U/L Troponin I (0.000-0.034) ng/mL NT-Pro-B Natriuret Pep pg/mL Total Protein (6.3-8.2) g/dL Albumin (3.5-5.0) g/dL Globulin (1.6-3.3) g/dL Albumin/Globulin Ratio (1.60-3.17) g/dL Urine Color Urine Appearance (Clear) Urine pH (5.0-8.0) Ur Specific [place] (1.001-1.035) Urine Protein (Negative) Urine Glucose (UA) (Negative) Urine Ketones (Negative) Urine Blood (Negative) Urine Nitrite (Negative) Urine Bilirubin (Negative) Urine Urobilinogen (<2.0) mg/dL Ur Leukocyte Esterase (Negative) Urine Opiates Screen (NotDetected) Ur Oxycodone Screen (NotDetected) Urine Methadone Screen (NotDetected) Ur Propoxyphene Screen (NotDetected) Ur Barbiturates Screen (NotDetected) U Tricyclic Antidepress (NotDetected) Ur Phencyclidine Scrn (NotDetected) Clozapine (200-700) ng/mL Norclozapine (200-700) ng/mL Ur Amphetamines Screen (NotDetected) U Methamphetamines Scrn (NotDetected) U Benzodiazepines Scrn (NotDetected) Urine Cocaine Screen (NotDetected) U Marijuana (THC) Screen (NotDetected) Coronavirus (PCR) Not Detected (Not Detectd) 01/15/21 01/15/21 01/15/21 Range/Units 09:56 09:56 12:46 WBC (3.8-10.6) k/uL RBC (3.80-5.40) m/uL Hgb (11.4-16.0) gm/dL Hct (34.0-46.0) % MCV (80.0-100.0) fL MCH (25.0-35.0) pg MCHC (31.0-37.0) g/dL RDW (11.5-15.5) % Plt Count (150-450) k/uL MPV Immature Gran % (Auto) % Absolute Nucleated RBC (0.00-0.00) X 10*3/uL Neutrophils % % Lymphocytes % % Monocytes % % Eosinophils % % Basophils % % Immature Gran # (0.00-0.04) X 10*3/uL Neutrophils # (1.3-7.7) k/uL Lymphocytes # (1.0-4.8) k/uL Monocytes # (0-1.0) k/uL Eosinophils # (0-0.7) k/uL Basophils # (0-0.2) k/uL NRBC/100 WBC Diff (0.0-0.0) /100 WBCS PT (9.0-12.0) sec INR (<1.2) APTT (22.0-30.0) sec D-Dimer (<0.60) mg/L FEU VBG pH (7.31-7.41) VBG pCO2 (37-51) mmHg VBG HCO3 (24-28) mmol/L Sodium 140 (137-145) mmol/L Potassium 4.6 (3.5-5.1) mmol/L Chloride 106 (98-107) mmol/L Carbon Dioxide 27.2 (22-30) mmol/L Anion Gap 6.80 mmol/L BUN 12.0 (7-17) mg/dL Creatinine 0.7 (0.52-1.04) mg/dL Est GFR (CKD-EPI)AfAm 103.9 (>60 ml/min/1.73 sqM) Est GFR (CKD-EPI)NonAf 89.7 (>60 ml/min/1.73 sqM) BUN/Creatinine Ratio 17.14 (12.00-20.00) Ratio Glucose 254 H (74-99) mg/dL POC Glucose (mg/dL) 251 H (75-99) mg/dL POC Glu Manager Risk Management ID [place]essa Rankin Estimated Ave Glu mg/dL 209 Hemoglobin A1c 8.9 H (4.0-6.0) % Plasma Lactic Acid [place]ona (0.7-2.0) mmol/L Calcium 8.9 (8.4-10.2) mg/dL Total Bilirubin 0.2 (0.2-1.3) mg/dL AST 8 L (14-36) U/L ALT 11 (4-34) U/L Alkaline Phosphatase 118 (38-126) U/L Troponin I (0.000-0.034) ng/mL NT-Pro-B Natriuret Pep pg/mL Total Protein 6.3 (6.3-8.2) g/dL Albumin 4.30 (3.5-5.0) g/dL Globulin 2.0 (1.6-3.3) g/dL Albumin/Globulin Ratio 2.15 (1.60-3.17) g/dL Urine Color Urine Appearance (Clear) Urine pH (5.0-8.0) Ur Specific [place] (1.001-1.035) Urine Protein (Negative) Urine Glucose (UA) (Negative) Urine Ketones (Negative) Urine Blood (Negative) Urine Nitrite (Negative) Urine Bilirubin (Negative) Urine Urobilinogen (<2.0) mg/dL Ur Leukocyte Esterase (Negative) Urine Opiates Screen (NotDetected) Ur Oxycodone Screen (NotDetected) Urine Methadone Screen (NotDetected) Ur Propoxyphene Screen (NotDetected) Ur Barbiturates Screen (NotDetected) U Tricyclic Antidepress (NotDetected) Ur Phencyclidine Scrn (NotDetected) Clozapine (200-700) ng/mL Norclozapine (200-700) ng/mL Ur Amphetamines Screen (NotDetected) U Methamphetamines Scrn (NotDetected) U Benzodiazepines Scrn (NotDetected) Urine Cocaine Screen (NotDetected) U Marijuana (THC) Screen (NotDetected) Coronavirus (PCR) (Not Detectd) 01/15/21 Range/Units 13:31 WBC (3.8-10.6) k/uL RBC (3.80-5.40) m/uL Hgb (11.4-16.0) gm/dL Hct (34.0-46.0) % MCV (80.0-100.0) fL MCH (25.0-35.0) pg MCHC (31.0-37.0) g/dL RDW (11.5-15.5) % Plt Count (150-450) k/uL MPV Immature Gran % (Auto) % Absolute Nucleated RBC (0.00-0.00) X 10*3/uL Neutrophils % % Lymphocytes % % Monocytes % % Eosinophils % % Basophils % % Immature Gran # (0.00-0.04) X 10*3/uL Neutrophils # (1.3-7.7) k/uL Lymphocytes # (1.0-4.8) k/uL Monocytes # (0-1.0) k/uL Eosinophils # (0-0.7) k/uL Basophils # (0-0.2) k/uL NRBC/100 WBC Diff (0.0-0.0) /100 WBCS PT (9.0-12.0) sec INR (<1.2) APTT (22.0-30.0) sec D-Dimer (<0.60) mg/L FEU VBG pH (7.31-7.41) VBG pCO2 (37-51) mmHg VBG HCO3 (24-28) mmol/L Sodium (137-145) mmol/L Potassium (3.5-5.1) mmol/L Chloride (98-107) mmol/L Carbon Dioxide (22-30) mmol/L Anion Gap mmol/L BUN (7-17) mg/dL Creatinine (0.52-1.04) mg/dL Est GFR (CKD-EPI)AfAm (>60 ml/min/1.73 sqM) Est GFR (CKD-EPI)NonAf (>60 ml/min/1.73 sqM) BUN/Creatinine Ratio (12.00-20.00) Ratio Glucose (74-99) mg/dL POC Glucose (mg/dL) (75-99) mg/dL POC Glu Manager Risk Management ID Estimated Ave Glu mg/dL Hemoglobin A1c (4.0-6.0) % Plasma Lactic Acid [place] (0.7-2.0) mmol/L Calcium (8.4-10.2) mg/dL Total Bilirubin (0.2-1.3) mg/dL AST (14-36) U/L ALT (4-34) U/L Alkaline Phosphatase (38-126) U/L Troponin I (0.000-0.034) ng/mL NT-Pro-B Natriuret Pep pg/mL Total Protein (6.3-8.2) g/dL Albumin (3.5-5.0) g/dL Globulin (1.6-3.3) g/dL Albumin/Globulin Ratio (1.60-3.17) g/dL Urine Color Urine Appearance (Clear) Urine pH (5.0-8.0) Ur Specific [place] (1.001-1.035) Urine Protein (Negative) Urine Glucose (UA) (Negative) Urine Ketones (Negative) Urine Blood (Negative) Urine Nitrite (Negative) Urine Bilirubin (Negative) Urine Urobilinogen (<2.0) mg/dL Ur Leukocyte Esterase (Negative) Urine Opiates Screen (NotDetected) Ur Oxycodone Screen (NotDetected) Urine Methadone Screen (NotDetected) Ur Propoxyphene Screen (NotDetected) Ur Barbiturates Screen (NotDetected) U Tricyclic Antidepress (NotDetected) Ur Phencyclidine Scrn (NotDetected) Clozapine 1319 H* (200-700) ng/mL Norclozapine 577 (200-700) ng/mL Ur Amphetamines Screen (NotDetected) U Methamphetamines Scrn (NotDetected) U Benzodiazepines Scrn (NotDetected) Urine Cocaine Screen (NotDetected) U Marijuana (THC) Screen (NotDetected) Coronavirus (PCR) (Not Detectd) Disposition Clinical Impression: COPD (chronic obstructive pulmonary disease), Altered mental status Disposition: ADMITTED IP TO THIS [facility] Condition: Poor Is patient prescribed a controlled substance at d/c from ED?: No
[2021-01-14 21:32] LABS: Basophils % (A) 0 %; Eosinophils # (A) 0.1 k/uL (0-0.7); Eosinophils % (A) 1 %; HGB 13.3 gm/dL (11.4-16.0); Lymphocytes % (A) 14 %; MCH 29.2 pg (25.0-35.0); MCHC 33.2 g/dL (31.0-37.0); MCV 88.1 fL (80.0-100.0); Mean Platelet Volume 7.8; Monocytes # (A) 0.6 k/uL (0-1.0); Monocytes % (A) 8 %; Neutrophils # (A) 5.4 k/uL (1.3-7.7); Neutrophils % (A) 74 %; Platelet Count 235 k/uL (150-450); RBC 4.54 m/uL (3.80-5.40); RDW 15.4 % (11.5-15.5); WBC 7.3 k/uL (3.8-10.6)
[2021-01-14 21:40] LABS: ALT 11 U/L (4-34); AST 11 U/L (14-36); African American GFR (CKD) >90 (>60 ml/min/1.73 sqM); Albumin 4.1 g/dL (3.5-5.0); Alkaline Phosphatase 130 U/L (38-126); Anion Gap 6 mmol/L; Blood Urea Nitrogen 17 mg/dL (7-17); Calcium 9.5 mg/dL (8.4-10.2); Carbon Dioxide 32 mmol/L (22-30); Chloride 100 mmol/L (98-107); Glucose 316 mg/dL (74-99); Non-African American GFR(CKD) >90 (>60 ml/min/1.73 sqM); Sodium 138 mmol/L (137-145); Total Bilirubin 0.2 mg/dL (0.2-1.3); Total Protein 6.4 g/dL (6.3-8.2)
[2021-01-14 21:50] LABS: D-Dimer 0.31 mg/L FEU (<0.60); INR 0.8 (<1.2); Partial Thromboplastin Time 27.4 sec (22.0-30.0); Prothrombin Time 9.3 sec (9.0-12.0)
[2021-01-14 21:54] LABS: Appearance,Urine Clear (Clear); Bilirubin,Urine Negative (Negative); Blood,Urine Negative (Negative); Color,Urine Light Yellow; Glucose,Urine (UA) 4+ (Negative); Ketones,Urine Negative (Negative); Leukocyte Esterase,Urine Negative (Negative); Nitrite,Urine Negative (Negative); Protein,Urine Trace (Negative); Urobilinogen,Urine <2.0 mg/dL (<2.0)
--- NOTE | 2021-01-14 22:10 | XR ---
EXAMINATION TYPE: XR chest 2V DATE OF EXAM: 01/14/2021 COMPARISON: 03/12/2017 HISTORY: Short of breath TECHNIQUE: FINDINGS: Heart is borderline enlarged. There is no gross heart failure. There is some minimal atelec tasis right midlung field. I see no definite pleural effusion. There are chest leads. There are no hi lar masses. IMPRESSION: Lung markings increased slightly compared to old exam. No obvious heart failure. Mild sub segmental atelectasis.
[2021-01-14 22:17] LABS: VBG PH 7.41 (7.31-7.41)
[2021-01-14 22:19] LABS: Potassium 4.3 mmol/L (3.5-5.1)
[2021-01-14] MEDS ORDERED: ALBUTEROL NEBULIZED 2.5 MG/3 ML INHALATION STA (22:22)
[2021-01-14] MEDS ORDERED: INSULIN REGULAR 100 UNIT/ML VIAL (IV) SQ STA (22:22)
[2021-01-14] MEDS ORDERED: SODIUM CHLORIDE 0.9% 1,000 ML IV ONE (22:23)
[2021-01-14] MEDS ORDERED: predniSONE 20 MG TAB PO STA (23:31)
[2021-01-14] MEDS ORDERED: AZITHROMYCIN 500 MG TAB PO STA (23:31)
--- NOTE | 2021-01-15 00:01 | CT ---
EXAMINATION TYPE: CT brain wo con DATE OF EXAM: 01/14/2021 COMPARISON: 1517 HISTORY: AMS CT DLP: 1123.4 mGycm Automated exposure control for dose reduction was used. There is mild cerebral atrophy. There is no mass effect nor midline shift. There is no sign of intrac ranial hemorrhage. The calvarium is intact. There is some asymmetric atrophy of the left temporal lob e. There is normal aeration of the mastoid sinuses. IMPRESSION: Cerebral atrophy and more noticeable in the left temporal lobe. No acute intracranial abnormality. No significant change..
[2021-01-15 00:18] LABS: Amphetamine Screen,Urine Not Detected (NotDetected); Barbiturate Screen,Urine Not Detected (NotDetected); Benzodiazepines Screen,Urine Not Detected (NotDetected); Cocaine Screen,Urine Not Detected (NotDetected); Methadone Screen, Urine Not Detected (NotDetected); Opiate Screen,Urine Not Detected (NotDetected); Oxycodone Screen, Urine Not Detected (NotDetected); Phencyclidine Screen,Urine Not Detected (NotDetected); Tricyclic Antidepressant,Urine Detected (NotDetected); Urn Cannabinoid Scrn Not Detected (NotDetected)
[2021-01-15 06:53] LABS: Glucose,Whole Blood 311 mg/dL (75-99)
[2021-01-15] MEDS: INSULIN ASPART (NovoLOG) 100 UNIT/ML VIAL SQ SCH ×4 (07:04→21:33)
[2021-01-15] MEDS: IPRATROPIUM-ALBUTEROL 3 ML NEB INHALATION SCH ×4 (09:00→20:30)
[2021-01-15] MEDS: AZITHROMYCIN 500 MG TAB PO SCH (09:19)
[2021-01-15] MEDS: cloZAPine 100 MG TAB PO SCH ×2 (09:19→21:32)
[2021-01-15] MEDS: PARoxetine 20 MG TAB PO SCH (09:19)
[2021-01-15] MEDS: predniSONE 20 MG TAB PO SCH (09:19)
[2021-01-15] MEDS: HEPARIN SODIUM,PORCINE/PF 5,000 UNIT/0.5 ML SYRINGE SQ SCH ×2 (10:17→21:33)
--- NOTE | 2021-01-15 10:46 | P.CNPUL ---
History of Present Illness Consult date: 01/15/21 Requesting physician: Christi Galeano Reason for consult: dyspnea, cough, COPD, hypoxemia, pneumonia, abnormal CXR/CT Chief complaint: Shortness of breath. History of present illness: Pulmonary consult dated 01/15/2021. 65-year-old female, who looks much older than her stated age, was seen in the emergency department today. She was brought in yesterday by EMS. She came in with generalized weakness, and shortness of breath. The patient continues to smoke cigarettes, and has a history of COPD. She's not a particularly good historian. Her speech is a bit garbled. Again, the patient appears to be older than her stated age. She apparently metastases to cough, chest congestion, and phlegm production. Her primary care physician is Dr. Galeano. In addition, she apparently has a history of diabetes mellitus, gastroesophageal reflux disease, schizophrenia, depression, hyperlipidemia, restless leg syndrome, rectal prolapse, and previous low AP resection. She appears not to see a lung doctor at this time. CBC is completely normal. PT/INR/PTT is normal. D-dimer is normal. PH on venous blood gases 7.41. Sodium potassium chloride normal. CO2 32. Anion gap normal, with normal BUN and creatinine. Coronavirus testing was negative. Chest x-ray my opinion does not show pneumonia, but rather some basilar atelectasis. Compared to a prior x-ray, the current x-rays improved. Review of Systems REVIEW OF SYSTEMS: CONSTITUTIONAL: [Negative.] NEUROLOGIC: [ Negative.] HEENT: [ Negative.] CARDIAC: [Negative.] PULMONARY: Shortness of breath, cough, chest congestion, phlegm production. GI: [Negative.] : [Negative.] RHEUMATOLOGIC: [ Negative.] IMMUNOLOGIC: [ Negative.] ENDOCRINE: [Negative. ] DERMATOLOGIC: [Negative.] Past Medical History Past Medical History: Diabetes Mellitus, GERD/Reflux, Hyperlipidemia Additional Past Medical History / Comment(s): COPD, para and schizophrenia, depression, diabetes mellitus, hyperlipidemia, restless leg syndrome, rectal prolapse with previous low AP resection, incisional hernia History of Any Multi-Drug Resistant Organisms: None Reported Past Surgical History: Tonsillectomy, Tubal Ligation Additional Past Surgical History / Comment(s): bronchoscopy, low anterior resection for rectal prolapse, incisional hernia repair 01/13/17 Past Anesthesia/Blood Transfusion Reactions: No Reported Reaction Past Psychological History: Anxiety, Depression, Schizophrenia Smoking Status: Current every day smoker Past Alcohol Use History: None Reported Past Drug Use History: None Reported - Past Family History Sister(s) Family Medical History: Cancer Additional Family Medical History / Comment(s): breast Mother Family Medical History: No Reported History Medications and Allergies Home Medications Medication Instructions Recorded Confirmed Type PARoxetine HCL [Paxil] 40 mg PO DAILY 06/03/15 01/14/21 History cloZAPine [Clozaril] 100 mg PO DAILY 06/03/15 01/14/21 History cloZAPine [Clozaril] 400 mg PO HS 06/03/15 01/14/21 History Allergies Allergy/AdvReac Type Severity Reaction Status Date / Time propoxyphene napsylate AdvReac Nausea Verified 01/30/17 12:19 [From Leona-N] Physical Exam Osteopathic Statement: *. No significant issues noted on an osteopathic structural exam other than those noted in the History and Physical/Consult. Vitals: Vital Signs Temp Pulse Resp BP Pulse Ox 01/15/21 10:20 98.8 F 95 24 126/73 93 L 01/15/21 09:14 95 01/15/21 09:10 88 01/15/21 09:00 87 01/15/21 07:52 98.1 F 91 26 H 134/78 93 L 01/15/21 05:00 91 18 113/73 95 01/15/21 01:00 98.4 F 94 20 107/66 96 01/14/21 23:05 99 01/14/21 22:59 98 01/14/21 22:56 98 20 136/74 98 01/14/21 20:57 97.6 F 103 H 20 141/84 97 Intake and Output 01/14/21 01/15/21 01/15/21 22:59 06:59 14:59 Other: Weight 76.657 kg No acute distress, oriented 3. No conversational dyspnea, or use of accessory muscles, or audible wheezing. Speech is a bit garbled. HEENT examination is grossly unremarkable. Neck supple. Full range of motion. No adenopathy thyromegaly or neck vein distention. Cardiovascular examination reveals regular rhythm rate. S1-S2 normal. No S3 or S4. No discernible murmur noted. Heart rate 95 bpm. Heart sounds are distant. Lungs reveal bilateral coarse rhonchi and few scattered wheezes. Breath sounds equal. No crackles. Breath sounds diminished throughout. Saturations are 93% on 3 L. Abdomen soft bowel sounds are heard. No masses or tenderness. Extremities are intact. No cyanosis clubbing or edema. Skin is without rash or lesion. Neurologic examination is brief but nonfocal. Results - Laboratory Findings CBC and BMP: 01/14/21 21:20 01/14/21 21:20 PT/INR, D-dimer PT 9.3 sec (9.0-12.0) 01/14/21 21:20 INR 0.8 (<1.2) 01/14/21 21:20 D-Dimer 0.31 mg/L FEU (<0.60) 01/14/21 21:20 Abnormal lab findings: Abnormal Labs 01/14/21 01/14/21 01/14/21 21:20 21:20 21:20 VBG HCO3 Carbon Dioxide 32 H Glucose 316 H POC Glucose (mg/dL) AST 11 L Alkaline Phosphatase 130 H Urine Protein Trace H Urine Glucose (UA) 4+ H U Tricyclic Antidepress Detected H 01/14/21 01/15/21 21:43 06:52 VBG HCO3 30 H Carbon Dioxide Glucose POC Glucose (mg/dL) 311 H AST Alkaline Phosphatase Urine Protein Urine Glucose (UA) U Tricyclic Antidepress - Diagnostic Findings Chest x-ray: image reviewed Assessment and Plan Assessment: Acute exacerbation of COPD, without be pneumonia. Possibly complicated by tracheobronchitis rather than pneumonia. History of ongoing tobacco use with nicotine addiction. History of hyperlipidemia. History of diabetes mellitus. History of gastroesophageal reflux disease. Restless leg syndrome. History of rectal prolapse, status post low AP resection. History of anxiety/depression/schizophrenia. Plan: Plan dated 01/15/2021. The patient is currently on oral Zithromax. That's probably okay. In addition, the patient's getting DuoNeb, and prednisone. I'll add some Symbicort. Additional recommendations and suggestions are forthcoming. The patient would probably benefit also from a nicotine patch. No obvious pneumonia on chest x- ray. We will continue to follow make recommendations were appropriate. The patient's counseled about the importance of smoking cessation. Time with Patient: Greater than 30
--- NOTE | 2021-01-15 11:25 | P.HPIM ---
History of Present Illness H&P Date: 01/15/21 Chief Complaint: COPD exacerbation This is a 65-year-old female patient who presented to the ER with complaints of increased shortness of breath. Patient unable to answer questions at time of exam. History was obtained from ER report nursing staff.. According to ER report patient was having increased shortness of breath and shakiness. Patient has medical history of diabetes mellitus, GERD, hyperlipidemia, COPD, schizophrenia, depression and anxiety. According to nursing staff patient had confusion since admission. Head CT was performed showing cerebral atrophy and more noticeable in the left temporal lobe. No acute intracranial abnormality can change. Chest x-ray performed showing lung markings increased slightly compared to old exam. No obvious heart failure. Mild subsegmental atelectasis. Patient was started on prednisone azithromycin. At this time pulmonary, neurology and psychiatry service is consulted. Review of Systems Please refer to HPI otherwise unremarkable Past Medical History Past Medical History: Diabetes Mellitus, GERD/Reflux, Hyperlipidemia Additional Past Medical History / Comment(s): COPD, para and schizophrenia, depression, diabetes mellitus, hyperlipidemia, restless leg syndrome, rectal prolapse with previous low AP resection, incisional hernia History of Any Multi-Drug Resistant Organisms: None Reported Past Surgical History: Tonsillectomy, Tubal Ligation Additional Past Surgical History / Comment(s): bronchoscopy, low anterior resection for rectal prolapse, incisional hernia repair 01/13/17 Past Anesthesia/Blood Transfusion Reactions: No Reported Reaction Past Psychological History: Anxiety, Depression, Schizophrenia Smoking Status: Current every day smoker Past Alcohol Use History: None Reported Past Drug Use History: None Reported - Past Family History Sister(s) Family Medical History: Cancer Additional Family Medical History / Comment(s): breast Mother Family Medical History: No Reported History Medications and Allergies Home Medications Medication Instructions Recorded Confirmed Type PARoxetine HCL [Paxil] 40 mg PO DAILY 06/03/15 01/14/21 History cloZAPine [Clozaril] 100 mg PO DAILY 06/03/15 01/14/21 History cloZAPine [Clozaril] 400 mg PO HS 06/03/15 01/14/21 History Allergies Allergy/AdvReac Type Severity Reaction Status Date / Time propoxyphene napsylate AdvReac Nausea Verified 01/30/17 12:19 [From Leona-N] Physical Exam Vitals: Vital Signs Temp Pulse Resp BP Pulse Ox 01/15/21 10:20 98.8 F 95 24 126/73 93 L 01/15/21 09:14 95 01/15/21 09:10 88 01/15/21 09:00 87 01/15/21 07:52 98.1 F 91 26 H 134/78 93 L 01/15/21 05:00 91 18 113/73 95 01/15/21 01:00 98.4 F 94 20 107/66 96 01/14/21 23:05 99 01/14/21 22:59 98 01/14/21 22:56 98 20 136/74 98 01/14/21 20:57 97.6 F 103 H 20 141/84 97 Intake and Output 01/14/21 01/15/21 01/15/21 22:59 06:59 14:59 Other: Weight 76.657 kg Head normocephalic Neck supple Lungs clear to auscultation bilaterally no wheezing or crackles Heart regular rate and rhythm S1-S2, no rub or gallop Abdomen is soft nontender nondistended positive bowel sounds no hepatosplenomegaly Extremities no edema Neuro alert and orientated to 1. Patient wakes up but does not answer questions appropriately Results CBC & Chem 7: 01/14/21 21:20 01/14/21 21:20 Labs: Abnormal Lab Results - Last 24 Hours (Table) 01/14/21 01/14/21 01/14/21 Range/Units 21:20 21:20 21:20 VBG HCO3 (24-28) mmol/L Carbon Dioxide 32 H (22-30) mmol/L Glucose 316 H (74-99) mg/dL POC Glucose (mg/dL) (75-99) mg/dL AST 11 L (14-36) U/L Alkaline Phosphatase 130 H (38-126) U/L Urine Protein Trace H (Negative) Urine Glucose (UA) 4+ H (Negative) U Tricyclic Antidepress Detected H (NotDetected) 01/14/21 01/15/21 Range/Units 21:43 06:52 VBG HCO3 30 H (24-28) mmol/L Carbon Dioxide (22-30) mmol/L Glucose (74-99) mg/dL POC Glucose (mg/dL) 311 H (75-99) mg/dL AST (14-36) U/L Alkaline Phosphatase (38-126) U/L Urine Protein (Negative) Urine Glucose (UA) (Negative) U Tricyclic Antidepress (NotDetected) Assessment and Plan Assessment: 1. Shortness of breath secondary to COPD exacerbation. Pulmonary services have been consulted. Patient started on prednisone 2. Tracheal bronchitis. Maintain on azithromycin 3. Altered mental status changes. Neurology and psychiatry service is consulted 4. Ongoing history of nicotine dependence. Nicotine patch will be ordered 5. History of anxiety depression and schizophrenia 6. History of hyperlipidemia. 7. History of diabetes mellitus at 2. Patient maintained on sliding scale coverage. It does not appear patient is on any diabetic medication will order chemical been A1c could be secondary to steroids 8. History of rectal prolapse status post low AP resection 9. History of restless leg syndrome DVT prophylaxis heparin. GI prophylaxis Protonix Patient maintained on oral prednisone and azithromycin Pulmonary services following Neurology and psychiatry service is consulted Time with Patient: Greater than 30 (Greater than 60% of the total time spent in counseling and coordination of care)
[2021-01-15 12:58] LABS: Glucose,Whole Blood 251 mg/dL (75-99)
--- NOTE | 2021-01-15 14:19 | P.CN ---
Psychiatric Consult - . Consult date: 01/15/21 Consult:: 01/15/21 14:12 IDENTIFYING DATA: This patient is a 65-year-old female with a history of schizophrenia who currently lives in a house with her stepson and has one son. REASON FOR REFERRAL: Psychiatry was consulted for altered mental status. HISTORY OF PRESENT ILLNESS: The patient presented to the hospital via ambulance because patient was combining of shortness of breath and weakness which was generalized. Patient had a negative UA on admission and a UDS which was positive for TCAs. Patient had a computed tomography scan of her brain which showed cerebral atrophy or significant in the left temporal lobe however no ac sac and [place] changes are seen. According to EMR, patient has been more confused since admission. Patient is being treated for a COPD exacerbation and was started on prednisone. Patient was seen at the bedside and was coughing several times and claims that she is "not feeling good". She spoke a lot about her coughing and shortness of breath for the past 4-5 days. She was alert and oriented to location person however believed that it was 01/12/2021. She did not know who the current president is. She claims she has been "stressed about my mental state". She claims that she is taking her medications as prescribed and following up regularly with Dr. Dr. Valiente at [facility]. She goes in every to stay for weekly blood draws for her closet pain. She is denying any palpitations or any constipation. She claims that her sleep is fair and appetite is fair. At this time patient denies any suicidal or homical ideations, intent or plan. Patient denies any auditory, visual hallucinations and denies any paranoia or delusions. Patients admits to using cigarettes daily. Denies any other drug use. PAST PSYCHIATRIC HISTORY: Patient has a a history of schizophrenia. She is currently on Clozaril and Paxil is being seen regularly by her psychiatrist at [facility] Dr. Alexandra. She claims that she has been admitted several times in the past however cannot remember where and when to the psychiatric unit. She claims that she attempted to drown herself several years ago in a suicide attempt. PAST MEDICAL HISTORY: Diabetes mellitus, GERD, hyperlipidemia, hernia. ALLERGIES: as per EMR. CHEMICAL DEPENDENCY HISTORY: as per HPI. FAMILY PSYCHIATRIC/SUBSTANCE USE HISTORY: denies SOCIAL HISTORY: Patient was born and raised in [facility]. She states that she completed up to the 12th grade in school. 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 She denies any legal problems. She currently lives with her stepson and a house and has one additional son.. MENTAL STATUS EXAM: General Appearance: Patient appears to be stated age is alert, coughing significantly, cooperative. Patient appears to have fair hygiene and grooming wearing hospital gown with fair eye contact. Behavior: Patient is calmly lying in bed without any agitated behavior. Speech: Patient's speech is fluent and nonpressured. Mood/Affect: Patient reports their mood is "ok", affect is congruent and co nstricted Suicidality/Homicidality: Patient denies having any suicidal or homicidal ideation intent or plan. Perceptions: Patient denies any visual hallucinations and denies any auditory hallucinations Though content/process: There is no evidence of any delusional thought content and thought process is linear and goal-directed. Memory and concentration: AOX3, grossly intact for the purposes of this session. Can spell "WORLD" backwards Judgment and insight: fair IMPRESSIONS: Delirium unknown etiology Schizoaffective disorder, depressive type Nicotine dependence PLAN: -At this time patient DOES NOT meet criteria for inpatient psychiatric admission. -Delirium precautions recommended with patient including - avoiding use of narcotics and [employer] sedatives, limit anticholinergic medications when possible, frequent re-orientation, minimize use of restraints, open window shades during the day and close them at night -It is likely the patient is confused and delirious secondary to either medications or possible infection/general medical condition. Prednisone is one of the recent medication that has been added which could have caused patient to be more confused. -Would recommend the following medication changes/additions: Continue with current medications as prescribed. We will check a Clozaril level today. -Patient will be following up with Dr. Dr. Valiente at [facility] once she is discharged. -Will continue to follow along -Please contact with any questions.
[2021-01-15 17:04] LABS: Basophils # (A) 0.03 X 10*3/uL (0.00-0.10); Basophils % (A) 0.3 %; Eosinophils # (A) 0 X 10*3/uL (0.04-0.35); Eosinophils % (A) 0 %; HCT 41.2 % (37.2-46.3); HGB 12.6 g/dL (12.0-15.0); Lymphocytes # (A) 0.96 X 10*3/uL (0.90-5.00); Lymphocytes % (A) 9.8 %; MCH 28.3 pg (27.0-32.0); MCHC 30.6 g/dL (32.0-37.0); MCV 92.6 fL (80.0-97.0); Mean Platelet Volume 10.9 fL (9.5-12.2); Monocytes # (A) 0.76 X 10*3/uL (0.20-1.00); Monocytes % (A) 7.7 %; Neutrophils # (A) 8.01 X 10*3/uL (1.80-7.70); Neutrophils % (A) 81.5 %; Platelet Count 255 X 10*3/uL (140-440); RBC 4.45 X 10*6/uL (4.10-5.20); RDW 16.1 % (11.5-14.5); WBC 9.83 X 10*3/uL (4.50-10.00)
[2021-01-15 17:37] LABS: Glucose,Whole Blood 254 mg/dL (75-99)
[2021-01-15 19:58] LABS: African American GFR (CKD) 103.9 (60.0-200.0); Albumin 4.3 g/dL (3.80-4.90); Albumin/Globulin Ratio 2.15 (1.60-3.17); Anion Gap 6.8 mmol/L (4.00-12.00); BUN/Creat Ratio 17.14 Ratio (12.00-20.00); Calcium 8.9 mg/dL (8.7-10.3); Carbon Dioxide 27.2 mmol/L (21.6-31.8); Non-African American GFR(CKD) 89.7 (60.0-200.0); Potassium 4.6 mmol/L (3.5-5.5); Total Bilirubin 0.2 mg/dL (0.2-1.2); Total Protein 6.3 g/dL (6.2-8.2)
[2021-01-15 20:23] LABS: Hemoglobin A1C 8.9 % (4.0-6.0)
[2021-01-15] MEDS: SYMBICORT 160-4.5 MCG INHALER INHALATION SCH (20:32)
[2021-01-15 21:08] LABS: Glucose,Whole Blood 272 mg/dL (75-99)
[2021-01-16 04:32] LABS: Folate, Serum 16.2 ng/mL
[2021-01-16 07:14] LABS: Glucose,Whole Blood 222 mg/dL (75-99)
[2021-01-16] MEDS: IPRATROPIUM-ALBUTEROL 3 ML NEB INHALATION SCH ×4 (07:37→20:45)
[2021-01-16] MEDS: SYMBICORT 160-4.5 MCG INHALER INHALATION SCH ×2 (07:37→20:46)
[2021-01-16] MEDS: PANTOPRAZOLE 40 MG TABLET PO SCH (09:01)
[2021-01-16] MEDS: predniSONE 20 MG TAB PO SCH (09:01)
[2021-01-16] MEDS: NICOTINE 14MG/24HR PATCH TRANSDERM SCH (09:02)
[2021-01-16] MEDS: cloZAPine 100 MG TAB PO SCH ×2 (09:02→20:46)
[2021-01-16] MEDS: HEPARIN SODIUM,PORCINE/PF 5,000 UNIT/0.5 ML SYRINGE SQ SCH ×2 (09:02→20:46)
[2021-01-16] MEDS: INSULIN ASPART (NovoLOG) 100 UNIT/ML VIAL SQ SCH ×4 (09:02→20:46)
--- NOTE | 2021-01-16 09:28 | P.CNNES ---
History of Present Illness Consult date: 01/15/21 Requesting physician: Christi Galeano Reason for Consult: Altered mental status History of Present Illness: Patient is a 65-year-old right-handed female came to the hospital yesterday by ambulance at 9 PM for fall off the bed, weakness and shortness of breath. According to EMS flow sheet, when they arrived patient was sitting in her living room on a chair. Patient has mentioned that she was in bed but couldn't get up and slid to ground. She did not lose consciousness or hit her head. She crawled to the living room and got back up on her chair, and was able to call 911. She did not suffer any injury. Patient states that when she tried to get up, her body would jerk therefore could not stand up on her own. She was complaining of generalized weakness and also complained of having pneumonia. Patient denies any difficulty in breathing, but did appear short of breath and was coughing. Patient was noted to be confused, required multiple attempts to get answer from her. She did not know the month or the year or day of the week. Patient was oriented to her name date of location and what was going on. Patient house was very cluttered and lives with her son who is severely alcoholic. Patient's son was outside on the porch and was significantly intoxicated. She has not seen a doctor in "a long time". Patient appears to have difficulty in taking care of herself. Patient herself did not appear under the influence. No evidence trauma. Denied any head, neck or back pain. Denies any loss of consciousness from her fall. Patient's vitals at the scene blood pressure 108/49, pulse rate 109, respiration 20, saturation 89. Blood sugar 315. Patient states that last couple of days she was feeling fine. She went to bed okay, but woke up with losing breath as mentioned above. Denies any stroke symptoms. Vital signs on arrival blood pressure 141/84. Patient's blood test shows normal CBC, PT/PTT, Chem-7 significant for elevated glucose 316. Hepatic panel normal. Renal functions normal. Troponin negative, UA negative urine drug screen positive for tricyclic antidepressant. Ng virus PCR negative. Computed tomography scan of the head showed cerebral atrophy and more noticeable in the left temporal lobe. No acute process. Chest x-ray shows lung markings increased slightly compared to old exam. No obvious heart failure. Mild subsegmental atelectasis. EKG shows sinus rhythm. Patient has been seen by psychiatrist, and has diagnosed with delirium, unknown etiology, schozoaffective disorder, depressive type and nicotine dependence. It was felt that prednisone may have produced delirium/confusion. Patient at present complains of shortness of breath, coughing, feels she has pneumonia. Patient states she has smoked 1 pack per day since she was age 27, for the last 30 years. Denies any alcohol or drugs. Review of Systems As per HPI. Patient complains of shortness of breath and cough. Denies any fever or chills. Denies any abdominal pain nausea vomiting diarrhea. Denies any focal numbness tingling weakness stroke symptoms. Denies any diplopia, dysphagia. All other review of systems reviewed and noncontributory. Past Medical History Past Medical History: Diabetes Mellitus, GERD/Reflux, Hyperlipidemia Additional Past Medical History / Comment(s): COPD, para and schizophrenia, depression, diabetes mellitus, hyperlipidemia, restless leg syndrome, rectal prolapse with previous low AP resection, incisional hernia History of Any Multi-Drug Resistant Organisms: None Reported Past Surgical History: Tonsillectomy, Tubal Ligation Additional Past Surgical History / Comment(s): bronchoscopy, low anterior resection for rectal prolapse, incisional hernia repair 01/13/17 Past Anesthesia/Blood Transfusion Reactions: No Reported Reaction Past Psychological History: Anxiety, Depression, Schizophrenia Additional Psychological History / Comment(s): PARANOID SCHIZOPHRENIA Smoking Status: Current every day smoker Past Alcohol Use History: None Reported Additional Past Alcohol Use History / Comment(s): SMOKES 1 PPD OR MORE. STARTED SMOKING AT AGE 27. Past Drug Use History: None Reported - Past Family History Sister(s) Family Medical History: Cancer Additional Family Medical History / Comment(s): breast Mother Family Medical History: No Reported History Medications and Allergies Home Medications Medication Instructions Recorded Confirmed Type PARoxetine HCL [Paxil] 40 mg PO DAILY 06/03/15 01/14/21 History cloZAPine [Clozaril] 100 mg PO DAILY 06/03/15 01/14/21 History cloZAPine [Clozaril] 400 mg PO HS 06/03/15 01/14/21 History Allergies Allergy/AdvReac Type Severity Reaction Status Date / Time propoxyphene napsylate AdvReac Nausea Verified 07/15/17 12:19 [From Darvocet-N] Physical Examination - Vital Signs Vital Signs: Vital Signs Temp Pulse Pulse Resp BP BP Pulse Ox 01/15/21 16:26 100 01/15/21 16:17 100 96 01/15/21 15:20 98.1 F 94 125/81 96 01/15/21 14:34 94 24 124/75 96 01/15/21 12:56 98.7 F 91 22 142/81 92 L 01/15/21 12:06 98 01/15/21 11:59 94 L 01/15/21 11:57 96 01/15/21 10:20 98.8 F 95 24 126/73 93 L 01/15/21 09:14 95 01/15/21 09:10 88 01/15/21 09:00 87 01/15/21 07:52 98.1 F 91 26 H 134/78 93 L 01/15/21 05:00 91 18 113/73 95 01/15/21 01:00 98.4 F 94 20 107/66 96 01/14/21 23:05 99 01/14/21 22:59 98 01/14/21 22:56 98 20 136/74 98 01/14/21 20:57 97.6 F 103 H 20 141/84 97 Intake and Output 01/15/21 01/15/21 01/15/21 06:59 14:59 22:59 Other: Weight 76.657 kg Patient is an elderly female, very pleasant, appears to be slightly short of breath or difficulty breathing. She is coughing. Patient is alert awake oriented to time place and person. Patient states it is 01/15/2020 and that she is in [facility]. She does not know name of the current president. She knew the previous president was Mr. Hughes, or does not know the current one. I gave her several choices and she was not able to pick the current president name Jerad. Speech and language functions are normal. Patient is mildly hoarse voice. Attention, concentration and fund of knowledge is adequate. On cranial examination, pupils are equal, round and reacting to light, visual choudhary are full on confrontation, extraocular muscles are intact with no nystagmus. Face is symmetric, tongue protrudes to the midline. Palatal elevation and sensation normal, hearing and shoulder shrug normal, facial sensation normal. On muscle strength testing, there is no pronator drift and the strength is normal in arms and legs distally and proximally. Deep tendon reflexes are 2 in the upper limbs, 2 at the knees were ankles and plantars are withdrawal bilaterally. Patient has mild tremors versus low amplitude myoclonic jerks of outstretched hands. Sensory to touch is equal with no neglect. Cerebellar function showed no ataxia for [id number] testing. No dysdiadochokinesia. Tone and bulk of muscles normal. Gait not checked. On general examination, there is no carotid bruit or murmur, S1-S2 audible. Abdomen is soft nontender. Chest is clear. Peripheral pulses are present. No edema. Results - Laboratory Findings CBC and BMP: 01/15/21 09:56 01/15/21 09:56 Abnormal Lab Findings: Abnormal Labs 01/14/21 01/14/21 01/14/21 21:20 21:20 21:20 VBG HCO3 Carbon Dioxide 32 H Glucose 316 H POC Glucose (mg/dL) AST 11 L Alkaline Phosphatase 130 H Urine Protein Trace H Urine Glucose (UA) 4+ H U Tricyclic Antidepress Detected H 01/14/21 01/15/21 01/15/21 21:43 06:52 12:46 VBG HCO3 30 H Carbon Dioxide Glucose POC Glucose (mg/dL) 311 H 251 H AST Alkaline Phosphatase Urine Protein Urine Glucose (UA) U Tricyclic Antidepress Assessment and Plan Assessment: * Generalized weakness, likely due to severe shortness of breath, COPD exacerbation, mild encephalopathy. Examination is nonfocal. * COPD exacerbation, without be pneumonia * Tobacco use * Hypertension * Diabetes * Hyperlipidemia * Restless legs syndrome Plan: * Patient has been seen by pulmonary, and started on Zithromax for COPD exacerbation. * Patient's neurological examination is nonfocal. * We will check carotid Doppler to rule out stenosis. * B12 folate, TSH. * Patient counseled about abstinence from tobacco.
[2021-01-16 09:50] LABS: Norclozapine 577 ng/mL (200-700)
--- NOTE | 2021-01-16 10:30 | US ---
EXAMINATION TYPE: US carotid duplex BILAT DATE OF EXAM: 01/16/2021 COMPARISON: NONE CLINICAL HISTORY: Fall, weakness, rule out TIA. Exam done portable. EXAM MEASUREMENTS: RIGHT: Peak Systolic Velocity (PSV) cm/sec ----- Right CCA: 75.4 ----- Right ICA: 122.0 ----- Right ECA: 73.1 ICA/CCA ratio: 1.6 RIGHT: End Diastole cm/sec ----- Right CCA: 18.2 ----- Right ICA: 20.8 ----- Right ECA: 8.7 LEFT: Peak Systolic Velocity (PSV) cm/sec ----- Left CCA: 86.2 ----- Left ICA: 99.7 ----- Left ECA: 65.6 ICA/CCA ratio: 1.2 LEFT: End Diastole cm/sec ----- Left CCA: 23.9 ----- Left ICA: 34.8 ----- Left ECA: 0.0 VERTEBRALS (direction of flow): Right Vertebral: Antegrade Left Vertebral: Antegrade Rhythm: Normal No significant stenosis. IMPRESSION: 1. Findings are suggestive of less than 50% stenosis of the bilateral internal carotid arteries. No e vidence of hemodynamically significant stenosis. Criteria for Assigning % of Stenosis / Diameter reduction (Estimation based on the indirect measurements of the internal carotid artery velocities (ICA PSV). 1. Normal (no stenosis)=ICA PSV < 125 cm/s: ratio < 2.0: ICA EDV<40 cm/s. 2. Less than 50% stenosis=ICA PSV < 125 cm/s: ratio < 2.0: ICA EDV<40 cm/s. 3. 50 to 69% stenosis=ICA PSV of 125 to 230 cm/s: ration 2.0 ? 4.0: ICA EDV 40-100 cm/s. 4. Greater than 70% stenosis to near occlusion= ICA PSV > 230 cm/s: ratio > 4.0: ICA EDV > 100 cm/s. 5. Near occlusion= ICA PSV velocities may be low or undetectable: variable ratio and ICA EDV. 6. Total occlusion=unable to detect flow.
[2021-01-16] MEDS: AZITHROMYCIN 500 MG TAB PO SCH (10:54)
[2021-01-16] MEDS: PARoxetine 20 MG TAB PO SCH (10:55)
[2021-01-16 11:15] LABS: Basophils # (A) 0.01 X 10*3/uL (0.00-0.10); Basophils % (A) 0.1 %; Eosinophils # (A) 0.04 X 10*3/uL (0.04-0.35); Eosinophils % (A) 0.5 %; HCT 40.1 % (37.2-46.3); HGB 12.6 g/dL (12.0-15.0); Lymphocytes # (A) 1.36 X 10*3/uL (0.90-5.00); Lymphocytes % (A) 16.8 %; MCH 28.5 pg (27.0-32.0); MCHC 31.4 g/dL (32.0-37.0); MCV 90.7 fL (80.0-97.0); Mean Platelet Volume 10.6 fL (9.5-12.2); Monocytes # (A) 0.66 X 10*3/uL (0.20-1.00); Monocytes % (A) 8.2 %; Neutrophils # (A) 5.99 X 10*3/uL (1.80-7.70); Platelet Count 228 X 10*3/uL (140-440); RBC 4.42 X 10*6/uL (4.10-5.20); RDW 15.8 % (11.5-14.5); WBC 8.09 X 10*3/uL (4.50-10.00)
[2021-01-16 11:19] LABS: Clozapine (Clozaril) 1319 ng/mL (200-700)
[2021-01-16 11:42] LABS: African American GFR (CKD) 109.3 (60.0-200.0); Albumin 4.1 g/dL (3.80-4.90); Albumin/Globulin Ratio 2.16 (1.60-3.17); Anion Gap 7.7 mmol/L (4.00-12.00); BUN/Creat Ratio 18.33 Ratio (12.00-20.00); Calcium 9.2 mg/dL (8.7-10.3); Carbon Dioxide 29.3 mmol/L (21.6-31.8); Globulin 1.9 g/dL (1.6-3.3); Non-African American GFR(CKD) 94.3 (60.0-200.0); Potassium 4.3 mmol/L (3.5-5.5); Total Bilirubin 0.3 mg/dL (0.2-1.2)
[2021-01-16 11:58] LABS: Glucose,Whole Blood 235 mg/dL (75-99)
--- NOTE | 2021-01-16 13:43 | P.PN ---
Subjective Progress Note Date: 01/16/21 Principal diagnosis: COPD exacerbation 65-year-old female, who looks much older than her stated age, was seen in the emergency department today. She was brought in yesterday by EMS. She came in with generalized weakness, and shortness of breath. The patient continues to smoke cigarettes, and has a history of COPD. She's not a particularly good historian. Her speech is a bit garbled. Again, the patient appears to be older than her stated age. She apparently metastases to cough, chest congestion, and phlegm production. Her primary care physician is Dr. Galeano. In addition, she apparently has a history of diabetes mellitus, gastroesophageal reflux disease, schizophrenia, depression, hyperlipidemia, restless leg syndrome, rectal prolapse, and previous low AP resection. She appears not to see a lung doctor at this time. CBC is completely normal. PT/INR/PTT is normal. D-dimer is normal. PH on venous blood gases 7.41. Sodium potassium chloride normal. CO2 32. Anion gap normal, with normal BUN and creatinine. Coronavirus testing was negative. Chest x-ray my opinion does not show pneumonia, but rather some basilar atelectasis. Compared to a prior x-ray, the current x-rays improved. The patient is seen today 01/16/2021 in follow-up on the regular medical floor. She is currently sitting up in bed. Awake and alert in no acute distress. Breathing a bit easier today compared to yesterday. Maintaining O2 saturations in the low 90s on 3 L/m per nasal cannula. She's afebrile. White count 8.0. Hemoglobin 12.6. Sodium 138. Potassium 4.3. Chloride 101. Creatinine 0.6. Glucose 207. AST 8. ALT 11. She is continued on DuoNeb inhalations, Symbicort, prednisone taper. Antibiotics in form of azithromycin. NicoDerm patch is in place. Objective - Vital Signs Vital signs: Vital Signs Temp 98.2 F 01/16/21 07:36 Pulse 93 01/16/21 11:19 Resp 18 01/16/21 07:36 BP 151/87 01/16/21 07:36 Pulse Ox 92 L 01/16/21 07:36 Intake & Output 01/15/21 01/16/21 01/16/21 18:59 06:59 18:59 Intake Total 666 Output Total 750 3650 Balance -84 -3650 Weight 76.657 kg Intake: Oral 666 Output: Urine 750 3650 Other: Voiding Method External Catheter External Catheter External Catheter - Exam GENERAL EXAM: Alert, pleasant 65-year-old female patient, on 3 L nasal cannula, comfortable in no apparent distress. HEAD: Normocephalic. EYES: Normal reaction of pupils, equal size. NOSE: Clear with pink turbinates. THROAT: No erythema or exudates. NECK: No masses, no JVD. CHEST: No chest wall deformity. LUNGS: Equal air entry with bilateral end expiratory wheeze, diminished. CVS: S1 and S2 normal with no audible murmur, regular rhythm. ABDOMEN: No hepatosplenomegaly, normal bowel sounds, no guarding or rigidity. SPINE: No scoliosis or deformity SKIN: No rashes CENTRAL NERVOUS SYSTEM: No focal deficits, tone is normal in all 4 extremities. EXTREMITIES: There is no peripheral edema. No clubbing, no cyanosis. Peripheral pulses are intact. - Labs CBC & Chem 7: 01/16/21 04:55 01/16/21 04:55 Labs: Abnormal Lab Results - Last 24 Hours (Table) 01/15/21 01/15/21 01/15/21 Range/Units 09:56 09:56 09:56 MCHC 30.6 L (32.0-37.0) g/dL RDW 16.1 H (11.5-14.5) % Immature Gran # 0.07 H (0.00-0.04) X 10*3/uL Neutrophils # 8.01 H (1.80-7.70) X 10*3/uL Eosinophils # 0 L (0.04-0.35) X 10*3/uL Glucose 254 H (70-110) mg/dL POC Glucose (mg/dL) (75-99) mg/dL Hemoglobin A1c 8.9 H (4.0-6.0) % AST 8 L (13-35) U/L Total Protein (6.2-8.2) g/dL Clozapine (200-700) ng/mL 01/15/21 01/15/21 01/15/21 Range/Units 13:31 17:36 21:06 MCHC (32.0-37.0) g/dL RDW (11.5-14.5) % Immature Gran # (0.00-0.04) X 10*3/uL Neutrophils # (1.80-7.70) X 10*3/uL Eosinophils # (0.04-0.35) X 10*3/uL Glucose (70-110) mg/dL POC Glucose (mg/dL) 254 H 272 H (75-99) mg/dL Hemoglobin A1c (4.0-6.0) % AST (13-35) U/L Total Protein (6.2-8.2) g/dL Clozapine 1319 H* (200-700) ng/mL 01/16/21 01/16/21 01/16/21 Range/Units 04:55 04:55 07:09 MCHC 31.4 L (32.0-37.0) g/dL RDW 15.8 H (11.5-14.5) % Immature Gran # (0.00-0.04) X 10*3/uL Neutrophils # (1.80-7.70) X 10*3/uL Eosinophils # (0.04-0.35) X 10*3/uL Glucose 207 H (70-110) mg/dL POC Glucose (mg/dL) 222 H (75-99) mg/dL Hemoglobin A1c (4.0-6.0) % AST 8 L (13-35) U/L Total Protein 6.0 L (6.2-8.2) g/dL Clozapine (200-700) ng/mL 01/16/21 Range/Units 11:57 MCHC (32.0-37.0) g/dL RDW (11.5-14.5) % Immature Gran # (0.00-0.04) X 10*3/uL Neutrophils # (1.80-7.70) X 10*3/uL Eosinophils # (0.04-0.35) X 10*3/uL Glucose (70-110) mg/dL POC Glucose (mg/dL) 235 H (75-99) mg/dL Hemoglobin A1c (4.0-6.0) % AST (13-35) U/L Total Protein (6.2-8.2) g/dL Clozapine (200-700) ng/mL Assessment and Plan Assessment: 1 Acute exacerbation of COPD, without be pneumonia. Possibly complicated by tracheobronchitis rather than pneumonia. 2 History of ongoing tobacco use with nicotine addiction. 3 History of hyperlipidemia. 4 History of diabetes mellitus. 5 History of gastroesophageal reflux disease. 6 Restless leg syndrome. 7 History of rectal prolapse, status post low AP resection. 8 History of anxiety/depression/schizophrenia. Plan: The patient was seen and evaluated by Dr. Tamayo Continue the current treatment plan Educated regarding the importance of complete smoking cessation Titrate the FiO2 as tolerated Increase her activity as tolerated Probable discharge in the a.m. I, the cosigning physician, performed a history & physical examination of the patient. Lungs sounds with end expiratory wheeze, diminished. Maintaining good O2 saturations in the 90s on 3 L/m per nasal cannula. I discussed the assessment and plan of care with my nurse practitioner, Carol Queen. I attest to the above note as dictated by her.
--- NOTE | 2021-01-16 15:30 | P.PN ---
Progress Note - Text Progress Note Date: 01/16/21 Interval History: Patient was seen today for psychiatric follow-up regarding patient's delirium and schizophrenia. Patient's Clozaril level came back at over 1300. Her vitamin B12 and folic acid were within normal limits. Patient appears to be more cooperative today however continues to complain of ongoing coughing however this has gotten better. She claims that her shortness of breath was also gradually been getting better since being in the hospital. She appears to have more energy today and less constricted affect. She claims that her mood is "the same" however was fairly future oriented. She claims that she is talking her family members earlier. She denies any problems to medications and claims that she slept fairly last night. At this time patient denies any suicidal or homical ideations, intent or plan. Patient denies any auditory, visual hallucinations and denies any paranoia or delusions. Patient denies any side effects from the medications and has been compliant with meds. Mental Status Exam: General Appearance: Patient appears to be stated age is alert, coughing less, cooperative. Patient appears to have fair hygiene and grooming wearing hospital gown with fair eye contact. Behavior: Patient is calmly lying in bed without any agitated behavior. Speech: Patient's speech is fluent and nonpressured. Mood/Affect: Patient reports their mood is "the same", affect is congruent Suicidality/Homicidality: Patient denies having any suicidal or homicidal ideation intent or plan. Perceptions: Patient denies any visual hallucinations and denies any auditory hallucinations Though content/process: There is no evidence of any delusional thought content and thought process is linear and goal-directed. Future oriented. Memory and concentration: AOX3, grossly intact for the purposes of this session. Judgment and insight: fair Assessment Delirium unknown etiology, resolved Schizoaffective disorder, depressive type Nicotine dependence Plan: -At this time patient DOES NOT meet criteria for inpatient psychiatric admission. -Delirium precautions recommended with patient including - avoiding use of narcotics and [employer] sedatives, limit anticholinergic medications when possible, frequent re-orientation, minimize use of restraints, open window shades during the day and close them at night -It is likely the patient is confused and delirious secondary to either medications or possible infection/general medical condition. Prednisone is one of the recent medication that has been added which could have caused patient to be more confused, please attempt to decrease this as soon as possible. -Would recommend the following medication changes/additions: Continue with current medications as prescribed. clozaril level >1300 however patient is not having any side effects at this time and is not complianing of any chest pain or constipation. -Patient will be following up with Dr. Dr. Valiente at [facility] once she is discharged. -At this time psychiatry will sign off -Please contact with any questions.
[2021-01-16 16:50] LABS: Glucose,Whole Blood 321 mg/dL (75-99)
[2021-01-16 20:26] LABS: Glucose,Whole Blood 284 mg/dL (75-99)
[2021-01-16] MEDS: CALCIUM CARBONATE 500 MG CHEWABLE PO PRN (20:45)
[2021-01-17] MEDS: SYMBICORT 160-4.5 MCG INHALER INHALATION SCH ×2 (07:18→19:05)
[2021-01-17] MEDS: IPRATROPIUM-ALBUTEROL 3 ML NEB INHALATION SCH ×4 (07:18→19:05)
[2021-01-17 07:48] LABS: Glucose,Whole Blood 225 mg/dL (75-99)
[2021-01-17] MEDS: INSULIN ASPART (NovoLOG) 100 UNIT/ML VIAL SQ SCH ×4 (08:06→21:26)
[2021-01-17] MEDS: HEPARIN SODIUM,PORCINE/PF 5,000 UNIT/0.5 ML SYRINGE SQ SCH ×2 (09:34→19:07)
[2021-01-17] MEDS: NICOTINE 14MG/24HR PATCH TRANSDERM SCH (09:34)
[2021-01-17] MEDS: PANTOPRAZOLE 40 MG TABLET PO SCH (09:35)
[2021-01-17] MEDS: cloZAPine 100 MG TAB PO SCH ×2 (09:36→19:07)
[2021-01-17] MEDS: PARoxetine 20 MG TAB PO SCH (09:36)
[2021-01-17] MEDS: AZITHROMYCIN 500 MG TAB PO SCH (09:36)
[2021-01-17] MEDS: CALCIUM CARBONATE 500 MG CHEWABLE PO PRN (09:37)
[2021-01-17] MEDS: predniSONE 20 MG TAB PO SCH (09:37)
--- NOTE | 2021-01-17 09:55 | P.PN ---
Subjective Progress Note Date: 01/16/21 Patient was seen for a follow-up. Patient is laying comfortably in the bed. Patient appears more alert and awake, breathing much better. Patient just received a breathing treatment as well. No focal symptoms. Objective - Vital Signs Vital signs: Vital Signs Temp 98.1 F 01/16/21 14:40 Pulse 90 01/16/21 15:37 Resp 16 01/16/21 14:40 BP 135/82 01/16/21 14:40 Pulse Ox 94 L 01/16/21 14:40 Intake & Output 01/15/21 01/16/21 01/16/21 18:59 06:59 18:59 Intake Total 666 Output Total 750 3650 800 Balance -84 -3650 -800 Weight 76.657 kg Intake: Oral 666 Output: Urine 750 3650 800 Other: Voiding Method External Catheter External Catheter External Catheter - Exam Patient's mental status, cranial nerves are normal. Speech and language functions are normal. Muscle strength is completely normal in the arms and legs. No ataxia. Patient still has mild metabolic type arrhythmic tremor of outstretched hands. - Labs CBC & Chem 7: 01/16/21 04:55 01/16/21 04:55 Labs: Abnormal Lab Results - Last 24 Hours (Table) 01/15/21 01/15/21 01/15/21 Range/Units 09:56 09:56 13:31 MCHC (32.0-37.0) g/dL RDW (11.5-14.5) % Glucose 254 H (70-110) mg/dL POC Glucose (mg/dL) (75-99) mg/dL Hemoglobin A1c 8.9 H (4.0-6.0) % AST 8 L (13-35) U/L Total Protein (6.2-8.2) g/dL Clozapine 1319 H* (200-700) ng/mL 01/15/21 01/16/21 01/16/21 Range/Units 21:06 04:55 04:55 MCHC 31.4 L (32.0-37.0) g/dL RDW 15.8 H (11.5-14.5) % Glucose 207 H (70-110) mg/dL POC Glucose (mg/dL) 272 H (75-99) mg/dL Hemoglobin A1c (4.0-6.0) % AST 8 L (13-35) U/L Total Protein 6.0 L (6.2-8.2) g/dL Clozapine (200-700) ng/mL 01/16/21 01/16/21 01/16/21 Range/Units 07:09 11:57 16:45 MCHC (32.0-37.0) g/dL RDW (11.5-14.5) % Glucose (70-110) mg/dL POC Glucose (mg/dL) 222 H 235 H 321 H (75-99) mg/dL Hemoglobin A1c (4.0-6.0) % AST (13-35) U/L Total Protein (6.2-8.2) g/dL Clozapine (200-700) ng/mL Assessment and Plan Assessment: * Generalized weakness, likely due to severe shortness of breath, COPD exacerbation, mild encephalopathy. Examination is nonfocal. * COPD exacerbation, without be pneumonia * Tobacco use * Hypertension * Diabetes * Hyperlipidemia * Restless legs syndrome Plan: * Patient has been seen by pulmonary, and started on Zithromax for COPD exacerbation. Patient now much more comfortable. Bathing is improved. * Patient's neurological examination remains nonfocal. * Carotid Doppler revealed findings suggestive of less than 50% stenosis of bilateral ICA. No hemodynamically significant stenosis. Antegrade flow in both vertebral arteries. * B12 913, folate 16.2, TSH 1.59. * Patient counseled about abstinence from tobacco. * Neurologically clear. We will sign off. Please reconsult neurology if any concerns.
--- NOTE | 2021-01-17 10:53 | P.PN ---
Subjective Progress Note Date: 01/16/21 This is a 65-year-old female patient who presented to the ER with complaints of increased shortness of breath. Patient unable to answer questions at time of exam. History was obtained from ER report nursing staff.. According to ER report patient was having increased shortness of breath and shakiness. Patient has medical history of diabetes mellitus, GERD, hyperlipidemia, COPD, schizophrenia, depression and anxiety. According to nursing staff patient had confusion since admission. Head CT was performed showing cerebral atrophy and more noticeable in the left temporal lobe. No acute intracranial abnormality can change. Chest x-ray performed showing lung markings increased slightly compared to old exam. No obvious heart failure. Mild subsegmental atelectasis. Patient was started on prednisone azithromycin. At this time pulmonary, neurology and psychiatry service is consulted. On 01/16/2021 Patient was seen and examined on the medical floor, she is alert and oriented x 3 in no distress, she is still complaining of shortness of breath and cough otherwise she denies any complaints there is no fever or chills no headache or dizziness no chest pain no palpitation no nausea or vomiting no abdominal pain no diarrhea no blood in the stools no burning with urination no frequency or urgency and no hematuria, there is no weakness or numbness in any of the extremities no change in vision speech or gait. Objective - Vital Signs Vital signs: Vital Signs Temp 98.1 F 01/16/21 14:40 Pulse 90 01/16/21 15:37 Resp 16 01/16/21 14:40 BP 135/82 01/16/21 14:40 Pulse Ox 94 L 01/16/21 14:40 Intake & Output 01/15/21 01/16/21 01/16/21 18:59 06:59 18:59 Intake Total 666 Output Total 750 3650 Balance -84 -3650 Weight 76.657 kg Intake: Oral 666 Output: Urine 750 3650 Other: Voiding Method External Catheter External Catheter External Catheter - Exam Head normocephalic and atraumatic Neck supple no JVD no goiter Lungs clear to auscultation bilaterally no wheezing or crackles Heart regular rate and rhythm S1-S2, no rub or gallop Abdomen is soft nontender nondistended positive bowel sounds no hepatosplenomegaly Extremities no edema no cyanosis or clubbing Neuro alert and orientated x 3 with significant improvement in her mental status since yesterday - Labs CBC & Chem 7: 01/16/21 04:55 01/16/21 04:55 Labs: Abnormal Lab Results - Last 24 Hours (Table) 01/15/21 01/15/21 01/15/21 Range/Units 09:56 09:56 09:56 MCHC 30.6 L (32.0-37.0) g/dL RDW 16.1 H (11.5-14.5) % Immature Gran # 0.07 H (0.00-0.04) X 10*3/uL Neutrophils # 8.01 H (1.80-7.70) X 10*3/uL Eosinophils # 0 L (0.04-0.35) X 10*3/uL Glucose 254 H (70-110) mg/dL POC Glucose (mg/dL) (75-99) mg/dL Hemoglobin A1c 8.9 H (4.0-6.0) % AST 8 L (13-35) U/L Total Protein (6.2-8.2) g/dL Clozapine (200-700) ng/mL 01/15/21 01/15/21 01/15/21 Range/Units 13:31 17:36 21:06 MCHC (32.0-37.0) g/dL RDW (11.5-14.5) % Immature Gran # (0.00-0.04) X 10*3/uL Neutrophils # (1.80-7.70) X 10*3/uL Eosinophils # (0.04-0.35) X 10*3/uL Glucose (70-110) mg/dL POC Glucose (mg/dL) 254 H 272 H (75-99) mg/dL Hemoglobin A1c (4.0-6.0) % AST (13-35) U/L Total Protein (6.2-8.2) g/dL Clozapine 1319 H* (200-700) ng/mL 01/16/21 01/16/21 01/16/21 Range/Units 04:55 04:55 07:09 MCHC 31.4 L (32.0-37.0) g/dL RDW 15.8 H (11.5-14.5) % Immature Gran # (0.00-0.04) X 10*3/uL Neutrophils # (1.80-7.70) X 10*3/uL Eosinophils # (0.04-0.35) X 10*3/uL Glucose 207 H (70-110) mg/dL POC Glucose (mg/dL) 222 H (75-99) mg/dL Hemoglobin A1c (4.0-6.0) % AST 8 L (13-35) U/L Total Protein 6.0 L (6.2-8.2) g/dL Clozapine (200-700) ng/mL 01/16/21 Range/Units 11:57 MCHC (32.0-37.0) g/dL RDW (11.5-14.5) % Immature Gran # (0.00-0.04) X 10*3/uL Neutrophils # (1.80-7.70) X 10*3/uL Eosinophils # (0.04-0.35) X 10*3/uL Glucose (70-110) mg/dL POC Glucose (mg/dL) 235 H (75-99) mg/dL Hemoglobin A1c (4.0-6.0) % AST (13-35) U/L Total Protein (6.2-8.2) g/dL Clozapine (200-700) ng/mL Assessment and Plan Assessment: 1. Shortness of breath secondary to COPD exacerbation. Pulmonary services have been consulted. Patient started on prednisone 2. Tracheal bronchitis. Maintain on azithromycin 3. Altered mental status changes. Neurology and psychiatry service is cons ulted 4. Ongoing history of nicotine dependence. Nicotine patch will be ordered 5. History of anxiety depression and schizophrenia 6. History of hyperlipidemia. 7. History of diabetes mellitus at 2. Patient maintained on sliding scale coverage. It does not appear patient is on any diabetic medication will order chemical been A1c could be secondary to steroids 8. History of rectal prolapse status post low AP resection 9. History of restless leg syndrome 10. Generalized weakness with gait disturbance DVT prophylaxis heparin. GI prophylaxis Protonix Patient maintained on oral prednisone and azithromycin Will add physical therapy and occupational therapy Pulmonary services following Neurology and psychiatry service is consulted
--- NOTE | 2021-01-17 11:01 | P.PN ---
Subjective Progress Note Date: 01/17/21 This is a 65-year-old female patient who presented to the ER with complaints of increased shortness of breath. Patient unable to answer questions at time of exam. History was obtained from ER report nursing staff.. According to ER report patient was having increased shortness of breath and shakiness. Patient has medical history of diabetes mellitus, GERD, hyperlipidemia, COPD, schizophrenia, depression and anxiety. According to nursing staff patient had confusion since admission. Head CT was performed showing cerebral atrophy and more noticeable in the left temporal lobe. No acute intracranial abnormality can change. Chest x-ray performed showing lung markings increased slightly compared to old exam. No obvious heart failure. Mild subsegmental atelectasis. Patient was started on prednisone azithromycin. At this time pulmonary, neurology and psychiatry service is consulted. On 01/16/2021 Patient was seen and examined on the medical floor, she is alert and oriented x 3 in no distress, she is still complaining of shortness of breath and cough otherwise she denies any complaints there is no fever or chills no headache or dizziness no chest pain no palpitation no nausea or vomiting no abdominal pain no diarrhea no blood in the stools no burning with urination no frequency or urgency and no hematuria, there is no weakness or numbness in any of the extremities no change in vision speech or gait. On 01/17/2021 patient alert and oriented 3. Patient still having congestion to auscultation to right lower lobe. Patient remains on prednisone and azithromycin. Patient's A1c was 8.9. Patient does reports she does take home oral meds that are not currently on home medication list. Will discuss with nursing to update home medication list. At this time patient denies chest pain. Patient denies nausea vomiting or diarrhea. Patient denies any urinary burning or frequency. Pulmonary services are following. Objective - Vital Signs Vital signs: Vital Signs Temp 97.9 F 01/17/21 08:00 Pulse 96 01/17/21 08:00 Resp 18 01/17/21 08:00 BP 119/75 01/17/21 08:00 Pulse Ox 92 L 01/17/21 08:01 Intake & Output 01/16/21 01/17/21 01/17/21 18:59 06:59 18:59 Intake Total 222 Output Total 800 900 Balance -800 -900 222 Intake: Oral 222 Output: Urine 800 900 Other: Voiding Method External Catheter External Catheter External Catheter # Voids 1 1 # Bowel Movements 1 - Exam Head normocephalic and atraumatic Neck supple no JVD no goiter Lungs clear to auscultation bilaterally no wheezing or crackles Heart regular rate and rhythm S1-S2, no rub or gallop Abdomen is soft nontender nondistended positive bowel sounds no hepatosplenomegaly Extremities no edema no cyanosis or clubbing Neuro alert and orientated x 3 with significant improvement in her mental status since yesterday - Labs CBC & Chem 7: 01/16/21 04:55 01/16/21 04:55 Labs: Abnormal Lab Results - Last 24 Hours (Table) 01/15/21 01/16/21 01/16/21 Range/Units 13:31 04:55 04:55 MCHC 31.4 L (32.0-37.0) g/dL RDW 15.8 H (11.5-14.5) % Glucose 207 H (70-110) mg/dL POC Glucose (mg/dL) (75-99) mg/dL AST 8 L (13-35) U/L Total Protein 6.0 L (6.2-8.2) g/dL Clozapine 1319 H* (200-700) ng/mL 01/16/21 01/16/21 01/16/21 Range/Units 11:57 16:45 20:23 MCHC (32.0-37.0) g/dL RDW (11.5-14.5) % Glucose (70-110) mg/dL POC Glucose (mg/dL) 235 H 321 H 284 H (75-99) mg/dL AST (13-35) U/L Total Protein (6.2-8.2) g/dL Clozapine (200-700) ng/mL 01/17/21 Range/Units 07:46 MCHC (32.0-37.0) g/dL RDW (11.5-14.5) % Glucose (70-110) mg/dL POC Glucose (mg/dL) 225 H (75-99) mg/dL AST (13-35) U/L Total Protein (6.2-8.2) g/dL Clozapine (200-700) ng/mL Assessment and Plan Assessment: 1. Shortness of breath secondary to COPD exacerbation. Pulmonary services have been consulted. Patient started on prednisone 2. Tracheal bronchitis. Maintain on azithromycin 3. Altered mental status changes. Neurology and psychiatry service is consulted 4. Ongoing history of nicotine dependence. Nicotine patch will be ordered 5. History of anxiety depression and schizophrenia 6. History of hyperlipidemia. 7. History of diabetes mellitus at 2. Patient maintained on sliding scale coverage. It does not appear patient is on any diabetic medication will order chemical been A1c could be secondary to steroids 8. History of rectal prolapse status post low AP resection 9. History of restless leg syndrome 10. Generalized weakness with gait disturbance DVT prophylaxis heparin. GI prophylaxis Protonix Patient maintained on oral prednisone and azithromycin Will add physical therapy and occupational therapy Pulmonary services following Patient was evaluated by psychiatry services continue current medication regime cleared by psychiatry services Hemoglobin A1c was 8.9. Home medication list to be updated per pharmacy to include home oral diabetes medication
[2021-01-17 12:12] LABS: Glucose,Whole Blood 269 mg/dL (75-99)
--- NOTE | 2021-01-17 14:38 | CDI ---
Documentation Clarification Form Date: 01/17/2021 02:29:25 PM From: Josie CaceresLEONIDAS villanueva, CCDS Admit Date: 01/15/2021 03:30:00 PM Patient Name: Daria Lei Visit Number: [id number] Discharge Date: ATTENTION: The Clinical Documentation Specialists (CDI) and [facility] Coding Staff appreciate your assistance in clarifying documentation. Please respond to the clarification below the line at the bottom and electronically sign. The CDI & [facility] Coding staff will review the response and follow-up if needed. Please note: Queries are made part of the Legal Health Record. If you have any questions, please contact the author of this message via ITS. Dr. Torie Arevalo: Mild Encephalopathy is documented in the 01/15 Neurology Consult and subsequent Progress Note without further specificity. Additional clarification regarding the type of encephalopathy is requested. History/Risk Factors per the 01/15 H/P: COPD, DM, GERD, Hyperlipidemia, RLS, Schizophrenia, Depression, Anxiety. Clinical Indicators: Presented to the ED on 01/14 via EMS with Weakness & SOB. ED Clinical Impression: COPD 01/14 VS: T 97.6, P 103, R 20 (SOB, labored, cough), BP 141/84, PO 97 4Lnc, BMI: 31.9 01/14 LAB: Blood gas (VBG) HCO3 30, CO2 32, [id number], AST 11, Alk Phos 130 01/14 UA: clear, Trace protein, 4+ Glucose 01/14 Toxicology: Antidepressants 01/14 CXR: Lung markings increased slightly compared to old exam. No obvious heart failure. Mild subsegmental atelectasis. 01/14 CT Brain: Cerebral atrophy and more noticeable in the left temporal lobe. No acute intracranial abnormality. No significant change. Treatment 01/14: INH Ventolin, Insulin sq, IV fl Na Cl 1,000 mls @ 999 mls/hr q1H, po Zithromax, po Prednisone. 01/15: INH Duoneb, po Azithromycin, po Clozaril, Heparin sq, po Paxil, INH Symbicort. Please clarify the type of encephalopathy, if known: [ ] Metabolic Encephalopathy [ ] Toxic Encephalopathy [ ] Other, please specify [ ] Unable to determine (Template Last Revised: September 2020) Metabolic encephalopathy. MD MISBAH Quintanilla
--- NOTE | 2021-01-17 15:10 | P.PN ---
Subjective Progress Note Date: 01/17/21 Principal diagnosis: COPD exacerbation 65-year-old female, who looks much older than her stated age, was seen in the emergency department today. She was brought in yesterday by EMS. She came in with generalized weakness, and shortness of breath. The patient continues to smoke cigarettes, and has a history of COPD. She's not a particularly good historian. Her speech is a bit garbled. Again, the patient appears to be older than her stated age. She apparently metastases to cough, chest congestion, and phlegm production. Her primary care physician is Dr. Galeano. In addition, she apparently has a history of diabetes mellitus, gastroesophageal reflux disease, schizophrenia, depression, hyperlipidemia, restless leg syndrome, rectal prolapse, and previous low AP resection. She appears not to see a lung doctor at this time. CBC is completely normal. PT/INR/PTT is normal. D-dimer is normal. PH on venous blood gases 7.41. Sodium potassium chloride normal. CO2 32. Anion gap normal, with normal BUN and creatinine. Coronavirus testing was negative. Chest x-ray my opinion does not show pneumonia, but rather some basilar atelectasis. Compared to a prior x-ray, the current x-rays improved. The patient is seen today 01/16/2021 in follow-up on the regular medical floor. She is currently sitting up in bed. Awake and alert in no acute distress. Breathing a bit easier today compared to yesterday. Maintaining O2 saturations in the low 90s on 3 L/m per nasal cannula. She's afebrile. White count 8.0. Hemoglobin 12.6. Sodium 138. Potassium 4.3. Chloride 101. Creatinine 0.6. Glucose 207. AST 8. ALT 11. She is continued on DuoNeb inhalations, Symbicort, prednisone taper. Antibiotics in form of azithromycin. NicoDerm patch is in place. The patient is seen today 01/17/2021 in follow-up on the regular medical floor. She is awake and alert in no acute distress. Maintaining O2 saturations in the low 90s on 3 L/m per nasal cannula. She's afebrile. Hemodynamically stable. Blood glucose 269. She remains on Symbicort, DuoNeb's, prednisone. Antibiotics in the form of azithromycin. NicoDerm patches in place. Heparin for DVT prophylaxis. Objective - Vital Signs Vital signs: Vital Signs Temp 98.7 F 01/17/21 14:00 Pulse 96 01/17/21 14:00 Resp 16 01/17/21 14:00 BP 107/70 01/17/21 14:00 Pulse Ox 93 L 01/17/21 14:00 Intake & Output 01/16/21 01/17/21 01/17/21 18:59 06:59 18:59 Intake Total 888 Output Total 800 900 Balance -800 -900 888 Intake: Oral 888 Output: Urine 800 900 Other: Voiding Method External Catheter External Catheter External Catheter # Voids 1 1 # Bowel Movements 1 - Exam GENERAL EXAM: Alert, pleasant 65-year-old female patient, on 3 L nasal cannula, comfortable in no apparent distress. HEAD: Normocephalic. EYES: Normal reaction of pupils, equal size. NOSE: Clear with pink turbinates. THROAT: No erythema or exudates. NECK: No masses, no JVD. CHEST: No chest wall deformity. LUNGS: Equal air entry with bilateral end expiratory wheeze, diminished. CVS: S1 and S2 normal with no audible murmur, regular rhythm. ABDOMEN: No hepatosplenomegaly, normal bowel sounds, no guarding or rigidity. SPINE: No scoliosis or deformity SKIN: No rashes CENTRAL NERVOUS SYSTEM: No focal deficits, tone is normal in all 4 extremities. EXTREMITIES: There is no peripheral edema. No clubbing, no cyanosis. Peripheral pulses are intact. - Labs CBC & Chem 7: 01/16/21 04:55 01/16/21 04:55 Labs: Abnormal Lab Results - Last 24 Hours (Table) 01/16/21 01/16/21 01/17/21 Range/Units 16:45 20:23 07:46 POC Glucose (mg/dL) 321 H 284 H 225 H (75-99) mg/dL 01/17/21 Range/Units 12:09 POC Glucose (mg/dL) 269 H (75-99) mg/dL Assessment and Plan Assessment: 1 Acute exacerbation of COPD, without be pneumonia. Possibly complicated by tracheobronchitis rather than pneumonia. 2 History of ongoing tobacco use with nicotine addiction. 3 History of hyperlipidemia. 4 History of diabetes mellitus. 5 History of gastroesophageal reflux disease. 6 Restless leg syndrome. 7 History of rectal prolapse, status post low AP resection. 8 History of anxiety/depression/schizophrenia. Plan: The patient was seen and evaluated by Dr. Tamayo Continue the current treatment plan Titrate the FiO2 as tolerated Probable discharge in the a.m. I, the cosigning physician, performed a history & physical examination of the patient. Lungs sounds with end expiratory wheeze, diminished. Maintaining good O2 saturations in the 90s on 3 L/m per nasal cannula. I discussed the assessment and plan of care with my nurse practitioner, Carol Queen. I attest to the above note as dictated by her.
[2021-01-17 17:18] LABS: Glucose,Whole Blood 307 mg/dL (75-99)
[2021-01-17 21:04] LABS: Glucose,Whole Blood 274 mg/dL (75-99)
[2021-01-18 06:55] LABS: Glucose,Whole Blood 170 mg/dL (75-99)
[2021-01-18] MEDS: SYMBICORT 160-4.5 MCG INHALER INHALATION SCH (07:50)
[2021-01-18] MEDS: IPRATROPIUM-ALBUTEROL 3 ML NEB INHALATION SCH ×3 (07:50→15:46)
[2021-01-18] MEDS: INSULIN ASPART (NovoLOG) 100 UNIT/ML VIAL SQ SCH ×2 (08:40→12:38)
[2021-01-18] MEDS: NICOTINE 14MG/24HR PATCH TRANSDERM SCH (08:41)
[2021-01-18] MEDS: HEPARIN SODIUM,PORCINE/PF 5,000 UNIT/0.5 ML SYRINGE SQ SCH (08:41)
[2021-01-18 09:19] LABS: Basophils # (A) 0.03 X 10*3/uL (0.00-0.10); Basophils % (A) 0.4 %; Eosinophils # (A) 0.06 X 10*3/uL (0.04-0.35); Eosinophils % (A) 0.8 %; HCT 41.9 % (37.2-46.3); HGB 13.3 g/dL (12.0-15.0); Lymphocytes # (A) 1.62 X 10*3/uL (0.90-5.00); Lymphocytes % (A) 22.2 %; MCH 28.2 pg (27.0-32.0); MCHC 31.7 g/dL (32.0-37.0); Mean Platelet Volume 10.2 fL (9.5-12.2); Monocytes # (A) 0.79 X 10*3/uL (0.20-1.00); Monocytes % (A) 10.8 %; Neutrophils # (A) 4.76 X 10*3/uL (1.80-7.70); Neutrophils % (A) 65.1 %; Platelet Count 238 X 10*3/uL (140-440); RBC 4.71 X 10*6/uL (4.10-5.20); RDW 15.1 % (11.5-14.5); WBC 7.31 X 10*3/uL (4.50-10.00)
--- NOTE | 2021-01-18 11:02 | P.PN ---
Subjective Progress Note Date: 01/18/21 Principal diagnosis: COPD exacerbation 65-year-old female, who looks much older than her stated age, was seen in the emergency department today. She was brought in yesterday by EMS. She came in with generalized weakness, and shortness of breath. The patient continues to smoke cigarettes, and has a history of COPD. She's not a particularly good historian. Her speech is a bit garbled. Again, the patient appears to be older than her stated age. She apparently metastases to cough, chest congestion, and phlegm production. Her primary care physician is Dr. Galeano. In addition, she apparently has a history of diabetes mellitus, gastroesophageal reflux disease, schizophrenia, depression, hyperlipidemia, restless leg syndrome, rectal prolapse, and previous low AP resection. She appears not to see a lung doctor at this time. CBC is completely normal. PT/INR/PTT is normal. D-dimer is normal. PH on venous blood gases 7.41. Sodium potassium chloride normal. CO2 32. Anion gap normal, with normal BUN and creatinine. Coronavirus testing was negative. Chest x-ray my opinion does not show pneumonia, but rather some basilar atelectasis. Compared to a prior x-ray, the current x-rays improved. The patient is seen today 01/16/2021 in follow-up on the regular medical floor. She is currently sitting up in bed. Awake and alert in no acute distress. Breathing a bit easier today compared to yesterday. Maintaining O2 saturations in the low 90s on 3 L/m per nasal cannula. She's afebrile. White count 8.0. Hemoglobin 12.6. Sodium 138. Potassium 4.3. Chloride 101. Creatinine 0.6. Glucose 207. AST 8. ALT 11. She is continued on DuoNeb inhalations, Symbicort, prednisone taper. Antibiotics in form of azithromycin. NicoDerm patch is in place. The patient is seen today 01/17/2021 in follow-up on the regular medical floor. She is awake and alert in no acute distress. Maintaining O2 saturations in the low 90s on 3 L/m per nasal cannula. She's afebrile. Hemodynamically stable. Blood glucose 269. She remains on Symbicort, DuoNeb's, prednisone. Antibiotics in the form of azithromycin. NicoDerm patches in place. Heparin for DVT prophylaxis. The patient today 01/18/2021 in follow-up on the regular medical floor. She is currently resting comfortably in bed. No acute distress. Maintaining O2 saturations in the mid 90s on 3 L/m per nasal cannula. She's been afebrile. Hemodynamically stable. Sputum culture pending. White count 7.3. Hemoglobin 13.3. Platelet count 238. Glucose 170. She remains on DuoNeb inhalations, Symbicort, IV Cymetra. Empiric antibiotics in the form of azithromycin. Habitrol patch in place. Heparin for DVT prophylaxis. Objective - Vital Signs Vital signs: Vital Signs Temp 98.2 F 01/18/21 07:51 Pulse 88 01/18/21 08:00 Resp 20 01/18/21 08:00 BP 143/87 01/18/21 07:51 Pulse Ox 95 01/18/21 07:51 Intake & Output 01/17/21 01/18/21 01/18/21 18:59 06:59 18:59 Intake Total 888 Output Total 300 Balance 588 Intake: Oral 888 Output: Urine 300 Other: Voiding Method External Catheter External Catheter # Voids 1 1 # Bowel Movements 1 - Exam GENERAL EXAM: Alert, pleasant 65-year-old female patient, on 3 L nasal cannula, comfortable in no apparent distress. HEAD: Normocephalic. EYES: Normal reaction of pupils, equal size. NOSE: Clear with pink turbinates. THROAT: No erythema or exudates. NECK: No masses, no JVD. CHEST: No chest wall deformity. LUNGS: Equal air entry with bilateral end expiratory wheeze, diminished. CVS: S1 and S2 normal with no audible murmur, regular rhythm. ABDOMEN: No hepatosplenomegaly, normal bowel sounds, no guarding or rigidity. SPINE: No scoliosis or deformity SKIN: No rashes CENTRAL NERVOUS SYSTEM: No focal deficits, tone is normal in all 4 extremities. EXTREMITIES: There is no peripheral edema. No clubbing, no cyanosis. Peripheral pulses are intact. - Labs CBC & Chem 7: 01/18/21 05:40 01/16/21 04:55 Labs: Abnormal Lab Results - Last 24 Hours (Table) 01/17/21 01/17/21 01/17/21 Range/Units 12:09 17:16 21:00 MCHC (32.0-37.0) g/dL RDW (11.5-14.5) % Immature Gran # (0.00-0.04) X 10*3/uL POC Glucose (mg/dL) 269 H 307 H 274 H (75-99) mg/dL 01/18/21 01/18/21 Range/Units 05:40 06:53 MCHC 31.7 L (32.0-37.0) g/dL RDW 15.1 H (11.5-14.5) % Immature Gran # 0.05 H (0.00-0.04) X 10*3/uL POC Glucose (mg/dL) 170 H (75-99) mg/dL Microbiology - Last 24 Hours (Table) 01/17/21 15:46 Gram Stain - Preliminary Sputum Sputum Culture - Preliminary Assessment and Plan Assessment: 1 Acute exacerbation of COPD, without be pneumonia. Possibly complicated by tracheobronchitis rather than pneumonia. 2 History of ongoing tobacco use with nicotine addiction. 3 History of hyperlipidemia. 4 History of diabetes mellitus. 5 History of gastroesophageal reflux disease. 6 Restless leg syndrome. 7 History of rectal prolapse, status post low AP resection. 8 History of anxiety/depression/schizophrenia. Plan: The patient was seen and evaluated by Dr. Tamayo Cleared for discharge from the pulmonary standpoint Evaluate for possible home oxygen Complete a prednisone taper Continue bronchodilators Follow up in our office in 1-2 weeks' I, the cosigning physician, performed a history & physical examination of the patient. Lungs sounds with end expiratory wheeze, diminished. Maintaining good O2 saturations in the 90s on 3 L/m per nasal cannula. I discussed the assessment and plan of care with my nurse practitioner, Carol Queen. I attest to the above note as dictated by her.
[2021-01-18 11:39] LABS: African American GFR (CKD) 109.3 (60.0-200.0); Albumin 4.2 g/dL (3.80-4.90); Albumin/Globulin Ratio 2.1 (1.60-3.17); Anion Gap 10.1 mmol/L (4.00-12.00); BUN/Creat Ratio 23.33 Ratio (12.00-20.00); Calcium 9.3 mg/dL (8.7-10.3); Carbon Dioxide 29.9 mmol/L (21.6-31.8); Non-African American GFR(CKD) 94.3 (60.0-200.0); Potassium 4.3 mmol/L (3.5-5.5); Total Bilirubin 0.4 mg/dL (0.3-1.2); Total Protein 6.2 g/dL (6.2-8.2)
[2021-01-18 12:16] LABS: Glucose,Whole Blood 140 mg/dL (75-99)
[2021-01-18] MEDS: predniSONE 20 MG TAB PO SCH (12:39)
[2021-01-18] MEDS: PANTOPRAZOLE 40 MG TABLET PO SCH (12:39)
[2021-01-18] MEDS: AZITHROMYCIN 500 MG TAB PO SCH (12:39)
[2021-01-18] MEDS: PARoxetine 20 MG TAB PO SCH (12:40)
[2021-01-18] MEDS: cloZAPine 100 MG TAB PO SCH (12:40)
--- NOTE | 2021-01-18 13:14 | P.DS ---
Providers Date of admission: 01/15/21 15:30 Expected date of discharge: 01/18/21 Attending physician: Christi Galeano Consults: 01/15/21 09:03 Consult Physician Routine Consulting Provider: Iglesia Tamayo Consult Reason/Comments: COPD exacerbation Do you want consulting provider notified?: Yes 01/15/21 10:56 Consult Physician Routine Consulting Provider: Torie Arevalo Consult Reason/Comments: Altered mental status changes Do you want consulting provider notified?: Yes 01/15/21 10:57 Consult Physician Routine Consulting Provider: Howard Oconnell Consult Reason/Comments: Altered mental status changes Do you want consulting provider notified?: Yes Primary care physician: Christi Waleska Lds Hospital Course: Diagnosis on discharge: 1. Shortness of breath secondary to COPD exacerbation. Pulmonary services have been consulted. Patient started on prednisone 2. Tracheal bronchitis. Maintained on azithromycin , Zithromax had an interaction with Clozaril, and was changed to Cefdinir 300 mg by mouth twice daily, for 7 days 3. Altered mental status changes. Likely related to, infection, hypoxia, and as a side effect of steroid use, on top of her underlying psychiatric history, during this admission patient was evaluated by Neurology and psychiatry, no acute abnormality was found, patient mental status improved gradually during this admission. 4. Ongoing history of nicotine dependence. Nicotine patch will be ordered, patient was counseled in length during this admission regarding smoking cessation counseling more than 10 minutes during this admission, she was given a prescription for nicotine patches at the time of discharge 5. History of anxiety depression and schizophrenia, home medications reviewed and reordered 6. History of hyperlipidemia. 7. History of diabetes mellitus at 2. Patient maintained on sliding scale coverage. It does not appear patient is on any diabetic medication will order chemical been A1c could be secondary to steroids 8. History of rectal prolapse status post low AP resection 9. History of restless leg syndrome 10. Generalized weakness with gait disturbance 11. Acute on chronic hypoxic respiratory failure, related to chronic COPD with exacerbation , at the time of discharge, pulse oximetry was 85% on room air, patient needed oxygen at 3 L nasal cannula to regain a pulse ox of 90%, will arrange for home oxygen at the time of discharge Hospital course: This is a 65-year-old female patient who presented to the ER with complaints of increased shortness of breath. Patient unable to answer questions at time of exam. History was obtained from ER report nursing staff.. According to ER report patient was having increased shortness of breath and shakiness. Patient has medical history of diabetes mellitus, GERD, hyperlipidemia, COPD, schizophrenia, depression and anxiety. According to nursing staff patient had confusion since admission. Head CT was performed showing cerebral atrophy and more noticeable in the left temporal lobe. No acute intracranial abnormality can change. Chest x-ray performed showing lung markings increased slightly compared to old exam. No obvious heart failure. Mild subsegmental atelectasis. Patient was started on prednisone azithromycin. At this time pulmonary, neurology and psychiatry service is consulted. On 01/16/2021 Patient was seen and examined on the medical floor, she is alert and oriented x 3 in no distress, she is still complaining of shortness of breath and cough otherwise she denies any complaints there is no fever or chills no headache or dizziness no chest pain no palpitation no nausea or vomiting no abdominal pain no diarrhea no blood in the stools no burning with urination no frequency or urgency and no hematuria, there is no weakness or numbness in any of the extremities no change in vision speech or gait. On 01/17/2021 patient alert and oriented 3. Patient still having congestion to auscultation to right lower lobe. Patient remains on prednisone and azithromycin. Patient's A1c was 8.9. Patient does reports she does take home oral meds that are not currently on home medication list. Will discuss with nursing to update home medication list. At this time patient denies chest pain. Patient denies nausea vomiting or diarrhea. Patient denies any urinary burning or frequency. Pulmonary services are following. On 01/18/2021 patient was seen and examined on the medical floor she is alert and oriented 3 in no apparent distress, she is still complaining of cough, she is complaining of shortness of breath with activity, otherwise she denies any complaints, she was evaluated by pulmonary and was cleared for discharge, she was given a prescription for oral antibiotic, oral prednisone, Symbicort inhaler, DuoNeb updraft, and case briefer will arrange for home oxygen at the time of discharge. Will follow in the office within one week for further ev aluation and treatment. Plan - Discharge Summary Discharge Rx Participant: No New Discharge Prescriptions: New Cefdinir 300 mg PO Q12HR 7 Days #14 cap predniSONE [Deltasone] 40 mg PO DAILY tab Budesonide-Formot 160-4.5 Mcg [Symbicort 160-4.5 Mcg Inhaler] 2 puff INHALATION RT-BID puff Ipratropium-Albuterol Nebulize [Duoneb 0.5 mg-3 mg/3 ml Soln] 3 ml INHALATION RT-QID ml Nicotine 14Mg/24Hr Patch [Habitrol] 1 patch TRANSDERM DAILY patch Pantoprazole [Protonix] 40 mg PO AC-BRKFST tablet. Calcium Carbonate [Tums] 500 mg PO Q4H PRN chew PRN Reason: Heartburn Continue PARoxetine HCL [Paxil] 40 mg PO DAILY cloZAPine [Clozaril] 400 mg PO HS cloZAPine [Clozaril] 100 mg PO DAILY Discharge Medication List PARoxetine HCL [Paxil] 40 mg PO DAILY 06/03/15 [History] cloZAPine [Clozaril] 100 mg PO DAILY 06/03/15 [History] cloZAPine [Clozaril] 400 mg PO HS 06/03/15 [History] Budesonide-Formot 160-4.5 Mcg [Symbicort 160-4.5 Mcg Inhaler] 2 puff INHALATION RT-BID puff 01/18/21 [Rx] Calcium Carbonate [Tums] 500 mg PO Q4H PRN chew 01/18/21 [Rx] Cefdinir 300 mg PO Q12HR 7 Days #14 cap 01/18/21 [Rx] Ipratropium-Albuterol Nebulize [Duoneb 0.5 mg-3 mg/3 ml Soln] 3 ml INHALATION RT-QID ml 01/18/21 [Rx] Nicotine 14Mg/24Hr Patch [Habitrol] 1 patch TRANSDERM DAILY patch 01/18/21 [Rx] Pantoprazole [Protonix] 40 mg PO AC-BRKFST tablet. 01/18/21 [Rx] predniSONE [Deltasone] 40 mg PO DAILY tab 01/18/21 [Rx] Follow up Appointment(s)/Referral(s): Christi Galeano MD [Primary Care Provider] - 1-2 days
[2021-01-18 14:51] VITALS: BP 105/67; RESP 18; TEMP 98.5
[2021-01-18 15:57] VITALS: PULSE 84
== END 2021-01-18 16:10 | disposition home or self-care (01) | DRG 190 ==
LOC: EC 20:54 → 6NMEDSUR 23:54 → OBSVTOIN 01-15 15:30
PROVIDERS: ADMIT Internal Medicine; ATTEND Internal Medicine
DX: J44.1 Chronic obstructive pulmonary disease with (acute) exacerbation (principal); J96.21 Acute and chronic respiratory failure with hypoxia; G93.41 Metabolic encephalopathy; E11.9 Type 2 diabetes mellitus without complications; K21.9 Gastro-esophageal reflux disease without esophagitis; E78.5 Hyperlipidemia, unspecified; Z20.822 Contact with and (suspected) exposure to COVID-19; F17.210 Nicotine dependence, cigarettes, uncomplicated; F25.1 Schizoaffective disorder, depressive type; G25.81 Restless legs syndrome; I10 Essential (primary) hypertension; W06.XXXA Fall from bed, initial encounter; F41.9 Anxiety disorder, unspecified; Z79.899 Other long term (current) drug therapy; Z91.09 Other allergy status, other than to drugs and biological substances; Z79.51 Long term (current) use of inhaled steroids
CPT/HCPCS: 36415; 70450; 71046; 80053; 80159; 80306; 81003; 82607; 82746; 82803; 83036; 83605; 83880; 84443; 84484; 85025; 85379; 85610; 85730; 87070; 87205; 87635; 93005; 93880; 94640; 94760; 96360; 96372; 99285

== ENCOUNTER → 2022-10-15 | Outpatient (CLI) | payer MEDICARE ==
--- NOTE | 2022-10-16 07:46 | XR ---
EXAMINATION TYPE: XR chest 2V DATE OF EXAM: 10/15/2022 COMPARISON: 01/14/2021 TECHNIQUE: PA and lateral views submitted. HISTORY: Shortness of breath FINDINGS: The lungs are clear and there is no pneumothorax, pleural effusion, or focal pneumonia. Heart size normal and no overt failure. Osseous structures demonstrate hypertrophic and degenerative changes of the spine. Coarsened interstitium. Mild hyperinflation correlate for COPD. Arthropathy AC joints. IMPRESSION: 1. Coarsened interstitium can be associated with chronic interstitial lung disease. Superimposed inte rstitial pneumonitis or mild venous congestion not excluded correlate clinically.
== END | disposition home or self-care (01) ==
LOC: RADXRMAIN 15:46
PROVIDERS: ATTEND Internal Medicine
DX: R06.02 Shortness of breath (principal)
CPT/HCPCS: 71046

== ENCOUNTER → 2022-11-02 | Outpatient (CLI) | payer MEDICARE, OTHER ==
--- NOTE | 2022-11-02 11:44 | BD ---
EXAMINATION TYPE: Axial Bone Density DATE OF EXAM: 11/02/2022 CLINICAL HISTORY: 67 years old Female. ICD-10 CODE: N95.1 POST MENOPAUSAL, M85.88 DISORDER OF BONE Height: 60 in Weight: 144 lbs FRAX RISK QUESTIONS: Secondary Osteoporosis: 3. Menopause before 45: age 48 Current Tobacco Use: yes RISK FACTORS HISTORY OF: Active: moderate Diet low in dairy products/other sources of calcium: yes Postmenopausal woman: age 48 Lost more than 2 inches in height since high school: MEDICATIONS: Additional Medications: metformin, diabetes meds, restless leg meds, clozapine, EXAM MEASUREMENTS: Bone mineral densitometry was performed using the bead Button System. Bone mineral density as measured about the Lumbar spine is: ----- L1-L4(G/cm2): 1.291 T Score Values are as follows: ----- L1: -0.2 ----- L2: 0.7 ----- L3: 2.0 ----- L4: 0.9 ----- L1-L4: 0.9 Z Score Values are as follows: ----- L1: 1.5 ----- L2: 2.3 ----- L3: 3.7 ----- L4: 2.5 ----- L1-L4: 2.6 Bone mineral density baseline Bone mineral density about the R hip (g/cm2): 0.914 Bone mineral density about the L hip (g/cm2): 0.988 T Score values are as follows: -----R Neck: -1.7 -----L Neck: -1.0 -----R Total: -0.7 -----L Total: -0.2 Z Score values are as follows: -----R Neck: 0.0 -----L Neck: 0.7 -----R Total: 0.7 -----L Total: 1.3 Bone mineral density baseline FRAX%s: The graph provided illustrates a 10.6% chance for a major osteoporotic fx and a 2.7% chance f or the hips probability for fx in 10 years time. IMPRESSION: Normal (Values between +1 and -1 indicate normal bone mass). Consider repeating this study in 5 year s or sooner if there is some new clinical indication. NOTE: T-SCORE=SD OF THE YOUNG ADULT MEAN.
--- NOTE | 2022-11-03 10:09 | MM ---
Reason for Exam: Screening (asymptomatic). Last mammogram was performed 4 year(s) and 5 month(s) ago. Patient History: Menarche at age 10. First Full-Term at age 19. Postmenopausal. 2001, Benign Excisional Biopsy on the left side. 03/11/1998, Benign Cyst Aspiration on the left side. Sister had breast cancer, age 50. Risk Values: Leonor 5 year model risk: 3.9%. NCI Lifetime model risk: 11.6%. Prior Study Comparison: 11/21/2014 Bilateral Screening Mammogram, [facility]. 05/22/2016 Bilateral Screening Mammogram, [facility]. 06/01/2018 Bilateral Screening Mammogram, [facility]. Tissue Density: The breast tissue is heterogeneously dense. This may lower the sensitivity of mammography. Findings: Analyzed By CAD. Pattern appears symmetrical and stable. Benign round calcifications are present bilaterally. No significant interval changes are evident. No suspicious groups of microcalcifications, spiculated or lobular masses, architectural distortion or other secondary signs of malignancy are mammographically apparent. Overall Assessment: Benign, BI-RAD 2 Management: Screening Mammogram of both breasts in 1 year. A negative mammogram report should not preclude additional follow up of suspicious palpable abnormalities. Patient should continue monthly self breast exam. A clinical breast exam by your physician is recommended on an annual basis and results should be correlated with mammographic findings. Electronically signed and approved by: Chung Cifuentes D.O. Radiologis
== END | disposition home or self-care (01) ==
LOC: RADMAMWWP 10:16
PROVIDERS: ATTEND Internal Medicine
DX: Z12.31 Encounter for screening mammogram for malignant neoplasm of breast (principal); M85.89 Other specified disorders of bone density and structure, multiple sites; Z80.3 Family history of malignant neoplasm of breast; Z78.0 Asymptomatic menopausal state
CPT/HCPCS: 77063; 77067; 77080

== ENCOUNTER → 2023-01-18 | Outpatient (CLI) | payer MEDICARE, OTHER ==
--- NOTE | 2023-01-18 16:05 | XR ---
EXAMINATION TYPE: XR chest 2V DATE OF EXAM: 01/18/2023 COMPARISON: 10/15/22 HISTORY: Shortness of breath TECHNIQUE: Frontal and lateral views of the chest are obtained. FINDINGS: Scattered senescent parenchymal changes noted. Hyperinflation compatible with COPD. No evidence for infiltrate. No evidence for atelectasis. Heart size is stable. Mediastinal structures are stable and grossly unremarkable. No evidence for hilar prominence. Degenerative changes dorsal spine. IMPRESSION: 1. No evidence for acute pulmonary disease.
== END | disposition home or self-care (01) ==
LOC: RADXRMAIN 15:45
PROVIDERS: ATTEND Internal Medicine
DX: R06.02 Shortness of breath (principal); R05.9 Cough, unspecified
CPT/HCPCS: 71046

== ENCOUNTER → 2023-11-04 | Outpatient (CLI) | payer MEDICARE, OTHER ==
--- NOTE | 2023-11-08 09:23 | MM ---
Reason for Exam: Screening (asymptomatic). Last screening mammogram was performed 12 month(s) ago. Patient History: Menarche at age 10. First Full-Term at age 19. Postmenopausal. 2001, Benign Excisional Biopsy on the left side. 03/11/1998, Benign Cyst Aspiration on the left side. Sister had breast cancer, age 50. Risk Values: Leonor 5 year model risk: 3.9%. NCI Lifetime model risk: 11.1%. Prior Study Comparison: 05/22/2016 Bilateral Screening Mammogram, [facility]. 06/01/2018 Bilateral Screening Mammogram, [facility]. 11/02/2022 Bilateral MG 3D screening mammo w/cad, [facility]. Tissue Density: The breasts are heterogeneously dense, which may obscure small masses. Findings: Analyzed By CAD. There is no suspicious group of microcalcifications or new suspicious mass in either breast. Overall Assessment: Benign, BI-RAD 2 Management: Screening Mammogram of both breasts in 1 year. . Patient should continue monthly self-breast exams. A clinical breast exam by your physician is recommended on an annual basis. This exam should not preclude additional follow-up of suspicious palpable abnormalities. Note on Leonor scores and lifetime risk: 1. A Leonor score greater than 3% is considered moderate risk. If this is the case, consider specialist referral to assess eligibility for a risk reducing agent. 2. If overall lifetime risk for the development of breast cancer is 20% or higher, the patient may qualify for future screening with alternating mammogram and breast MRI. Electronically signed and approved by: Kip Herr M.D. Radiologis
== END | disposition home or self-care (01) ==
LOC: RADMAMWWP 11:02
PROVIDERS: ATTEND Internal Medicine
DX: Z12.31 Encounter for screening mammogram for malignant neoplasm of breast (principal); Z78.0 Asymptomatic menopausal state; Z80.3 Family history of malignant neoplasm of breast
CPT/HCPCS: 77063; 77067

== ENCOUNTER → 2024-01-13 | Outpatient (CLI) | payer MEDICARE, OTHER ==
[2024-01-13 12:23] LABS: African American GFR (CKD) >90 (>60 ml/min/1.73 sqM); Blood Urea Nitrogen 8 mg/dL (7-17); Non-African American GFR(CKD) >90 (>60 ml/min/1.73 sqM)
--- NOTE | 2024-01-13 13:11 | CT ---
EXAMINATION TYPE: CT soft tissue neck w con DATE OF EXAM: 01/13/2024 COMPARISON: None HISTORY: 68-year-old female R2 2.1, lump to right side of neck TECHNIQUE: Contiguous axial scanning of the soft tissues of the neck performed with IV Contrast, harvinder ent injected with 100 mL of Isovue 300. Coronal/sagittal reconstructions performed. CT DLP: 419 mGycm Automated exposure control for dose reduction was used. FINDINGS: Visualized intracranial structures, orbits and globes, paranasal sinuses, and mastoid air cells appea r clear. Nasopharynx appears clear. Short retropharyngeal course of the right ICA. Additional moderate lobulated hypertrophy of the bilat eral lingual tonsils. Otherwise, oropharynx appears clear. Epiglottis and prevertebral soft tissue satisfactory. Asymmetric effacement left piriform sinus may be positional, axial image 52 and 53. Subglottic structures and tracheal column appear clear. Minimal right apical pleural parenchymal scar ring. Thyroid gland appears satisfactory. Mild atrophy of the parotid gland. Slight asymmetrically larger right submandibular gland with overlying palpable marker. No discrete leroy rrounding inflammation is seen. No cervical lymphadenopathy or otherwise any suspicious neck masses seen. Bones: Moderate disc/endplate degenerative change C5-C7 levels. Degenerative grade 1 anterolisthesis C7-T1 secondary to hypertrophic facet arthropathy. IMPRESSION: 1. PALPABLE MARKER PLACED OVERLYING THE RIGHT SUBMANDIBULAR GLAND. THIS GLAND IS SLIGHTLY LARGER THAN THE LEFT BUT SHOWS NO RADAMES INFLAMMATION. A mild sialadenitis is possible if any localizing pain he re. 2. Lobulated thickening along at the posterior tongue surface, likely lingual tonsillar hypertrophy. Consider direct visualization. 3. Direct visualization can also evaluate asymmetric effacement of the left piriform sinus in order t o exclude a mucosal lesion.
== END | disposition home or self-care (01) ==
LOC: RADCTMAIN 11:19
PROVIDERS: ATTEND Internal Medicine
DX: J34.89 Other specified disorders of nose and nasal sinuses (principal); R22.1 Localized swelling, mass and lump, neck
CPT/HCPCS: 82565; 84520; 70491; 36415; Q9967

== ENCOUNTER 2024-03-17 09:33 | Day surgery (SDC) | payer MEDICARE, OTHER ==
[2024-03-16 09:05] VITALS: BMI 25.0
--- NOTE | 2024-03-16 17:21 | HP ---
HISTORY AND PHYSICAL CHIEF COMPLAINT: Left base of tongue/left piriform sinus mass. HISTORY OF PRESENT ILLNESS: The patient is a 68-year-old female, who presented to my office with a 6-month history of having a right neck mass. The patient says that is nontender and does not interfere with her swallowing. She denied any referred otalgia. She did admit to noting slight difficulty swallowing lately. A CT scan was performed, which shows possible lesion of the left piriform sinus and left base of tongue. It was also noted that the right submandibular gland was larger than the left, but did not show any evidence of any inflammation or mass/tumors. The patient smokes approximately one and a half packs of cigarettes per day. I discussed with her the fact that she needs to quit, but I do not feel at this point that she is motivated to quit cigarettes despite the fact that she has had multiple procedures performed on her lungs in an effort to improve her breathing. PAST MEDICAL HISTORY: Reveals she has no allergies to medications. PREVIOUS SURGERIES: Include cataract surgery, repair of prolapse of the rectum, tonsillectomy, and adenoidectomy. She is 3 para, 3 , 1 miscarriage. MEDICATIONS: Current medications include: 1. Prozac. 2. Clozapine. 3. Prilosec. 4. Glipizide. 5. Pravastatin. 6. Metformin. 7. Ropinirole. REVIEW OF SYSTEMS: Reveals: GASTROINTESTINAL SYSTEM: Positive for GERD. METABOLIC/ENDOCRINE SYSTEM: Positive for hypercholesterolemia and type 2 diabetes mellitus. Remainder of the review of systems is essentially unremarkable. OBJECTIVE: HEENT: The patient is normocephalic. Tympanic membranes are normal. Middle ear space is free of any fluid or infection. Pupils equal, round, reactive to light and accommodation. Extraocular movements within normal limits. Intranasal examination reveals moderate to severe septal deviation with compensatory hypertrophy of inferior turbinates. Examination of the oropharynx was included an indirect laryngoscopy using headlight and mirror revealed no evidence of any suspicious lesions of the floor of the mouth lesions of the base of tongue, vallecula. There appears to be hypertrophy or enlargement of the left base of tongue. The left piriform sinus is not visible at this time. The right appears to be unremarkable. There is extensive mucus pooling and erythema of the hypopharynx. The vocal cords appeared to be normal and free of any masses or lesions. Palpation of the neck reveals that there is a palpable mass in the area of the right side of her neck, which may be related to an enlarged right submandibular gland. Remainder of the head and neck exam including cranial nerves 2 through 12 are within normal limits. CHEST/CARDIOVASCULAR: Both lung choudhary are clear to percussion and auscultation. The patient is in regular sinus rhythm. S1, S2 are present without any murmurs. Peripheral pulses are bilaterally symmetrical. ABDOMEN: There is no evidence of any masses, megaly, or tenderness. The abdomen is soft. SKIN: Unremarkable. MUSCULOSKELETAL: Within normal limits. NEUROLOGICAL: Within normal limits. PELVIC/RECTAL: This should be printed. The pelvic/rectal exam is deferred at this time because the patient has it done on a regular basis at her family physician's office. Remainder of physical exam is unremarkable. 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 PLAN: The patient is scheduled to undergo a suspension microlaryngoscopy with biopsy under general anesthesia in the a.m. Attention, RNs in the pre-surgical area: I have ordered for this patient to receive 1000 mg of Ofirmev IV to be given once an intravenous line has been established. I have also ordered for this patient to receive 2 g of Ancef IV to be given once an intravenous line has been established. If the Pharmacy Department sends a different pre-surgical prophylactic antibiotic to the pre-surgical area for this patient, that order should be cancelled, and the medication should be returned to the Pharmacy Department. Also, make sure that the patient's account is credited appropriately. I have discussed the risks, benefits and alternative therapies for the above-mentioned procedure and for both sedation/analgesia as well as necessary blood product administration, if indicated, as they pertain to this patient. The patient has indicated her understanding and acceptance of the risks and procedures discussed. MMODL / IJN: [id number] /
[~2024-03-17 09:33] MED LIST changes: -DEXAMETHASONE SOD PHOSPHATE 10 MG/ML 1 ML VIAL IV ONE; -HEPARIN SODIUM,PORCINE 5,000 UNIT/ML 1 ML VIAL SQ ONE; +HYDROmorphone 0.5 MG/0.5 ML SYRINGE IVP PRN; -LACTATED RINGERS 1,000 ML IV SCH; -LIDOCAINE 1% 20 ML VIAL (10MG/ML) FOR IV START INTRADERMA PRN; -ONDANSETRON 4 MG/2 ML VIAL IVP ONE; +Pre Op ABX Message 1 EACH MISC MISCELLANE ONE; -SCOPOLAMINE 1.5MG/72HR PATCH TRANSDERM ONE; -ceFAZolin 2 GM in SODIUM CHLORIDE 0.9% 100 ML IVPB ONE
[2024-03-17] MEDS ORDERED: ACETAMINOPHEN IV (For NPO) 1,000 MG in EMPTY BAG 1 BAG IVPB ONE ×2 (09:45→10:15)
[2024-03-17] MEDS: IV FLUID CONTINUATION 1,000 ML IV ONE (09:55)
[2024-03-17] MEDS: LACTATED RINGERS 1,000 ML IV SCH (10:28)
[2024-03-17] MEDS: ONDANSETRON 4 MG/2 ML VIAL IVP STA (10:29)
[2024-03-17] MEDS: DEXAMETHASONE SOD PHOSPHATE 4 MG/ML 1 ML VIAL IVP STA (10:29)
[2024-03-17 10:32] LABS: Glucose,Whole Blood 135 mg/dL (70-110)
[2024-03-17] MEDS: IPRATROPIUM-ALBUTEROL 3 ML NEB INHALATION STA (10:33)
[2024-03-17] MEDS ORDERED: PROPOFOL 10 MG/ML 20 ML VIAL IV ONE (10:53)
[2024-03-17] MEDS ORDERED: PHENYLEPHRINE 10 MG/ML VIAL ONE (10:53)
[2024-03-17] MEDS ORDERED: fentaNYL (PF) 50 MCG/ML 2 ML AMP ONE (10:53)
[2024-03-17] MEDS ORDERED: DEXAMETHASONE SOD PHOSPHATE 10 MG/ML 1 ML VIAL ONE (10:53)
[2024-03-17] MEDS ORDERED: LIDOCAINE 4% LTA KIT (4 ML) TOPICAL ONE (10:53)
[2024-03-17] MEDS ORDERED: LIDOCAINE 1% INJ 10MG/ML (20 ML MDV) ONE (10:53)
[2024-03-17] MEDS ORDERED: MIDAZOLAM 2 MG/2 ML VIAL ONE (10:53)
[2024-03-17] MEDS ORDERED: SUCCINYLCHOLINE CHLORIDE 200 MG/10 ML VIAL IV ONE (10:53)
[2024-03-17 11:35] VITALS: TEMP 97.8
[2024-03-17 12:38] VITALS: RESP 20
[2024-03-17 12:58] VITALS: BP 121/76; PULSE 88
--- NOTE | 2024-03-19 16:38 | OP ---
OPERATIVE REPORT DATE OF SERVICE : 03/17/2024 PREOPERATIVE DIAGNOSES: Left piriform sinus mass and left base of tongue mass. POSTOPERATIVE DIAGNOSES: Left piriform sinus mass and left base of tongue mass, final pathology pending. ANESTHESIA: General. OPERATIVE PROCEDURE: Suspension microlaryngoscopy with biopsy of left piriform sinus mass and left base of tongue mass. COMPLICATIONS: None. ESTIMATED BLOOD LOSS: Less than 2 mL. DESCRIPTION OF PROCEDURE: The patient was placed on the operating table in supine position. After uneventful induction and endotracheal intubation, satisfactory general anesthesia was obtained. Next, the patient was draped in the usual customary fashion. Following this, the laryngoscope was introduced into the patient's oropharynx and the entire hypopharynx was inspected including the floor of the mouth, vallecula, and right piriform sinus. Inspection of the left piriform sinus and left base of tongue reveals suspicious tissue. Next, the tip of the laryngoscope was placed at the laryngeal introitus. Following this, the Lewy apparatus was attached to the handle of the laryngoscope and the laryngoscope was suspended on the patient's chest. Next, the suspicious lesion of the left piriform sinus and the left base of tongue were biopsied respectively with the specimen being sent to Pathology in formalin for permanent sectioning. The true vocal cords appeared to be free of any suspicious lesions as that the remainder of the larynx. At this point, the procedure was terminated. The patient was given 10 mg of Decadron intraoperatively to reduce any postoperative edema. The procedure having been terminated. The patient was subsequently returned to the recovery room in satisfactory condition. Final pathology is pending. MMODL / IJN: [id number] /
== END 2024-03-17 13:01 | disposition home or self-care (01) ==
LOC: OR 09:33
PROVIDERS: ATTEND Otolaryngology
DX: K14.0 Glossitis (principal); F17.200 Nicotine dependence, unspecified, uncomplicated; J44.9 Chronic obstructive pulmonary disease, unspecified; F17.210 Nicotine dependence, cigarettes, uncomplicated; E11.9 Type 2 diabetes mellitus without complications; F32.A Depression, unspecified; F41.9 Anxiety disorder, unspecified; H91.90 Unspecified hearing loss, unspecified ear; K21.9 Gastro-esophageal reflux disease without esophagitis; F20.9 Schizophrenia, unspecified; Z79.83 Long term (current) use of bisphosphonates; Z90.89 Acquired absence of other organs; Z79.899 Other long term (current) drug therapy; Z79.02 Long term (current) use of antithrombotics/antiplatelets; Z79.84 Long term (current) use of oral hypoglycemic drugs; Z88.5 Allergy status to narcotic agent
CPT/HCPCS: 88305

== ENCOUNTER → 2024-08-17 | Outpatient (CLI) | payer MEDICARE, OTHER ==
--- NOTE | 2024-08-17 10:47 | CTL ---
EXAMINATION TYPE: CT Low Dose Lung DATE OF EXAM: 08/17/2024 10:24 AM COMPARISON: Radiographs 01/18/2023 CLINICAL INDICATION: Female, 69 years old with history of Z12.2 LUNG CANCER SCREENING, tobacco user, History of tobacco use. Current smoker with 29 pack-year history TECHNIQUE: Low dose computed tomography scan was performed through the chest at 1 mm thick sections a nd reconstructed images in multiple planes at 1 mm and [address] DLP: 70.1 mGycm, CT CTDI: 1.8 mGy, Automated exposure control for dose reduction was used. CT DIAGNOSTIC QUALITY: Satisfactory FINDINGS: The heart is normal size with ar trace anterior pericardial effusion measuring 6 mm thick. Aorta normal caliber with mild atherosclerotic arch calcifications and conventional arch vessel branc iris anatomy. There is a mildly enlarged precarinal lymph node measuring 1.2 cm. Otherwise, no thoracic lymphadenop athy is identified. Borderline to mildly enlarged caliber main right and left pulmonary arteries up to 2.6 cm may reflect underlying pulmonary arterial hypertension. Some strandy scarring or atelectasis at the right greater than left lower lungs. Patchy peripheral opacities in the right upper lobe with some associated groundglass. Approximately 3 areas of cystic change are also demonstrated in the right upper lobe measuring up to 1.3 cm. Some eccentric cyst wall thickening suggested, for example, axial image 96 and 102. Some additional irregular thick-walled cystic change measuring up to 1.7 cm posterior right lower lob e, axial image 141. Moderate diffuse bronchial wall thickening particularly in the right lower lobe. Mild emphysematous c hange. Additional 4 mm anterior left midlung pulmonary nodule, axial image 114. No pleural effusion. Tiny hiatal hernia. Low-density 2.2 cm nodule right adrenal gland compatible with lipid rich adrenal adenoma. Some diffus e low-density thickening left adrenal gland as well without discrete nodularity. Moderate stool burde n in the upper abdomen. Bones: Levoconvex curvature upper thoracic spine with scattered mild degenerative disc disease. IMPRESSION: 1. Lung is 4A, suspicious. Approximately 4 cystic areas in the right lung demonstrating some irregula r wall thickening. Follow-up to exclude neoplasm. Alternatively, atypical fungal/mycobacterial infect ions are in the differential. Three-month follow-up low-dose CT chest to reassess. 2. COPD with mild emphysema. Patchy opacities and groundglass especially along the periphery of the r ight upper lobe may also reflect infectious etiology. Atypical/COVID pneumonia is also in the differe ntial. 3. A mildly enlarged 1.2 cm precarinal lymph node may be reactive. Attention on follow-up. 4. Tiny hiatal hernia and a 2.2 cm lipid rich right adrenal adenoma. CT LUNG RAD AND CT CHEST RECOMMENDATION: Lung-Rad 4A Suspicious: Follow-up 3 month LDCT or PET/CT may be used when there is a > 8 mm solid component. S Modifier (other clinically significant findings): S, possible atypical infectious process as mental hema above. Lipid rich right adrenal adenoma. [facility], , 08/17/2024 10:44 AM
== END | disposition home or self-care (01) ==
LOC: RADCTMAIN 09:17
PROVIDERS: ATTEND Internal Medicine
DX: Z12.2 Encounter for screening for malignant neoplasm of respiratory organs (principal); J44.9 Chronic obstructive pulmonary disease, unspecified; J43.9 Emphysema, unspecified; F17.210 Nicotine dependence, cigarettes, uncomplicated; R59.9 Enlarged lymph nodes, unspecified; K44.9 Diaphragmatic hernia without obstruction or gangrene; D35.01 Benign neoplasm of right adrenal gland; I31.39 Other pericardial effusion (noninflammatory)
CPT/HCPCS: 71271

== ENCOUNTER → 2024-11-06 | Outpatient (CLI) | payer MEDICARE, OTHER ==
--- NOTE | 2024-11-06 12:00 | MM ---
Reason for Exam: Screening (asymptomatic). Last screening mammogram was performed 12 month(s) ago. Patient History: Menarche at age 10. First Full-Term at age 19. Postmenopausal. 2001, Benign Excisional Biopsy on the left side. 03/11/1998, Benign Cyst Aspiration on the left side. Sister had breast cancer, age 50. Risk Values: Leonor 5 year model risk: 3.9%. NCI Lifetime model risk: 10.6%. Prior Study Comparison: 06/01/2018 Bilateral Screening Mammogram, [facility]. 11/02/2022 Bilateral MG 3D screening mammo w/cad, [facility]. 11/04/2023 Bilateral MG 3D screening mammo w/cad, [facility]. Tissue Density: The breasts are heterogeneously dense, which may obscure small masses. Findings: Analyzed By CAD. There is no suspicious group of microcalcifications or new suspicious mass in either breast. Overall Assessment: Benign, BI-RAD 2 Management: Screening Mammogram of both breasts in 1 year. . Patient should continue monthly self-breast exams. A clinical breast exam by your physician is recommended on an annual basis. This exam should not preclude additional follow-up of suspicious palpable abnormalities. Note on Leonor scores and lifetime risk: 1. A Leonor score greater than 3% is considered moderate risk. If this is the case, consider specialist referral to assess eligibility for a risk reducing agent. 2. If overall lifetime risk for the development of breast cancer is 20% or higher, the patient may qualify for future screening with alternating mammogram and breast MRI. [facility], , 11/06/2024 11:57 AM. Electronically signed and approved by: Kip Herr M.D. [facility]
== END | disposition home or self-care (01) ==
LOC: RADMAMWWP 10:02
PROVIDERS: ATTEND Internal Medicine
DX: Z12.31 Encounter for screening mammogram for malignant neoplasm of breast (principal); R92.333 Mammographic heterogeneous density, bilateral breasts; Z78.0 Asymptomatic menopausal state; Z80.3 Family history of malignant neoplasm of breast
CPT/HCPCS: 77063; 77067